=== PATIENT | male | born 1965 | race Caucasian/White ===

== ENCOUNTER 2025-03-07 13:16 | Inpatient (IN) | payer MEDICARE, MEDICAID, SELFPAY ==
[2025-03-07] VITALS (9 sets, daily range): BP systolic 91–142; BP diastolic 42–77; PULSE 82–88; RESP 16–22; TEMP 36.4–36.6; O2SAT 99–100; BMI 28.2
--- NOTE | ~2025-03-07 | US_ITS ---
US abdomen limited INDICATION: Distended gallbladder with sludge PROCEDURE: Realtime right upper abdominal ultrasound. COMPARISON: CT dated 03/07/2025 FINDINGS: The pancreas is normal without focal mass or pancreatic ductal dilation. Liver echotexture is normal without focal mass or intrahepatic biliary dilatation. There is normal directional flow i n the portal vein. There are gallstones and gallbladder sludge no gallbladder wall thickening. Common bile duct measure s 3 mm. No sonographic Lam's sign. IMPRESSION: 1: Gallstones and gallbladder contains sludge and stones. No gallbladder wall thickening or perichole cystic fluid. Reviewed, dictated and finalized at location A. IMPRESSION: 1: Gallstones and gallbladder contains sludge and stones. No gallbladder wall t hickening or pericholecystic fluid.
--- NOTE | ~2025-03-07 | CT_ITS ---
CT chest abdomen pelvis w con Ordering provider: Tianna Singh MD History: 59 years Male with . constipation, SYNCOPE . Comparison: None. Technique: CT chest with IV contrast. CT abdomen and pelvis CT abdomen and pelvis with IV and with or al contrast. Radiation reduction technique utilized.The dose-length product was 1305.27 mGy-cm. 100 m L Omnipaque 350 was given IV. FINDINGS: CHEST: --VISUALIZED THORACIC INLET: Normal. --MEDIASTINUM: Aorta/coronary arteries: Mild atheromatous disease. Heart/other: The heart is slightly 0enlarged. Lymph nodes: No mediastinal or hilar adenopathy. Paratracheal lymph node is seen measuring 1. 5 and 1 .2 cm. Precarinal lymph nodes are also seen with the largest measures 1.8 cm. Small prevascular lymph nodes are also seen. --LUNGS: No pulmonary nodules or masses. No infiltrates or effusions. No pneumothorax. --MUSCULOSKELETAL: Soft tissues: The superficial soft tissues are normal. Bones: Age appropriate degenerative changes of the spine. No suspicious bony lytic or sclerotic lesio ns. ABDOMEN/PELVIS: Right dialysis catheter is seen in the inferior IVC. --MUSCULOSKELETAL: Bones: Age appropriate degenerative changes of the spine. No suspicious bony lytic or sclerotic lesio ns. Possible multilevel bony spinal canal stenosis. Clinical evaluation advised Superficial soft tissues: The superficial soft tissues are normal. --UPPER ABDOMINAL ORGANS: Liver: Normal. Gallbladder: Distended with Stones and sludge. Spleen: Normal. Stomach/duodenum: Sliding hiatus hernia. Slightly thickened wall of the stomach. Pancreas: Normal. Adrenals: Slightly prominent left adrenal gland. Kidneys: Atrophic kidneys with horseshoe appearance. Stones seen in the left kidney. Small cyst in th e right kidney. --PELVIC ORGANS: The bladder is under distended with thickened wall. Evaluation for cystitis or infil trative process is advised. No bladder stones. --BOWEL AND MESENTERY: Colon: Thickened wall of the rectum. Clinical evaluation advised. No evidence of diverticulitis. Impa cted fecal material in the rectum is seen. Appendix is not demonstrated. Small Bowel: Normal. No obstruction. Peritoneum/mesentery: No free air or free fluid. No mesenteric lymphadenopathy. --RETROPERITONEUM: Moderate atheromatous disease of the abdominal aorta. No retroperitoneal lymphad enopathy. IMPRESSION: CHEST: 1. No pulmonary embolism. No dissection. 2. No acute cardiopulmonary pathology. 3. Mediastinal lymphadenopathy. Clinical correlation advised. ABDOMEN/PELVIS: 1. Distended gallbladder with cholelithiasis and sludge. 2. Sliding hiatus hernia. 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 4. Thickened wall of the urinary bladder. Further evaluation advised. 5. Thickened wall of the rectum. Clinical evaluation advised. Reviewed, dictated and finalized at location A.
--- NOTE | 2025-03-07 13:20 | ECG_ITS ---
Test Date: 2025-03-07 13:24:55 Measurements Intervals [place] Rate: 87 P: 46 OK: 159 QRS: -39 QRSD: 94 T: 109 QT: 405 QTc: 487 Interpretive Statements SINUS RHYTHM LEFT AXIS DEVIATION ANTEROSEPTAL INFARCT, AGE INDETERMINATE BORDERLINE ST-T WAVE ABNORMALITY- HIGH LATERAL LEADS BASELINE ARTIFACT- I, II, III, AVR, AVL, AVF ABNORMAL ECG No previous ECG available for comparison Electronically Signed On 03-07-2025 13:29:13 CDT by Olvin Rm D.O.
[2025-03-07 13:40] LABS: Mean Corpuscular HGB Conc 29.1 g/dl (32-36); Mean Corpuscular Hemoglobin 28.8 pg (26-34); Mean Platelet Volume 9.9 fl (7.4-10.4); Platelet Count Result 309 k/mm3 (150-375); Red Blood Count 2.08 M/mm3 (4.6-6.20); Red Cell Distribution Width 16.8 % (11.5-14.5); White Blood Count 19.7 K/mm3 (4.5-10.0)
[2025-03-07 13:44] LABS: Hematocrit 20.6 % (42.0-52.0)
[2025-03-07 13:49] LABS: Alanine Aminotransferase 12 U/L (6-50); Albumin Level 3.4 g/dL (3.5-5.1); Alkaline Phosphatase 85 U/L (38-126); Anion Gap 10 mmol/L (4-12); Aspartate Amino Transferase 18 U/L (17-59); Bilirubin,Total 0.4 mg/dL (0.2-1.3); Blood Urea Nitrogen 80 mg/dL (9-20); Calcium 9.4 mg/dL (8.4-10.2); Carbon Dioxide 32 mmol/L (22-30); Chloride 92 mmol/L (98-107); Estimated CRCL calculation 17 ml/min; Estimated Glomerular Filt Rate 16; Glucose 144 mg/dL (65-110); Potassium 4.2 mmol/L (3.4-5.0); Sodium 134 mmol/L (137-145)
--- NOTE | 2025-03-07 13:55 | ED.WEAKNESS ---
HPI - Weakness General Chief complaint: Weakness Stated complaint: syncope at dialysis Time Seen by Provider: 03/07/25 13:44 Source: patient Mode of arrival: EMS Limitations: no limitations History of Present Illness HPI Narrative: 59-year-old with a history of hypertension, anemia, ESRD on hemodialysis was scented from dialysis center with a complains of marked weakness, syncopal episode-the patient states that his nursing and for the past 6 weeks to months he has been having intermittent constipation. He denies having any nausea, vomiting. No history of fever or chills denies any blood in the stool or black color stool. 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 MD Complaint: generalized weakness Review of Systems Review of Systems: All systems reviewed & are unremarkable except as noted in HPI and below Constitutional: Constitutional: Reports no additional constitutional complaints Eyes: Eyes: Reports no additional eye complaints ENT: Reports system reviewed and no additional complaints, except as documented Cardiovascular: Cardiovascular: Reports no additional cardiovascular complaints Gastrointestinal: Gastrointestinal: Reports no additional gastrointestinal complaints Musculoskeletal: Musculoskeletal: Reports no additional musculoskeletal complaints Neurologic: Reports system reviewed and no additional complaints, except as documented Psychiatric: Psychiatric: Reports no additional psychiatric complaints Endocrine: Endocrine: Reports no additional endocrine complaints Exam Narrative: GENERAL: Well-appearing, well-nourished, and in no acute distress. HEAD: Normocephalic, atraumatic. EYES: PERRLA and EOMI. ENT:. Mucous membranes moist. NECK: Supple. CHEST: Clear to auscultation. No respiratory distress. HEART: Regular rate and rhythm. No murmur heard. Normal peripheral pulses. ABDOMEN: Soft, nontender, nondistended, normal active bowel sounds. EXTREMITIES: Normal range of motion. No edema. SKIN: Warm, dry, no rash. NEURO: No focal deficits. Alert and oriented x3. PSYCH: Normal mood and affect. Course Course Emergency Course: I informed him about his lab work , agreed for blood transfusion . discussed with Dr. De La Garza recommended to admit and transfuse ,discussed with Hospitalist ,will admit Vital Signs Vital signs: Vital Signs Temperature 36.6 C 03/07/25 13:22 Pulse Rate 84 03/07/25 13:22 Respiratory Rate 18 03/07/25 13:22 Blood Pressure 105/58 L 03/07/25 13:22 Pulse Oximetry 100 03/07/25 13:22 Oxygen Delivery Room Air 03/07/25 13:22 Temperature 36.6 C 03/07/25 13:22 Pulse Rate 84 03/07/25 13:22 Respiratory Rate 18 03/07/25 13:22 Blood Pressure 105/58 L 03/07/25 13:22 Pulse Oximetry 100 03/07/25 13:22 Oxygen Delivery Room Air 03/07/25 13:22 MDM - Weakness Differential Diagnosis Differential diagnosis: Likely anemia, sepsis and dehydration Medical Records Attestation: I reviewed the patient's medical records. Lab Data Attestation: I reviewed the patient's lab results. 03/07/25 13:35 03/07/25 13:35 Labs: Lab Results 03/07/25 Range/Units 13:35 WBC 19.7 H (4.5-10.0) K/mm3 RBC 2.08 L (4.6-6.20) M/mm3 Hgb 6.0 L* (14.0-18.0) g/dL Hct 20.6 L* (42.0-52.0) % MCV 99.0 (80-100) fl MCH 28.8 (26-34) pg MCHC 29.1 L (32-36) g/dl RDW 16.8 H (11.5-14.5) % Plt Count 309 (150-375) k/mm3 MPV 9.9 (7.4-10.4) fl Immature Gran % (Auto) 0.7 H (0-0.5) % Neut % (Auto) 91.2 H (45.5-73.1) % Lymph % (Auto) 4.7 L (18.3-44.2) % [place] % (Auto) 3.0 (2.6-8.5) % Eos % (Auto) 0.2 (0-4.4) % Baso % (Auto) 0.2 (0.2-1.2) % Lymph # (Auto) 0.93 (0.9-3.2) K/mm3 [place] # (Auto) 0.6 (0.1-0.6) K/mm3 Eos # (Auto) 0.0 (0-0.3) K/mm3 Baso # (Auto) 0.0 (0.0-0.1) K/mm3 Abs Immat Gran (auto) 0.14 H (0.00-0.031) K/mm3 Absolute Neuts (auto) 18.0 H (1.3-6.7) K/mm3 Absolute Nucleated RBC 0.000 (0.0-0.012) K/mm3 Nucleated RBC % 0.0 (0.0-0.2) % Sodium 134 L (137-145) mmol/L Potassium 4.2 (3.4-5.0) mmol/L Chloride 92 L (98-107) mmol/L Carbon Dioxide 32 H (22-30) mmol/L Anion Gap 10 (4-12) mmol/L BUN 80 H (9-20) mg/dL Creatinine 3.87 H (0.7-1.3) mg/dL Estim Creat Clear Calc 17 ml/min Estimated GFR 16 L (59 - ) Glucose 144 H (65-110) mg/dL Calcium 9.4 (8.4-10.2) mg/dL Total Bilirubin 0.4 (0.2-1.3) mg/dL AST 18 (17-59) U/L ALT 12 (6-50) U/L Alkaline Phosphatase 85 (38-126) U/L Total Protein 6.0 L (6.3-8.2) g/dL Albumin 3.4 L (3.5-5.1) g/dL ECG Data EKG #1: ECG completion date: 03/07/25 ECG completion time: 13:24 EKG Interpretation: normal rate (87), no ectopy, non-specific ST changes and left axis Critical Care Time Critical Care Time Critical Care Time: Yes Total Critical Care Time: 45 Discharge Plan Discharge Clinical Impression: Anemia Qualifiers: Anemia type: due to chronic kidney disease Chronic kidney disease stage: on chronic dialysis Qualified Code(s): N18.6 - End stage renal disease; D63.1 - Anemia in chronic kidney disease; Z99.2 - Dependence on renal dialysis Patient Disposition: Still a Patient Condition: Stable Patient Language: Mongolian Time of Disposition: 13:59
[2025-03-07 14:09] LABS: Platelet Estimate Adequate (Adequate)
[2025-03-07 14:10] LABS: Anisocytosis 1+; Hypochromasia 1+; Schistocytes None Seen
--- NOTE | 2025-03-07 14:27 | PM.IMHP ---
H&P: HPI History of Present Illness Date/Time: 03/07/25 14:27 Meds Vital Signs Vital Signs - 24 hr 03/07/25 13:22 Temperature 97.8 F Pulse Rate 84 Respiratory Rate 18 Blood Pressure 105/58 L Pulse Oximetry 100 Oxygen Delivery Room Air H&P: Results Labs Labs: Short CBC 03/07/25 Range/Units 13:35 WBC 19.7 H (4.5-10.0) K/mm3 Hgb 6.0 L* (14.0-18.0) g/dL Hct 20.6 L* (42.0-52.0) % Plt Count 309 (150-375) k/mm3 BMP 03/07/25 13:35 Sodium 134 L Potassium 4.2 Chloride 92 L Carbon Dioxide 32 H BUN 80 H Creatinine 3.87 H Glucose 144 H Calcium 9.4 Liver Function 03/07/25 Range/Units 13:35 Total Bilirubin 0.4 (0.2-1.3) mg/dL AST 18 (17-59) U/L ALT 12 (6-50) U/L Alkaline Phosphatase 85 (38-126) U/L Albumin 3.4 L (3.5-5.1) g/dL
--- OUTSIDE RECORDS SUMMARY | 2025-03-07 14:52 | XMS_ITS | Encounter Summary ---
Author Organization [facility] Address [facility] [place] [address] Care Team Providers Care Medical Intern Name Role Phone Lucy Flores NUT FEEDER Unavailable [phone] Glenn Dale DO Unavailable Keya Morales [facility] Primary Care Provider + Beau Zuñiga MD Primary Care Provider None, Provider MD Unavailable Unavailable Encounter Details Date Type Department Care Team (Latest Contact Info) Description 02/08/2024 Spartz Message [facility] Multispecialty Care - [facility] 3 [facility], [address] [id number] Yen, [facility] Provider Appointment Reminder Social History Tobacco Use Types Packs/Day Years Used Date Smoking Tobacco: Never Smokeless Tobacco: Never Alcohol Use Standard Drinks/Week Comments No 0 (1 standard drink = 0.6 oz pur e alcohol) OASIS D0700: Social Isolation Answer Da te Recorded Frequency of experiencing loneliness or isolatio n Never 05/04/2023 OASIS A1250: Transportation Answer Date Recorded Lack of Transportation (Medical) No 05/04/2023 Lack of Transportation (Non-Medical) No 05/04/2023 Patient Unable or Declines to Respond No 05/04/2023 OASIS B1300: Health Literacy Answer Jr e Recorded Frequency of needing help to read materials from doctor or pharmacy Never 05/04/2023 [facility] Utilities Answer Date Recorded In the past 12 months has th e [employer], gas, oil, or water [employer] threatened to shut off services in your home? No 12/31/2023 Humiliation, Afraid, Rape, and Kick questionnair e Answer Date Recorded Within the last year, have y ou been afraid of your partner or ex-partner? No 12/31/2023 Within the last year, have y ou been humiliated or emotionally abused in other ways by your partner or ex-partner? No Within the last year, have y ou been kicked, hit, slapped, or otherwise physically hurt by your partner or ex-partner? No 12/31/2023 Within the last year, have y ou been raped or forced to have any kind of sexual activity by your partner or ex-partner? No 12/31/2023 Social Connection and Isolat ion Panel [NHANES] Answer Date Recorded In a typical week, how many times do you talk on the phone with family, friends, or neighbors? More than three times a week 11/01/2023 How often do you get togethe r with friends or relatives? Once a week 11/01/2023 How often do you attend chur or yarsani services? More than 4 times per year 11/01/2023 Do you belong to any clubs o r organizations such as latter-day groups, unions, fraternal or athletic groups, or school groups? Yes 11/01/2023 How often do you attend meet ings of the clubs or organizations you belong to? More than 4 times per year 11/01/2023 Are you , , di vorced, , never , or living with a partner? Never 11/01/2023 AUDIT-C Answer Date Recorded Q1: How often do you have a drink containing alcohol? Never 11/01/2023 Q2: How many drinks containi ng alcohol do you have on a typical day when you are drinking? Patient does not drink Q3: How often do you have si x or more drinks on one occasion? Never 11/01/2023 Overall Financial Resource Strain (CARDIA) Answe r Date Recorded How hard is it for you to pa y for the very basics like food, housing, medical care, and heating? Somewhat hard 12/31/2023 PHQ-2 Answer Date Recorded Patient Health Questionnaire-2 Score 0 02/01/2024 [facility] - Occupational Stress Questionnaire Answer Date Recorded Do you feel stress - tense, restless, nervous, or anxious, or unable to sleep at night because your mind is troubled all the time - these days? Rather much 11/01/2023 Exercise Vital Sign Answer Date Recorde d On average, how many days pe r week do you engage in moderate to strenuous exercise (like a brisk walk)? 0 days 11/01/2023 On average, how many minutes do you engage in exercise at this level? 0 min 11/01/2023 Hunger Vital Sign Answer Date Recorded Within the past 12 months, y ou worried that your food would run out before you got the money to buy more. Never true 12/31/19 24 Within the past 12 months, t he food you bought just didn't last and you didn't have money to get more. Never true 12/31/2023 PRAPARE - Transportation Answer Date Re corded In the past 12 months, has l ack of transportation kept you from medical appointments or from getting medications? Yes 12/21 In the past 12 months, has l ack of transportation kept you from meetings, work, or from getting things needed for daily living? Yes 12/31/2023 Housing Stability Vital Sign Answer Jr e Recorded In the last 12 months, was t here a time when you were not able to pay the mortgage or rent on time? No 12/31/2023 In the last 12 months, how many places have you lived? 2 12/31/2023 In the last 12 months, was t here a time when you did not have a steady place to sleep or slept in a longterm (including now)? No 12/31/2023 Sex and Gender Information Value Date Recorded Sex Assigned at Male 05/29/2020 4:58 PM CDT Legal Sex Male 1:46 AM CDT Gender Identity Male 05/29/2020 4:58 PM CDT Sexual Orientation [place] 11/25/2021 10 :24 AM WELDER MANUFACTURE documented as of this encounter Functional Status * Are you deaf or do you have serious difficulty hearing Answer Date of Assessment Author Status No 12/31/2023 9:50 PM Alesia Juarez RN Active * Are you blind or do you have serious difficulty seeing, even when wearing glasses? Answer Date of Assessment Author Status No 12/31/2023 9:50 PM Alesia Juarez RN Active * Do you have serious difficulty walking or climbing stairs? Answer Date of Assessment Author Status Yes 12/31/2023 9:50 PM Alesia Juarez RN Active * Do you have difficulty dressing or bathing? Answer Date of Assessment Author Status Yes 12/31/2023 9:50 PM Alesia Juarez RN Active * Because of a physical, mental, or emotional condition, do you have difficulty doing errands alone such as visiting a doctor's office or shopping? Answer Date of Assessment Author Status Yes 12/31/2023 9:50 PM Alesia Juarez RN Active documented as of this encounter Mental Status * Because of a physical, mental, or emotional condition, do you have serious difficulty concentrating, remembering, or making decisions? Answer Entry Date Author Status No 12/31/2023 9:50 PM Alesia Juarez RN Active documented in this encounter Plan of Treatment Not on file documented as of this encounter Goals Goal Patient Goal Type Associated Problems Recent Progress Patient-Stated? 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 06/25/2024 06/25/2024 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 06/28/2024 06/28/2024 COVID-19 Rule Out 08/04/2024 08/04/2024 08/04/2024 4:11 PM CDT COVID-19 Rule Out 08/04/2024 08/05/2024 08/05/2024 3:59 AM CDT COVID-19 Rule Out 11/25/2024 11/25/2024 11/25/2024 3:06 PM WELDER MANU[employer] Influenza - Seasonal 11/25/2024 11/25/2024 025 12:32 AM WELDER MANUFACTURE Assessment Noted Time PHQ-9 Depression Total Score: 023 11:16 AM WELDER MANUFACTURE documented as of this encounter Care Teams Medical Intern Relationship Specialty Start Date End Date Keya Morales, AUTOMOBILE DAMAGE FIELD APPRAISER- [address] [place] [address] PCP - General NURSE PRACTITIONER 10/26/22 05/21/24 Beau Z[place] [address] [place] [address] PCP - General FAMILY PRACTICE 05/22/24 Lucy Flores NP Nurse Practitioner NURSE PRACTITIONER 01/11/22 Glenn Dale DO Consulting Physician INTERNAL MEDICINE 01/11/22 None, Provider, MD UNKNOWN PHYSICIAN SPECIALTY 11/25/24 documented as of this encounter
--- OUTSIDE RECORDS SUMMARY | 2025-03-07 14:52 | XMS_ITS | Encounter Summary ---
Author Organization [facility] Address [facility] access hospital[address] [place] [address] Care Team Providers Care Timber Estimator Name Role Phone Lucy Flores SR COMMUNITY MANAGER Unavailable [phone] Glenn Dale DO Unavailable Keya Morales [facility] Primary Care Provider + Beau Zuñiga MD Primary Care Provider None, Provider MD Unavailable Unavailable Encounter Details Date Type Department Care Team (Late st Contact Info) Description 01/29/2024 Historic Futures Message [facility] Multispecialty Care - [facility] 3 [facility], [address] [phone] Yen, [facility] Provider Appointment Social History Tobacco Use Types Packs/Day Years [...] materials from doctor or pharmacy Never 05/04/2023 [facility] Utilities Answer Date Recorded In the past 12 months has th e [employer], gas, oil, or water [employer] threatened to shut off services in your [...] How often do you attend chur or temple services? More than 4 times per year 11/01/2023 Do you belong to any clubs o r organizations such as denominational groups, unions, fraternal or athletic groups, or [...] Recorded Patient Health Questionnaire-2 Score 0 02/01/2024 [facility] - Occupational Stress Questionnaire Answer [...] place to sleep or slept in a skilled nursing (including now)? No 12/31/2023 Sex and Gender Information Value Date Recorded Sex Assigned at Male 05/29/2020 4:58 PM CDT Legal Sex Male 1:46 AM CDT Gender Identity Male 05/29/2020 4:58 PM CDT Sexual Orientation [place] 11/25/2021 10 :24 AM BANKRUPTCY LAW SPECIALIST documented as of this encounter Functional Status [...] 9:50 PM Alesia Juarez RN Active * Over the past 2 weeks, how often have you been bothered by any of the following problems? Question Answer Date of Assessment Author Status Little interest or pleasure in doing things Not at all 02/01/2024 10:22 AM Grace Cook MA Active Feeling down, depressed, or hopeless Not at all 02/01/2024 10:22 AM JASBIRT Grace Connor MA Activ e Patient Health Questionnaire-2 Score 0 02/01/2024 10:22 AM Grace Cook MA Active documented as of this encounter Mental [...] Depression, or Anxiety General No Rosibel Miller, MEDICAL STAFF DIRECTOR Patient will return to prior living situation [...] Rule Out 11/25/2024 11/25/2024 11/25/2024 3:06 PM BANKRUPTCY LAW SPECIALIST Influenza - Seasonal 11/25/2024 11/25/2024 025 12:32 AM BANKRUPTCY LAW SPECIALIST Assessment Noted Time PHQ-9 Depression Total Score: 24 023 11:16 AM BANKRUPTCY LAW SPECIALIST documented as of this encounter Care Teams Timber Estimator Relationship Specialty Start Date End Date Keya Morales, FORMATION TESTING OPERATOR- [address] [address] PCP - General NURSE PRACTITIONER 10/26/22 05/21/24 Beau Zuñ[place] [address] [place] [address] PCP - General FAMILY PRACTICE 05/22/24 Lucy Flores NP Nurse Practitioner NURSE PRACTITIONER 01/11/22 Glenn Dale DO Consulting Physician INTERNAL MEDICINE 01/11/22 None, Provider, MD UNKNOWN PHYSICIAN SPECIALTY 11/25/24 documented as of this encounter
--- OUTSIDE RECORDS SUMMARY | 2025-03-07 14:52 | XMS_ITS | Encounter Summary ---
Author Organization [facility] Address [facility] [place] [address] Care Team Providers Care Matchbook Assembler Name Role Phone Lucy Flores NP Unavailable [phone] Glenn Dale DO Unavailable Beau Zuñiga MD Primary Care Provider None, Provider MD Unavailable Unavailable Encounter Details Date Type Department Care Team (Latest Contact Info) Description 09/02/2024 [employer] Message Enc [facility] [address] [address] Yen, [facility] Provider APPOINTMENT RESCHEDULED Social History Tobacco Use Types Packs/Day Years [...] materials from doctor or pharmacy Never 05/04/2023 [facility] Utilities Answer Date Recorded In the past 12 months has e [employer], [employer], oil, or water [employer] threatened to shut off services in your home? No 08/05/2024 Humiliation, Afraid, Rape, and Kick questionnair e Answer Date Recorded Within the last year, have y ou been afraid of your partner or ex-partner? No 08/05/2024 Within the last year, have y ou been humiliated or emotionally abused in other ways by your partner or ex-partner? No Within the last year, have y ou been kicked, hit, slapped, or otherwise physically hurt by your partner or ex-partner? No 08/05/2024 Within the last year, have y ou been raped or forced to have any kind of sexual activity by your partner or ex-partner? No 08/05/2024 Social Connection and Isolat ion Panel [NHANES] Answer Date Recorded In a typical week, how many times do you talk on the phone with family, friends, or neighbors? More than three times a week 06/25/2024 How often do you get togethe r with friends or relatives? Once a week 06/25/2024 How often do you attend chur ch or taoism services? More than 4 times per year 06/25/2024 Do you belong to any clubs o r organizations such as judaism groups, unions, fraternal or athletic groups, or school groups? Yes 06/25/2024 How often do you attend meet ings of the clubs or organizations you belong to? More than 4 times per year 06/25/2024 Are you , , di vorced, , never , or living with a partner? Never 06/25/2024 AUDIT-C Answer Date Recorded Q1: How often [...] like food, housing, medical care, and heating? Not hard at all 08/05/2024 PHQ-2 Answer Date Recorded Patient Health Questionnaire-2 Score 0 08/01/2024 [facility] [place] of Occupat ional [facility] - Occupational Stress Questionnaire Answer Date Recorded Do you feel stress - tense, restless, nervous, or anxious, or unable to sleep at night because your mind is troubled all the time - these days? Rather much 06/25/2024 Exercise Vital Sign Answer Date Recorde d [...] the money to buy more. Never true 08/05/20 24 Within the past 12 months, t he food you bought just didn't last and you didn't have money to get more. Never true 08/05/2024 PRAPARE - Transportation Answer Date Re corded In the past 12 months, has l ack of transportation kept you from medical appointments or from getting medications? No 07/21 In the past 12 months, has l ack of transportation kept you from meetings, work, or from getting things needed for daily living? No 08/05/2024 Housing Stability Vital Sign Answer Jr e [...] place to sleep or slept in a nursing home (including now)? No 12/31/2023 Housing Stability Vital Sign Answer Jr e Recorded In the last 12 months, was t here a time when you were not able to pay the mortgage or rent on time? No 08/05/2024 In the past 12 months, how m any times have you moved where you were living? 0 08/05/2024 At any time in the past 12 m [facility], were you homeless or living in a nursing home (including now)? No 08/05/2024 Sex and Gender Information Value Date Recorded Sex Assigned at Male 05/29/2020 4:58 PM CDT Legal Sex Male 1:46 AM CDT Gender Identity Male 05/29/2020 4:58 PM CDT Sexual Orientation [place] 11/25/2021 10 :24 AM SYSTEM SOFTWARE DEVELOPER documented as of this encounter Functional Status * Are you deaf or do you have serious difficulty hearing Answer Date of Assessment Author Status No 08/05/2024 2:15 AM Sandy Rowe RN Active * Are you blind or do you have serious difficulty seeing, even when wearing glasses? Answer Date of Assessment Author Status No 08/05/2024 2:15 AM Sandy Rowe RN Active * Do you have serious difficulty walking or climbing stairs? Answer Date of Assessment Author Status Yes 08/05/2024 2:15 AM Sandy Rowe RN Active * Do you have difficulty dressing or bathing? Answer Date of Assessment Author Status No 08/05/2024 2:15 AM Sandy Rowe RN Active * Because of a physical, mental, or emotional condition, do you have difficulty doing errands alone such as visiting a doctor's office or shopping? Answer Date of Assessment Author Status No 08/05/2024 2:15 AM Sandy Rowe RN Active documented as of this encounter Mental Status * Because of a physical, mental, or emotional condition, do you have serious difficulty concentrating, remembering, or making decisions? Answer Entry Date Author Status No 08/05/2024 2:15 AM Sandy Rowe RN Active documented in this encounter Plan of Treatment Not on file documented as of this encounter Goals Goal Patient Goal Type Associated Problems Recent Progress Patient-Stated? Author Manage Stress, Depression, or Anxiety General No Rosibel Miller, FBI INVESTIGATOR Patient will return to prior living situation and remain independent in ADLs upon discharge from hospital General No Piedad Keith hand welt butter - family caregiver with be involved in care transitions and discharge planning Lifestyle No Piedad Keith RN Health - patient able to perform ADLs independently Lifestyle No Brianna Hutton RN Family - family caregiver with be involved in care transitions and discharge planning Lifestyle No Brianna Hutton RN documented as of this encounter Visit Diagnoses Not on filedocumented in this encounter Additional Health Concerns Infection Onset Date Last Indicated Resolved Time ESBL - Extended Spectrum Beta-lactamase Comment:06/25/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 foot 06/25/2024 06/25/2024 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 06/25/2024 06/25/2024 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 06/28/2024 06/28/2024 COVID-19 Rule Out 11/25/2024 11/25/2024 11/25/2024 3:06 PM SYSTEM SOFTWARE DEVELOPER Influenza - Seasonal 11/25/2024 11/25/2024 025 12:32 AM SYSTEM SOFTWARE DEVELOPER Assessment Noted Time PHQ-9 Depression Total Score: 24 023 11:16 AM SYSTEM SOFTWARE DEVELOPER documented as of this encounter Care Teams Matchbook Assembler Relationship Specialty Start Date End Date Beau Zuñ[place] [address] [place] [address] PCP - General FAMILY PRACTICE 05/22/24 Lucy Flores NP Nurse Practitioner NURSE PRACTITIONER 01/11/22 Glenn Dale DO Consulting Physician INTERNAL MEDICINE 01/11/22 None, Provider, UNKNOWN PHYSICIAN SPECIALTY 11/25/24 documented as of this encounter
--- OUTSIDE RECORDS SUMMARY | 2025-03-07 14:52 | XMS_ITS | Continuity of Care Document ---
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 Name Role Phone Brian Azevedo MD Unavailable [...] SHUNT W/ IMAGING ANGIOPLASTY PERC VENOUS ANGIOGRAPHY UTILIZATION REVIEW RN Radiation Exposure Documented To Be Coded CONTRAST, 300/ML, PER ML ARTERIOVENOUS SHUNT W/ IMAGING To Be Coded CONTRAST, 300/ML, PER ML ARTERIOVENOUS SHUNT W/ IMAGING ANGIOPLASTY PERC VENOUS ANGIOGRAPHY UTILIZATION REVIEW RN To Be Coded CONTRAST, 300/ML, PER ML ARTERIOVENOUS SHUNT W/ IMAGING ANGIOPLASTY PERC VENOUS ANGIOGRAPHY UTILIZATION REVIEW RN Radiation Exposure Documented To Be Coded CONTRAST, [...] Diagnoses Date Provider Providers Copied on Encounter [facility], [address] [facility], [place], [address] , [place] tel: [phone] [facility] No Information 3 Albjoseas Brian. [address] [facility] [place], [address] , [place]. tel: [phone] [facility] , [address] [facility] [place], [address] , [place] tel: [phone] [facility] 3 Albovias Brian. [address] [facility] [place], [address] , [place]. tel: [phone] Referring Provider: Sylvia García, [facility], [place], [address]. tel:[phone] [facility], [address] [facility] [place], [address] , [place] tel: [phone] [facility] 3 Roberto Carlos Torres. [address] [facility], [place], [address] , [place]. tel: [phone] Referring Provider: Sylvia García [address] [place], [address]. tel:[phone] [facility] , [address] [facility] [place], [address] , [place] tel: [phone] [facility] End stage renal diseaseCompression of Vein 3 Albovias Brian. [address] [facility], [facility] [place], [address] , [place]. tel: [phone] Referring Provider: Sylvia García, [address] [place], [address]. tel:[phone] [facility], [address] [facility], [facility] [place], [address] , [place] tel: [phone] [facility] Compression of VeinEnd stage renal disease 3 Albovias Brian. [address] [facility], [facility] [place], [address] , [place]. tel: [phone] Referring Provider: Sylvia García, [address] [place], [address]. tel:[phone] [facility], [address] [facility], [facility] [place], [address] , [place] tel: [phone] [facility] Compression of VeinEnd stage renal disease 3 Albovias Brian. [address] [facility], [facility] [place], [address] , [place]. tel: [phone] Referring Provider: Sylvia García [address] [place], [address]. tel:[phone] [facility] , [address] [facility], [facility] [place], [address] , [place] tel: [phone] [facility] End stage renal diseaseCompression of Vein 3 Albovias Brian. [address] [facility], [facility] [place], [address] , [place]. tel: [phone] Referring Provider: Sylvia García [address] [place], [address]. tel:[phone] [facility] , [address] [facility], [facility], [place], [address] , [place] tel: [phone] [facility] Compression of VeinCompression of VeinEnd stage renal diseaseEnd stage renal disease 1 Albovias Brian. [address] [facility], [facility], [place], [address] , [place]. tel: [phone] Referring Provider: Shant Nayak[address] [place], [address]. tel:[phone] [facility], [address] [facility], [facility], [place], [address] , [place] tel: [phone] [facility] Compression of VeinEnd stage renal diseaseCompression of VeinEnd stage renal disease 1 Albovias Brian. [address] [facility], [facility], [place], [address] , [place]. tel: [phone] Referring Provider: Shant Nayak[address] [place], [address]. tel:[phone] [facility] , [address] [facility], [facility], [place], [address] , [place] tel: [phone] [facility] End stage renal diseaseCompression of Vein 1 Albovias Brian. [address] [facility], [facility], [place], [address] , [place]. tel: [phone] Referring Provider: Shant Nayak[address] [place], [address]. tel:[phone] [facility], [address] [facility], [facility], [place], [address] , [place] tel: [phone] [facility] Compression of VeinEnd stage renal disease 1 Albovias Brian. [address] [facility], [facility] [place], [address] , [place]. tel: [phone] Referring Provider: Shant Nayak[address] [place], [address]. tel:[phone] [facility] , [address] [facility], [facility], [place], [address] , [place] tel: [phone] [facility] Compression of VeinEnd stage renal disease 1 Albovias Brian. [address] [facility], [facility], [place], [address] , [place]. tel: [phone] Referring Provider: Sylvia García [address] [place], [address]. tel:[phone] [facility], [address] [facility], [facility], [place], [address] , [place] tel: [phone] [facility] Compression of VeinEnd stage renal disease 1 Albovias Brian. [address] [facility], [facility], [place], [address] , [place]. tel: [phone] Referring Provider: Sylvia García [address] [place], [address]. tel:[phone] [facility], [address] [facility], [facility], [place], [address] , [place] tel: [phone] [facility] Compression of VeinEnd stage renal disease 1 Albovias Brian. [address] [facility], [facility], [place], [address] , [place]. tel: [phone] Referring Provider: Sylvia García [address] [place], [address]. tel:[phone] [facility] , [address] [facility], [facility], [place], [address] , [place] tel: [phone] [facility] End stage renal diseaseCompression of Vein 1 Albovias Brian. [address] [facility], [place], [address] , [place]. tel: [phone] Referring Provider: Sylvia García [address] [place], [address]. tel:[phone] [facility], [address] [facility], [place], [address] , [place] tel: [phone] [facility] Compression of VeinEnd stage renal disease 0 Albovias Brian. [address] [facility], [facility] [place], [address] , [place]. tel: [phone] Referring Provider: Shant Nayak[address] [place], [address]. tel:[phone] [facility] , [address] [facility], [facility] [place], [address] , [place] tel: [phone] [facility] Compression of VeinEnd stage renal disease 0 Albovias Brian. [address] [facility], [facility] [place], [address] , [place]. tel: [phone] Referring Provider: Shant Nayak[address] [place], [address]. tel:[phone] [facility], [address] [facility], [facility] [place], [address] , [place] tel: [phone] [facility] Compression of VeinEnd stage renal disease 0 Albovias Brian. [address] [facility], [place], [address] , [place]. tel: [phone] Referring Provider: Shant Nayak[address] [place], [address]. tel:[phone] [facility] , [address] [facility], [place], [address] , [place] tel: [phone] [facility] No Information 0 Albovias Brian. [address] [facility], [place], [address] , [place]. tel: [phone] Referring Provider: Shant Nayak[address] [place], [address]. tel:[phone] [facility] , [address] [facility], [place], [address] , [place] tel: [phone] [facility] No Information 9 Albovias Brian. [address] [facility], [place], [address] , [place]. tel: [phone] Referring Provider: Sylvia García [address] [place], [address]. tel:[phone] [facility], [address] [facility], [facility] [place], [address] , [place] tel: [phone] [facility] Other specified circulatory system disordersEnd stage renal disease 9 Albovias Brian. [address] [facility], [facility] [place], [address] , [place]. tel: [phone] Referring Provider: Sylvia García [address] [place], [address]. tel:[phone] OFFICE/OUTPAT IENT VISIT, [facility], [address] [facility], [facility] [place], [address] , [place] tel: [phone] [facility] End stage renal disease 9 Albovias Brian. [address] [facility], [facility] [place], [address] , [place]. tel: [phone] Referring Provider: Sylvia García [address] [place], [address]. tel:[phone] [facility] , [address] [facility], [facility] [place], [address] , [place] tel: [phone] [facility] No Information 9 Albovias Brian. [address] [facility], [facility] [place], [address] , [place]. tel: [phone] Referring Provider: Sylvia García [address] [place], [address]. tel:[phone] OFFICE/OUTPAT IENT VISIT, [facility], [address] [facility], [facility] [place], [address] , [place] tel: [phone] [facility] Other specified circulatory system disordersEnd stage renal disease 9 Albovias Brian. [address] [facility], [facility] [place], [address] , [place]. tel: [phone] Referring Provider: Shant Nayak[address] [place], [address]. tel:[phone] [facility] , [address] [facility], [facility] [place], [address] , [place] tel: [phone] [facility] No Information 9 Albovias Brian. [address] [facility], [facility] [place], [address] , [place]. tel: [phone] Referring Provider: Shant Nayak[address] [place], [address]. tel:[phone] [facility] , [address] [facility], [facility] [place], [address] , [place] tel: [phone] [facility] No Information 9 Albovias Brian. [address] [facility], [facility] [place], [address] , [place]. tel: [phone] Referring Provider: [address] [place], [address]. tel:[phone] [facility], [address] [facility], [facility] [place], [address] , [place] tel: [phone] [facility] Compression of VeinOther specified circulatory system disordersOther complications due to renal dialysis device, implant, and graftEnd stage renal diseaseCompression of VeinOther specified circulatory system disordersOther complications due to renal dialysis device, implant, and graftEnd stage renal disease 9 Albovias Brian. [address] [facility], [facility] [place], [address] , [place]. tel: [phone] Referring Provider: Shant Nayak[address] [place], [address]. tel:[phone] [facility] , [address] [facility], [facility] [place], [address] , [place] tel: [phone] [facility] No Information 8 Albovias Brian. [address] [facility], [facility] [place], [address] , [place]. tel: [phone] Referring Provider: Shant Nayak[address] [place], [address]. tel:[phone] [facility], [address] [place] [address], [id number] , tel: [phone] [facility] Compression of VeinStricture of ArteryOther complications due to renal dialysis device, implant, and graftEnd stage renal disease 0- 8 Albovias Brian. 201 [facility], [place], [address] , [place]. tel: [phone] Referring Provider: Sylvia García [address] [place], [address]. tel:[phone] [facility], [address] [facility], [place], [address] , [place] tel: [phone] [facility] HTNCompression of VeinOther complications due to renal dialysis device, implant, and graftEnd stage renal diseaseCompression of VeinOther complications due to renal dialysis device, implant, and graftEnd stage renal disease 8 Albovias Brian. [address] [facility], [place], [address] , [place]. tel: [phone] Referring Provider: Shant Nayak[address] [place], [address]. tel:[phone] [facility] , [address] [place] [address], [place], [address] , [place] tel: [phone] [facility] End stage renal diseaseOther complications due to renal dialysis device, implant, and graft 7 Albovias Brian. [address] [facility], [place], [address] , [place]. tel: [phone] Referring Provider: Shant Nayak[address] [place], [address]. tel:[phone] [facility] , [address] [place] [address], [place], [address] , tel: [phone] [facility] Compression of VeinEnd stage renal diseaseOther complications due to renal dialysis device, implant, and graft 7 Albovias Brian. [address] [place], [place], [address] , [place]. tel: [phone] Referring Provider: Jonh Gallardo, [address] [place] [address], [address]. tel:[phone] [facility] , [address] [facility], [facility], [place], [address] , [place] tel: [phone] [facility] End stage renal diseaseOther complications due to renal dialysis device, implant, and graft Dec- 6 Bhoot Veeral. [address] [place], [address], [place]. tel: [phone] Referring Provider: Jonh Gallardo, [address] [place] [address], [address]. tel:[phone] [facility] , [address] [place] [address], [place], [address] , [place] tel: [phone] [facility] Compression of Vein Sep- 6 Albovias Brian. [address] [facility], [place], [address] , [place]. tel: [phone] Referring Provider: Jonh Gallardo, [address] [place] [address], [address]. tel:[phone] [facility] , [address] [place] [address], [place], [address] , [place] tel: [phone] [facility] Compression of VeinEnd stage renal diseaseOther complications due to renal dialysis device, implant, and graft Andrew- 6 Albovias Brian. [address] [facility], [place], [address] , [place]. tel: [phone] Referring Provider: Jonh Gallardo, [address] [place] [address], [address]. tel:[phone] [facility] , [address] [place] [address], [place], [address] , [place] tel: [phone] [facility] No Information Mar- 0- 6 Albovias Brian. [address] [facility], [place], [address] , [place]. tel: [phone] [facility] , [address] [place], [place] [address], [place], [address] , [place] tel: [phone] [facility] End stage renal diseaseSwelling of limbOther complications due to renal dialysis device, implant, and graft 0 6 Albovias Brian. [address] [facility], [facility], [place], [address] , [place]. tel: [phone] Referring Provider: Jonh Gallardo, [address] [place] [address], [address]. tel:[phone] [facility] , [address] [facility], [facility], [place], [address] , [place] tel: [phone] [facility] No Information 5 Bhoot Veeral. 201 [facility], [place], [address], [place]. tel: [phone] [facility] , [address] [place] [address], [place], [place], [address] , [place] tel: [phone] [facility] 5 Bhoot Veeral. 201 [facility], [place], [address], [place]. tel: [phone] Referring Provider: Jonh Gallardo, [address] [place] [address], [address]. tel:[phone] [facility] , [address] [facility], [facility], [place], [address] , [place] tel: [phone] [facility] End stage renal disease 5 Livia Lior. [address] [facility], [place], [address]. tel: [phone] Referring Provider: Jonh Gallardo, [address] [place] [address], [address]. tel:[phone] [facility] , [address] [place] [address], [facility], [place], [address] , [place] tel: [phone] [facility] Other specified circulatory system disordersEnd stage renal disease 5 Livia Lior. 201 [facility] [place], [address]. tel: [phone] Referring Provider: Jonh Gallardo, [address] [place] [address], [address]. tel:[phone] [facility] , [address] [facility], [place], [place], [address] , tel: [phone] [facility] Other specified circulatory system disordersEnd stage renal diseaseOther complications due to renal dialysis device, implant, and graft 3 5 Livia Lior. [address] [facility], [place], [address]. tel: [phone] Referring Provider: Jonh Gallardo, [address] [place] [address], [address]. tel:[phone] [facility] , [address] [facility], [place], [place], [address] , tel: [phone] [facility] Other specified circulatory system disordersEnd stage renal disease 0 6 5 Livia Lior. [address] [place], [address]. tel: [phone] Referring Provider: Jonh Gallardo, [address] [place] [address], [address]. tel:[phone] [facility] , [address] [facility], [place], [place], [address] , tel: [phone] [facility] Other complications due to renal dialysis device, implant, and graftTo Be Coded 0 4 Livia Lior. [address] [place], [address]. tel: [phone] Referring Provider: Jonh Gallardo, [address] [place] [address], [address]. tel:[phone] As per patient privacy policy some of [...] Record Payers Payer name Insurance type Covered libertarian ID Authoriza tion(s) [place] [id number] [employer] [place] [employer] [place] [id number] Social History Type Description Quantity Date Captured Comments Sex Male Smoking Status No Information Sexual Orientation Straight or heterosexual Gender Identity Male Chief Complaint And Reason For Visit No Information Reason For Referral Reason For Referral No Information Plan Of Treatment Date Type Action Status Future Order: Radiology Order Lo wer Body Flouroscopy (84955I), Ordered on: Ordered Future Order: Radiology Order Up per Body Flouroscopy ([id number]), Ordered on: Ordered Future Order: Radiology Order Up per Body Flouroscopy ([id number]), Ordered on: Ordered Future Order: Radiology Order Up per Body Flouroscopy ([id number]), Ordered on: Ordered Future Order: Radiology Order Up per Body Flouroscopy ([id number]), Ordered on: Ordered Future Order: Radiology Order Up per Body Flouroscopy ([id number]), Ordered on: Ordered Future Order: Radiology Order Up per Body Flouroscopy ([id number]), Ordered on: Ordered Future Order: Radiology Order Up per Body Flouroscopy ([id number]), Ordered on: Ordered Future Order: Radiology Order Up per Body Flouroscopy ([id number]), Ordered on: Ordered Future Order: Radiology Order Up per Body Flouroscopy ([id number]), Ordered on: Ordered Future Order: Radiology Order Up per Body Flouroscopy ([id number]), Ordered on: Ordered Future Order: Radiology Order Up per Body Flouroscopy ([id number]), Ordered on: Ordered Future Order: Radiology Order Up per Body Fluoroscopy ([id number]), Ordered on: Ordered Future Order: Radiology Order Up per Body Fluoroscopy ([id number]), Ordered on: Ordered Future Order: Radiology Order Up per Body Fluoroscopy ([id number]), Ordered on: Ordered Future Order: Radiology Order Up per Body Fluoroscopy ([id number]), Ordered on: Ordered Future Order: Radiology Order Up per Body Fluoroscopy ([id number]), Ordered on: Ordered Future Order: Radiology Order Up per Body Fluoroscopy ([id number]), Ordered on: Ordered Future Order: Radiology Order Up per Body Fluoroscopy ([id number]), Ordered on: Ordered History Of Present Illness Encounter Date Complaint History Of Prese nt Illness No Information Functional Status Date Functional Assessmen t No Information Instructions Date Instruction Additional Infor mation No Information Assessments Type Assessment Date No Information Patient Care Teams Name Effective Dates (start - stop) Status Members No Information
--- OUTSIDE RECORDS SUMMARY | 2025-03-07 14:52 | XMS_ITS | Encounter Summary ---
Author Organization [facility] Address [facility] [place] [address] Care Team Providers Care Cinder Crusher Operator Name Role Phone Lucy Flores LACE AND TEXTILES RESTORER Unavailable [phone] Glenn Dale DO Unavailable Keya Morales [facility] Primary Care Provider + Beau Zuñiga MD Primary Care Provider None, Provider MD Unavailable Unavailable Reason for Referral * Surgical (Routine) - New Request Specialty Diagnoses / Procedures Referred By Contnicolas t Referred To Contact Diagnoses PVD (peripheral vascular disease) Procedures Case request operating room: AMPUTATION TOE (LEFT FIFTH METATARSAL), DEBRIDEMENT WOUND (LEFT FOOT) Yuval Garibay MD [address] [address] Phone: tel: fax: Referral ID Status Reason Start Date Expiration Date V isits Requested Visits Authorized [id number] New Request 05/03/2024 05/03/2025 1 1 Encounter Details Date Type Department Care Team (Late st Contact Info) Description 05/03/2024 Prep for Procedure [place] [facility], [facility] [address] [place] [address] Yuval Garibay MD Three [facility]. [facility] [address] [place], [place] [id number] Social History Tobacco Use Types Packs/Day Years [...] materials from doctor or pharmacy Never 05/04/2023 [facility] Utilities Answer Date Recorded In the past 12 months has Wire, oil, or water [employer] threatened to shut off services in your home? No 05/01/2024 Humiliation, Afraid, Rape, and Kick questionnair e Answer Date Recorded Within the last year, have y ou been afraid of your partner or ex-partner? No 05/01/2024 Within the last year, have y ou been humiliated or emotionally abused in other ways by your partner or ex-partner? No Within the last year, have y ou been kicked, hit, slapped, or otherwise physically hurt by your partner or ex-partner? No 05/01/2024 Within the last year, have y ou been raped or forced to have any kind of sexual activity by your partner or ex-partner? No 05/01/2024 Social Connection and Isolat ion Panel [NHANES] Answer Date Recorded In a typical week, how many times do you talk on the phone with family, friends, or neighbors? More than three times a week 11/01/2023 How often do you get togethe r with friends or relatives? Once a week 11/01/2023 How often do you attend [facility] or islam services? More than 4 times per year 11/01/2023 Do you belong to any clubs o r organizations such as worship groups, unions, fraternal or athletic groups, or [...] like food, housing, medical care, and heating? Very hard 05/01/2024 PHQ-2 Answer Date Recorded Patient Health Questionnaire-2 Score 0 04/30/2024 [facility] - Occupational Stress Questionnaire Answer [...] you got the money to buy more. Often true 05/01/20 24 Within the past 12 months, t he food you bought just didn't last and you didn't have money to get more. Often true 05/01/2024 PRAPARE - Transportation Answer Date Re corded In the past 12 months, has l ack of transportation kept you from medical appointments or from getting medications? Yes 04/20 In the past 12 months, has l ack of transportation kept you from meetings, work, or from getting things needed for daily living? Yes 05/01/2024 Housing Stability Vital Sign Answer Jr e [...] place to sleep or slept in a custodial (including now)? No 12/31/2023 Housing Stability Vital Sign Answer Jr e Recorded In the last 12 months, was t here a time when you were not able to pay the mortgage or rent on time? No 05/01/2024 In the past 12 months, how m any times have you moved where you were living? 3 05/01/2024 At any time in the past 12 m ont, were you homeless or living in a custodial (including now)? No 05/01/2024 Sex and Gender Information Value Date Recorded Sex Assigned at Male 05/29/2020 4:58 PM CDT Legal Sex Male 1:46 AM CDT Gender Identity Male 05/29/2020 4:58 PM CDT Sexual Orientation [place] 11/25/2021 10 :24 AM SOCIAL WELFARE CLERK documented as of this encounter Functional Status * Are you deaf or do you have serious difficulty hearing Answer Date of Assessment Author Status No 05/01/2024 4:57 PM CDT Ania Ford RN Active * Are you blind or do you have serious difficulty seeing, even when wearing glasses? Answer Date of Assessment Author Status No 05/01/2024 4:57 PM CDT Ania Ford RN Active * Do you have serious difficulty walking or climbing stairs? Answer Date of Assessment Author Status Yes 05/01/2024 4:57 PM Ania Pacheco RN Active * Do you have difficulty dressing or bathing? Answer Date of Assessment Author Status Yes 05/01/2024 4:57 PM Ania Pacheco RN Active * Because of a physical, mental, or emotional condition, do you have difficulty doing errands alone such as visiting a doctor's office or shopping? Answer Date of Assessment Author Status Yes 05/01/2024 4:57 PM CDT Ania Ford RN Active documented as of this encounter Mental Status * Because of a physical, mental, or emotional condition, do you have serious difficulty concentrating, remembering, or making decisions? Answer Entry Date Author Status Yes 05/01/2024 4:57 PM CDT Ania Ford RN Active documented in this encounter Plan of Treatment Scheduled Orders Name Type Priority Associated Diagnoses Orde r Schedule Case request operating room: AMPUTATION TOE (LEFT FIFTH METATARSAL), DEBRIDEMENT WOUND (LEFT FOOT) Case Request Routine PVD (peripheral vascular disease) Once for 1 Occurrences starting 05/03/2024 until 05/03/2024 documented as of this encounter Goals Goal Patient Goal Type Associated Problems Recent Progress Patient-Stated? Author Manage Stress, Depression, or Anxiety General No Rosibel Miller, SERVICE COUNTER CASHIER Patient will return to prior living situation and remain independent in ADLs upon discharge from hospital General No Piedad Keith RN Family - family caregiver with be involved in care transitions and discharge planning Lifestyle No Piedad Keith RN documented as of this encounter Visit Diagnoses Diagnosis PVD (peripheral vascular disease)- Primary Peripheral vascular disease, unspecified documented in this encounter Additional Health Concerns Infection [...] Rule Out 11/25/2024 11/25/2024 11/25/2024 3:06 PM SOCIAL WELFARE CLERK Influenza - Seasonal 11/25/2024 11/25/202416/2 025 12:32 AM SOCIAL WELFARE CLERK Assessment Noted Time PHQ-9 Depression Total Score: 24 023 11:16 AM SOCIAL WELFARE CLERK documented as of this encounter Care Teams Cinder Crusher Operator Relationship Specialty Start Date End Date Keya Morales, CUTTING AND PRINTING MACHINE OPERATOR- [address] [place] [address] PCP - General NURSE PRACTITIONER 10/26/22 05/21/24 Beau Zuñ[place] [address] [place] [address] PCP - General FAMILY PRACTICE 05/22/24 Lucy Flores NP Nurse Practitioner NURSE PRACTITIONER 01/11/22 Glenn Dale DO Consulting Physician INTERNAL MEDICINE 01/11/22 None, Provider, UNKNOWN PHYSICIAN SPECIALTY 11/25/24 documented as of this encounter
--- OUTSIDE RECORDS SUMMARY | 2025-03-07 14:52 | XMS_ITS | Encounter Summary ---
Author Organization [facility] Address [facility] [place] [address] Care Team Providers Care Manager Of Disaster Recovery Name Role Phone MarkLucy CORK SORTER Unavailable Glenn Dale DO Unavailable Keya Morales [facility] Primary Care Provider + Beau Zuñiga MD Primary Care Provider None, Provider MD Unavailable Unavailable Encounter Details Date Type Department Care Team (Late st Contact Info) Description 01/01/2024 Prep for Procedure [place] [facility], [facility] [address] [place], [place] [phone] Yuval Garibay MD Three [facility]. [facility] [address] [place], [place] [phone] Social History Tobacco Use Types Packs/Day Years [...] materials from doctor or pharmacy Never 05/04/2023 [facility] Utilities Answer Date Recorded In the past 12 months has th e [employer], [employer], oil, or water [employer] threatened to shut off services in your [...] How often do you attend chur or episcopalian services? More than 4 times per year 11/01/2023 Do you belong to any clubs o r organizations such as cheondoism groups, unions, fraternal or athletic groups, or [...] you are drinking? Patient does not drink 12/13/202 3 Q3: How often do you have si x or more drinks on one occasion? Never 11/01/2023 Overall Financial Resource Strain (CARDIA) Answe r Date Recorded How hard is it for you to pa y for the very basics like food, housing, medical care, and heating? Somewhat hard 12/31/2023 PHQ-2 Answer Date Recorded Patient Health Questionnaire-2 Score 6 10/30/2023 [facility] - Occupational Stress Questionnaire Answer Date Recorded [...] place to sleep or slept in a retirement (including now)? No 12/31/2023 Sex and Gender Information Value Date Recorded Sex Assigned at Male 05/29/2020 4:58 PM CDT Legal Sex Male 1:46 AM CDT Gender Identity Male 05/29/2020 4:58 PM CDT Sexual Orientation [place] 11/25/2021 10 :24 AM CRYOLITE RECOVERY OPERATOR documented as of this encounter Functional Status [...] Depression, or Anxiety General No Rosibel Miller, STAMP PRESSER Patient will return to prior living situation [...] Rule Out 11/25/2024 11/25/2024 11/25/2024 3:06 PM CRYOLITE RECOVERY OPERATOR Influenza - Seasonal 11/25/2024 11/25/2024 025 12:32 AM CRYOLITE RECOVERY OPERATOR Assessment Noted Time PHQ-9 Depression Total Score: 24 023 11:16 AM CRYOLITE RECOVERY OPERATOR documented as of this encounter Care Teams Manager Of Disaster Recovery Relationship Specialty Start Date End Date Keya Morales, DIGITAL PROOFING AND PLATEMAKER- [address] [address] PCP - General NURSE PRACTITIONER 10/26/22 05/21/24 Beau Zuñ[place] [address] [place] [address] PCP - General FAMILY PRACTICE 05/22/24 Lucy Flores NP Nurse Practitioner NURSE PRACTITIONER 01/11/22 Glenn Dale DO Consulting Physician INTERNAL MEDICINE 01/11/22 None, Provider, UNKNOWN PHYSICIAN SPECIALTY 11/25/24 documented as of this encounter
--- OUTSIDE RECORDS SUMMARY | 2025-03-07 14:53 | XMS_ITS | Encounter Summary ---
Author Organization [facility] Address [facility] [place] [address] Care Team Providers Care Car Inspection And Repair Manager Name Role Phone Lucy Flores MOVING PICTURE PRODUCER Unavailable [phone] Glenn Dale DO Unavailable Keya Morales [facility] Primary Care Provider + Beau Zuñiga MD Primary Care Provider None, Provider MD Unavailable Unavailable Reason for Referral * Surgical (Routine) - Closed Specialty Diagnoses / Procedures Referred By Contac t Referred To Contact Diagnoses PVD (peripheral vascular disease) Procedures Case request operating room: AMPUTATION TOE (LEFT GREAT TOE) Yuval Garibay MD [facility] [address] [place] [address] Phone: tel: fax: Referral ID Status Reason Start Date Expiration Date Visits Re quested Visits Authorized [id number] Closed 01/01/2024 01/01/2025 1 1 L MAKER PLASTER Encounter Details Date Type Department Care Team (Late st Contact Info) Description 01/01/2024 Prep for Procedure [place] [facility] [address] [place] [address] Yuval Garibay MD [facility] [address] [place], [place] [id number] Social History Tobacco Use Types Packs/Day Years [...] materials from doctor or pharmacy Never 05/04/2023 [facility] Utilities Answer Date Recorded In the past 12 months has e [employer], [employer], or water [id number] threatened to shut off services in your [...] week 11/01/2023 How often do you attend [facility] or jehovah's witness services? More than 4 times per year 11/01/2023 Do you belong to any clubs o r organizations such as bahai groups, unions, fraternal or athletic groups, or [...] Recorded Patient Health Questionnaire-2 Score 6 10/30/2023 [facility] - Occupational Stress Questionnaire Answer [...] place to sleep or slept in a long-term (including now)? No 12/31/2023 Sex and Gender Information Value Date Recorded Sex Assigned at Male 05/29/2020 4:58 PM CDT Legal Sex Male 1:46 AM CDT Gender Identity Male 05/29/2020 4:58 PM CDT Sexual Orientation [place] 11/25/2021 10 :24 AM MODEL MAKER PLASTER documented as of this encounter Functional Status [...] Case request operating room: AMPUTATION TOE (LEFT GREAT TOE) Case Request Routine PVD (peripheral vascular disease) Once for 1 Occurrences starting 01/01/2024 until 01/01/2024 documented as of this encounter Goals Goal Patient Goal Type Associated Problems Recent Progress Patient-Stated? Author Manage Stress, Depression, or Anxiety General No Rosibel Miller, COSMETICS PRESSER Patient will return to prior living [...] Rule Out 11/25/2024 11/25/2024 11/25/2024 3:06 PM MODEL MAKER PLASTER Influenza - Seasonal 11/25/2024 11/25/2024 025 12:32 AM MODEL MAKER PLASTER Assessment Noted Time PHQ-9 Depression Total Score: 24 023 11:16 AM MODEL MAKER PLASTER documented as of this encounter Care Teams Car Inspection And Repair Manager Relationship Specialty Start Date End Date Keya Morales, CLINIC CHARGE NURSE- [address] [address] PCP - General NURSE PRACTITIONER 10/26/22 05/21/24 Beau Zuñ[place] [address] [place] [address] PCP - General FAMILY PRACTICE 05/22/24 Lucy Flores NP Nurse Practitioner NURSE PRACTITIONER 01/11/22 Glenn Dale DO Consulting Physician INTERNAL MEDICINE 01/11/22 None, Provider, MD UNKNOWN PHYSICIAN SPECIALTY 11/25/24 documented as of this encounter
--- OUTSIDE RECORDS SUMMARY | 2025-03-07 14:53 | XMS_ITS | Encounter Summary ---
Author Organization [facility] Address [facility] [place] [address] Care Team Providers Care Postdoctoral Scholar Name Role Phone MarkLucy BALING MACHINE OPERATOR Unavailable Glenn Dale DO Unavailable Keya Morales [facility] Primary Care Provider + Beau Zuñiga MD Primary Care Provider [phone] None, Provider MD Unavailable Unavailable Encounter Details Date Type Department Care Team (Late st Contact Info) Description 01/03/2024 Prep for Procedure [place] [facility] THREE [facility] [address] [place], [place] [phone] Yuval Garibay MD Three [facility]. [facility] [address] [place], [place] [phone] Social History Tobacco Use Types Packs/Day Years [...] materials from doctor or pharmacy Never 05/04/2023 [facility] Utilities Answer Date Recorded In the past 12 months has th e [employer], [employer], oil, or water [employer] threatened to shut off services in your [...] How often do you attend chur or mormonism services? More than 4 times per year 11/01/2023 Do you belong to any clubs o r organizations such as anabaptist groups, unions, fraternal or athletic groups, or [...] Recorded Patient Health Questionnaire-2 Score 6 10/30/2023 [facility] - Occupational Stress Questionnaire Answer [...] Sexual Orientation [place] 11/25/2021 10 :24 AM COMPUTER TAPE LIBRARIAN documented as of this encounter Functional Status [...] Depression, or Anxiety General No Rosibel Miller, MAINTENANCE JOB TITLES Patient will return to prior living situation [...] Rule Out 11/25/2024 11/25/2024 11/25/2024 3:06 PM COMPUTER TAPE LIBRARIAN Influenza - Seasonal 11/25/2024 11/25/2024 025 12:32 AM COMPUTER TAPE LIBRARIAN Assessment Noted Time PHQ-9 Depression Total Score: 24 023 11:16 AM COMPUTER TAPE LIBRARIAN documented as of this encounter Care Teams Postdoctoral Scholar Relationship Specialty Start Date End Date Keya Morales, DIGITAL STRATEGY SPECIALIST- [address] [address] PCP - General NURSE PRACTITIONER 10/26/22 05/21/24 Beau Zuñ[place] [address] [place] [address] PCP - General FAMILY PRACTICE 05/22/24 Lucy Flores NP Nurse Practitioner NURSE PRACTITIONER 01/11/22 Glenn Dale DO Consulting Physician INTERNAL MEDICINE 01/11/22 None, Provider, UNKNOWN PHYSICIAN SPECIALTY 11/25/24 documented as of this encounter
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
--- OUTSIDE RECORDS SUMMARY | 2025-03-07 14:53 | XMS_ITS | Encounter Summary ---
Author Organization [facility] Address [address] [place] [address] Care Team Providers Care Hand Folder Name Role Phone Richard Ware MD Primary Care Provider [phone] Richard Ware MD Primary Care Provider [phone] Keya Morales [facility] Primary Care Provider + Ankita Hdz TEST EQUIPMENT MECHANIC Primary Care Provider [phone] Lucy Flores TEST EQUIPMENT MECHANIC Unavailable [phone] Glenn Dale DO Unavailable Keya Morales [facility] Primary Care Provider + Beau Zuñiga MD Primary Care Provider [phone] None, Provider MD Unavailable Unavailable Encounter Details Date Type Department Care Team (Late st Contact Info) Description 12/04/2015 Abstract [facility] Conversion , Generic Conversion, Social History Tobacco Use Types Packs/Day Years Used Date Smoking Tobacco: Never Assessed Sex and Gender Information Value Date Recorded Sex Assigned at Male 05/29/2020 4:58 PM CDT Legal Sex Male 1:46 AM CDT Gender Identity Male 05/29/2020 4:58 PM CDT Sexual Orientation [place] 11/25/2021 10 :24 AM MEDICAL MANAGEMENT TRAINER documented as of this encounter Plan of Treatment Not on file documented as of this encounter Visit Diagnoses Not on filedocumented in this encounter Additional Health Concerns Infection Onset Date Last Indicated Resolved Time COVID-19 Rule Out 06/01/2020 06/01/2020 06/02/2020 9:09 AM CDT COVID-19 Rule Out 10/19/2020 10/19/2020 11/10/2020 6:13 PM MEDICAL MANAGEMENT TRAINER COVID-19 Rule Out 11/17/2020 11/17/2020 11/17/2020 2:15 PM MEDICAL MANAGEMENT TRAINER COVID-19 Confirmed Comment:Does not meet criteria. Last covid test 11/17/20. Admitting for poss bowel obstruction. 11/17/2020 11/17/2020 12/22/2020 5 :23 PM MEDICAL MANAGEMENT TRAINER COVID-19 Rule Out 12/25/2020 12/25/2020 12/25/2020 5:05 PM MEDICAL MANAGEMENT TRAINER COVID-19 Rule Out 12/25/2020 12/25/2020 12/26/2020 7:47 AM MEDICAL MANAGEMENT TRAINER COVID-19 Confirmed 12/25/2020 12/25/2020 12:34 AM MEDICAL MANAGEMENT TRAINER COVID-19 Rule Out 10/08/2021 10/08/2021 10/08/2021 9:14 AM MEDICAL MANAGEMENT TRAINER COVID-19 Rule Out 11/18/2021 11/18/2021 11/18/2021 1:03 PM MEDICAL MANAGEMENT TRAINER COVID-19 Rule Out 10/16/2022 10/16/2022 10/16/2022 5:10 PM MEDICAL MANAGEMENT TRAINER COVID-19 Confirmed 10/16/2022 10/16/2022 12:32 AM MEDICAL MANAGEMENT TRAINER COVID-19 Rule Out 05/22/2024 05/22/2024 05/22/2024 6:52 [...] Rule Out 11/25/2024 11/25/2024 11/25/2024 3:06 PM MEDICAL MANAGEMENT TRAINER Influenza - Seasonal 11/25/2024 11/25/2024 025 12:32 AM MEDICAL MANAGEMENT TRAINER documented as of this encounter Care Teams Hand Folder Relationship Specialty Start Date End Date Richard Ware MD PCP - General 05/01/17 07/23/19 Richard Ware MD PCP - General 07/30/14 04/30/17 Keya Morales [facility] [address] [facility], [facility] [address] [place] [address] PCP - General NURSE PRACTITIONER 07/25/19 01/10/22 Ankita Hdz NP [address] [facility], [facility] [address] [place] [address] PCP - General Nurse Practitioner [facility] 01/11/22 10/25/22 Keya Morales [facility] [address] [place] [address] PCP - General NURSE PRACTITIONER 10/26/22 05/21/24 Beau Zuñ[place] [address] [place] [address] PCP - General FAMILY PRACTICE 05/22/24 Lucy Flores NP [address] [facility], [address] [place] [address] Nurse Practitioner NURSE PRACTITIONER 01/11/22 Glenn Dale DO [address] [facility], [address] [place] [address] Consulting Physician INTERNAL MEDICINE 01/11/22 None, Provider, MD UNKNOWN PHYSICIAN SPECIALTY 11/25/24 documented as of this encounter
--- OUTSIDE RECORDS SUMMARY | 2025-03-07 14:53 | XMS_ITS | Encounter Summary ---
Author Organization [facility] Address [address] [place] [address] Care Team Providers Care Political Organizer Name Role Phone Richard Ware MD Primary Care Provider [phone] Richard Ware MD Primary Care Provider [phone] Keya Morales [facility] Primary Care Provider + Ankita Hdz ENVIRONMENTAL COMPLIANCE SPECIALIST Primary Care Provider [phone] Lucy Flores ENVIRONMENTAL COMPLIANCE SPECIALIST Unavailable [phone] Glenn Dale DO Unavailable Keya Morales [facility] Primary Care Provider + Beau Zuñiga MD Primary Care Provider [phone] None, Provider MD Unavailable Unavailable Encounter Details Date Type Department Care Team (Late st Contact Info) Description 09/21/2015 Abstract [facility] Conversion , Generic Conversion, Social History Tobacco Use Types Packs/Day Years Used Date Smoking Tobacco: Never Assessed Sex and Gender Information Value Date Recorded Sex Assigned at Male 05/29/2020 4:58 PM CDT Legal Sex Male 1:46 AM CDT Gender Identity Male 05/29/2020 4:58 PM CDT Sexual Orientation [place] 11/25/2021 10 :24 AM HEALTH CARE ANALYST documented as of this encounter Plan of Treatment Not on file documented as of this encounter Visit Diagnoses Not on filedocumented in this encounter Additional Health Concerns Infection Onset Date Last Indicated Resolved Time COVID-19 Rule Out 06/01/2020 06/01/2020 06/02/2020 9:09 AM CDT COVID-19 Rule Out 10/19/2020 10/19/2020 11/10/2020 6:13 PM HEALTH CARE ANALYST COVID-19 Rule Out 11/17/2020 11/17/2020 11/17/2020 2:15 PM HEALTH CARE ANALYST COVID-19 Confirmed Comment:Does not meet criteria. Last covid test 11/17/20. Admitting for poss bowel obstruction. 11/17/2020 11/17/2020 12/22/2020 5 :23 PM HEALTH CARE ANALYST COVID-19 Rule Out 12/25/2020 12/25/2020 12/25/2020 5:05 PM HEALTH CARE ANALYST COVID-19 Rule Out 12/25/2020 12/25/2020 12/26/2020 7:47 AM HEALTH CARE ANALYST COVID-19 Confirmed 12/25/2020 12/25/2020 12:34 AM HEALTH CARE ANALYST COVID-19 Rule Out 10/08/2021 10/08/2021 10/08/2021 9:14 AM HEALTH CARE ANALYST COVID-19 Rule Out 11/18/2021 11/18/2021 11/18/2021 1:03 PM HEALTH CARE ANALYST COVID-19 Rule Out 10/16/2022 10/16/2022 10/16/2022 5:10 PM HEALTH CARE ANALYST COVID-19 Confirmed 10/16/2022 10/16/2022 12:32 AM HEALTH CARE ANALYST COVID-19 Rule Out 05/22/2024 05/22/2024 05/22/2024 6:52 [...] Rule Out 11/25/2024 11/25/2024 11/25/2024 3:06 PM HEALTH CARE ANALYST Influenza - Seasonal 11/25/2024 11/25/2024 025 12:32 AM HEALTH CARE ANALYST documented as of this encounter Care Teams Political Organizer Relationship Specialty Start Date End Date Richard Ware MD PCP - General 05/01/17 07/23/19 Richard Ware MD PCP - General 07/30/14 04/30/17 Keya Morales [facility] [address] [email or web address] [address] [place] [address] PCP - General NURSE PRACTITIONER 07/25/19 01/10/22 Ankita Hdz NP [address] [facility] [[email or web address] [address] [place] [address] PCP - General Nurse Practitioner [facility] 01/11/22 10/25/22 Keya Morales [facility] [address] [place] [address] PCP - General NURSE PRACTITIONER 10/26/22 05/21/24 Beau Zuñ[place] [address] [place] [address] PCP - General FAMILY PRACTICE 05/22/24 Lucy Flores NP [address] [facility] [[email or web address] [address] [place] [address] Nurse Practitioner NURSE PRACTITIONER 01/11/22 Glenn Dale DO [address] [facility] [[email or web address] [address] [place] [address] Consulting Physician INTERNAL MEDICINE 01/11/22 None, Provider, MD UNKNOWN PHYSICIAN SPECIALTY 11/25/24 documented as of this encounter
--- OUTSIDE RECORDS SUMMARY | 2025-03-07 14:53 | XMS_ITS | Encounter Summary ---
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 ([facility]) Procedures Case request operating room: DEBRIDEMENT WOUND (RIGHT FOOT) Yuval Garibay MD [facility] [address] [place] [address] Phone: tel: fax: Referral ID Status Reason Start Date Expiration Date Visits Re quested Visits Authorized [id number] Closed 11/15/2023 11/15/2024 1 1 ATIENT CLERK Encounter Details Date Type Department Care Team (Late st Contact Info) Description 11/15/2023 Prep for Procedure [facility] [address] [place] [address] Yuval Garibay MD Three [facility]. [facility] [address] [place], [place] [id number] Social History Tobacco Use Types Packs/Day Years [...] materials from doctor or pharmacy Never 05/04/2023 [facility] Utilities Answer Date Recorded In the past 12 months has [facility] [employer], oil, or water [employer] threatened to shut off services in your home? No 11/01/2023 Humiliation, Afraid, Rape, and Kick questionnair e Answer Date Recorded Within the last year, have y ou been afraid of your partner or ex-partner? No 11/01/2023 Within the last year, have y ou been humiliated or emotionally abused in other ways by your partner or ex-partner? No Within the last year, have y ou been kicked, hit, slapped, or otherwise physically hurt by your partner or ex-partner? No 11/01/2023 Within the last year, have y ou been raped or forced to have any kind of sexual activity by your partner or ex-partner? No 11/01/2023 Social Connection and Isolat ion Panel [NHANES] Answer Date Recorded In a typical week, how many times do you talk on the phone with family, friends, or neighbors? More than three times a week 11/01/2023 How often do you get togethe r with friends or relatives? Once a week 11/01/2023 How often do you attend formerly [facility] or jainism services? More than 4 times per year 11/01/2023 Do you belong to any clubs o r organizations such as moravian groups, unions, fraternal or athletic groups, or [...] housing, medical care, and heating? Somewhat hard 11/01/2023 PHQ-2 Answer Date Recorded Patient Health Questionnaire-2 Score 6 10/30/2023 [facility] - Occupational Stress [...] the money to buy more. Never true 11/01/20 23 Within the past 12 months, t he food you bought just didn't last and you didn't have money to get more. Never true 11/01/2023 PRAPARE - Transportation Answer Date Re corded In the past 12 months, has l ack of transportation kept you from medical appointments or from getting medications? Yes 10/20 In the past 12 months, has l ack of transportation kept you from meetings, work, or from getting things needed for daily living? No 11/01/2023 Housing Stability Vital Sign Answer Jr e Recorded In the last 12 months, was t here a time when you were not able to pay the mortgage or rent on time? No 11/01/2023 In the last 12 months, how many places have you lived? 2 11/01/2023 In the last 12 months, was t here a time when you did not have a steady place to sleep or slept in a intermediate (including now)? No 11/01/2023 Sex and Gender Information Value Date Recorded Sex Assigned at Male 05/29/2020 4:58 PM CDT Legal Sex Male 1:46 AM CDT Gender Identity Male 05/29/2020 4:58 PM CDT Sexual Orientation [place] 11/25/2021 10 :24 AM OUTPATIENT CLERK documented as of this encounter Functional Status * Are you deaf or do you have serious difficulty hearing Answer Date of Assessment Author Status No 11/01/2023 9:00 PM Darlene Browne RN Active * Are you blind or do you have serious difficulty seeing, even when wearing glasses? Answer Date of Assessment Author Status No 11/01/2023 9:00 PM Darlene Browne RN Active * Do you have serious difficulty walking or climbing stairs? Answer Date of Assessment Author Status Yes 11/01/2023 9:00 PM Darlene Browne RN Active * Do you have difficulty dressing or bathing? Answer Date of Assessment Author Status No 11/01/2023 9:00 PM Darlene Browne RN Active * Because of a physical, mental, or emotional condition, do you have difficulty doing errands alone such as visiting a doctor's office or shopping? Answer Date of Assessment Author Status Yes 11/01/2023 9:00 PM Darlene Browne RN Active documented as of this encounter Mental Status * Because of a physical, mental, or emotional condition, do you have serious difficulty concentrating, remembering, or making decisions? 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 Author Manage Stress, Depression, or Anxiety General No Rosibel Miller, EDITING INTERN Patient will return to prior living situation and remain independent in ADLs upon discharge from hospital General No Piedad Keith RN documented as of this encounter Visit Diagnoses Diagnosis Type 2 diabetes mellitus with right diabetic foot ulcer ([facility])- Primary Type II or unspecified type diabetes mellitus with other specified manifestations, not stated as uncontrolled documented in this encounter Additional Health Concerns [...] Rule Out 11/25/2024 11/25/2024 11/25/2024 3:06 PM OUTPATIENT CLERK Influenza - Seasonal 11/25/2024 11/25/2024 025 12:32 AM OUTPATIENT CLERK Assessment Noted Time PHQ-9 Depression Total Score: 24 023 11:16 AM OUTPATIENT CLERK documented as of this encounter Care Teams Labor Economics Teacher Relationship Specialty Start Date End Date Keya Morales [facility] [address] [address] PCP - General NURSE PRACTITIONER 10/26/22 05/21/24 Beau Zuñ[place] [address] [place] [address] PCP - General FAMILY PRACTICE 05/22/24 Lucy Flores NP Nurse Practitioner NURSE PRACTITIONER 01/11/22 Glenn Dale DO Consulting Physician INTERNAL MEDICINE 01/11/22 None, Provider, UNKNOWN PHYSICIAN SPECIALTY 11/25/24 documented as of this encounter
--- NOTE | 2025-03-07 15:13 | P.CONNP_ITS ---
Assessment and Plan Assessment and plan (1) End stage renal disease: Code(s): N18.6 - End stage renal disease Status: Chronic Assessment and Plan: * HD tomorrow (since did not receive dialysis treatment today) * transition back to M/W/F outpatient dialysis schedule next week * follow electrolytes, volume status, and clearance * outpatient dialysis unit = [facility] (2) Anemia: Qualifiers: Anemia type: due to chronic kidney disease Chronic kidney disease stage: on chronic dialysis Qualified Code(s): N18.6 - End stage renal disease; D63.1 - Anemia in chronic kidney disease; Z99.2 - Dependence on renal dialysis Code(s): D64.9 - Anemia, unspecified Status: Acute Assessment and Plan: * as noted by admission labs * PRBC transfusion per protocol * due to ESRD versus GI loss versus other(?) * Epogen with HD * follow-up on anemia/iron studies * check hemoccult stool * GI consulted * follow trend of H/H (3) Syncope: Code(s): R55 - Syncope and collapse Status: Acute Assessment and Plan: * presumably secondary to anemia * however, ruling out cardiac etiology: * EKG with no acute changes * check Echo * follow telemetry (4) Abdominal pain: Code(s): R10.9 - Unspecified abdominal pain Status: Acute Assessment and Plan: * associated with constipation and elevated WBC * CT A/P with thickened wall of rectum and associated fecal impaction (possible stercoral proctitis?) * follow culture data * on bowel regiment * on empiric antibiotics (5) Hypertension: Code(s): I10 - Essential (primary) hypertension Status: Chronic Assessment and Plan: * reasonable control * noted issues with intradialytic hypotension requiring midodrine therapy * follow trend of hemodynamics (6) Diabetes: Code(s): E11.9 - Type 2 diabetes mellitus without complications Status: Chronic Assessment and Plan: * follow accu-checks * glycemic control per hospitalist I will continue to follow the patient with you while he remains hospitalized and make further recommendations as deemed necessary. Thank you for allowing me to participate in the care of this patient. L History of Present Illness Reason for Consult Consult date: 03/07/25 Reason for consult: end stage renal disease Chief Complaint Chief complaint: Anemia, ESRD History of Present Illness Narrative: The patient is a 59-year-old male with a past medical history as outlined below who presented to [facility] Emergency Room from his dialysis center due to syncope. The patient presented to his outpatient dialysis unit for his scheduled dialysis treatment yesterday. He told the nursing staff there that he did not feel very well but was difficult for him to elaborate on what he meant. He did report some mild nausea so he was given some IV Zofran to see if that would help the symptoms. He initially improved and his dialysis treatment was initiated but then within a few minutes of being on treatment, his blood pressure acutely dropped to the 70s to 80 systolic and he had a apparent syncopal episode that lasted about 30-45 seconds. His blood was returned in addition to a 500 cc normal saline bolus which improved his blood pressure as well as his mentation although he still seemed to be somewhat lethargic. As his mentation slowly improved, he also reported generalized weakness and constipation for the past 2 weeks. he gave no history of chest pain, shortness of breath, palpitations, fevers, chills or any other subjective symptoms. EMS was called to his dialysis center after this acute events and he was subsequently transferred to [facility] Emergency Room for further assessment. Workup and evaluation emergency room demonstrated the patient be hemodynamically stable and in no acute distress by the time of his arrival. Routine blood tests were done which demonstrated elevated white cell count of 19.7, hemoglobin 6.0, and chemistry labs are consistent with his known history of end-stage renal disease. His EKG showed normal sinus rhythm without any evidence of ischemic changes. It was assumed that his syncope was related to his significant anemia and he was initiated on a packed red blood cell transfusion in the emergency room with subsequent admission to the hospital for further evaluation and therapy. Renal consultation was requested due to his end-stage renal disease. The patient is quite familiar to me as he receives dialysis on a Monday, Monday, Monday dialysis schedule at [facility] under my care. From a dialysis perspective, he usually does fairly well with his treatments all the he has been known to have issues and problems with intra dialytic hypotension which can sometimes limit fluid removal as well as significant issues related to anxiety at baseline. Unfortunately, given the severity and extent of his known vascular disease, attempts at placement of a AV access have failed and he is currently catheter dependent for dialysis with a current right femoral tunneled dialysis catheter. His last dialysis treatment before the attempt yesterday was on 03/05/2025. Currently, at the time of my visit; he appears to be in no acute distress. Review of Systems 2 Review of Systems: As per HPI. [facility] Past Medical History Medical History (Updated 03/08/25 @ 14:25 by Whitney Phelps MD) Blood thinned due to long-term anticoagulant use Fecal impaction Acute on chronic anemia Arthritis Anxiety GERD (gastroesophageal reflux disease) Depression [place] spotted fever Frequent falls Psoriasis Obesity Hyperlipidemia Hypertension Peripheral vascular disease Congestive heart failure CAD (coronary artery disease) Diabetes Chronic atrial fibrillation Surgical History Surgical History (Updated 03/08/25 @ 00:02 by Whitney Phelps MD) S/P dialysis catheter insertion Amputation of left great toe Family History Family History (Updated 03/07/25 @ 23:58 by Whitney Phelps MD) Mother Depression Pulmonary fibrosis Social History Social History Smoking status: Former smoker Alcohol intake: former Substance use: never Do You Feel Safe in your Home?: Yes Lack of Transportation: No Lack of Food: Never True Current Housing: I Have Housing Concerned About Future Housing: No Difficulty Paying Gas/Electric Bills: No Difficulty Paying for Meds: No Currently Unemployed: No Education: Decline to Answer Difficulty w/ Childcare or Family Care: No Spiritual care concerns: No Meds Home Medications and Allergies Home Medications ?Medication ?Instructions ?Recorded ?Confirmed ?Type apixaban 5 mg tablet (Eliquis) 5 mg PO BID 03/07/25 03/08/25 History atorvastatin 40 mg tablet 40 mg PO QPM 03/07/25 03/08/25 History buspirone 10 mg tablet 20 mg PO TID 03/07/25 03/08/25 History hydrocodone 5 mg-acetaminophen 325 1 tablet PO Q6H PRN pain 03/07/25 03/07/25 History mg tablet sertraline 100 mg tablet 100 mg PO QAM 03/07/25 03/08/25 History sevelamer carbonate 800 mg tablet 800 mg PO TID 03/07/25 03/08/25 History venlafaxine 75 mg capsule,extended 75 mg PO QAM 03/07/25 03/08/25 History release 24 hr acetaminophen 325 mg tablet 500 mg PO Q4H PRN pain (scale 03/08/25 03/08/25 History (Tylenol) score 1-3) albuterol sulfate 90 mcg/actuation 2 inh inhalation Q6H PRN shortness 03/08/25 03/08/25 History aerosol inhaler (Ventolin HFA) of breath or wheezing aspirin 81 mg capsule 81 mg PO DAILY 03/08/25 03/08/25 History linagliptin 5 mg tablet (Tradjenta) 5 mg PO DAILY 03/08/25 03/08/25 History midodrine 5 mg tablet 5 mg PO Q12H PRN hypotension 03/08/25 03/08/25 History omeprazole 40 mg capsule,delayed 40 mg PO DAILY 03/08/25 03/08/25 History release polyethylene glycol 3350 17 17 g PO DAILY PRN constipation 03/08/25 03/08/25 History gram/dose oral powder (Miralax) sevelamer carbonate 800 mg tablet 800 mg PO TID 03/08/25 03/08/25 History (Renvela) Allergies Allergy/AdvReac Type Severity Reaction Status Date / Time No Known Allergies Allergy Verified 03/07/25 14:57 Vital Signs Vital Signs Temp Pulse Resp BP Pulse Ox O2 Del Method 03/07/25 15:13 83 16 128/65 100 03/07/25 14:46 82 22 H 122/60 100 03/07/25 14:31 83 19 125/61 99 03/07/25 14:16 88 20 128/77 100 03/07/25 13:22 97.8 F 84 18 105/58 L 100 Room Air Exam 2 Narrative: GENERAL APPEARANCE: well developed well nourished male in no acute distress HEENT: normocephalic, atraumatic, normal conjunctiva and sclera, nares patient NECK: no lymphadenopathy, thyromegaly, or JVD MOUTH: normal lips, teeth, and gums CARDIOVASCULAR: RRR, normal S1 and S2, no rub RESPIRATORY: clear to auscultation ABDOMEN: soft, nontender, nondistended, positive bowel sounds present EXTREMITIES: no evidence of cyanosis, clubbing; trace - 1+ edema NEUROLOGICAL: alert and oriented x 3; CN II - XII intact bilaterally; no focal deficits noted Results Lab Results 03/08/25 05:33 03/08/25 05:33 Lab results: Most recent lab results Calcium 9.4 mg/dL (8.4-10.2) 03/07/25 13:35
[2025-03-07] MEDS: ONDANSETRON INJ 4 MG/2 ML VIAL IV PUSH (15:31)
[2025-03-07] MEDS: Please add drug allergy info to patient profile. 1 EACH XX (15:31)
--- NOTE | 2025-03-07 15:41 | PM.IMHP ---
H&P: HPI History of Present Illness Date/Time: 03/07/25 15:41 Chief Complaint: generalized weakness and syncope Narrative: 59-year-old male past medical history of end-stage renal disease on dialysis, hypertension, type 2 diabetes, coronary artery disease status post stents was brought to the ER from dialysis center on account of syncope. Patient has been having constipation the past 2 weeks, along with a generalized weakness, however today he went to his regular dialysis where he noted he passed out for about a minute. Denies any chest pain no palpitations no focal symptoms. Patient is wheelchair bound. He complained of abdominal pain no pedal region. Otherwise no diarrhea no vomiting no focal weakness. ER eval vital signs stable blood pressure 120/60, pulse 82, respiratory 22, saturating 100% on room air. Labs notable for WBC 19.7, hemoglobin 6.0, creatinine 3.87, BUN 80, EKG showed a sinus rhythm no acute ST-T changes. White of blood was ordered prior to admission. Review of Systems Review of Systems: Other systems reviewed and negative except as noted in history above. Meds Home Medications and Allergies Allergies Allergy/AdvReac Type Severity Reaction Status Date / Time No Known Allergies Allergy Verified 03/07/25 14:57 Vital Signs Vital Signs - 24 hr 03/07/25 13:22 03/07/25 14:16 03/07/25 14:31 Temperature 97.8 F Pulse Rate 84 88 83 Respiratory Rate 18 20 19 Blood Pressure 105/58 L 128/77 125/61 Pulse Oximetry 100 100 99 Oxygen Delivery Room Air 03/07/25 14:46 Temperature Pulse Rate 82 Respiratory Rate 22 H Blood Pressure 122/60 Pulse Oximetry 100 Oxygen Delivery Exam Narrative: General: alert and comfortable Eyes: EOMI, PERRLA ENNT External ears normal, Neck is supple, no masses, Respiratory systems: Clear to auscultation Cardiovascular S1, S2, normal rhythm, no murmur, rub, or gallop; no thrill or palpable murmurs on palpation. Gastrointestinal: soft, non-tender, and non-distended abdomen with no masses; BS present Skin: no rash, lesions, ulcerations, subcutaneous nodules or induration Musculoskeletal: no abnormality and no tenderness, normal ROM Neurologic: Alert and oriented x3, non focal Mental Status Exam: normal affect H&P: Results Labs Labs: Short CBC 03/07/25 Range/Units 13:35 WBC 19.7 H (4.5-10.0) K/mm3 Hgb 6.0 L* (14.0-18.0) g/dL Hct 20.6 L* (42.0-52.0) % Plt Count 309 (150-375) k/mm3 BMP 03/07/25 13:35 Sodium 134 L Potassium 4.2 Chloride 92 L Carbon Dioxide 32 H BUN 80 H Creatinine 3.87 H Glucose 144 H Calcium 9.4 Liver Function 03/07/25 Range/Units 13:35 Total Bilirubin 0.4 (0.2-1.3) mg/dL AST 18 (17-59) U/L ALT 12 (6-50) U/L Alkaline Phosphatase 85 (38-126) U/L Albumin 3.4 L (3.5-5.1) g/dL Assessment and Plan Assessment and plan (1) Anemia: Qualifiers: Anemia type: due to chronic kidney disease Chronic kidney disease stage: on chronic dialysis Qualified Code(s): N18.6 - End stage renal disease; D63.1 - Anemia in chronic kidney disease; Z99.2 - Dependence on renal dialysis Code(s): D64.9 - Anemia, unspecified Status: Acute (2) Abdominal pain: Code(s): R10.9 - Unspecified abdominal pain Status: Acute (3) Leukocytosis: Code(s): D72.829 - Elevated white blood cell count, unspecified Status: Acute (4) Syncope: Code(s): R55 - Syncope and collapse Status: Acute Plan Anemia Hb 6.0, no prior labs to compare Iron panel, FOBT, PPI tranfuse 1 unit pRBC as ordered from the ER GI consulted Monitor H&H. Syncope Likely related to anemia, rule out cardiac etiology EKG no acute changes. Echo ordered Continue above care Monitor on telemetry. Abdomen pain with leukocytosis History of present abdominal pain the past 2 weeks, with the constipation. WBCs 19, epigastric region tender to palpation. CT chest abdomen pelvis ordered. Blood culture, tentative Levaquin and Flagyl Monitor closely. End-stage renal disease on dialysis azotemia BUN 80 Nephrology consulted for dialysis. Hypertension Titrate her medications with clinical course. Type 2 diabetes Sliding scale insulin with Accu-Cheks adjust with clinical course. DVT prophylaxis no anticoagulation due to possible GI bleed. Full Code Surrogate decision maker is javy Maciel [facility] Advance Care Plan I have confirmed that the patient's Advanced Care Plan is present, code status is documented, or surrogate decision maker is listed in patient medical record.: Yes Medication Reconciliation I have utilized all available resources to obtain, update and review the patients current medications (includes all prescriptions, OTC, herbals, cannabis, and nutritional supplements).: Yes
[2025-03-07 15:52] LABS: Iron 62 ug/dL (49-181)
[2025-03-07 16:02] LABS: Percent Iron Saturation 26 % (20-50)
--- NOTE | 2025-03-07 16:37 | ADMGEN ---
This patient, Gordon Greene, was admitted to Medical Room 345-01. Patient/family oriented to hospital policies and general routines including ID bracelet, bed and alarms, visiting hours, pain management, procedures, bathroom and other care routines, personal items, smoking policy, room service/diet, and visiting hours. Information on how to activate the Rapid Response Team has been discussed. Patient/Family are encouraged to report perceived risks to care and to ask questions if they do not understand what they are told or what they should do.
[2025-03-07 17:12] LABS: Glucose Point of Care 114 mg/dl (65-105)
[2025-03-07 17:25] LABS: Hepatitis B Surface Antigen Negative (Negative)
[2025-03-07 17:42] LABS: Hepatitis B Surface Anti Res Positive
[2025-03-07] MEDS: SODIUM CHLORIDE 0.9% IV 250 ML 30 ML IV CONT (17:42)
--- NOTE | 2025-03-07 19:51 | PC.NURSE ---
Called [facility]; spoke with NANCY Cummins, notifying them of patient's admission. Request placed to have records faxed to at his time.
--- NOTE | 2025-03-07 19:59 | PC.NURSE ---
Secondary nurse verifying patient request for change in code status to DNR at this time.
--- NOTE | 2025-03-07 20:30 | PC.NURSE ---
Noted IV ABTs past administration time. Late due to patient receiving blood. Called pharmacy to request retime of levaquin and flagyl. 2031: Spoke with Ed in pharmacy. Okay to give levaquin at this time; will retime flagyl.
[2025-03-07 20:37] LABS: Glucose Point of Care 134 mg/dl (65-105)
[2025-03-07] MEDS: PANTOPRAZOLE SODIUM IV 40 MG VIAL IV PUSH (20:45)
[2025-03-07] MEDS: levoFLOXacin 750 MG/D5W 150 ML 750 MG/150 ML BAG 100 MG IVPB (20:45)
[2025-03-07 22:18] LABS: Hemoglobin 6.3 g/dL (14.0-18.0)
[2025-03-07 22:19] LABS: Hematocrit 20.9 % (42.0-52.0)
[2025-03-07] MEDS: metroNIDAZOLE 500 MG/ISO 100ML 500 MG/100 ML BAG 100 MG IVPB (22:20)
[2025-03-08] VITALS (24 sets, daily range): BP systolic 90–156; BP diastolic 45–81; PULSE 75–91; RESP 14–18; TEMP 36.1–37; O2SAT 99–100
--- NOTE | 2025-03-08 | ECHO_ITS ---
Patient Info Name: Gordon Greene Age: 59 years : 1965 Gender: Male Ht: 65 in Wt: 169 lbs BSA: 1.89 m2 HR: 75 bpm BP: 144 / 58 mmHg Heart Rhythm: Sinus Rhythm Technical Quality: Fair Exam Date: 03/08/2025 7:59 AM Exam Location: Echo Lab Patient Status: Inpatient Admit Date: 03/07/2025 Staff Ordering Physician: Tianna Singh MD [employer] Firer: Imani Sy RDCS Attending Provider: Tianna Singh MD Exam Type: CA echo doppler color flow Study Info Indications - Syncope Complete two-dimensional, color flow and Doppler transthoracic echocardiogram is performed. Summary 1. Complete two-dimensional, color flow and Doppler transthoracic echocardiogram is performed. 2. Left ventricular systolic function is normal, estimated at 45-50%. 3. There is mildly increased left ventricular wall thickness. 4. The left ventricular diastolic function is abnormal. 5. Left atrial chamber dimension is mildly enlarged. 6. There is mild aortic valve regurgitation. 7. There is mild to moderate mitral valve regurgitation. 8. There is mild mitral valve calcification. 9. There is mild tricuspid valve regurgitation. 10. Mild pulmonary hypertension, estimated pulmonary arterial systolic pressure is 39 mmHg. Left Ventricle Left ventricular chamber dimension is normal. Left ventricular systolic function is normal, estimated at 45-50%. There is mildly increased left ventricular wall thickness. Left ventricular septal wall motion is normal. The left ventricular diastolic function is abnormal. Right Ventricle Right ventricular chamber dimension is normal. Right ventricular systolic function is normal. Left Atria Left atrial chamber dimension is mildly enlarged. Right Atria Right atrial chamber dimension is normal. Aortic Valve The aortic valve is trileaflet. There is mild aortic valve sclerosis. There is no aortic valve stenosis. There is mild aortic valve regurgitation. Pulmonic Valve The pulmonic valve is normal. There is no pulmonic valve stenosis. There is no pulmonic regurgitation. Mitral Valve The mitral valve has normal leaflets. There is no mitral valve stenosis. There is mild to moderate mitral valve regurgitation. There is mild mitral valve calcification. Tricuspid Valve The tricuspid valve leaflets are normal. There is no significant tricuspid valve stenosis. There is mild tricuspid valve regurgitation. Mild pulmonary hypertension, estimated pulmonary arterial systolic pressure is 39 mmHg. Pericardium/Pleural The pericardium appears normal. There is no pericardial effusion. Inferior Vena Cava Normal inferior vena cava with >50% collapse upon inspiration consistent with Empty right atrial pressure, 5 mmHg. Aorta The aortic root size at the sinus of Valsalva is normal. The prox ascending aorta size is normal. Left Ventricular Outflow Tract Name Value Normal LVOT 2D LVOT Diameter 2.0 cm LVOT Doppler LVOT Peak Gradient 8 mmHg LVOT Mean Gradient 4 mmHg LVOT VTI 31 cm LVOT VTI/AV VTI Ratio 0.9 LVOT Stroke Volume 98 ml LVOT CO 8.4 l/min LVOT CI 4.5 l/min/m2 Pulmonic Valve Name Value Normal RVOT Doppler RVOT Peak Gradient 2 mmHg PV Doppler PV Peak Gradient 4 mmHg Mitral Valve Name Value Normal MV Doppler MV Decel Wells 728 cm/s2 MV PHT 72 ms MV Area (PHT) 3.1 cm2 4.0-5.0 MV Regurgitation Doppler MR Peak Gradient 128 mmHg MV Diastolic Function MV E Peak Velocity 180 cm/s MV A Peak Velocity 155 cm/s MV E/A 1.2 MV Decel Time 247 ms MV Annular TDI MV E/e' (Septal) 33.0 <=8.0 MV E/e' (Lateral) 26.9 <=8.0 MV E/e' (Average) 29.9 Tricuspid Valve Name Value Normal TV Regurgitation Doppler TR Peak Velocity 292 cm/s TR Peak Gradient 34 mmHg Estimated PAP/RSVP RA Pressure 5 mmHg <=5 PA Systolic Pressure 39 mmHg <36 RV Systolic Pressure 39 mmHg <36 Aortic Valve Name Value Normal AV Doppler AV Peak Velocity 187 cm/s AV Peak Gradient 14 mmHg AV Mean Gradient 5 mmHg AV VTI 33 cm AV Area (Cont Eq VTI) 2.9 cm2 >=3.0 AV Area (Cont Eq Tyron) 2.5 cm2 AV Regurgitation 2D LVOT Area 3.2 cm2 AV Regurgitation Doppler AR Decel Time 858 ms AR Decel Wells 504 cm/s2 AR PHT 249 ms Ventricles Name Value Normal LV Dimensions 2D/MM IVS Diastolic Thickness (2D) 1.0 cm 0.6-1.0 LVID Diastole (2D) 5.0 cm 4.2-5.8 LVIW Diastolic Thickness (2D) 1.2 cm 0.6-1.0 LVID Systole (2D) 3.4 cm 2.5-4.0 LVOT Diameter 2.0 cm LV Mass (2D Cubed) 209.37 g 88.00-224.00 LV Mass Index (2D Cubed) 110 g/m2 49-115 Relative Wall Thickness (2D) 0.47 LV Fractional Shortening/Ejection Fraction 2D/MM LV Fractional Shortening (2D) 32 % 25-43 LV EF (2D Teicholz) 60 % 52-72 LV Diastolic Volume (4C MOD) 181 ml LV EF (4C MOD) 45 % LV Diastolic Volume (2C MOD) 202 ml LV EF (2C MOD) 48 % LV Diastolic Volume (BP MOD) 188 ml 62-150 LV Diastolic Volume Index (BP MOD) 99 ml/m2 34-74 LV Systolic Volume (BP MOD) 103 ml 21-61 LV Systolic Volume Index (BP MOD) 54 ml/m2 11-31 LV EF (BP MOD) 45 % 52-72 LV Diastolic Length (4C) 8.5 cm LV Systolic Length (4C) 7.9 cm LV Stroke Volume (4C MOD) 82 ml Atria Name Value Normal RA Dimensions RA Area (4C) 15.6 cm2 <=18.0 Report Signatures
[2025-03-08] MEDS: SODIUM CHLORIDE 0.9% IV 250 ML 30 ML IV CONT (01:25)
[2025-03-08] MEDS: metroNIDAZOLE 500 MG/ISO 100ML 500 MG/100 ML BAG 100 MG IVPB ×3 (05:43→22:26)
[2025-03-08 06:00] LABS: Basophils Percent Auto 0.3 % (0.2-1.2); Eosinophils Absolute Auto 0.2 K/mm3 (0-0.3); Hematocrit 25.2 % (42.0-52.0); Hemoglobin 7.6 g/dL (14.0-18.0); Immature Granulocyte Absolute 0.07 K/mm3 (0.00-0.031); Immature Granulocyte Percent A 0.5 % (0-0.5); Lymphocytes Absolute Auto 1.49 K/mm3 (0.9-3.2); Lymphocytes Percent Auto 9.6 % (18.3-44.2); Mean Corpuscular HGB Conc 30.2 g/dl (32-36); Mean Corpuscular Hemoglobin 29.3 pg (26-34); Mean Corpuscular Volume 97.3 fl (80-100); Mean Platelet Volume 9.9 fl (7.4-10.4); Monocytes Absolute Auto 1.2 K/mm3 (0.1-0.6); Neutrophils Absolute Auto 12.5 K/mm3 (1.3-6.7); Neutrophils Percent Auto 80.6 % (45.5-73.1); Platelet Count Result 266 k/mm3 (150-375); Red Blood Count 2.59 M/mm3 (4.6-6.20); Red Cell Distribution Width 16.9 % (11.5-14.5); White Blood Count 15.5 K/mm3 (4.5-10.0)
[2025-03-08 06:28] LABS: Alanine Aminotransferase 10 U/L (6-50); Albumin Level 3.1 g/dL (3.5-5.1); Alkaline Phosphatase 83 U/L (38-126); Anion Gap 14 mmol/L (4-12); Aspartate Amino Transferase 20 U/L (17-59); Bilirubin,Total 0.5 mg/dL (0.2-1.3); Blood Urea Nitrogen 102 mg/dL (9-20); Calcium 9.8 mg/dL (8.4-10.2); Carbon Dioxide 25 mmol/L (22-30); Chloride 95 mmol/L (98-107); Estimated CRCL calculation 16 ml/min; Estimated Glomerular Filt Rate 13; Glucose 106 mg/dL (65-110); Magnesium 2.4 mg/dL (1.6-2.3); Phosphorus 5.7 mg/dL (2.5-4.5); Potassium 4.6 mmol/L (3.4-5.0); Sodium 134 mmol/L (137-145)
--- NOTE | 2025-03-08 08:15 | PC.NURSE ---
pt transported to Dialysis via bed.
[2025-03-08 08:49] LABS: Glucose Point of Care 117 mg/dl (65-105)
[2025-03-08] MEDS: ALBUMIN HUMAN 25% 12.5 GM/50ML 50 ML IVPB (09:30)
--- NOTE | 2025-03-08 10:15 | P.PNNP_ITS ---
Progress Note: A&P Assessment and Plan (1) End stage renal disease: Code(s): N18.6 - End stage renal disease Status: Chronic Assessment and Plan: * HD today * transition back to M/W/F outpatient dialysis schedule next week * follow electrolytes, volume status, and clearance * outpatient dialysis unit = [facility] (2) Anemia: Qualifiers: Anemia type: due to chronic kidney disease Chronic kidney disease stage: on chronic dialysis Qualified Code(s): N18.6 - End stage renal disease; D63.1 - Anemia in chronic kidney disease; Z99.2 - Dependence on renal dialysis Code(s): D64.9 - Anemia, unspecified Status: Acute Assessment and Plan: * as noted by admission labs * PRBC transfusion per protocol * due to ESRD versus GI loss versus other(?) * Epogen with HD * adequate iron stores * check hemoccult stool * GI consult pending * follow trend of H/H (3) Syncope: Code(s): R55 - Syncope and collapse Status: Acute Assessment and Plan: * presumably secondary to anemia * however, ruling out cardiac etiology: * EKG with no acute changes * recent Echo (03/07) noted: left ventricular systolic function estimated at 45-50%; left ventricular diastolic function is abnormal; mild aortic valve regurgitation; mild to moderate mitral valve regurgitation; mild mitral valve calcification; mild tricuspid valve regurgitation; mild pulmonary hypertension, estimated pulmonary arterial systolic pressure is 39 mmHg * follow telemetry * Cardiology consulted (4) Abdominal pain: Code(s): R10.9 - Unspecified abdominal pain Status: Acute Assessment and Plan: * associated with constipation and elevated WBC * CT A/P with thickened wall of rectum and associated fecal impaction (possible stercoral proctitis?) * follow culture data * on bowel regiment * on empiric antibiotics (5) Hypertension: Code(s): I10 - Essential (primary) hypertension Status: Chronic Assessment and Plan: * reasonable control * issue with intradialytic hypotension requiring midodrine therapy * follow trend of hemodynamics (6) Diabetes: Code(s): E11.9 - Type 2 diabetes mellitus without complications Status: Chronic Assessment and Plan: * follow accu-checks * glycemic control per hospitalist Will continue to follow. L Subjective Date/time seen: 03/08/25 10:15 Interval history: Follow-up for end stage renal disease on hemodialysis. Tolerating dialysis treatment at the time of my visit (seen on HD at 10:05AM) -- BP a bit soft so suspect fluid removal will be limited; s/p 2 units PRBC transfusion since admission with Hgb up to 7.6 by recent labs; no other acute complaints voiced; no apparent distress noted. Exam 2 Narrative: General: WD/WN male in NAD Heart: normal S1 and S2; no rub Lungs: clear to auscultation Abdomen: soft, nontender, nondistended, positive bowel sounds Extremities: no cyanosis or clubbing; trace edema Skin: warm and dry Objective Data Vital Signs Vital Signs: Vital Signs Temp Pulse Resp BP Pulse Ox O2 Del Method 03/08/25 10:15 89 116/45 L 03/08/25 10:00 91 109/47 L 03/08/25 09:45 89 111/54 L 03/08/25 09:30 87 90/50 L 03/08/25 09:15 86 99/66 L 03/08/25 09:00 83 114/66 03/08/25 08:47 80 127/73 03/08/25 08:40 97.5 F L 77 18 132/62 100 03/08/25 08:00 Room Air 03/08/25 04:53 97.8 F 75 14 144/58 H 99 03/08/25 03:45 97.7 F 86 16 156/56 H 100 03/08/25 02:40 97.5 F L 82 16 149/50 H 100 03/08/25 01:40 97 F L 84 18 145/46 H 100 03/08/25 01:25 97.7 F 86 16 139/50 L 100 03/07/25 20:00 Room Air 03/07/25 19:53 97.6 F 83 16 142/43 H 100 03/07/25 18:53 97.8 F 84 16 139/46 L 100 03/07/25 17:53 98 F 88 16 126/42 L 99 03/07/25 17:37 97.6 F 88 16 91/47 L 100 03/07/25 15:31 83 16 128/65 100 03/07/25 14:46 82 22 H 122/60 100 03/07/25 14:31 83 19 125/61 99 03/07/25 14:16 88 20 128/77 100 Intake/Output Intake/Output: Intake & Output 03/05/25 03/06/25 03/07/25 03/08/25 23:59 23:59 23:59 23:59 Intake Total 600 400 Output Total 1036 Balance 600 -636 Meds/Results Medications: Active Medications Generic Name Dose Route Start Last Admin Trade Name Freq PRN Reason Stop Dose Admin Acetaminophen 650 mg 03/07/25 14:57 Acetaminophen 325 Mg Tablet PO Q4H PRN Mild Pain (1-3) or Fever Albuterol 2 puff 03/08/25 10:43 Albuterol Sulfate (*Sp) Aerosol 1 Puff INHALATION Q6H PRN shortness of breath or wheezing Apixaban 5 mg 03/08/25 17:00 Apixaban 5 Mg Tablet PO BID [facility] Aspirin 81 mg 03/09/25 09:00 Aspirin 81 Mg Enteric Tablet PO QAM [facility] Atorvastatin Calcium 40 mg 03/08/25 18:00 Atorvastatin 40 Mg Tablet PO QPM [facility] Buspirone HCl 20 mg 03/08/25 13:00 Buspirone Hcl 10 Mg Tablet PO TID [facility] Dextrose 12.5 gm 03/07/25 15:42 Dextrose 50% 25 Gm/50 Ml Syringe IV PUSH PRN PRN Hypoglycemia Protocol Glucagon 1 mg 03/07/25 15:42 Glucagon For Inj 1 Mg Vial IM PRN PRN Hypoglycemia Protocol Glucose 15 gm 03/07/25 15:42 Glucose Oral Gel 15 Gm Of Glucse In 37.5 Gm Tube PO PRN PRN Hypoglycemia Protocol Dextrose 1,000 mls @ 100 mls/hr 03/07/25 15:42 Dextrose 5% 1,000 Ml IVPB PRN PRN Hypoglycemia Protocol Levofloxacin/Dextrose 500 mg in 100 mls @ 100 mls/hr 03/09/25 16:00 Levaquin 500 Mg/D5w 100 Ml IVPB Q48H SUMAN Metronidazole 500 mg in 100 mls @ 100 mls/hr 03/07/25 21:00 03/08/25 05:43 Flagyl 500 Mg/Iso Soln 100 Ml IVPB 100 mls/hr Q8HR SUMAN Administration Albumin Human 50 mls @ 999 mls/hr 03/08/25 00:12 03/08/25 09:30 Albutein IVPB 04/07/25 00:11 999 mls/hr Q10M PRN Administration HYPOTENSION Insulin Aspart 2 - 5 units 03/07/25 17:00 03/08/25 13:01 Insulin Aspart (*Bkc) 100 Units/Ml SUB-Q Not Given TIDWM [facility] Protocol Midodrine 5 mg 03/08/25 10:43 Midodrine Hcl 2.5 Mg Tablet PO [email or web address] PRN hypotension Ondansetron HCl 4 mg 03/07/25 14:57 Ondansetron Inj 4 Mg/2 Ml Vial IV PUSH Q4H PRN Nausea Pantoprazole Sodium 40 mg 03/07/25 21:00 03/07/25 20:45 Pantoprazole Sodium Iv 40 Mg Vial IV PUSH 40 mg Q12HR SUMAN Administration Pantoprazole Sodium 40 mg 03/08/25 17:00 Pantoprazole 40 Mg Tablet PO BID [facility] Perflutren Lipid Microsphere 0 ml 03/07/25 15:40 Perflutren Lipid Microspheres 1.5 Ml Vial Diluted To 10 Ml Total Volume IV PUSH 03/10/25 15:40 ONCE PRN adequate visualization Protocol Polyethylene Glycol 17 gm 03/08/25 09:55 03/08/25 10:30 Polyethylene Glycol 3350 17 Gm Powd.Pack PO 17 gm QAM [facility] Administration Sertraline HCl 100 mg 03/09/25 09:00 Sertraline Hcl 50 Mg Tablet PO QAM [facility] Sevelamer Carbonate 800 mg 03/08/25 12:00 Sevelamer Carbonate 800 Mg Tablet PO TIDWM [facility] Venlafaxine HCl 75 mg 03/09/25 09:00 Venlafaxine Hcl Xr 75 Mg Cap.Er.24h PO QAM [facility] Radiology Results: ITS Impressions Chest/Abdomen/Pelvis CT 03/07/25 16:18 IMPRESSION: CHEST: 1. No pulmonary embolism. No dissection. 2. No acute cardiopulmonary pathology. 3. Mediastinal lymphadenopathy. Clinical correlation advised. ABDOMEN/PELVIS: 1. Distended gallbladder with cholelithiasis and sludge. 2. Sliding hiatus hernia. 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 4. Thickened wall of the urinary bladder. Further evaluation advised. 5. Thickened wall of the rectum. Clinical evaluation advised. Labs Labs: Laboratory Tests 03/08/25 05:33 03/08/25 05:33 Calcium 9.8 Phosphorus 5.7 H Magnesium 2.4 H Total Bilirubin 0.5 AST 20 ALT 10 Alkaline Phosphatase 83 Total Protein 6.0 L Albumin 3.1 L Microbiology 03/07/25 16:32 Blood Blood Culture - Preliminary 03/07/25 16:32 Blood Blood Culture - Preliminary
[2025-03-08] MEDS: polyethylene glycoL 3350 17 GM POWD.PACK PO ×2 (10:30→16:58)
[2025-03-08] MEDS: EPOETIN ALFA-EPBX 20,000 UNITS/ML VIAL 20000 UNITS IV PUSH (10:38)
--- NOTE | 2025-03-08 10:53 | P.PNIM_ITS ---
Progress Note: A&P Assessment and Plan (1) Anemia: Qualifiers: Anemia type: due to chronic kidney disease Chronic kidney disease stage: on chronic dialysis Qualified Code(s): N18.6 - End stage renal disease; D63.1 - Anemia in chronic kidney disease; Z99.2 - Dependence on renal dialysis Code(s): D64.9 - Anemia, unspecified Status: Acute (2) Abdominal pain: Code(s): R10.9 - Unspecified abdominal pain Status: Acute (3) Leukocytosis: Code(s): D72.829 - Elevated white blood cell count, unspecified Status: Acute (4) Syncope: Code(s): R55 - Syncope and collapse Status: Acute Plan Anemia Hb 7.6 s/p 2 units Isat 26, FOBT, PPI GI consulted Monitor H&H. Syncope Likely related to anemia, rule out cardiac etiology EKG no acute changes. Echo Showed Ef 45-50% with diastolic dysfunction Monitor on telemetry. Cardiology consulted Stercoral Proctitis History of present abdominal pain the past 2 weeks, with the constipation. CT AP showed thickened wall of rectum with fecal impaction leukocytosis improving WBC 15.5 from 19 Blood culture, continue Levaquin and Flagyl Monitor closely. Constipation Patient noted no bowel movements since [address] AP showed fecal impaction Miralax and Dulcolax suppository Enema if no bowel movement monitor End-stage renal disease on dialysis azotemia BUN 80 Nephrology consulted for dialysis. Hypertension Titrate her medications with clinical course. Type 2 diabetes Sliding scale insulin with Accu-Cheks adjust with clinical course. DVT prophylaxis no anticoagulation due to possible GI bleed. Subjective Date/time seen: 03/08/25 10:53 Interval history: Comfortable at bedside No bowel movement yet Review of Systems Review of Systems: Other systems reviewed and negative except as noted in history above. Exam Narrative: General: alert and comfortable Eyes: EOMI, PERRLA ENNT External ears normal, Neck is supple, no masses, Respiratory systems: Clear to auscultation Cardiovascular S1, S2, normal rhythm, no murmur, rub, or gallop; no thrill or palpable murmurs on palpation. Gastrointestinal: soft, non-tender, and non-distended abdomen with no masses; BS present Skin: no rash, lesions, ulcerations, subcutaneous nodules or induration Musculoskeletal: no abnormality and no tenderness, normal ROM Neurologic: Alert and oriented x3, non focal Mental Status Exam: normal affect Objective Data Vital Signs Vital Signs: Vital Signs - 24 hr 03/07/25 13:22 03/07/25 14:16 03/07/25 14:31 Temperature 97.8 F Pulse Rate 84 88 83 Respiratory Rate 18 20 19 Blood Pressure 105/58 L 128/77 125/61 Pulse Oximetry 100 100 99 Oxygen Delivery Room Air 03/07/25 14:46 03/07/25 15:31 03/07/25 17:37 Temperature 97.6 F Pulse Rate 82 83 88 Respiratory Rate 22 H 16 16 Blood Pressure 122/60 128/65 91/47 L Pulse Oximetry 100 100 100 Oxygen Delivery 03/07/25 17:53 03/07/25 18:53 03/07/25 19:53 Temperature 98 F 97.8 F 97.6 F Pulse Rate 88 84 83 Respiratory Rate 16 16 16 Blood Pressure 126/42 L 139/46 L 142/43 H Pulse Oximetry 99 100 100 Oxygen Delivery 03/07/25 20:00 03/08/25 01:25 03/08/25 01:40 Temperature 97.7 F 97 F L Pulse Rate 86 84 Respiratory Rate 16 18 Blood Pressure 139/50 L 145/46 H Pulse Oximetry 100 100 Oxygen Delivery Room Air 03/08/25 02:40 03/08/25 03:45 03/08/25 04:53 Temperature 97.5 F L 97.7 F 97.8 F Pulse Rate 82 86 75 Respiratory Rate 16 16 14 Blood Pressure 149/50 H 156/56 H 144/58 H Pulse Oximetry 100 100 99 Oxygen Delivery 03/08/25 08:40 03/08/25 08:47 03/08/25 09:00 Temperature 97.5 F L Pulse Rate 77 80 83 Respiratory Rate 18 Blood Pressure 132/62 127/73 114/66 Pulse Oximetry 100 Oxygen Delivery 03/08/25 09:15 03/08/25 09:30 03/08/25 09:45 Temperature Pulse Rate 86 87 89 Respiratory Rate Blood Pressure 99/66 L 90/50 L 111/54 L Pulse Oximetry Oxygen Delivery 03/08/25 10:00 03/08/25 10:15 03/08/25 10:30 Temperature Pulse Rate 91 89 89 Respiratory Rate Blood Pressure 109/47 L 116/45 L 99/55 L Pulse Oximetry Oxygen Delivery 03/08/25 10:45 Temperature Pulse Rate 88 Respiratory Rate Blood Pressure 107/50 L Pulse Oximetry Oxygen Delivery Intake/Output Intake/Output: Intake & Output 03/05/25 03/06/25 03/07/25 03/08/25 23:59 23:59 23:59 23:59 Intake Total 600 400 Balance 600 400 Meds/Results Medications: Active Medications Generic Name Dose Route Start Last Admin Trade Name Freq PRN Reason Stop Dose Admin Acetaminophen 650 mg 03/07/25 14:57 Acetaminophen 325 Mg Tablet PO Q4H PRN Mild Pain (1-3) or Fever Albuterol 2 puff 03/08/25 10:43 Albuterol Sulfate (*Sp) Aerosol 1 Puff INHALATION Q6H PRN shortness of breath or wheezing Apixaban 5 mg 03/08/25 17:00 Apixaban 5 Mg Tablet PO BID [facility] Atorvastatin Calcium 40 mg 03/08/25 18:00 Atorvastatin 40 Mg Tablet PO QPM [facility] Buspirone HCl 20 mg 03/08/25 13:00 Buspirone Hcl 10 Mg Tablet PO TID [facility] Dextrose 12.5 gm 03/07/25 15:42 Dextrose 50% 25 Gm/50 Ml Syringe IV PUSH PRN PRN Hypoglycemia Protocol Glucagon 1 mg 03/07/25 15:42 Glucagon For Inj 1 Mg Vial IM PRN PRN Hypoglycemia Protocol Glucose 15 gm 03/07/25 15:42 Glucose Oral Gel 15 Gm Of Glucse In 37.5 Gm Tube PO PRN PRN Hypoglycemia Protocol Dextrose 1,000 mls @ 100 mls/hr 03/07/25 15:42 Dextrose 5% 1,000 Ml IVPB PRN PRN Hypoglycemia Protocol Levofloxacin/Dextrose 500 mg in 100 mls @ 100 mls/hr 03/09/25 16:00 Levaquin 500 Mg/D5w 100 Ml IVPB Q48H SUMAN Metronidazole 500 mg in 100 mls @ 100 mls/hr 03/07/25 21:00 03/08/25 05:43 Flagyl 500 Mg/Iso Soln 100 Ml IVPB 100 mls/hr Q8HR SUMAN Administration Albumin Human 50 mls @ 999 mls/hr 03/08/25 00:12 03/08/25 09:30 Albutein IVPB 04/07/25 00:11 999 mls/hr Q10M PRN Administration HYPOTENSION Insulin Aspart 2 - 5 units 03/07/25 17:00 03/08/25 09:22 Insulin Aspart (*Bkc) 100 Units/Ml SUB-Q Not Given TIDWM [facility] Protocol Midodrine 5 mg 03/08/25 10:43 Midodrine Hcl 2.5 Mg Tablet PO Q12H PRN hypotension Non-Formulary Medication 81 mg 03/09/25 09:00 Aspirin PO 04/08/25 08:59 DAILY [facility] Non-Formulary Medication 40 mg 03/09/25 09:00 Omeprazole PO 04/08/25 08:59 DAILY [facility] Ondansetron HCl 4 mg 03/07/25 14:57 Ondansetron Inj 4 Mg/2 Ml Vial IV PUSH Q4H PRN Nausea Pantoprazole Sodium 40 mg 03/07/25 21:00 03/07/25 20:45 Pantoprazole Sodium Iv 40 Mg Vial IV PUSH 40 mg Q12HR SUMAN Administration Perflutren Lipid Microsphere 0 ml 03/07/25 15:40 Perflutren Lipid Microspheres 1.5 Ml Vial Diluted To 10 Ml Total Volume IV PUSH 03/10/25 15:40 ONCE PRN adequate visualization Protocol Polyethylene Glycol 17 gm 03/08/25 09:55 03/08/25 10:30 Polyethylene Glycol 3350 17 Gm Powd.Pack [facility] Administration Sertraline HCl 100 mg 03/09/25 09:00 Sertraline Hcl 50 Mg Tablet [facility] Sevelamer Carbonate 800 mg 03/08/25 12:00 Sevelamer Carbonate 800 Mg Tablet PO TIDWM [facility] Venlafaxine HCl 75 mg 03/09/25 09:00 Venlafaxine Hcl Xr 75 Mg Cap.Er.24h [facility] Radiology Results: ITS Impressions Chest/Abdomen/Pelvis CT 03/07/25 16:18 IMPRESSION: CHEST: 1. No pulmonary embolism. No dissection. 2. No acute cardiopulmonary pathology. 3. Mediastinal lymphadenopathy. Clinical correlation advised. ABDOMEN/PELVIS: 1. Distended gallbladder with cholelithiasis and sludge. 2. Sliding hiatus hernia. 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 4. Thickened wall of the urinary bladder. Further evaluation advised. 5. Thickened wall of the rectum. Clinical evaluation advised. Labs Labs: Laboratory Results - last 24 hr 03/07/25 03/07/25 03/07/25 13:35 14:20 16:32 WBC 19.7 H RBC 2.08 L Hgb 6.0 L* Hct 20.6 L* MCV 99.0 MCH 28.8 MCHC 29.1 L RDW 16.8 H Plt Count 309 MPV 9.9 Immature Gran % (Auto) Motor Vehicle Escort Driver Neut % (Auto) Motor Vehicle Escort Driver Lymph % (Auto) Motor Vehicle Escort Driver [place] % (Auto) Motor Vehicle Escort Driver Eos % (Auto) Motor Vehicle Escort Driver Baso % (Auto) Motor Vehicle Escort Driver Lymph # (Auto) Motor Vehicle Escort Driver [place] # (Auto) Motor Vehicle Escort Driver Eos # (Auto) Motor Vehicle Escort Driver Baso # (Auto) Motor Vehicle Escort Driver Abs Immat Gran (auto) Motor Vehicle Escort Driver Absolute Neuts (auto) Motor Vehicle Escort Driver Absolute Nucleated RBC Motor Vehicle Escort Driver Band Neutrophils % Not Reportable Nucleated RBC % Motor Vehicle Escort Driver Platelet Estimate Adequate Hypochromasia 1+ Anisocytosis 1+ Schistocytes None seen Sodium 134 L Potassium 4.2 Chloride 92 L Carbon Dioxide 32 H Anion Gap 10 BUN 80 H Creatinine 3.87 H Estim Creat Clear Calc 17 Estimated GFR 16 L Glucose 144 H POC Capillary Glucose Calcium 9.4 Phosphorus Magnesium Iron 62 TIBC 235 L % Saturation 26 Ferritin 87.00 Total Bilirubin 0.4 AST 18 ALT 12 Alkaline Phosphatase 85 Total Protein 6.0 L Albumin 3.4 L Hep Bs Antigen Negative Hep Bs Antibody Positive Blood Type O Positive Antibody Screen Negative Crossmatch See Detail 03/07/25 03/07/25 03/07/25 17:01 19:55 22:07 WBC RBC Hgb 6.3 L* Hct 20.9 L* MCV MCH MCHC RDW Plt Count MPV Immature Gran % (Auto) Neut % (Auto) Lymph % (Auto) [place] % (Auto) Eos % (Auto) Baso % (Auto) Lymph # (Auto) [place] # (Auto) Eos # (Auto) Baso # (Auto) Abs Immat Gran (auto) Absolute Neuts (auto) Absolute Nucleated RBC Band Neutrophils % Nucleated RBC % Platelet Estimate Hypochromasia Anisocytosis Schistocytes Sodium Potassium Chloride Carbon Dioxide Anion Gap BUN Creatinine Estim Creat Clear Calc Estimated GFR Glucose POC Capillary Glucose 114 H 134 H Calcium Phosphorus Magnesium Iron TIBC % Saturation Ferritin Total Bilirubin AST ALT Alkaline Phosphatase Total Protein Albumin Hep Bs Antigen Hep Bs Antibody Blood Type Antibody Screen Crossmatch 03/08/25 03/08/25 05:33 08:41 WBC 15.5 H RBC 2.59 L Hgb 7.6 L Hct 25.2 L MCV 97.3 MCH 29.3 MCHC 30.2 L RDW 16.9 H Plt Count 266 MPV 9.9 Immature Gran % (Auto) 0.5 Neut % (Auto) 80.6 H Lymph % (Auto) 9.6 L [place] % (Auto) 8.0 Eos % (Auto) 1.0 Baso % (Auto) 0.3 Lymph # (Auto) 1.49 [place] # (Auto) 1.2 H Eos # (Auto) 0.2 Baso # (Auto) 0.0 Abs Immat Gran (auto) 0.07 H Absolute Neuts (auto) 12.5 H Absolute Nucleated RBC 0.000 Band Neutrophils % Nucleated RBC % 0.0 Platelet Estimate Hypochromasia Anisocytosis Schistocytes Sodium 134 L Potassium 4.6 Chloride 95 L Carbon Dioxide 25 Anion Gap 14 H BUN 102 H D Creatinine 4.62 H Estim Creat Clear Calc 16 Estimated GFR 13 L Glucose 106 POC Capillary Glucose 117 H Calcium 9.8 Phosphorus 5.7 H Magnesium 2.4 H Iron TIBC % Saturation Ferritin Total Bilirubin 0.5 AST 20 ALT 10 Alkaline Phosphatase 83 Total Protein 6.0 L Albumin 3.1 L Hep Bs Antigen Hep Bs Antibody Blood Type Antibody Screen Crossmatch
[2025-03-08] MEDS: HEPARIN SODIUM 1,000 UNITS/ML VIAL 6000 UNITS (12:44)
[2025-03-08 12:50] LABS: Glucose Point of Care 117 mg/dl (65-105)
[2025-03-08] MEDS: busPIRone HCL 10 MG TABLET 20 MG PO ×2 (14:08→16:56)
[2025-03-08] MEDS: BISACODYL 10 MG SUPPOSITORY RECTAL (14:10)
[2025-03-08] MEDS: SEVELAMER CARBONATE 800 MG TABLET PO ×2 (14:10→16:56)
--- NOTE | 2025-03-08 14:17 | P.CONGI_ITS ---
Assessment and Plan Assessment and plan (1) Syncope: Code(s): R55 - Syncope and collapse Status: Acute Assessment and Plan: could have been multifactorial noted anemia but he is on dialysis and has chronicity component work up by primary s/p transfusion nephrology on board for dialysis (2) Acute on chronic anemia: Code(s): D64.9 - Anemia, unspecified Status: Acute Assessment and Plan: never had scopes probably from renal disease, use of blood thinner (will put on hold), need to assess if gi source he is agreeable to have them on Monday, will start prep tomorrow (3) End stage renal disease: Code(s): N18.6 - End stage renal disease Status: Chronic (4) Diabetes: Code(s): E11.9 - Type 2 diabetes mellitus without complications Status: Acute (5) Leukocytosis: Code(s): D72.829 - Elevated white blood cell count, unspecified Status: Acute (6) Fecal impaction: Code(s): K56.41 - Fecal impaction Status: Acute Assessment and Plan: will give bowel therapy (7) Blood thinned due to long-term anticoagulant use: Code(s): Z79.01 - equipment [employer] (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 of anticoagulants Status: Acute Assessment and Plan: hold for now GI Consult Note Consult date/time: 03/08/25 14:17 Reason for consult: anemia, constipation HPI: Gordon Greene is a 59 year old male with history of end-stage renal disease on dialysis, hypertension, type 2 diabetes, coronary artery disease status post stents, use of eliquis was brought to the ER from dialysis center after syncope. He also says that has been dealing with constipation but denies passing blood or any obvious GIB. Day of admission had syncopal episode during dialysis. Denies any chest pain no palpitations no focal symptoms. Patient is wheelchair bound. ER labs WBC 19.7, hemoglobin 6.0, creatinine 3.87, CT scan fecal impaction rectum. He never had scopes. Review of Systems 2 Constitutional: Constitutional: Reports fatigue Eyes: Eyes: Denies blurry vision ENT: Reports Normal hearing present Cardiovascular: Cardiovascular: Denies chest pain Respiratory: Respiratory: Denies cough Gastrointestinal: Gastrointestinal: Reports constipation Genitourinary: Comments: on dialysis Musculoskeletal: Musculoskeletal: Denies neck pain Integumentary/Breasts: Skin/Breast: Denies rash Neurologic: Denies Abnormal speech present Psychiatric: Psychiatric: Denies behavioral changes [facility] Past Medical History Medical History (Updated 03/08/25 @ 14:21 by Jluis Dover MD) Blood thinned due to long-term anticoagulant use Fecal impaction Acute on chronic anemia Arthritis Anxiety GERD (gastroesophageal reflux disease) Depression [place] spotted fever Frequent falls Psoriasis Obesity Hyperlipidemia Hypertension Peripheral vascular disease Congestive heart failure CAD (coronary artery disease) Diabetes Chronic atrial fibrillation Surgical History Surgical History (Updated 03/08/25 @ 00:02 by Whitney Phelps MD) S/P dialysis catheter insertion Amputation of left great toe Family History Family History (Updated 03/07/25 @ 23:58 by Whitney Phelps MD) Mother Depression Pulmonary fibrosis Social History Social History Smoking status: Former smoker Alcohol intake: former Substance use: never Do You Feel Safe in your Home?: Yes Lack of Transportation: No Lack of Food: Never True Current Housing: I Have Housing Concerned About Future Housing: No Difficulty Paying Gas/Electric Bills: No Difficulty Paying for Meds: No Currently Unemployed: No Education: Decline to Answer Difficulty w/ Childcare or Family Care: No Spiritual care concerns: No Meds Home Medications and Allergies Home Medications ?Medication ?Instructions ?Recorded ?Confirmed ?Type apixaban 5 mg tablet (Eliquis) 5 mg PO BID 03/07/25 03/08/25 History atorvastatin 40 mg tablet 40 mg PO QPM 03/07/25 03/08/25 History buspirone 10 mg tablet 20 mg PO TID 03/07/25 03/08/25 History hydrocodone 5 mg-acetaminophen 325 1 tablet PO Q6H PRN pain 03/07/25 03/07/25 History mg tablet sertraline 100 mg tablet 100 mg PO QAM 03/07/25 03/08/25 History sevelamer carbonate 800 mg tablet 800 mg PO TID 03/07/25 03/08/25 History venlafaxine 75 mg capsule,extended 75 mg PO QAM 03/07/25 03/08/25 History release 24 hr acetaminophen 325 mg tablet 500 mg PO Q4H PRN pain (scale 03/08/25 03/08/25 History (Tylenol) score 1-3) albuterol sulfate 90 mcg/actuation 2 inh inhalation Q6H PRN shortness 03/08/25 03/08/25 History aerosol inhaler (Ventolin HFA) of breath or wheezing aspirin 81 mg capsule 81 mg PO DAILY 03/08/25 03/08/25 History linagliptin 5 mg tablet (Tradjenta) 5 mg PO DAILY 03/08/25 03/08/25 History midodrine 5 mg tablet 5 mg PO Q12H PRN hypotension 03/08/25 03/08/25 History omeprazole 40 mg capsule,delayed 40 mg PO DAILY 03/08/25 03/08/25 History release polyethylene glycol 3350 17 17 g PO DAILY PRN constipation 03/08/25 03/08/25 History gram/dose oral powder (Miralax) sevelamer carbonate 800 mg tablet 800 mg PO TID 03/08/25 03/08/25 History (Renvela) Allergies Allergy/AdvReac Type Severity Reaction Status Date / Time No Known Allergies Allergy Verified 03/07/25 14:57 Vital Signs Vital Signs - 24 hr 03/07/25 14:31 03/07/25 14:46 03/07/25 15:31 Temperature Pulse Rate 83 82 83 Respiratory Rate 19 22 H 16 Blood Pressure 125/61 122/60 128/65 Pulse Oximetry 99 100 100 Oxygen Delivery 03/07/25 17:37 03/07/25 17:53 03/07/25 18:53 Temperature 97.6 F 98 F 97.8 F Pulse Rate 88 88 84 Respiratory Rate 16 16 16 Blood Pressure 91/47 L 126/42 L 139/46 L Pulse Oximetry 100 99 100 Oxygen Delivery 03/07/25 19:53 03/07/25 20:00 03/08/25 01:25 Temperature 97.6 F 97.7 F Pulse Rate 83 86 Respiratory Rate 16 16 Blood Pressure 142/43 H 139/50 L Pulse Oximetry 100 100 Oxygen Delivery Room Air 03/08/25 01:40 03/08/25 02:40 03/08/25 03:45 Temperature 97 F L 97.5 F L 97.7 F Pulse Rate 84 82 86 Respiratory Rate 18 16 16 Blood Pressure 145/46 H 149/50 H 156/56 H Pulse Oximetry 100 100 100 Oxygen Delivery 03/08/25 04:53 03/08/25 08:00 03/08/25 08:40 Temperature 97.8 F 97.5 F L Pulse Rate 75 77 Respiratory Rate 14 18 Blood Pressure 144/58 H 132/62 Pulse Oximetry 99 100 Oxygen Delivery Room Air 03/08/25 08:47 03/08/25 09:00 03/08/25 09:15 Temperature Pulse Rate 80 83 86 Respiratory Rate Blood Pressure 127/73 114/66 99/66 L Pulse Oximetry Oxygen Delivery 03/08/25 09:30 03/08/25 09:45 03/08/25 10:00 Temperature Pulse Rate 87 89 91 Respiratory Rate Blood Pressure 90/50 L 111/54 L 109/47 L Pulse Oximetry Oxygen Delivery 03/08/25 10:15 03/08/25 10:30 03/08/25 10:45 Temperature Pulse Rate 89 89 88 Respiratory Rate Blood Pressure 116/45 L 99/55 L 107/50 L Pulse Oximetry Oxygen Delivery 03/08/25 11:00 03/08/25 11:15 03/08/25 11:30 Temperature Pulse Rate 87 85 85 Respiratory Rate Blood Pressure 101/52 L 107/81 97/62 L Pulse Oximetry Oxygen Delivery 03/08/25 11:45 03/08/25 12:00 03/08/25 12:15 Temperature Pulse Rate 90 89 89 Respiratory Rate Blood Pressure 94/55 L 99/48 L 94/49 L Pulse Oximetry Oxygen Delivery 03/08/25 14:13 Temperature 97.8 F Pulse Rate 84 Respiratory Rate 16 Blood Pressure 105/45 L Pulse Oximetry 100 Oxygen Delivery Exam 2 Const: General: comfortable and no acute distress HENMT: Face/Nose/Sinus: Normal nares present Eyes: General: appearance normal, both eyes and all related structures Neck: Neck: supple Resp: Auscultation: clear to auscultation bilaterally Cardio: Rate: regular rate Rhythm: regular rhythm GI: Inspection: non-distended GI Palp: Yes Soft to palpation and No Tenderness to palpation present (GI) Auscultation: normal bowel sounds Skin: General skin exam: no rashes or lesions noted Other: pallor Neuro: Speech: normal speech Extrem: General: normal to inspection Psych: Mental Status: mental status grossly normal Results Labs 03/08/25 05:33 03/08/25 05:33 Labs: Short CBC 03/07/25 03/08/25 Range/Units 22:07 05:33 WBC 15.5 H (4.5-10.0) K/mm3 Hgb 6.3 L* 7.6 L (14.0-18.0) g/dL Hct 20.9 L* 25.2 L (42.0-52.0) % Plt Count 266 (150-375) k/mm3 BMP 03/08/25 05:33 Sodium 134 L Potassium 4.6 Chloride 95 L Carbon Dioxide 25 BUN 102 H D Creatinine 4.62 H Glucose 106 Calcium 9.8 Liver Function 03/08/25 Range/Units 05:33 Total Bilirubin 0.5 (0.2-1.3) mg/dL AST 20 (17-59) U/L ALT 10 (6-50) U/L Alkaline Phosphatase 83 (38-126) U/L Albumin 3.1 L (3.5-5.1) g/dL
[2025-03-08] MEDS: BISACODYL 5 MG TABLET EC 10 MG PO (16:56)
[2025-03-08] MEDS: PANTOPRAZOLE 40 MG TABLET PO (16:58)
[2025-03-08] MEDS: ATORVASTATIN 40 MG TABLET PO (16:59)
[2025-03-08 17:19] LABS: Glucose Point of Care 106 mg/dl (65-105)
[2025-03-08] MEDS: PANTOPRAZOLE SODIUM IV 40 MG VIAL IV PUSH (22:25)
[2025-03-09 00:41] LABS: Glucose Point of Care 112 mg/dl (65-105)
[2025-03-09] MEDS: metroNIDAZOLE 500 MG/ISO 100ML 500 MG/100 ML BAG 100 MG IVPB ×3 (05:05→21:02)
[2025-03-09 05:22] LABS: Basophils Percent Auto 0.2 % (0.2-1.2); Eosinophils Absolute Auto 0.3 K/mm3 (0-0.3); Eosinophils Percent Auto 2.5 % (0-4.4); Hematocrit 25.5 % (42.0-52.0); Hemoglobin 7.8 g/dL (14.0-18.0); Immature Granulocyte Absolute 0.06 K/mm3 (0.00-0.031); Immature Granulocyte Percent A 0.5 % (0-0.5); Lymphocytes Absolute Auto 1.52 K/mm3 (0.9-3.2); Lymphocytes Percent Auto 11.6 % (18.3-44.2); Mean Corpuscular HGB Conc 30.6 g/dl (32-36); Mean Corpuscular Hemoglobin 29.9 pg (26-34); Mean Corpuscular Volume 97.7 fl (80-100); Mean Platelet Volume 9.7 fl (7.4-10.4); Monocytes Absolute Auto 1.3 K/mm3 (0.1-0.6); Monocytes Percent Auto 9.7 % (2.6-8.5); Neutrophils Absolute Auto 9.9 K/mm3 (1.3-6.7); Neutrophils Percent Auto 75.5 % (45.5-73.1); Nucleated Red Blood Cells Perc 0.2 % (0.0-0.2); Platelet Count Result 262 k/mm3 (150-375); Red Blood Count 2.61 M/mm3 (4.6-6.20); Red Cell Distribution Width 17.9 % (11.5-14.5); White Blood Count 13.1 K/mm3 (4.5-10.0)
[2025-03-09 05:31] VITALS: BP 146/75; PULSE 85; RESP 16; TEMP 36.5; O2SAT 100
[2025-03-09 05:38] LABS: Alanine Aminotransferase 12 U/L (6-50); Albumin Level 3.6 g/dL (3.5-5.1); Alkaline Phosphatase 88 U/L (38-126); Anion Gap 10 mmol/L (4-12); Aspartate Amino Transferase 19 U/L (17-59); Bilirubin,Total 0.4 mg/dL (0.2-1.3); Blood Urea Nitrogen 33 mg/dL (9-20); Calcium 10.5 mg/dL (8.4-10.2); Carbon Dioxide 27 mmol/L (22-30); Chloride 100 mmol/L (98-107); Estimated CRCL calculation 23 ml/min; Estimated Glomerular Filt Rate 20; Glucose 96 mg/dL (65-110); Magnesium 2.3 mg/dL (1.6-2.3); Phosphorus 4.8 mg/dL (2.5-4.5); Potassium 4.3 mmol/L (3.4-5.0); Sodium 137 mmol/L (137-145)
[2025-03-09 08:54] LABS: Glucose Point of Care 97 mg/dl (65-105)
[2025-03-09] MEDS: busPIRone HCL 10 MG TABLET 20 MG PO ×3 (08:56→16:25)
[2025-03-09] MEDS: PANTOPRAZOLE 40 MG TABLET PO ×2 (08:56→16:24)
[2025-03-09] MEDS: SERTRALINE HCL 50 MG TABLET 100 MG PO (08:56)
[2025-03-09] MEDS: polyethylene glycoL 3350 17 GM POWD.PACK PO (08:57)
[2025-03-09] MEDS: VENLAFAXINE HCL XR 75 MG CAP.ER.24H PO (08:57)
[2025-03-09] MEDS: SEVELAMER CARBONATE 800 MG TABLET PO ×3 (08:57→16:24)
[2025-03-09 12:04] LABS: Glucose Point of Care 154 mg/dl (65-105)
--- NOTE | 2025-03-09 12:11 | P.PNNP_ITS ---
Progress Note: A&P Assessment and Plan (1) End stage renal disease: Code(s): N18.6 - End stage renal disease Status: Chronic Assessment and Plan: * HD tomorrow * transition back to M// outpatient dialysis schedule starting next week * follow electrolytes, volume status, and clearance * outpatient dialysis unit = [facility] (2) Anemia: Qualifiers: Anemia type: due to chronic kidney disease Chronic kidney disease stage: on chronic dialysis Qualified Code(s): N18.6 - End stage renal disease; D63.1 - Anemia in chronic kidney disease; Z99.2 - Dependence on renal dialysis Code(s): D64.9 - Anemia, unspecified Status: Acute Assessment and Plan: * as noted by admission labs * PRBC transfusion per protocol * due to ESRD versus GI loss versus other(?) * Epogen with HD * adequate iron stores * checking hemoccult stool * GI recommendations noted * follow trend of H/H (3) Syncope: Code(s): R55 - Syncope and collapse Status: Acute Assessment and Plan: * presumably secondary to anemia * however, ruling out cardiac etiology: * EKG with no acute changes * recent Echo (03/07) noted: left ventricular systolic function estimated at 45-50%; left ventricular diastolic function is abnormal; mild aortic valve regurgitation; mild to moderate mitral valve regurgitation; mild mitral valve calcification; mild tricuspid valve regurgitation; mild pulmonary hypertension, estimated pulmonary arterial systolic pressure is 39 mmHg * follow telemetry * Cardiology consulted (4) Abdominal pain: Code(s): R10.9 - Unspecified abdominal pain Status: Acute Assessment and Plan: * associated with constipation and elevated WBC * CT A/P with thickened wall of rectum and associated fecal impaction (possible stercoral proctitis?) * follow culture data * on bowel regiment * on empiric antibiotics (5) Hypertension: Code(s): I10 - Essential (primary) hypertension Status: Chronic Assessment and Plan: * reasonable control * issue with intradialytic hypotension requiring midodrine therapy * follow trend of hemodynamics (6) Diabetes: Code(s): E11.9 - Type 2 diabetes mellitus without complications Status: Chronic Assessment and Plan: * follow accu-checks * glycemic control per hospitalist Will continue to follow. L Subjective Date/time seen: 03/09/25 12:11 Interval history: Follow-up for end stage renal disease on hemodialysis. Tolerated dialysis treatment yesterday without any issues or problems although fluid removal/ultrafiltration limited due to hypotension during treatment; no apparent distress noted at the time of my visit; H/H relatively stable since PRBC transfusion; no other events overnight or earlier this morning. Exam 2 Narrative: General: WD/WN male in NAD Heart: normal S1 and S2; no rub Lungs: clear to auscultation Abdomen: soft, nontender, nondistended, positive bowel sounds Extremities: no cyanosis or clubbing; trace edema Skin: warm and intact Objective Data Vital Signs Vital Signs: Vital Signs Temp Pulse Resp BP Pulse Ox O2 Del Method 03/09/25 12:00 96.4 F L 79 18 124/56 L 98 03/09/25 09:00 Room Air 03/09/25 05:31 97.7 F 85 16 146/75 H 100 03/08/25 20:00 Room Air 03/08/25 20:00 98.1 F 86 18 145/50 H 100 03/08/25 18:07 97.7 F 88 17 120/48 L 100 Intake/Output Intake/Output: Intake & Output 03/06/25 03/07/25 03/08/25 03/09/25 23:59 23:59 23:59 23:59 Intake Total 600 1090 587 Output Total 1036 Balance 600 54 587 Meds/Results Medications: Active Medications Generic Name Dose Route Start Last Admin Trade Name Freq PRN Reason Stop Dose Admin Acetaminophen 650 mg 03/07/25 14:57 Acetaminophen 325 Mg Tablet PO Q4H PRN Mild Pain (1-3) or Fever Albuterol 2 puff 03/08/25 10:43 Albuterol Sulfate (*Sp) Aerosol 1 Puff INHALATION Q6H PRN shortness of breath or wheezing Aspirin 81 mg 03/09/25 09:00 03/09/25 10:48 Aspirin 81 Mg Enteric Tablet PO Not Given QAM SUMAN Atorvastatin Calcium 40 mg 03/08/25 18:00 03/09/25 16:25 Atorvastatin 40 Mg Tablet PO 40 mg QPM SUMAN Administration Buspirone HCl 20 mg 03/08/25 13:00 03/09/25 16:25 Buspirone Hcl 10 Mg Tablet PO 20 mg TID SUMAN Administration Dextrose 12.5 gm 03/07/25 15:42 Dextrose 50% 25 Gm/50 Ml Syringe IV PUSH PRN PRN Hypoglycemia Protocol Glucagon 1 mg 03/07/25 15:42 Glucagon For Inj 1 Mg Vial IM PRN PRN Hypoglycemia Protocol Glucose 15 gm 03/07/25 15:42 Glucose Oral Gel 15 Gm Of Glucse In 37.5 Gm Tube PO PRN PRN Hypoglycemia Protocol Dextrose 1,000 mls @ 100 mls/hr 03/07/25 15:42 Dextrose 5% 1,000 Ml IVPB PRN PRN Hypoglycemia Protocol Levofloxacin/Dextrose 500 mg in 100 mls @ 100 mls/hr 03/09/25 16:00 03/09/25 16:26 Levaquin 500 Mg/D5w 100 Ml IVPB 100 mls/hr Q48H SUMAN Administration Metronidazole 500 mg in 100 mls @ 100 mls/hr 03/07/25 21:00 03/09/25 15:10 Flagyl 500 Mg/Iso Soln 100 Ml IVPB Infused Q8HR SUMAN Infusion Albumin Human 50 mls @ 999 mls/hr 03/08/25 00:12 03/08/25 09:34 Albutein IVPB 04/07/25 00:11 Infused Q10M PRN Infusion HYPOTENSION Insulin Aspart 2 - 5 units 03/07/25 17:00 03/09/25 16:41 Insulin Aspart (*Bkc) 100 Units/Ml SUB-Q Not Given TIDWM SUMAN Protocol Magnesium Citrate 300 ml 03/09/25 23:00 Magnesium Citrate 300 Ml Btl PO 03/09/25 23:01 ONCE ONE Midodrine 5 mg 03/08/25 10:43 Midodrine Hcl 2.5 Mg Tablet PO [email or web address] PRN hypotension Ondansetron HCl 4 mg 03/07/25 14:57 Ondansetron Inj 4 Mg/2 Ml Vial IV PUSH Q4H PRN Nausea Pantoprazole Sodium 40 mg 03/08/25 17:00 03/09/25 16:24 Pantoprazole 40 Mg Tablet PO 40 mg BID SUMAN Administration Perflutren Lipid Microsphere 0 ml 03/07/25 15:40 Perflutren Lipid Microspheres 1.5 Ml Vial Diluted To 10 Ml Total Volume IV PUSH 03/10/25 15:40 ONCE PRN adequate visualization Protocol Sertraline HCl 100 mg 03/09/25 09:00 03/09/25 08:56 Sertraline Hcl 50 Mg Tablet PO 100 mg QAM SUMAN Administration Sevelamer Carbonate 800 mg 03/08/25 12:00 03/09/25 16:24 Sevelamer Carbonate 800 Mg Tablet PO 800 mg TIDWM SUMAN Administration Venlafaxine HCl 75 mg 03/09/25 09:00 03/09/25 08:57 Venlafaxine Hcl Xr 75 Mg Cap.Er.24h PO 75 mg QAM SUMAN Administration Radiology Results: ITS Impressions Chest/Abdomen/Pelvis CT 03/07/25 16:18 IMPRESSION: CHEST: 1. No pulmonary embolism. No dissection. 2. No acute cardiopulmonary pathology. 3. Mediastinal lymphadenopathy. Clinical correlation advised. ABDOMEN/PELVIS: 1. Distended gallbladder with cholelithiasis and sludge. 2. Sliding hiatus hernia. 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 4. Thickened wall of the urinary bladder. Further evaluation advised. 5. Thickened wall of the rectum. Clinical evaluation advised. Abdomen Ultrasound 03/09/25 08:20 IMPRESSION: 1: Gallstones and gallbladder contains sludge and stones. No gallbladder wall thickening or pericholecystic fluid. Labs Labs: Laboratory Tests 03/09/25 05:00 03/09/25 05:00 Calcium 10.5 H Phosphorus 4.8 H Magnesium 2.3 Total Bilirubin 0.4 AST 19 ALT 12 Alkaline Phosphatase 88 Total Protein 7.0 Albumin 3.6 Microbiology 03/07/25 16:32 Blood Blood Culture - Preliminary 03/07/25 16:32 Blood Blood Culture - Preliminary
--- NOTE | 2025-03-09 12:38 | P.PNIM_ITS ---
Progress Note: A&P Assessment and Plan (1) Anemia: Qualifiers: Anemia type: due to chronic kidney disease Chronic kidney disease stage: on chronic dialysis Qualified Code(s): N18.6 - End stage renal disease; D63.1 - Anemia in chronic kidney disease; Z99.2 - Dependence on renal dialysis Code(s): D64.9 - Anemia, unspecified Status: Acute (2) Abdominal pain: Code(s): R10.9 - Unspecified abdominal pain Status: Acute (3) Leukocytosis: Code(s): D72.829 - Elevated white blood cell count, unspecified Status: Acute (4) Syncope: Code(s): R55 - Syncope and collapse Status: Acute Plan Anemia Hb 7.6 s/p 2 units Isat 26, FOBT, PPI ELiquis on Hold For Endoscopy tomorrow GI consulted Monitor H&H. Syncope Likely related to anemia, rule out cardiac etiology EKG no acute changes. Echo Showed Ef 45-50% with diastolic dysfunction Monitor on telemetry. Cardiology consulted Stercoral Proctitis History of present abdominal pain the past 2 weeks, with the constipation. CT AP showed thickened wall of rectum with fecal impaction leukocytosis improving WBC 13.1 from 19 Blood culture, day 2/7 Levaquin and Flagyl Monitor closely. Constipation Patient noted no bowel movements since [address] AP showed fecal impaction Miralax and Dulcolax suppository Bowel prep for endoscopy tomorrow monitor End-stage renal disease on dialysis azotemia BUN 80 Nephrology consulted for dialysis. Hypertension Titrate her medications with clinical course. Type 2 diabetes Sliding scale insulin with Accu-Cheks adjust with clinical course. DVT prophylaxis no anticoagulation due to possible GI bleed. Subjective Date/time seen: 03/09/25 12:38 Interval history: Comfortable at bedside Review of Systems Review of Systems: Other systems reviewed and negative except as noted in history above. Exam Narrative: General: alert and comfortable Eyes: EOMI, PERRLA ENNT External ears normal, Neck is supple, no masses, Respiratory systems: Clear to auscultation Cardiovascular S1, S2, normal rhythm, no murmur, rub, or gallop; no thrill or palpable murmurs on palpation. Gastrointestinal: soft, non-tender, and non-distended abdomen with no masses; BS present Skin: no rash, lesions, ulcerations, subcutaneous nodules or induration Musculoskeletal: no abnormality and no tenderness, normal ROM Neurologic: Alert and oriented x3, non focal Mental Status Exam: normal affect Objective Data Vital Signs Vital Signs: Vital Signs - 24 hr 03/08/25 14:13 03/08/25 18:07 03/08/25 20:00 Temperature 97.8 F 97.7 F 98.1 F Pulse Rate 84 88 86 Respiratory Rate 16 17 18 Blood Pressure 105/45 L 120/48 L 145/50 H Pulse Oximetry 100 100 100 Oxygen Delivery 03/08/25 20:00 03/09/25 05:31 03/09/25 09:00 Temperature 97.7 F Pulse Rate 85 Respiratory Rate 16 Blood Pressure 146/75 H Pulse Oximetry 100 Oxygen Delivery Room Air Room Air Intake/Output Intake/Output: Intake & Output 03/06/25 03/07/25 03/08/25 03/09/25 23:59 23:59 23:59 23:59 Intake Total 600 1090 387 Output Total 1036 Balance 600 54 387 Meds/Results Medications: Active Medications Generic Name Dose Route Start Last Admin Trade Name Freq PRN Reason Stop Dose Admin Acetaminophen 650 mg 03/07/25 14:57 Acetaminophen 325 Mg Tablet PO Q4H PRN Mild Pain (1-3) or Fever Albuterol 2 puff 03/08/25 10:43 Albuterol Sulfate (*Sp) Aerosol 1 Puff INHALATION Q6H PRN shortness of breath or wheezing Aspirin 81 mg 03/09/25 09:00 03/09/25 10:48 Aspirin 81 Mg Enteric Tablet PO Not Given QAM [facility] Atorvastatin Calcium 40 mg 03/08/25 18:00 03/08/25 16:59 Atorvastatin 40 Mg Tablet PO 40 mg QPM SUMAN Administration Buspirone HCl 20 mg 03/08/25 13:00 03/09/25 12:29 Buspirone Hcl 10 Mg Tablet PO 20 mg TID SUMAN Administration Dextrose 12.5 gm 03/07/25 15:42 Dextrose 50% 25 Gm/50 Ml Syringe IV PUSH PRN PRN Hypoglycemia Protocol Glucagon 1 mg 03/07/25 15:42 Glucagon For Inj 1 Mg Vial IM PRN PRN Hypoglycemia Protocol Glucose 15 gm 03/07/25 15:42 Glucose Oral Gel 15 Gm Of Glucse In 37.5 Gm Tube PO PRN PRN Hypoglycemia Protocol Dextrose 1,000 mls @ 100 mls/hr 03/07/25 15:42 Dextrose 5% 1,000 Ml IVPB PRN PRN Hypoglycemia Protocol Levofloxacin/Dextrose 500 mg in 100 mls @ 100 mls/hr 03/09/25 16:00 Levaquin 500 Mg/D5w 100 Ml IVPB Q48H SUMAN Metronidazole 500 mg in 100 mls @ 100 mls/hr 03/07/25 21:00 03/09/25 05:05 Flagyl 500 Mg/Iso Soln 100 Ml IVPB 100 mls/hr Q8HR SUMAN Administration Albumin Human 50 mls @ 999 mls/hr 03/08/25 00:12 03/08/25 09:34 Albutein IVPB 04/07/25 00:11 Infused Q10M PRN Infusion HYPOTENSION Insulin Aspart 2 - 5 units 03/07/25 17:00 03/09/25 12:05 Insulin Aspart (*Bkc) 100 Units/Ml SUB-Q Not Given TIDWM SUMAN Protocol Midodrine 5 mg 03/08/25 10:43 Midodrine Hcl 2.5 Mg Tablet PO [email or web address] PRN hypotension Ondansetron HCl 4 mg 03/07/25 14:57 Ondansetron Inj 4 Mg/2 Ml Vial IV PUSH Q4H PRN Nausea Pantoprazole Sodium 40 mg 03/08/25 17:00 03/09/25 08:56 Pantoprazole 40 Mg Tablet PO 40 mg BID SUMAN Administration Perflutren Lipid Microsphere 0 ml 03/07/25 15:40 Perflutren Lipid Microspheres 1.5 Ml Vial Diluted To 10 Ml Total Volume IV PUSH 03/10/25 15:40 ONCE PRN adequate visualization Protocol Polyethylene Glycol 17 gm 03/08/25 17:00 03/09/25 08:57 Polyethylene Glycol 3350 17 Gm Powd.Pack PO 17 gm BID SUMAN Administration Sertraline HCl 100 mg 03/09/25 09:00 03/09/25 08:56 Sertraline Hcl 50 Mg Tablet PO 100 mg QAM SUMAN Administration Sevelamer Carbonate 800 mg 03/08/25 12:00 03/09/25 12:29 Sevelamer Carbonate 800 Mg Tablet PO 800 mg TIDWM SUMAN Administration Venlafaxine HCl 75 mg 03/09/25 09:00 03/09/25 08:57 Venlafaxine Hcl Xr 75 Mg Cap.Er.24h PO 75 mg QAM SUMAN Administration Radiology Results: ITS Impressions Chest/Abdomen/Pelvis CT 03/07/25 16:18 IMPRESSION: CHEST: 1. No pulmonary embolism. No dissection. 2. No acute cardiopulmonary pathology. 3. Mediastinal lymphadenopathy. Clinical correlation advised. ABDOMEN/PELVIS: 1. Distended gallbladder with cholelithiasis and sludge. 2. Sliding hiatus hernia. 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 4. Thickened wall of the urinary bladder. Further evaluation advised. 5. Thickened wall of the rectum. Clinical evaluation advised. Abdomen Ultrasound 03/09/25 08:20 IMPRESSION: 1: Gallstones and gallbladder contains sludge and stones. No gallbladder wall thickening or pericholecystic fluid. Labs Labs: Laboratory Results - last 24 hr 03/08/25 03/08/25 03/08/25 12:47 17:13 21:34 WBC RBC Hgb Hct MCV MCH MCHC RDW Plt Count MPV Immature Gran % (Auto) Neut % (Auto) Lymph % (Auto) [place] % (Auto) Eos % (Auto) Baso % (Auto) Lymph # (Auto) [place] # (Auto) Eos # (Auto) Baso # (Auto) Abs Immat Gran (auto) Absolute Neuts (auto) Absolute Nucleated RBC Nucleated RBC % Sodium Potassium Chloride Carbon Dioxide Anion Gap BUN Creatinine Estim Creat Clear Calc Estimated GFR Glucose POC Capillary Glucose 117 H 106 H 112 H Calcium Phosphorus Magnesium Total Bilirubin AST ALT Alkaline Phosphatase Total Protein Albumin 03/09/25 03/09/25 03/09/25 05:00 08:31 12:00 WBC 13.1 H RBC 2.61 L Hgb 7.8 L Hct 25.5 L MCV 97.7 MCH 29.9 MCHC 30.6 L RDW 17.9 H Plt Count 262 MPV 9.7 Immature Gran % (Auto) 0.5 Neut % (Auto) 75.5 H Lymph % (Auto) 11.6 L [place] % (Auto) 9.7 H Eos % (Auto) 2.5 Baso % (Auto) 0.2 Lymph # (Auto) 1.52 [place] # (Auto) 1.3 H Eos # (Auto) 0.3 Baso # (Auto) 0.0 Abs Immat Gran (auto) 0.06 H Absolute Neuts (auto) 9.9 H Absolute Nucleated RBC 0.020 H Nucleated RBC % 0.2 Sodium 137 Potassium 4.3 Chloride 100 Carbon Dioxide 27 Anion Gap 10 BUN 33 H D Creatinine 3.14 H Estim Creat Clear Calc 23 Estimated GFR 20 L Glucose 96 POC Capillary Glucose 97 154 H Calcium 10.5 H Phosphorus 4.8 H Magnesium 2.3 Total Bilirubin 0.4 AST 19 ALT 12 Alkaline Phosphatase 88 Total Protein 7.0 Albumin 3.6
[2025-03-09 14:00] VITALS: BP 124/56; PULSE 79; RESP 18; TEMP 35.8; O2SAT 98
--- NOTE | 2025-03-09 14:22 | P.PNGI_ITS ---
Progress Note: A&P Assessment and Plan (1) Acute on chronic anemia: Code(s): D64.9 - Anemia, unspecified Status: Acute Assessment and Plan: improved after prbc probably chronic and also h/o ESRD but we need to assess with scopes to check if gi source, he says that never had scopes bowel prep and colonoscopy tomorrow (2) End stage renal disease: Code(s): N18.6 - End stage renal disease Status: Chronic Assessment and Plan: on dialysis (3) Leukocytosis: Code(s): D72.829 - Elevated white blood cell count, unspecified Status: Acute Assessment and Plan: trending down (4) Fecal impaction: Code(s): K56.41 - Fecal impaction Status: Acute (5) Blood thinned due to long-term anticoagulant use: Code(s): Z79.01 - 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 (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 of anticoagulants Status: Acute Assessment and Plan: on hold (6) Syncope: Code(s): R55 - Syncope and collapse Status: Acute Subjective Date/time seen: 03/09/25 14:22 Interval history: no changes, he is comfortable Review of Systems Review of Systems: All systems reviewed & are unremarkable except as noted in HPI and below Exam Const: General: comfortable and no acute distress HENMT: Face/Nose/Sinus: Normal nares present Eyes: General: appearance normal, both eyes and all related structures Neck: Neck: supple Resp: Auscultation: clear to auscultation bilaterally Cardio: Rate: regular rate Rhythm: regular rhythm GI: Inspection: non-distended GI Palp: Yes Soft to palpation and No Tenderness to palpation present (GI) Auscultation: normal bowel sounds Skin: General skin exam: no rashes or lesions noted Other: pallor Neuro: Speech: normal speech Extrem: General: normal to inspection Psych: Mental Status: mental status grossly normal Objective Data Vital Signs Vital Signs: Vital Signs - 24 hr 03/08/25 18:07 03/08/25 20:00 03/08/25 20:00 Temperature 97.7 F 98.1 F Pulse Rate 88 86 Respiratory Rate 17 18 Blood Pressure 120/48 L 145/50 H Pulse Oximetry 100 100 Oxygen Delivery Room Air 03/09/25 05:31 03/09/25 09:00 Temperature 97.7 F Pulse Rate 85 Respiratory Rate 16 Blood Pressure 146/75 H Pulse Oximetry 100 Oxygen Delivery Room Air Intake/Output Intake/Output: Intake & Output 03/06/25 03/07/25 03/08/25 03/09/25 23:59 23:59 23:59 23:59 Intake Total 600 1090 487 Output Total 1036 Balance 600 54 487 Meds/Results Medications: Active Medications Generic Name Dose Route Start Last Admin Trade Name Freq PRN Reason Stop Dose Admin Acetaminophen 650 mg 03/07/25 14:57 Acetaminophen 325 Mg Tablet PO Q4H PRN Mild Pain (1-3) or Fever Albuterol 2 puff 03/08/25 10:43 Albuterol Sulfate (*Sp) Aerosol 1 Puff INHALATION Q6H PRN shortness of breath or wheezing Aspirin 81 mg 03/09/25 09:00 03/09/25 10:48 Aspirin 81 Mg Enteric Tablet PO Not Given QAM SUMAN Atorvastatin Calcium 40 mg 03/08/25 18:00 03/08/25 16:59 Atorvastatin 40 Mg Tablet PO 40 mg QPM SUMAN Administration Buspirone HCl 20 mg 03/08/25 13:00 03/09/25 12:29 Buspirone Hcl 10 Mg Tablet PO 20 mg TID SUMAN Administration Dextrose 12.5 gm 03/07/25 15:42 Dextrose 50% 25 Gm/50 Ml Syringe IV PUSH PRN PRN Hypoglycemia Protocol Glucagon 1 mg 03/07/25 15:42 Glucagon For Inj 1 Mg Vial IM PRN PRN Hypoglycemia Protocol Glucose 15 gm 03/07/25 15:42 Glucose Oral Gel 15 Gm Of Glucse In 37.5 Gm Tube PO PRN PRN Hypoglycemia Protocol Dextrose 1,000 mls @ 100 mls/hr 03/07/25 15:42 Dextrose 5% 1,000 Ml IVPB PRN PRN Hypoglycemia Protocol Levofloxacin/Dextrose 500 mg in 100 mls @ 100 mls/hr 03/09/25 16:00 Levaquin 500 Mg/D5w 100 Ml IVPB Q48H SUMAN Metronidazole 500 mg in 100 mls @ 100 mls/hr 03/07/25 21:00 03/09/25 14:10 Flagyl 500 Mg/Iso Soln 100 Ml IVPB 100 mls/hr Q8HR SUMAN Administration Albumin Human 50 mls @ 999 mls/hr 03/08/25 00:12 03/08/25 09:34 Albutein IVPB 04/07/25 00:11 Infused Q10M PRN Infusion HYPOTENSION Insulin Aspart 2 - 5 units 03/07/25 17:00 03/09/25 12:05 Insulin Aspart (*Bkc) 100 Units/Ml SUB-Q Not Given TIDWM SUMAN Protocol Midodrine 5 mg 03/08/25 10:43 Midodrine Hcl 2.5 Mg Tablet PO [email or web address] PRN hypotension Ondansetron HCl 4 mg 03/07/25 14:57 Ondansetron Inj 4 Mg/2 Ml Vial IV PUSH Q4H PRN Nausea Pantoprazole Sodium 40 mg 03/08/25 17:00 03/09/25 08:56 Pantoprazole 40 Mg Tablet PO 40 mg BID SUMAN Administration Perflutren Lipid Microsphere 0 ml 03/07/25 15:40 Perflutren Lipid Microspheres 1.5 Ml Vial Diluted To 10 Ml Total Volume IV PUSH 03/10/25 15:40 ONCE PRN adequate visualization Protocol Polyethylene Glycol 17 gm 03/08/25 17:00 03/09/25 08:57 Polyethylene Glycol 3350 17 Gm Powd.Pack PO 03/09/25 14:20 17 gm BID SUMAN Administration Sertraline HCl 100 mg 03/09/25 09:00 03/09/25 08:56 Sertraline Hcl 50 Mg Tablet PO 100 mg QAM SUMAN Administration Sevelamer Carbonate 800 mg 03/08/25 12:00 03/09/25 12:29 Sevelamer Carbonate 800 Mg Tablet PO 800 mg TIDWM SUMAN Administration Venlafaxine HCl 75 mg 03/09/25 09:00 03/09/25 08:57 Venlafaxine Hcl Xr 75 Mg Cap.Er.24h PO 75 mg QAM SUMAN Administration Radiology Results: ITS Impressions Chest/Abdomen/Pelvis CT 03/07/25 16:18 IMPRESSION: CHEST: 1. No pulmonary embolism. No dissection. 2. No acute cardiopulmonary pathology. 3. Mediastinal lymphadenopathy. Clinical correlation advised. ABDOMEN/PELVIS: 1. Distended gallbladder with cholelithiasis and sludge. 2. Sliding hiatus hernia. 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 4. Thickened wall of the urinary bladder. Further evaluation advised. 5. Thickened wall of the rectum. Clinical evaluation advised. Abdomen Ultrasound 03/09/25 08:20 IMPRESSION: 1: Gallstones and gallbladder contains sludge and stones. No gallbladder wall thickening or pericholecystic fluid. Labs Labs: Laboratory Results - last 24 hr 03/08/25 03/08/25 03/09/25 17:13 21:34 05:00 WBC 13.1 H RBC 2.61 L Hgb 7.8 L Hct 25.5 L MCV 97.7 MCH 29.9 MCHC 30.6 L RDW 17.9 H Plt Count 262 MPV 9.7 Immature Gran % (Auto) 0.5 Neut % (Auto) 75.5 H Lymph % (Auto) 11.6 L [facility] % (Auto) 9.7 H Eos % (Auto) 2.5 Baso % (Auto) 0.2 Lymph # (Auto) 1.52 [facility] # (Auto) 1.3 H Eos # (Auto) 0.3 Baso # (Auto) 0.0 Abs Immat Gran (auto) 0.06 H Absolute Neuts (auto) 9.9 H Absolute Nucleated RBC 0.020 H Nucleated RBC % 0.2 Sodium 137 Potassium 4.3 Chloride 100 Carbon Dioxide 27 Anion Gap 10 BUN 33 H D Creatinine 3.14 H Estim Creat Clear Calc 23 Estimated GFR 20 L Glucose 96 POC Capillary Glucose 106 H 112 H Calcium 10.5 H Phosphorus 4.8 H Magnesium 2.3 Total Bilirubin 0.4 AST 19 ALT 12 Alkaline Phosphatase 88 Total Protein 7.0 Albumin 3.6 03/09/25 03/09/25 08:31 12:00 WBC RBC Hgb Hct MCV MCH MCHC RDW Plt Count MPV Immature Gran % (Auto) Neut % (Auto) Lymph % (Auto) [facility] % (Auto) Eos % (Auto) Baso % (Auto) Lymph # (Auto) [facility] # (Auto) Eos # (Auto) Baso # (Auto) Abs Immat Gran (auto) Absolute Neuts (auto) Absolute Nucleated RBC Nucleated RBC % Sodium Potassium Chloride Carbon Dioxide Anion Gap BUN Creatinine Estim Creat Clear Calc Estimated GFR Glucose POC Capillary Glucose 97 154 H Calcium Phosphorus Magnesium Total Bilirubin AST ALT Alkaline Phosphatase Total Protein Albumin
[2025-03-09] MEDS: polyethylene glycoL 3350 238 GM BOTTLE PO (16:25)
[2025-03-09] MEDS: BISACODYL 5 MG TABLET EC 20 MG PO (16:25)
[2025-03-09] MEDS: ATORVASTATIN 40 MG TABLET PO (16:25)
[2025-03-09] MEDS: levoFLOXacin 500 MG/D5W 100 ML 500 MG/100 ML BAG 100 MG IVPB (16:26)
[2025-03-09 16:37] LABS: Glucose Point of Care 131 mg/dl (65-105)
[2025-03-09 20:00] VITALS: BP 155/53; PULSE 82; RESP 18; TEMP 36.6; O2SAT 100
[2025-03-09 22:00] VITALS: BP 155/53; PULSE 82; RESP 18; TEMP 36.6; O2SAT 100
[2025-03-09 22:06] LABS: Glucose Point of Care 102 mg/dl (65-105)
[2025-03-09] MEDS: MAGNESIUM CITRATE 300 ML BTL PO (22:43)
[2025-03-10] VITALS (26 sets, daily range): BP systolic 91–190; BP diastolic 40–94; PULSE 72–91; RESP 16–30; TEMP 35.9–37.8; O2SAT 100
[2025-03-10] MEDS: metroNIDAZOLE 500 MG/ISO 100ML 500 MG/100 ML BAG 100 MG IVPB ×3 (05:23→20:20)
[2025-03-10 05:33] LABS: Basophils Percent Auto 0.1 % (0.2-1.2); Eosinophils Absolute Auto 0.5 K/mm3 (0-0.3); Eosinophils Percent Auto 3.1 % (0-4.4); Hematocrit 24.2 % (42.0-52.0); Hemoglobin 7.4 g/dL (14.0-18.0); Immature Granulocyte Absolute 0.07 K/mm3 (0.00-0.031); Immature Granulocyte Percent A 0.5 % (0-0.5); Lymphocytes Absolute Auto 1.36 K/mm3 (0.9-3.2); Lymphocytes Percent Auto 9.3 % (18.3-44.2); Mean Corpuscular HGB Conc 30.6 g/dl (32-36); Mean Corpuscular Hemoglobin 29.8 pg (26-34); Mean Corpuscular Volume 97.6 fl (80-100); Mean Platelet Volume 9.7 fl (7.4-10.4); Monocytes Absolute Auto 1.1 K/mm3 (0.1-0.6); Monocytes Percent Auto 7.7 % (2.6-8.5); Neutrophils Absolute Auto 11.6 K/mm3 (1.3-6.7); Neutrophils Percent Auto 79.3 % (45.5-73.1); Platelet Count Result 313 k/mm3 (150-375); Red Blood Count 2.48 M/mm3 (4.6-6.20); Red Cell Distribution Width 18.1 % (11.5-14.5); White Blood Count 14.7 K/mm3 (4.5-10.0)
[2025-03-10 05:44] LABS: Alanine Aminotransferase 13 U/L (6-50); Albumin Level 3.5 g/dL (3.5-5.1); Alkaline Phosphatase 76 U/L (38-126); Anion Gap 13 mmol/L (4-12); Aspartate Amino Transferase 18 U/L (17-59); Bilirubin,Total 0.4 mg/dL (0.2-1.3); Blood Urea Nitrogen 42 mg/dL (9-20); Calcium 10.4 mg/dL (8.4-10.2); Carbon Dioxide 23 mmol/L (22-30); Chloride 101 mmol/L (98-107); Estimated CRCL calculation 17 ml/min; Estimated Glomerular Filt Rate 14; Glucose 89 mg/dL (65-110); Magnesium 2.7 mg/dL (1.6-2.3); Phosphorus 5.7 mg/dL (2.5-4.5); Potassium 3.9 mmol/L (3.4-5.0); Sodium 137 mmol/L (137-145)
[2025-03-10] MEDS: MIDODRINE HCL 2.5 MG TABLET 5 MG PO (08:37)
[2025-03-10 08:47] LABS: Glucose Point of Care 90 mg/dl (65-105)
[2025-03-10] MEDS: EPOETIN ALFA-EPBX 20,000 UNITS/ML VIAL 20000 UNITS IV PUSH (09:42)
--- NOTE | 2025-03-10 09:52 | P.CONCA_ITS ---
Assessment and Plan Assessment and plan (1) Syncope: Code(s): R55 - Syncope and collapse Status: Acute (2) CAD (coronary artery disease): Code(s): I25.10 - Atherosclerotic heart disease of [place] coronary artery without angina pectoris Status: Acute (3) Cardiomyopathy: Code(s): I42.9 - Cardiomyopathy, unspecified Status: Acute (4) Chronic atrial fibrillation: Code(s): I48.20 - Chronic atrial fibrillation, unspecified Status: Acute Plan 59-year-old man with coronary artery disease status post PCI in setting of VF arrest, paroxysmal atrial fibrillation (on Eliquis), and ESRD on hemodialysis presented with syncope Syncope -unlikely related to cardiac etiologies -he can follow up with Dr. 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 daily would be beneficial -no other cardiac workup anticipated during this hospitalization Paroxysmal atrial fibrillation -previously on Eliquis 5 mg p.o. b.i.d. -currently being held due to anemia Coronary artery disease status post PCI to RCA -continue aspirin 81 mg p.o. daily and atorvastatin 40 mg every evening Please call Cardiology with additional questions History of Present Illness History of Present Illness Consult date/time: 03/10/25 09:52 Requesting physician: Tianna Singh MD Consult reason: Other Reason For Visit: Anemia, ESRD Narrative: 59-year-old man with coronary artery disease status post PCI in setting of VF arrest, paroxysmal atrial fibrillation (on Eliquis), and ESRD on hemodialysis presented with syncope. He has been feeling fatigue for the past few days and during his dialysis session, he was very tired and decided to sleep through the dialysis session and in this setting he was brought in for syncopal event. He stated that when the dialysis staffing woke him up, he was still feeling very fatigued and lethargic. Per review of the electronic medical records, it did appear that the staff noted he loss consciousness for about a minute and upon arrival to the emergency room, his workup was significant for a hemoglobin of 6. When asked about chest pain or significant shortness of breath that is different from his baseline, he denied endorse any chest discomfort or significant shortness of breath different from his baseline. However he did endorse having constipation and GI issues. He lives in [place] [facility] [place] and unable to ambulate. Review of Systems 2 Cardiovascular: Cardiovascular: Reports as per HPI Respiratory: Respiratory: Reports as per HPI [facility] Past Medical History Medical History (Updated 03/10/25 @ 10:00 by Chin Castañeda MD) Blood thinned due to long-term anticoagulant use Fecal impaction Acute on chronic anemia Arthritis Anxiety GERD (gastroesophageal reflux disease) Depression [place] spotted fever Frequent falls Psoriasis Obesity Hyperlipidemia Hypertension Peripheral vascular disease Congestive heart failure CAD (coronary artery disease) Diabetes Chronic atrial fibrillation Surgical History Surgical History (Updated 03/08/25 @ 00:02 by Whitney Phelps MD) S/P dialysis catheter insertion Amputation of left great toe Family History Family History (Updated 03/07/25 @ 23:58 by Whitney Phelps MD) Mother Depression Pulmonary fibrosis Social History Social History Smoking status: Former smoker Alcohol intake: former Substance use: never Do You Feel Safe in your Home?: Yes Lack of Transportation: No Lack of Food: Never True Current Housing: I Have Housing Concerned About Future Housing: No Difficulty Paying Gas/Electric Bills: No Difficulty Paying for Meds: No Currently Unemployed: No Education: Decline to Answer Difficulty w/ Childcare or Family Care: No Spiritual care concerns: No Meds Home Medications and Allergies Home Medications ?Medication ?Instructions ?Recorded ?Confirmed ?Type apixaban 5 mg tablet (Eliquis) 5 mg PO BID 03/07/25 03/08/25 History atorvastatin 40 mg tablet 40 mg PO QPM 03/07/25 03/08/25 History buspirone 10 mg tablet 20 mg PO TID 03/07/25 03/08/25 History hydrocodone 5 mg-acetaminophen 325 1 tablet PO Q6H PRN pain 03/07/25 03/07/25 History mg tablet sertraline 100 mg tablet 100 mg PO QAM 03/07/25 03/08/25 History sevelamer carbonate 800 mg tablet 800 mg PO TID 03/07/25 03/08/25 History venlafaxine 75 mg capsule,extended 75 mg PO QAM 03/07/25 03/08/25 History release 24 hr acetaminophen 325 mg tablet 500 mg PO Q4H PRN pain (scale 03/08/25 03/08/25 History (Tylenol) score 1-3) albuterol sulfate 90 mcg/actuation 2 inh inhalation Q6H PRN shortness 03/08/25 03/08/25 History aerosol inhaler (Ventolin HFA) of breath or wheezing aspirin 81 mg capsule 81 mg PO DAILY 03/08/25 03/08/25 History linagliptin 5 mg tablet (Tradjenta) 5 mg PO DAILY 03/08/25 03/08/25 History midodrine 5 mg tablet 5 mg PO Q12H PRN hypotension 03/08/25 03/08/25 History omeprazole 40 mg capsule,delayed 40 mg PO DAILY 03/08/25 03/08/25 History release polyethylene glycol 3350 17 17 g PO DAILY PRN constipation 03/08/25 03/08/25 History gram/dose oral powder (Miralax) sevelamer carbonate 800 mg tablet 800 mg PO TID 03/08/25 03/08/25 History (Renvela) Allergies Allergy/AdvReac Type Severity Reaction Status Date / Time No Known Allergies Allergy Verified 03/07/25 14:57 Vital Signs Vital Signs - 24 hr 03/09/25 14:00 03/09/25 20:00 03/09/25 20:00 Temperature 35.8 C L 36.6 C Pulse Rate 79 82 Respiratory Rate 18 18 Blood Pressure 124/56 L 155/53 H Pulse Oximetry 98 100 Oxygen Delivery Room Air 03/09/25 22:00 03/10/25 05:00 03/10/25 08:52 Temperature 36.6 C 36.0 C L 36.7 C Pulse Rate 82 91 88 Respiratory Rate 18 18 18 Blood Pressure 155/53 H 131/59 L 136/73 Pulse Oximetry 100 100 Oxygen Delivery 03/10/25 09:07 03/10/25 09:15 03/10/25 09:30 Temperature Pulse Rate 86 90 87 Respiratory Rate Blood Pressure 184/87 H 190/94 H 183/78 H Pulse Oximetry Oxygen Delivery 03/10/25 09:45 Temperature Pulse Rate 86 Respiratory Rate Blood Pressure 161/74 H Pulse Oximetry Oxygen Delivery Exam 2 Const: Other: Ill-appearing HENMT: Mouth: Yes dry mucous membranes Eyes: EOM: EOMs intact bilaterally Neck: Neck: no JVD Resp: Effort & Inspection: normal respiratory effort Auscultation: clear to auscultation bilaterally Cardio: Rate: regular rate Rhythm: regular rhythm GI: GI Palp: Yes Soft to palpation Extrem: General: no pedal edema Other: Left 1st and 2nd toe amputation Results Labs and Meds 03/10/25 05:12 03/10/25 05:12 Lab results: Cardiac Enzymes 03/10/25 Range/Units 05:12 AST 18 (17-59) U/L CBC 03/10/25 Range/Units 05:12 WBC 14.7 H (4.5-10.0) K/mm3 RBC 2.48 L (4.6-6.20) M/mm3 Hgb 7.4 L (14.0-18.0) g/dL Hct 24.2 L (42.0-52.0) % Plt Count 313 (150-375) k/mm3 Lymph # (Auto) 1.36 (0.9-3.2) K/mm3 [place] # (Auto) 1.1 H (0.1-0.6) K/mm3 Eos # (Auto) 0.5 H (0-0.3) K/mm3 Baso # (Auto) 0.0 (0.0-0.1) K/mm3 Comprehensive Metabolic Panel 03/10/25 Range/Units 05:12 Sodium 137 (137-145) mmol/L Potassium 3.9 (3.4-5.0) mmol/L Chloride 101 (98-107) mmol/L Carbon Dioxide 23 (22-30) mmol/L BUN 42 H (9-20) mg/dL Creatinine 4.23 H (0.7-1.3) mg/dL Glucose 89 (65-110) mg/dL Calcium 10.4 H (8.4-10.2) mg/dL AST 18 (17-59) U/L ALT 13 (6-50) U/L Alkaline Phosphatase 76 (38-126) U/L Total Protein 7.0 (6.3-8.2) g/dL Albumin 3.5 (3.5-5.1) g/dL Intake and Output 03/09/25 03/10/25 03/10/25 23:59 07:59 15:59 Intake Total 340 0 Balance 340 0 Intake: IV 100 metroNIDAZOLE 500 MG/ISO 100ML 100 500 mg In 100 ml @ 100 mls/hr IVPB Q8HR [facility] Rx#:[id number] Oral 240 0 Other: Number of Bowel Movements Today 3 Patient Weight 03/10/25 23:59 Weight 84.3 kg
--- NOTE | 2025-03-10 10:15 | P.PNNP_ITS ---
Progress Note: A&P Assessment and Plan (1) End stage renal disease: Code(s): N18.6 - End stage renal disease Status: Chronic Assessment and Plan: * HD today * transition back to M/W/ outpatient dialysis schedule starting next week * follow electrolytes, volume status, and clearance * outpatient dialysis unit = [facility] (2) Anemia: Qualifiers: Anemia type: due to chronic kidney disease Chronic kidney disease stage: on chronic dialysis Qualified Code(s): N18.6 - End stage renal disease; D63.1 - Anemia in chronic kidney disease; Z99.2 - Dependence on renal dialysis Code(s): D64.9 - Anemia, unspecified Status: Acute Assessment and Plan: * as noted by admission labs * PRBC transfusion per protocol * due to ESRD versus GI loss versus other(?) * Epogen with HD * adequate iron stores * hemoccult stool pending * GI recommendations noted * follow trend of H/H (3) Syncope: Code(s): R55 - Syncope and collapse Status: Acute Assessment and Plan: * presumably secondary to anemia * however, ruling out cardiac etiology: * EKG with no acute changes * recent Echo (03/07) noted: left ventricular systolic function estimated at 45-50%; left ventricular diastolic function is abnormal; mild aortic valve regurgitation; mild to moderate mitral valve regurgitation; mild mitral valve calcification; mild tricuspid valve regurgitation; mild pulmonary hypertension, estimated pulmonary arterial systolic pressure is 39 mmHg * follow telemetry * Cardiology recommendations noted (4) Abdominal pain: Code(s): R10.9 - Unspecified abdominal pain Status: Acute Assessment and Plan: * associated with constipation and elevated WBC * CT A/P with thickened wall of rectum and associated fecal impaction (possible stercoral proctitis?) * follow culture data * on bowel regiment * on empiric antibiotics (5) Hypertension: Code(s): I10 - Essential (primary) hypertension Status: Chronic Assessment and Plan: * reasonable control * issue with intradialytic hypotension requiring midodrine therapy * follow trend of hemodynamics (6) Diabetes: Code(s): E11.9 - Type 2 diabetes mellitus without complications Status: Chronic Assessment and Plan: * follow accu-checks * glycemic control per hospitalist Will continue to follow. L Subjective Date/time seen: 03/10/25 10:15 Interval history: Follow-up for end stage renal disease on hemodialysis. Tolerating dialysis treatment at the time of my visit (seen on HD at 10:05AM) -- diminished blood flows with dialysis catheter (but likely secondary to holding heparin with dialysis treatment); no apparent distress noted at this time; H/H relatively stable at this time; noted plans for EGD/colonoscopy later this afternoon. Exam 2 Narrative: General: WD/WN male in NAD Heart: normal S1 and S2; no rub Lungs: clear to auscultation Abdomen: soft, nontender, nondistended, positive bowel sounds Extremities: no cyanosis or clubbing; trace edema Skin: no rash Objective Data Vital Signs Vital Signs: Vital Signs Temp Pulse Resp BP Pulse Ox O2 Del Method 03/10/25 10:15 90 125/58 L 03/10/25 10:00 88 136/79 03/10/25 09:45 86 161/74 H 03/10/25 09:30 87 183/78 H 03/10/25 09:15 90 190/94 H 03/10/25 09:07 86 184/87 H 03/10/25 08:52 98.1 F 88 18 136/73 03/10/25 05:00 96.8 F L 91 18 131/59 L 100 03/09/25 22:00 97.9 F 82 18 155/53 H 100 03/09/25 20:00 Room Air 03/09/25 20:00 97.9 F 82 18 155/53 H 100 03/09/25 14:00 96.4 F L 79 18 124/56 L 98 Intake/Output Intake/Output: Intake & Output 03/07/25 03/08/25 03/09/25 03/10/25 23:59 23:59 23:59 23:59 Intake Total 600 1090 1167 0 Output Total 1036 Balance 183 50 8499 0 Meds/Results Medications: Active Medications Generic Name Dose Route Start Last Admin Trade Name Freq PRN Reason Stop Dose Admin Acetaminophen 650 mg 03/07/25 14:57 Acetaminophen 325 Mg Tablet PO Q4H PRN Mild Pain (1-3) or Fever Albuterol 2 puff 03/08/25 10:43 Albuterol Sulfate (*Sp) Aerosol 1 Puff INHALATION Q6H PRN shortness of breath or wheezing Aspirin 81 mg 03/09/25 09:00 03/09/25 10:48 Aspirin 81 Mg Enteric Tablet PO Not Given QAM SUMAN Atorvastatin Calcium 40 mg 03/08/25 18:00 03/09/25 16:25 Atorvastatin 40 Mg Tablet PO 40 mg QPM SUMAN Administration Buspirone HCl 20 mg 03/08/25 13:00 03/10/25 07:54 Buspirone Hcl 10 Mg Tablet PO Not Given TID SUMAN Dextrose 12.5 gm 03/07/25 15:42 Dextrose 50% 25 Gm/50 Ml Syringe IV PUSH PRN PRN Hypoglycemia Protocol Glucagon 1 mg 03/07/25 15:42 Glucagon For Inj 1 Mg Vial IM PRN PRN Hypoglycemia Protocol Glucose 15 gm 03/07/25 15:42 Glucose Oral Gel 15 Gm Of Glucse In 37.5 Gm Tube PO PRN PRN Hypoglycemia Protocol Dextrose 1,000 mls @ 100 mls/hr 03/07/25 15:42 Dextrose 5% 1,000 Ml IVPB PRN PRN Hypoglycemia Protocol Levofloxacin/Dextrose 500 mg in 100 mls @ 100 mls/hr 03/09/25 16:00 03/09/25 16:26 Levaquin 500 Mg/D5w 100 Ml IVPB 100 mls/hr Q48H SUMAN Administration Metronidazole 500 mg in 100 mls @ 100 mls/hr 03/07/25 21:00 03/10/25 05:23 Flagyl 500 Mg/Iso Soln 100 Ml IVPB 100 mls/hr Q8HR SUMAN Administration Albumin Human 50 mls @ 999 mls/hr 03/08/25 00:12 03/08/25 09:34 Albutein IVPB 04/07/25 00:11 Infused Q10M PRN Infusion HYPOTENSION Insulin Aspart 2 - 5 units 03/07/25 17:00 03/10/25 07:53 Insulin Aspart (*Bkc) 100 Units/Ml SUB-Q Not Given TIDWM SUMAN Protocol Midodrine 5 mg 03/08/25 10:43 03/10/25 08:37 Midodrine Hcl 2.5 Mg Tablet PO 5 mg [email or web address] [email or web address] Administration hypotension Ondansetron HCl 4 mg 03/07/25 14:57 Ondansetron Inj 4 Mg/2 Ml Vial IV PUSH Q4H PRN Nausea Pantoprazole Sodium 40 mg 03/08/25 17:00 03/10/25 07:54 Pantoprazole 40 Mg Tablet PO Not Given BID SUMAN Perflutren Lipid Microsphere 0 ml 03/07/25 15:40 Perflutren Lipid Microspheres 1.5 Ml Vial Diluted To 10 Ml Total Volume IV PUSH 03/10/25 15:40 ONCE PRN adequate visualization Protocol Sertraline HCl 100 mg 03/09/25 09:00 03/10/25 07:54 Sertraline Hcl 50 Mg Tablet PO Not Given QAM SUMAN Sevelamer Carbonate 800 mg 03/08/25 12:00 03/10/25 07:53 Sevelamer Carbonate 800 Mg Tablet PO Not Given TIDWM SUMAN Venlafaxine HCl 75 mg 03/09/25 09:00 03/10/25 07:54 Venlafaxine Hcl Xr 75 Mg Cap.Er.24h PO Not Given QAM [facility] Radiology Results: ITS Impressions Chest/Abdomen/Pelvis CT 03/07/25 16:18 IMPRESSION: CHEST: 1. No pulmonary embolism. No dissection. 2. No acute cardiopulmonary pathology. 3. Mediastinal lymphadenopathy. Clinical correlation advised. ABDOMEN/PELVIS: 1. Distended gallbladder with cholelithiasis and sludge. 2. Sliding hiatus hernia. 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 4. Thickened wall of the urinary bladder. Further evaluation advised. 5. Thickened wall of the rectum. Clinical evaluation advised. Abdomen Ultrasound 03/09/25 08:20 IMPRESSION: 1: Gallstones and gallbladder contains sludge and stones. No gallbladder wall thickening or pericholecystic fluid. Labs Labs: Laboratory Tests 03/10/25 05:12 03/10/25 05:12 Calcium 10.4 H Phosphorus 5.7 H Magnesium 2.7 H Total Bilirubin 0.4 AST 18 ALT 13 Alkaline Phosphatase 76 Total Protein 7.0 Albumin 3.5
[2025-03-10 13:27] LABS: Glucose Point of Care 73 mg/dl (65-105)
[2025-03-10] MEDS: DEXTROSE 50% 25 GM/50 ML SYRINGE IV PUSH (13:52)
--- NOTE | 2025-03-10 15:06 | P.PNIM_ITS ---
Progress Note: A&P Assessment and Plan (1) Anemia: Qualifiers: Anemia type: due to chronic kidney disease Chronic kidney disease stage: on chronic dialysis Qualified Code(s): N18.6 - End stage renal disease; D63.1 - Anemia in chronic kidney disease; Z99.2 - Dependence on renal dialysis Code(s): D64.9 - Anemia, unspecified Status: Acute (2) Abdominal pain: Code(s): R10.9 - Unspecified abdominal pain Status: Acute (3) Leukocytosis: Code(s): D72.829 - Elevated white blood cell count, unspecified Status: Acute (4) Syncope: Code(s): R55 - Syncope and collapse Status: Acute Plan Anemia Hb 7.4 s/p 2 units Isat 26, FOBT, PPI Eliquis on Hold, pending Endoscopy For Endoscopy today GI following Monitor H&H. Syncope Likely related to anemia EKG no acute changes. Echo Showed Ef 45-50% with diastolic dysfunction cardiology evaluated and noted not cardiac related MIld Cardiomyopathy EF 45-50% Cardiology noted patient did not tolerated Lopressor prior recommends Losartan 25mg daily if cleared by Nephrology Stercoral Proctitis History of present abdominal pain the past 2 weeks, with the constipation. CT AP showed thickened wall of rectum with fecal impaction leukocytosis improving WBC 13.1 from 19 Blood culture, day 3/7 Levaquin and Flagyl Monitor closely. Constipation Patient noted no bowel movements since [address] AP showed fecal impaction Miralax and Dulcolax suppository Bowel prep for endoscopy today monitor End-stage renal disease on dialysis azotemia BUN 80 Nephrology consulted for dialysis. Hypertension Titrate her medications with clinical course. Type 2 diabetes Sliding scale insulin with Accu-Cheks adjust with clinical course. PAfib Hold Eliquis pending Endoscpy CAD s/p stents continue Aspirin and lipitor DVT prophylaxis no anticoagulation due to possible GI bleed. possible discharge tomorrow Subjective Date/time seen: 03/10/25 15:06 Interval history: Comfortable at bedside Review of Systems Review of Systems: Other systems reviewed and negative except as noted in history above. Exam Narrative: General: alert and comfortable Eyes: EOMI, PERRLA ENNT External ears normal, Neck is supple, no masses, Respiratory systems: Clear to auscultation Cardiovascular S1, S2, normal rhythm, no murmur, rub, or gallop; no thrill or palpable murmurs on palpation. Gastrointestinal: soft, non-tender, and non-distended abdomen with no masses; BS present Skin: no rash, lesions, ulcerations, subcutaneous nodules or induration Musculoskeletal: no abnormality and no tenderness, normal ROM Neurologic: Alert and oriented x3, non focal Mental Status Exam: normal affect Objective Data Vital Signs Vital Signs: Vital Signs - 24 hr 03/09/25 20:00 03/09/25 20:00 03/09/25 22:00 Temperature 97.9 F 97.9 F Pulse Rate 82 82 Respiratory Rate 18 18 Blood Pressure 155/53 H 155/53 H Pulse Oximetry 100 100 Oxygen Delivery Room Air 03/10/25 05:00 03/10/25 08:00 03/10/25 08:52 Temperature 96.8 F L 98.1 F Pulse Rate 91 88 Respiratory Rate 18 18 Blood Pressure 131/59 L 136/73 Pulse Oximetry 100 Oxygen Delivery Room Air 03/10/25 09:07 03/10/25 09:15 03/10/25 09:30 Temperature Pulse Rate 86 90 87 Respiratory Rate Blood Pressure 184/87 H 190/94 H 183/78 H Pulse Oximetry Oxygen Delivery 03/10/25 09:45 03/10/25 10:00 03/10/25 10:15 Temperature Pulse Rate 86 88 90 Respiratory Rate Blood Pressure 161/74 H 136/79 125/58 L Pulse Oximetry Oxygen Delivery 03/10/25 10:30 03/10/25 10:45 03/10/25 11:00 Temperature Pulse Rate 86 82 83 Respiratory Rate Blood Pressure 132/68 127/60 146/67 H Pulse Oximetry Oxygen Delivery 03/10/25 11:15 03/10/25 11:30 03/10/25 11:45 Temperature Pulse Rate 85 84 83 Respiratory Rate Blood Pressure 140/63 152/60 H 163/65 H Pulse Oximetry Oxygen Delivery 03/10/25 12:00 03/10/25 12:15 03/10/25 12:30 Temperature Pulse Rate 84 85 85 Respiratory Rate Blood Pressure 156/69 H 155/61 H 151/66 H Pulse Oximetry Oxygen Delivery 03/10/25 12:45 03/10/25 12:51 03/10/25 12:55 Temperature 98.6 F Pulse Rate 86 86 89 Respiratory Rate 16 Blood Pressure 167/63 H 110/69 142/71 H Pulse Oximetry Oxygen Delivery 03/10/25 14:40 Temperature 96.9 F L Pulse Rate 83 Respiratory Rate 18 Blood Pressure 143/57 H Pulse Oximetry 100 Oxygen Delivery Intake/Output Intake/Output: Intake & Output 03/07/25 03/08/25 03/09/25 03/10/25 23:59 23:59 23:59 23:59 Intake Total 600 1090 1167 100 Output Total 1036 2000 Balance 106 57 3817 -1900 Meds/Results Medications: Active Medications Generic Name Dose Route Start Last Admin Trade Name Freq PRN Reason Stop Dose Admin Acetaminophen 650 mg 03/07/25 14:57 Acetaminophen 325 Mg Tablet PO Q4H PRN Mild Pain (1-3) or Fever Albuterol 2 puff 03/08/25 10:43 Albuterol Sulfate (*Sp) Aerosol 1 Puff INHALATION Q6H PRN shortness of breath or wheezing Aspirin 81 mg 03/09/25 09:00 03/09/25 10:48 Aspirin 81 Mg Enteric Tablet PO Not Given QAM SUMAN Atorvastatin Calcium 40 mg 03/08/25 18:00 03/09/25 16:25 Atorvastatin 40 Mg Tablet PO 40 mg QPM SUMAN Administration Buspirone HCl 20 mg 03/08/25 13:00 03/10/25 12:10 Buspirone Hcl 10 Mg Tablet PO Not Given TID SUMAN Dextrose 12.5 gm 03/07/25 15:42 03/10/25 13:52 Dextrose 50% 25 Gm/50 Ml Syringe IV PUSH 12.5 gm PRN PRN Administration Hypoglycemia Protocol Glucagon 1 mg 03/07/25 15:42 Glucagon For Inj 1 Mg Vial IM PRN PRN Hypoglycemia Protocol Glucose 15 gm 03/07/25 15:42 Glucose Oral Gel 15 Gm Of Glucse In 37.5 Gm Tube PO PRN PRN Hypoglycemia Protocol Dextrose 1,000 mls @ 100 mls/hr 03/07/25 15:42 Dextrose 5% 1,000 Ml IVPB PRN PRN Hypoglycemia Protocol Levofloxacin/Dextrose 500 mg in 100 mls @ 100 mls/hr 03/09/25 16:00 03/09/25 16:26 Levaquin 500 Mg/D5w 100 Ml IVPB 100 mls/hr Q48H SUMAN Administration Metronidazole 500 mg in 100 mls @ 100 mls/hr 03/07/25 21:00 03/10/25 13:23 Flagyl 500 Mg/Iso Soln 100 Ml IVPB 100 mls/hr Q8HR SUMAN Administration Albumin Human 50 mls @ 999 mls/hr 03/08/25 00:12 03/08/25 09:34 Albutein IVPB 04/07/25 00:11 Infused Q10M PRN Infusion HYPOTENSION Sodium Chloride 500 mls @ 10 mls/hr 03/10/25 13:45 Normal Saline Iv IV CONT .Q24H [facility] Insulin Aspart 2 - 5 units 03/07/25 17:00 03/10/25 12:10 Insulin Aspart (*Bkc) 100 Units/Ml SUB-Q Not Given TIDWM [facility] Protocol Midodrine 5 mg 03/08/25 10:43 03/10/25 08:37 Midodrine Hcl 2.5 Mg Tablet PO 5 mg [email or web address] PRN Administration hypotension Ondansetron HCl 4 mg 03/07/25 14:57 Ondansetron Inj 4 Mg/2 Ml Vial IV PUSH Q4H PRN Nausea Pantoprazole Sodium 40 mg 03/08/25 17:00 03/10/25 07:54 Pantoprazole 40 Mg Tablet PO Not Given BID [facility] Perflutren Lipid Microsphere 0 ml 03/07/25 15:40 Perflutren Lipid Microspheres 1.5 Ml Vial Diluted To 10 Ml Total Volume IV PUSH 03/10/25 15:40 ONCE PRN adequate visualization Protocol Sertraline HCl 100 mg 03/09/25 09:00 03/10/25 07:54 Sertraline Hcl 50 Mg Tablet PO Not Given QAM [facility] Sevelamer Carbonate 800 mg 03/08/25 12:00 03/10/25 12:10 Sevelamer Carbonate 800 Mg Tablet PO Not Given TIDWM [facility] Venlafaxine HCl 75 mg 03/09/25 09:00 03/10/25 07:54 Venlafaxine Hcl Xr 75 Mg Cap.Er.24h PO Not Given QAM [facility] Radiology Results: ITS Impressions Chest/Abdomen/Pelvis CT 03/07/25 16:18 IMPRESSION: CHEST: 1. No pulmonary embolism. No dissection. 2. No acute cardiopulmonary pathology. 3. Mediastinal lymphadenopathy. Clinical correlation advised. ABDOMEN/PELVIS: 1. Distended gallbladder with cholelithiasis and sludge. 2. Sliding hiatus hernia. 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 4. Thickened wall of the urinary bladder. Further evaluation advised. 5. Thickened wall of the rectum. Clinical evaluation advised. Abdomen Ultrasound 03/09/25 08:20 IMPRESSION: 1: Gallstones and gallbladder contains sludge and stones. No gallbladder wall thickening or pericholecystic fluid. Labs Labs: Laboratory Results - last 24 hr 03/09/25 03/09/25 03/10/25 16:28 21:04 05:12 WBC 14.7 H RBC 2.48 L Hgb 7.4 L Hct 24.2 L MCV 97.6 MCH 29.8 MCHC 30.6 L RDW 18.1 H Plt Count 313 MPV 9.7 Immature Gran % (Auto) 0.5 Neut % (Auto) 79.3 H Lymph % (Auto) 9.3 L [place] % (Auto) 7.7 Eos % (Auto) 3.1 Baso % (Auto) 0.1 L Lymph # (Auto) 1.36 [place] # (Auto) 1.1 H Eos # (Auto) 0.5 H Baso # (Auto) 0.0 Abs Immat Gran (auto) 0.07 H Absolute Neuts (auto) 11.6 H Absolute Nucleated RBC 0.000 Nucleated RBC % 0.0 Sodium 137 Potassium 3.9 Chloride 101 Carbon Dioxide 23 Anion Gap 13 H BUN 42 H Creatinine 4.23 H Estim Creat Clear Calc 17 Estimated GFR 14 L Glucose 89 POC Capillary Glucose 131 H 102 Calcium 10.4 H Phosphorus 5.7 H Magnesium 2.7 H Total Bilirubin 0.4 AST 18 ALT 13 Alkaline Phosphatase 76 Total Protein 7.0 Albumin 3.5 03/10/25 03/10/25 08:39 13:25 WBC RBC Hgb Hct MCV MCH MCHC RDW Plt Count MPV Immature Gran % (Auto) Neut % (Auto) Lymph % (Auto) [place] % (Auto) Eos % (Auto) Baso % (Auto) Lymph # (Auto) [place] # (Auto) Eos # (Auto) Baso # (Auto) Abs Immat Gran (auto) Absolute Neuts (auto) Absolute Nucleated RBC Nucleated RBC % Sodium Potassium Chloride Carbon Dioxide Anion Gap BUN Creatinine Estim Creat Clear Calc Estimated GFR Glucose POC Capillary Glucose 90 73 Calcium Phosphorus Magnesium Total Bilirubin AST ALT Alkaline Phosphatase Total Protein Albumin
[2025-03-10 15:07] LABS: MRSA (PCR) DETECTED (NOT DETECTE)
[2025-03-10 15:11] LABS: Glucose Point of Care 84 mg/dl (65-105)
[2025-03-10] MEDS: SODIUM CHLORIDE 0.9% IV 500 ML 10 ML IV CONT (15:18)
--- NOTE | 2025-03-10 16:15 | P.PNAN_ITS ---
Anes - Initial Pre Proc Eval Procedure: Operation Date: 03/10/25 16:30 Proposed Procedures p Esophagogastroduodenoscopy & Colonoscopy - Jluis Dover MD Date/Time: 03/10/25 16:15 Surgeon: Tianna Singh MD Pre Op Diagnosis: Anemia, ESRD Patient Data Age: 59 Gender: M Height: 1.65 m Weight: 82.1 kg Last Vital Signs Temp 36.1 C L 03/10/25 15:04 Pulse 84 03/10/25 15:04 Resp 20 03/10/25 15:04 BP 156/53 H 03/10/25 15:04 Pulse Ox 100 03/10/25 15:04 O2 Del Method Room Air 03/10/25 15:04 Allergies Allergy/AdvReac Type Severity Reaction Status Date / Time No Known Allergies Allergy Verified 03/07/25 14:57 Home Medications ?Medication ?Instructions ?Recorded ?Confirmed ?Type apixaban 5 mg tablet (Eliquis) 5 mg PO BID 03/07/25 03/08/25 History atorvastatin 40 mg tablet 40 mg PO QPM 03/07/25 03/08/25 History buspirone 10 mg tablet 20 mg PO TID 03/07/25 03/08/25 History hydrocodone 5 mg-acetaminophen 325 1 tablet PO Q6H PRN pain 03/07/25 03/07/25 History mg tablet sertraline 100 mg tablet 100 mg PO QAM 03/07/25 03/08/25 History sevelamer carbonate 800 mg tablet 800 mg PO TID 03/07/25 03/08/25 History venlafaxine 75 mg capsule,extended 75 mg PO QAM 03/07/25 03/08/25 History release 24 hr acetaminophen 325 mg tablet 500 mg PO Q4H PRN pain (scale 03/08/25 03/08/25 History (Tylenol) score 1-3) albuterol sulfate 90 mcg/actuation 2 inh inhalation Q6H PRN shortness 03/08/25 03/08/25 History aerosol inhaler (Ventolin HFA) of breath or wheezing aspirin 81 mg capsule 81 mg PO DAILY 03/08/25 03/08/25 History linagliptin 5 mg tablet (Tradjenta) 5 mg PO DAILY 03/08/25 03/08/25 History midodrine 5 mg tablet 5 mg PO Q12H PRN hypotension 03/08/25 03/08/25 History omeprazole 40 mg capsule,delayed 40 mg PO DAILY 03/08/25 03/08/25 History release polyethylene glycol 3350 17 17 g PO DAILY PRN constipation 03/08/25 03/08/25 History gram/dose oral powder (Miralax) sevelamer carbonate 800 mg tablet 800 mg PO TID 03/08/25 03/08/25 History (Renvela) Laboratory Tests 03/09/25 03/09/25 03/10/25 16:28 21:04 05:12 WBC 14.7 H K/mm3 (4.5-10.0) RBC 2.48 L M/mm3 (4.6-6.20) Hgb 7.4 L g/dL (14.0-18.0) Hct 24.2 L % (42.0-52.0) MCV 97.6 fl (80-100) MCH 29.8 pg (26-34) MCHC 30.6 L g/dl (32-36) RDW 18.1 H % (11.5-14.5) Plt Count 313 k/mm3 (150-375) MPV 9.7 fl (7.4-10.4) Immature Gran % (Auto) 0.5 % (0-0.5) Neut % (Auto) 79.3 H % (45.5-73.1) Lymph % (Auto) 9.3 L % (18.3-44.2) [place] % (Auto) 7.7 % (2.6-8.5) Eos % (Auto) 3.1 % (0-4.4) Baso % (Auto) 0.1 L % (0.2-1.2) Lymph # (Auto) 1.36 K/mm3 (0.9-3.2) [place] # (Auto) 1.1 H K/mm3 (0.1-0.6) Eos # (Auto) 0.5 H K/mm3 (0-0.3) Baso # (Auto) 0.0 K/mm3 (0.0-0.1) Abs Immat Gran (auto) 0.07 H K/mm3 (0.00-0.031) Absolute Neuts (auto) 11.6 H K/mm3 (1.3-6.7) Absolute Nucleated RBC 0.000 K/mm3 (0.0-0.012) Nucleated RBC % 0.0 % (0.0-0.2) Sodium 137 mmol/L (137-145) Potassium 3.9 mmol/L (3.4-5.0) Chloride 101 mmol/L (98-107) Carbon Dioxide 23 mmol/L (22-30) Anion Gap 13 H mmol/L (4-12) BUN 42 H mg/dL (9-20) Creatinine 4.23 H mg/dL (0.7-1.3) Estim Creat Clear Calc 17 ml/min Estimated GFR 14 L (59 - ) Glucose 89 mg/dL (65-110) POC Capillary Glucose 131 H mg/dl 102 mg/dl (65-105) (65-105) Calcium 10.4 H mg/dL (8.4-10.2) Phosphorus 5.7 H mg/dL (2.5-4.5) Magnesium 2.7 H mg/dL (1.6-2.3) Total Bilirubin 0.4 mg/dL (0.2-1.3) AST 18 U/L (17-59) ALT 13 U/L (6-50) Alkaline Phosphatase 76 U/L (38-126) Total Protein 7.0 g/dL (6.3-8.2) Albumin 3.5 g/dL (3.5-5.1) Nasal MRSA (PCR) 03/10/25 03/10/25 03/10/25 08:39 13:25 13:49 WBC RBC Hgb Hct MCV MCH MCHC RDW Plt Count MPV Immature Gran % (Auto) Neut % (Auto) Lymph % (Auto) [place] % (Auto) Eos % (Auto) Baso % (Auto) Lymph # (Auto) [place] # (Auto) Eos # (Auto) Baso # (Auto) Abs Immat Gran (auto) Absolute Neuts (auto) Absolute Nucleated RBC Nucleated RBC % Sodium Potassium Chloride Carbon Dioxide Anion Gap BUN Creatinine Estim Creat Clear Calc Estimated GFR Glucose POC Capillary Glucose 90 mg/dl 73 mg/dl (65-105) (65-105) Calcium Phosphorus Magnesium Total Bilirubin AST ALT Alkaline Phosphatase Total Protein Albumin Nasal MRSA (PCR) Detected A* (NOT DETECTE) 03/10/25 15:08 WBC RBC Hgb Hct MCV MCH MCHC RDW Plt Count MPV Immature Gran % (Auto) Neut % (Auto) Lymph % (Auto) [place] % (Auto) Eos % (Auto) Baso % (Auto) Lymph # (Auto) [place] # (Auto) Eos # (Auto) Baso # (Auto) Abs Immat Gran (auto) Absolute Neuts (auto) Absolute Nucleated RBC Nucleated RBC % Sodium Potassium Chloride Carbon Dioxide Anion Gap BUN Creatinine Estim Creat Clear Calc Estimated GFR Glucose POC Capillary Glucose 84 mg/dl (65-105) Calcium Phosphorus Magnesium Total Bilirubin AST ALT Alkaline Phosphatase Total Protein Albumin Nasal MRSA (PCR) Patient hx anesthesia problems: none Family hx anesthesia problems: none Results Review: All pre-operative results and documents have been reviewed as part of the pre- operative evaluation. [facility] Past Medical History Medical History Blood thinned due to long-term anticoagulant use Fecal impaction Acute on chronic anemia Arthritis Anxiety GERD (gastroesophageal reflux disease) Depression [place] spotted fever Frequent falls Psoriasis Obesity Hyperlipidemia Hypertension Peripheral vascular disease Congestive heart failure CAD (coronary artery disease) Diabetes Chronic atrial fibrillation Surgical History Surgical History S/P dialysis catheter insertion Amputation of left great toe Family History Family History Mother Depression Pulmonary fibrosis Social History Social History Smoking status: Former smoker Alcohol intake: former Substance use: never Do You Feel Safe in your Home?: Yes Lack of Transportation: No Lack of Food: Never True Current Housing: I Have Housing Concerned About Future Housing: No Difficulty Paying Gas/Electric Bills: No Difficulty Paying for Meds: No Currently Unemployed: No Education: Decline to Answer Difficulty w/ Childcare or Family Care: No Spiritual care concerns: No Anes - Eval Final PreProcedure Day of Procedure 03/10/25 16:15 Patient weight: obese Heart: regular rate and rhythm Lungs: clear to auscultation Airway: Mallampati scale class II Neurological: alert and oriented Last oral intake: >/= 8 hours ASA classification: IV Emergent: no Anesthetic plan: proceed Anesthesia type and monitoring: general GIVS and standard monitoring Results Review: All pre-operative results and documents have been reviewed as part of the pre- operative evaluation. Informed Consent: The patient's anesthetic plan and its attendant risks and benefits were discussed with the patient/family/POA. Questions were solicited and answers provided to the satisfaction of the patient/family/POA.
--- NOTE | 2025-03-10 16:30 | SUR.OPER ---
EGD ended at 1627, colon began at 1631
[2025-03-10 17:01] LABS: Glucose Point of Care 76 mg/dl (65-105)
[2025-03-10 17:38] LABS: Glucose Point of Care 73 mg/dl (65-105)
[2025-03-10] MEDS: SEVELAMER CARBONATE 800 MG TABLET PO (17:50)
[2025-03-10] MEDS: busPIRone HCL 10 MG TABLET 20 MG PO (17:50)
[2025-03-10] MEDS: ATORVASTATIN 40 MG TABLET PO (17:50)
[2025-03-10 21:26] LABS: Glucose Point of Care 94 mg/dl (65-105)
[2025-03-11 04:00] VITALS: BP 137/61; PULSE 86; RESP 18; TEMP 36.1; O2SAT 100
[2025-03-11 05:14] LABS: Basophils Percent Auto 0.3 % (0.2-1.2); Eosinophils Absolute Auto 0.3 K/mm3 (0-0.3); Eosinophils Percent Auto 2.4 % (0-4.4); Hematocrit 27.1 % (42.0-52.0); Hemoglobin 7.7 g/dL (14.0-18.0); Immature Granulocyte Absolute 0.04 K/mm3 (0.00-0.031); Immature Granulocyte Percent A 0.4 % (0-0.5); Lymphocytes Absolute Auto 1.16 K/mm3 (0.9-3.2); Lymphocytes Percent Auto 10.3 % (18.3-44.2); Mean Corpuscular HGB Conc 28.4 g/dl (32-36); Mean Corpuscular Hemoglobin 29.7 pg (26-34); Mean Corpuscular Volume 104.6 fl (80-100); Mean Platelet Volume 9.7 fl (7.4-10.4); Monocytes Absolute Auto 1.1 K/mm3 (0.1-0.6); Monocytes Percent Auto 9.9 % (2.6-8.5); Neutrophils Absolute Auto 8.6 K/mm3 (1.3-6.7); Neutrophils Percent Auto 76.7 % (45.5-73.1); Platelet Count Result 317 k/mm3 (150-375); Red Blood Count 2.59 M/mm3 (4.6-6.20); White Blood Count 11.2 K/mm3 (4.5-10.0)
[2025-03-11] MEDS: metroNIDAZOLE 500 MG/ISO 100ML 500 MG/100 ML BAG 100 MG IVPB ×3 (05:20→20:29)
[2025-03-11 05:36] LABS: Alanine Aminotransferase 13 U/L (6-50); Albumin Level 3.3 g/dL (3.5-5.1); Alkaline Phosphatase 86 U/L (38-126); Anion Gap 8 mmol/L (4-12); Aspartate Amino Transferase 28 U/L (17-59); Bilirubin,Total 0.4 mg/dL (0.2-1.3); Blood Urea Nitrogen 24 mg/dL (9-20); Calcium 9.6 mg/dL (8.4-10.2); Carbon Dioxide 26 mmol/L (22-30); Chloride 101 mmol/L (98-107); Estimated CRCL calculation 24 ml/min; Estimated Glomerular Filt Rate 21; Glucose 98 mg/dL (65-110); Magnesium 2.7 mg/dL (1.6-2.3); Phosphorus 3.8 mg/dL (2.5-4.5); Potassium 3.9 mmol/L (3.4-5.0); Sodium 135 mmol/L (137-145)
[2025-03-11 06:02] LABS: Anisocytosis 1+; Hypochromasia 1+; Platelet Estimate Adequate (Adequate)
[2025-03-11 06:03] LABS: Ovalocytes 1+; Schistocytes None Seen
[2025-03-11] MEDS: ASPIRIN 81 MG ENTERIC TABLET PO (08:20)
[2025-03-11] MEDS: busPIRone HCL 10 MG TABLET 20 MG PO ×3 (08:20→16:29)
[2025-03-11 08:30] VITALS: O2SAT 99
[2025-03-11 08:48] LABS: Glucose Point of Care 93 mg/dl (65-105)
[2025-03-11 08:55] VITALS: BP 138/53; PULSE 80; RESP 16; TEMP 36.3; O2SAT 100
[2025-03-11] MEDS: PANTOPRAZOLE 40 MG TABLET PO (09:08)
[2025-03-11] MEDS: SEVELAMER CARBONATE 800 MG TABLET PO ×3 (09:08→17:47)
[2025-03-11] MEDS: SERTRALINE HCL 50 MG TABLET 100 MG PO (09:08)
[2025-03-11] MEDS: VENLAFAXINE HCL XR 75 MG CAP.ER.24H PO (09:08)
--- NOTE | 2025-03-11 10:19 | P.PNIM_ITS ---
Progress Note: A&P Assessment and Plan (1) Anemia: Qualifiers: Anemia type: due to chronic kidney disease Chronic kidney disease stage: on chronic dialysis Qualified Code(s): N18.6 - End stage renal disease; D63.1 - Anemia in chronic kidney disease; Z99.2 - Dependence on renal dialysis Code(s): D64.9 - Anemia, unspecified Status: Acute (2) Abdominal pain: Code(s): R10.9 - Unspecified abdominal pain Status: Acute (3) Leukocytosis: Code(s): D72.829 - Elevated white blood cell count, unspecified Status: Acute (4) Syncope: Code(s): R55 - Syncope and collapse Status: Acute Plan Anemia Hb 7.4 s/p 2 units Isat 26, FOBT, PPI Eliquis on Hold, pending Endoscopy For Endoscopy today GI following Monitor H&H. Syncope Likely related to anemia EKG no acute changes. Echo Showed Ef 45-50% with diastolic dysfunction cardiology evaluated and noted not cardiac related MIld Cardiomyopathy EF 45-50% Cardiology noted patient did not tolerated Lopressor prior recommends Losartan 25mg daily if cleared by Nephrology Stercoral Proctitis History of present abdominal pain the past 2 weeks, with the constipation. CT AP showed thickened wall of rectum with fecal impaction leukocytosis improving WBC 13.1 from 19 Blood culture, day 3/7 Levaquin and Flagyl Monitor closely. Constipation Patient noted no bowel movements since [address] AP showed fecal impaction Miralax and Dulcolax suppository Bowel prep for endoscopy today monitor End-stage renal disease on dialysis azotemia BUN 80 Nephrology consulted for dialysis. Hypertension Titrate her medications with clinical course. Type 2 diabetes Sliding scale insulin with Accu-Cheks adjust with clinical course. PAfib Hold Eliquis pending Endoscpy CAD s/p stents continue Aspirin and lipitor DVT prophylaxis no anticoagulation due to possible GI bleed. possible discharge tomorrow Subjective Date/time seen: 03/11/25 10:19 Interval history: Complains of nausea. Possible discharge tomorrow Review of Systems Review of Systems: Other systems reviewed and negative except as noted in history above. Exam Narrative: General: alert and comfortable Eyes: EOMI, PERRLA ENNT External ears normal, Neck is supple, no masses, Respiratory systems: Clear to auscultation Cardiovascular S1, S2, normal rhythm, no murmur, rub, or gallop; no thrill or palpable murmurs on palpation. Gastrointestinal: soft, non-tender, and non-distended abdomen with no masses; BS present Skin: no rash, lesions, ulcerations, subcutaneous nodules or induration Musculoskeletal: no abnormality and no tenderness, normal ROM Neurologic: Alert and oriented x3, non focal Mental Status Exam: normal affect Objective Data Vital Signs Vital Signs: Vital Signs - 24 hr 03/10/25 10:30 03/10/25 10:45 03/10/25 11:00 Temperature Pulse Rate 86 82 83 Respiratory Rate Blood Pressure 132/68 127/60 146/67 H Pulse Oximetry Oxygen Delivery 03/10/25 11:15 03/10/25 11:30 03/10/25 11:45 Temperature Pulse Rate 85 84 83 Respiratory Rate Blood Pressure 140/63 152/60 H 163/65 H Pulse Oximetry Oxygen Delivery 03/10/25 12:00 03/10/25 12:15 03/10/25 12:30 Temperature Pulse Rate 84 85 85 Respiratory Rate Blood Pressure 156/69 H 155/61 H 151/66 H Pulse Oximetry Oxygen Delivery 03/10/25 12:45 03/10/25 12:51 03/10/25 12:55 Temperature 98.6 F Pulse Rate 86 86 89 Respiratory Rate 16 Blood Pressure 167/63 H 110/69 142/71 H Pulse Oximetry Oxygen Delivery 03/10/25 14:40 03/10/25 15:04 03/10/25 16:43 Temperature 96.9 F L 97.0 F L Pulse Rate 83 84 72 Respiratory Rate 18 20 17 Blood Pressure 143/57 H 156/53 H 91/40 L Pulse Oximetry 100 100 100 Oxygen Delivery Room Air Room Air 03/10/25 16:53 03/10/25 17:03 03/10/25 20:00 Temperature Pulse Rate 83 81 Respiratory Rate 16 30 H Blood Pressure 96/55 L 134/62 Pulse Oximetry 100 100 Oxygen Delivery Room Air Room Air Room Air 03/10/25 20:00 03/11/25 04:00 03/11/25 08:30 Temperature 96.6 F L 97 F L Pulse Rate 81 86 Respiratory Rate 18 18 Blood Pressure 124/44 L 137/61 Pulse Oximetry 100 100 99 Oxygen Delivery Room Air 03/11/25 08:55 Temperature 97.3 F L Pulse Rate 80 Respiratory Rate 16 Blood Pressure 138/53 L Pulse Oximetry 100 Oxygen Delivery Intake/Output Intake/Output: Intake & Output 03/08/25 03/09/25 03/10/25 03/11/25 23:59 23:59 23:59 23:59 Intake Total 1090 1167 780 Output Total 1036 2000 Balance 54 1167 -1220 Meds/Results Medications: Active Medications Generic Name Dose Route Start Last Admin Trade Name Freq PRN Reason Stop Dose Admin Acetaminophen 650 mg 03/07/25 14:57 Acetaminophen 325 Mg Tablet PO Q4H PRN Mild Pain (1-3) or Fever Albuterol 2 puff 03/08/25 10:43 Albuterol Sulfate (*Sp) Aerosol 1 Puff INHALATION Q6H PRN shortness of breath or wheezing Aspirin 81 mg 03/09/25 09:00 03/11/25 08:20 Aspirin 81 Mg Enteric Tablet PO 81 mg QAM SUMAN Administration Atorvastatin Calcium 40 mg 03/08/25 18:00 03/10/25 17:50 Atorvastatin 40 Mg Tablet PO 40 mg QPM SUMAN Administration Buspirone HCl 20 mg 03/08/25 13:00 03/11/25 08:20 Buspirone Hcl 10 Mg Tablet PO 20 mg TID SUMAN Administration Dextrose 12.5 gm 03/07/25 15:42 03/10/25 13:52 Dextrose 50% 25 Gm/50 Ml Syringe IV PUSH 12.5 gm PRN PRN Administration Hypoglycemia Protocol Glucagon 1 mg 03/07/25 15:42 Glucagon For Inj 1 Mg Vial IM PRN PRN Hypoglycemia Protocol Glucose 15 gm 03/07/25 15:42 Glucose Oral Gel 15 Gm Of Glucse In 37.5 Gm Tube PO PRN PRN Hypoglycemia Protocol Dextrose 1,000 mls @ 100 mls/hr 03/07/25 15:42 Dextrose 5% 1,000 Ml IVPB PRN PRN Hypoglycemia Protocol Levofloxacin/Dextrose 500 mg in 100 mls @ 100 mls/hr 03/09/25 16:00 03/09/25 16:26 Levaquin 500 Mg/D5w 100 Ml IVPB 100 mls/hr Q48H SUMAN Administration Metronidazole 500 mg in 100 mls @ 100 mls/hr 03/07/25 21:00 03/11/25 05:20 Flagyl 500 Mg/Iso Soln 100 Ml IVPB 100 mls/hr Q8HR SUMAN Administration Albumin Human 50 mls @ 999 mls/hr 03/08/25 00:12 03/08/25 09:34 Albutein IVPB 04/07/25 00:11 Infused Q10M PRN Infusion HYPOTENSION Insulin Aspart 2 - 5 units 03/07/25 17:00 03/11/25 09:08 Insulin Aspart (*Bkc) 100 Units/Ml SUB-Q Not Given TIDWM SUMAN Protocol Midodrine 5 mg 03/08/25 10:43 03/10/25 08:37 Midodrine Hcl 2.5 Mg Tablet PO 5 mg [email or web address] PRN Administration hypotension Ondansetron HCl 4 mg 03/07/25 14:57 Ondansetron Inj 4 Mg/2 Ml Vial IV PUSH Q4H PRN Nausea Pantoprazole Sodium 40 mg 03/11/25 09:00 03/11/25 09:08 Pantoprazole 40 Mg Tablet PO 40 mg QAM SUMAN Administration Sertraline HCl 100 mg 03/09/25 09:00 03/11/25 09:08 Sertraline Hcl 50 Mg Tablet PO 100 mg QAM SUMAN Administration Sevelamer Carbonate 800 mg 03/08/25 12:00 03/11/25 09:08 Sevelamer Carbonate 800 Mg Tablet PO 800 mg TIDWM SUMAN Administration Venlafaxine HCl 75 mg 03/09/25 09:00 03/11/25 09:08 Venlafaxine Hcl Xr 75 Mg Cap.Er.24h PO 75 mg QAM SUMAN Administration Radiology Results: ITS Impressions Chest/Abdomen/Pelvis CT 03/07/25 16:18 IMPRESSION: CHEST: 1. No pulmonary embolism. No dissection. 2. No acute cardiopulmonary pathology. 3. Mediastinal lymphadenopathy. Clinical correlation advised. ABDOMEN/PELVIS: 1. Distended gallbladder with cholelithiasis and sludge. 2. Sliding hiatus hernia. 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 4. Thickened wall of the urinary bladder. Further evaluation advised. 5. Thickened wall of the rectum. Clinical evaluation advised. Abdomen Ultrasound 03/09/25 08:20 IMPRESSION: 1: Gallstones and gallbladder contains sludge and stones. No gallbladder wall thickening or pericholecystic fluid. Labs Labs: Laboratory Results - last 24 hr 03/10/25 03/10/25 03/10/25 13:25 13:49 15:08 WBC RBC Hgb Hct MCV MCH MCHC RDW Plt Count MPV Immature Gran % (Auto) Neut % (Auto) Lymph % (Auto) [place] % (Auto) Eos % (Auto) Baso % (Auto) Lymph # (Auto) [place] # (Auto) Eos # (Auto) Baso # (Auto) Abs Immat Gran (auto) Absolute Neuts (auto) Absolute Nucleated RBC Band Neutrophils % Nucleated RBC % Platelet Estimate Hypochromasia Anisocytosis Ovalocytes Schistocytes Sodium Potassium Chloride Carbon Dioxide Anion Gap BUN Creatinine Estim Creat Clear Calc Estimated GFR Glucose POC Capillary Glucose 73 84 Calcium Phosphorus Magnesium Total Bilirubin AST ALT Alkaline Phosphatase Total Protein Albumin Nasal MRSA (PCR) Detected A* 03/10/25 03/10/25 03/10/25 16:58 17:34 20:43 WBC RBC Hgb Hct MCV MCH MCHC RDW Plt Count MPV Immature Gran % (Auto) Neut % (Auto) Lymph % (Auto) [place] % (Auto) Eos % (Auto) Baso % (Auto) Lymph # (Auto) [place] # (Auto) Eos # (Auto) Baso # (Auto) Abs Immat Gran (auto) Absolute Neuts (auto) Absolute Nucleated RBC Band Neutrophils % Nucleated RBC % Platelet Estimate Hypochromasia Anisocytosis Ovalocytes Schistocytes Sodium Potassium Chloride Carbon Dioxide Anion Gap BUN Creatinine Estim Creat Clear Calc Estimated GFR Glucose POC Capillary Glucose 76 73 94 Calcium Phosphorus Magnesium Total Bilirubin AST ALT Alkaline Phosphatase Total Protein Albumin Nasal MRSA (PCR) 03/11/25 03/11/25 05:08 08:46 WBC 11.2 H RBC 2.59 L Hgb 7.7 L Hct 27.1 L MCV 104.6 H D MCH 29.7 MCHC 28.4 L RDW 19.0 H Plt Count 317 MPV 9.7 Immature Gran % (Auto) 0.4 Neut % (Auto) 76.7 H Lymph % (Auto) 10.3 L [place] % (Auto) 9.9 H Eos % (Auto) 2.4 Baso % (Auto) 0.3 Lymph # (Auto) 1.16 [place] # (Auto) 1.1 H Eos # (Auto) 0.3 Baso # (Auto) 0.0 Abs Immat Gran (auto) 0.04 H Absolute Neuts (auto) 8.6 H Absolute Nucleated RBC 0.000 Band Neutrophils % Not Reportable Nucleated RBC % 0.0 Platelet Estimate Adequate Hypochromasia 1+ Anisocytosis 1+ Ovalocytes 1+ Schistocytes None seen Sodium 135 L Potassium 3.9 Chloride 101 Carbon Dioxide 26 Anion Gap 8 BUN 24 H D Creatinine 3.08 H Estim Creat Clear Calc 24 Estimated GFR 21 L Glucose 98 POC Capillary Glucose 93 Calcium 9.6 Phosphorus 3.8 Magnesium 2.7 H Total Bilirubin 0.4 AST 28 ALT 13 Alkaline Phosphatase 86 Total Protein 6.0 L Albumin 3.3 L Nasal MRSA (PCR) Hospitalist MIPS Advance Care Plan I have confirmed that the patient's Advanced Care Plan is present, code status is documented, or surrogate decision maker is listed in patient medical record.: Yes Medication Reconciliation I have utilized all available resources to obtain, update and review the patients current medications (includes all prescriptions, OTC, herbals, cannabis, and nutritional supplements).: Yes
--- NOTE | 2025-03-11 10:42 | P.PNNP_ITS ---
Progress Note: A&P Assessment and Plan (1) End stage renal disease: Code(s): N18.6 - End stage renal disease Status: Chronic Assessment and Plan: * HD tomorrow * continue M/W/ outpatient dialysis schedule * follow electrolytes, volume status, and clearance * outpatient dialysis unit = [facility] (2) Anemia: Qualifiers: Anemia type: due to chronic kidney disease Chronic kidney disease stage: on chronic dialysis Qualified Code(s): N18.6 - End stage renal disease; D63.1 - Anemia in chronic kidney disease; Z99.2 - Dependence on renal dialysis Code(s): D64.9 - Anemia, unspecified Status: Acute Assessment and Plan: * as noted by admission labs * PRBC transfusion per protocol * Epogen with HD * adequate iron stores by anemia studies * hemoccult stool pending/never done * GI evaluation noted (03/10): * EGD - normal * Colonoscopy - noted polyps but otherwise negatibe * follow trend of H/H (3) Syncope: Code(s): R55 - Syncope and collapse Status: Acute Assessment and Plan: * presumably secondary to anemia * however, ruling out cardiac etiology: * EKG with no acute changes * recent Echo (03/07) noted: left ventricular systolic function estimated at 45-50%; left ventricular diastolic function is abnormal; mild aortic valve regurgitation; mild to moderate mitral valve regurgitation; mild mitral valve calcification; mild tricuspid valve regurgitation; mild pulmonary hypertension, estimated pulmonary arterial systolic pressure is 39 mmHg * follow telemetry * Cardiology recommendations noted (4) Abdominal pain: Code(s): R10.9 - Unspecified abdominal pain Status: Acute Assessment and Plan: * associated with constipation and elevated WBC * CT A/P with thickened wall of rectum and associated fecal impaction (possible stercoral proctitis?) * follow culture data * on bowel regiment * on empiric antibiotics (5) Hypertension: Code(s): I10 - Essential (primary) hypertension Status: Chronic Assessment and Plan: * reasonable control * issue with intradialytic hypotension requiring midodrine therapy * follow trend of hemodynamics (6) Diabetes: Code(s): E11.9 - Type 2 diabetes mellitus without complications Status: Chronic Assessment and Plan: * follow accu-checks * glycemic control per hospitalist Will continue to follow. L Subjective Date/time seen: 03/11/25 10:42 Interval history: Follow-up for end stage renal disease on hemodialysis. Tolerated dialysis treatment yesterday without any issues or problems; s/p EGD and colonoscopy yesterday without any acute findings; no apparent distress noted at the time of my visit; H/H continues ro remain relatively stable since blood transfusion; no events overnight or earlier this morning. Exam 2 Narrative: General: WD/WN male in NAD Heart: normal S1 and S2; no rub Lungs: clear to auscultation Abdomen: soft, nontender, nondistended, positive bowel sounds Extremities: no cyanosis or clubbing; trace edema Skin: no nodules Objective Data Vital Signs Vital Signs: Vital Signs Temp Pulse Resp BP Pulse Ox O2 Del Method 03/11/25 08:55 97.3 F L 80 16 138/53 L 100 03/11/25 08:30 99 Room Air 03/11/25 04:00 97 F L 86 18 137/61 100 03/10/25 20:00 96.6 F L 81 18 124/44 L 100 03/10/25 20:00 Room Air Intake/Output Intake/Output: Intake & Output 03/08/25 03/09/25 03/10/25 03/11/25 23:59 23:59 23:59 23:59 Intake Total 1090 1267 780 580 Output Total 1036 2000 Balance 54 1267 -1220 580 Meds/Results Medications: Active Medications Generic Name Dose Route Start Last Admin Trade Name Freq PRN Reason Stop Dose Admin Acetaminophen 650 mg 03/07/25 14:57 Acetaminophen 325 Mg Tablet PO Q4H PRN Mild Pain (1-3) or Fever Albuterol 2 puff 03/08/25 10:43 Albuterol Sulfate (*Sp) Aerosol 1 Puff INHALATION Q6H PRN shortness of breath or wheezing Aspirin 81 mg 03/09/25 09:00 03/11/25 08:20 Aspirin 81 Mg Enteric Tablet PO 81 mg QAM SUMAN Administration Atorvastatin Calcium 40 mg 03/08/25 18:00 03/10/25 17:50 Atorvastatin 40 Mg Tablet PO 40 mg QPM SUMAN Administration Buspirone HCl 20 mg 03/08/25 13:00 03/11/25 16:29 Buspirone Hcl 10 Mg Tablet PO 20 mg TID SUMAN Administration Dextrose 12.5 gm 03/07/25 15:42 03/10/25 13:52 Dextrose 50% 25 Gm/50 Ml Syringe IV PUSH 12.5 gm PRN PRN Administration Hypoglycemia Protocol Glucagon 1 mg 03/07/25 15:42 Glucagon For Inj 1 Mg Vial IM PRN PRN Hypoglycemia Protocol Glucose 15 gm 03/07/25 15:42 Glucose Oral Gel 15 Gm Of Glucse In 37.5 Gm Tube PO PRN PRN Hypoglycemia Protocol Dextrose 1,000 mls @ 100 mls/hr 03/07/25 15:42 Dextrose 5% 1,000 Ml IVPB PRN PRN Hypoglycemia Protocol Levofloxacin/Dextrose 500 mg in 100 mls @ 100 mls/hr 03/09/25 16:00 03/11/25 16:17 Levaquin 500 Mg/D5w 100 Ml IVPB 100 mls/hr Q48H SUMAN Administration Metronidazole 500 mg in 100 mls @ 100 mls/hr 03/07/25 21:00 03/11/25 14:36 Flagyl 500 Mg/Iso Soln 100 Ml IVPB 100 mls/hr Q8HR SUMAN Administration Albumin Human 50 mls @ 999 mls/hr 03/08/25 00:12 03/08/25 09:34 Albutein IVPB 04/07/25 00:11 Infused Q10M PRN Infusion HYPOTENSION Insulin Aspart 2 - 5 units 03/07/25 17:00 03/11/25 12:08 Insulin Aspart (*Bkc) 100 Units/Ml SUB-Q Not Given TIDWM SUMAN Protocol Midodrine 5 mg 03/08/25 10:43 03/10/25 08:37 Midodrine Hcl 2.5 Mg Tablet PO 5 mg [email or web address] PRN Administration hypotension Ondansetron HCl 4 mg 03/07/25 14:57 Ondansetron Inj 4 Mg/2 Ml Vial IV PUSH Q4H PRN Nausea Pantoprazole Sodium 40 mg 03/11/25 09:00 03/11/25 09:08 Pantoprazole 40 Mg Tablet PO 40 mg QAM SUMAN Administration Sertraline HCl 100 mg 03/09/25 09:00 03/11/25 09:08 Sertraline Hcl 50 Mg Tablet PO 100 mg QAM SUMAN Administration Sevelamer Carbonate 800 mg 03/08/25 12:00 03/11/25 12:58 Sevelamer Carbonate 800 Mg Tablet PO 800 mg TIDWM SUMAN Administration Venlafaxine HCl 75 mg 03/09/25 09:00 03/11/25 09:08 Venlafaxine Hcl Xr 75 Mg Cap.Er.24h PO 75 mg QAM SUMAN Administration Radiology Results: ITS Impressions Chest/Abdomen/Pelvis CT 03/07/25 16:18 IMPRESSION: CHEST: 1. No pulmonary embolism. No dissection. 2. No acute cardiopulmonary pathology. 3. Mediastinal lymphadenopathy. Clinical correlation advised. ABDOMEN/PELVIS: 1. Distended gallbladder with cholelithiasis and sludge. 2. Sliding hiatus hernia. 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 4. Thickened wall of the urinary bladder. Further evaluation advised. 5. Thickened wall of the rectum. Clinical evaluation advised. Abdomen Ultrasound 03/09/25 08:20 IMPRESSION: 1: Gallstones and gallbladder contains sludge and stones. No gallbladder wall thickening or pericholecystic fluid. Labs Labs: Laboratory Tests 03/11/25 05:08 03/11/25 05:08 Calcium 9.6 Phosphorus 3.8 Magnesium 2.7 H Total Bilirubin 0.4 AST 28 ALT 13 Alkaline Phosphatase 86 Total Protein 6.0 L Albumin 3.3 L
[2025-03-11 11:48] LABS: Glucose Point of Care 128 mg/dl (65-105)
--- NOTE | 2025-03-11 13:34 | PC.NURSE ---
On 03/11/25, the student, Josephine Lopes, provided care and completed [facility] documentation on this patient. I have reviewed the student's documentation and agree with the findings.
[2025-03-11 14:41] VITALS: BP 139/57; PULSE 82; RESP 20; TEMP 36.4; O2SAT 100
[2025-03-11] MEDS: levoFLOXacin 500 MG/D5W 100 ML 500 MG/100 ML BAG 100 MG IVPB (16:17)
[2025-03-11 16:57] LABS: Glucose Point of Care 95 mg/dl (65-105)
[2025-03-11] MEDS: ATORVASTATIN 40 MG TABLET PO (17:47)
[2025-03-11 19:56] VITALS: BP 136/58; PULSE 90; RESP 18; TEMP 36.2; O2SAT 100
[2025-03-11 20:51] VITALS: O2SAT 100
[2025-03-11 21:26] LABS: Glucose Point of Care 132 mg/dl (65-105)
[2025-03-12] VITALS (19 sets, daily range): BP systolic 99–162; BP diastolic 46–81; PULSE 55–86; RESP 16–20; TEMP 36.6–37.1; O2SAT 100
[2025-03-12] MEDS: metroNIDAZOLE 500 MG/ISO 100ML 500 MG/100 ML BAG 100 MG IVPB (05:03)
[2025-03-12 05:56] LABS: Basophils Percent Auto 0.3 % (0.2-1.2); Eosinophils Absolute Auto 0.2 K/mm3 (0-0.3); Eosinophils Percent Auto 2.1 % (0-4.4); Hematocrit 26.3 % (42.0-52.0); Hemoglobin 7.8 g/dL (14.0-18.0); Immature Granulocyte Absolute 0.05 K/mm3 (0.00-0.031); Immature Granulocyte Percent A 0.5 % (0-0.5); Lymphocytes Absolute Auto 1.49 K/mm3 (0.9-3.2); Lymphocytes Percent Auto 13.7 % (18.3-44.2); Mean Corpuscular HGB Conc 29.7 g/dl (32-36); Mean Corpuscular Hemoglobin 29.7 pg (26-34); Mean Platelet Volume 9.4 fl (7.4-10.4); Monocytes Absolute Auto 1.1 K/mm3 (0.1-0.6); Monocytes Percent Auto 9.7 % (2.6-8.5); Neutrophils Percent Auto 73.7 % (45.5-73.1); Platelet Count Result 337 k/mm3 (150-375); Red Blood Count 2.63 M/mm3 (4.6-6.20); Red Cell Distribution Width 18.7 % (11.5-14.5); White Blood Count 10.9 K/mm3 (4.5-10.0)
[2025-03-12 06:08] LABS: Alanine Aminotransferase 11 U/L (6-50); Albumin Level 3.3 g/dL (3.5-5.1); Alkaline Phosphatase 83 U/L (38-126); Anion Gap 10 mmol/L (4-12); Aspartate Amino Transferase 19 U/L (17-59); Bilirubin,Total 0.3 mg/dL (0.2-1.3); Blood Urea Nitrogen 31 mg/dL (9-20); Calcium 9.8 mg/dL (8.4-10.2); Carbon Dioxide 27 mmol/L (22-30); Chloride 101 mmol/L (98-107); Estimated CRCL calculation 16 ml/min; Estimated Glomerular Filt Rate 13; Glucose 87 mg/dL (65-110); Magnesium 2.8 mg/dL (1.6-2.3); Phosphorus 4.8 mg/dL (2.5-4.5); Potassium 3.9 mmol/L (3.4-5.0); Sodium 138 mmol/L (137-145)
[2025-03-12 06:42] LABS: Anisocytosis 2+; Hypochromasia 1+; Platelet Estimate Adequate (Adequate); Schistocytes None Seen
[2025-03-12] MEDS: SEVELAMER CARBONATE 800 MG TABLET PO ×2 (08:09→12:43)
[2025-03-12 08:12] LABS: Glucose Point of Care 94 mg/dl (65-105)
[2025-03-12] MEDS: HEPARIN SODIUM 1,000 UNITS/ML VIAL 2000 UNITS IV PUSH (08:41)
[2025-03-12] MEDS: HEPARIN SODIUM 1,000 UNITS/ML VIAL 500 UNITS IV PUSH ×4 (08:44→11:54)
--- NOTE | 2025-03-12 10:00 | P.PNNP_ITS ---
Progress Note: A&P Assessment and Plan (1) End stage renal disease: Code(s): N18.6 - End stage renal disease Status: Chronic Assessment and Plan: * HD today * continue M/W/F outpatient dialysis schedule * follow electrolytes, volume status, and clearance * outpatient dialysis unit = [facility] (2) Anemia: Qualifiers: Anemia type: due to chronic kidney disease Chronic kidney disease stage: on chronic dialysis Qualified Code(s): N18.6 - End stage renal disease; D63.1 - Anemia in chronic kidney disease; Z99.2 - Dependence on renal dialysis Code(s): D64.9 - Anemia, unspecified Status: Acute Assessment and Plan: * as noted by admission labs * PRBC transfusion per protocol * Epogen with HD * adequate iron stores by anemia studies * hemoccult stool pending/never done * GI evaluation noted (03/10): * EGD - normal * Colonoscopy - noted polyps but otherwise negatibe * follow trend of H/H (3) Syncope: Code(s): R55 - Syncope and collapse Status: Acute Assessment and Plan: * presumably secondary to anemia * however, ruling out cardiac etiology: * EKG with no acute changes * recent Echo (03/07) noted: left ventricular systolic function estimated at 45-50%; left ventricular diastolic function is abnormal; mild aortic valve regurgitation; mild to moderate mitral valve regurgitation; mild mitral valve calcification; mild tricuspid valve regurgitation; mild pulmonary hypertension, estimated pulmonary arterial systolic pressure is 39 mmHg * follow telemetry * Cardiology recommendations noted (4) Abdominal pain: Code(s): R10.9 - Unspecified abdominal pain Status: Acute Assessment and Plan: * associated with constipation and elevated WBC * CT A/P with thickened wall of rectum and associated fecal impaction (possible stercoral proctitis?) * follow culture data * on bowel regiment * on empiric antibiotics (5) Hypertension: Code(s): I10 - Essential (primary) hypertension Status: Chronic Assessment and Plan: * reasonable control * issue with intradialytic hypotension requiring midodrine therapy * follow trend of hemodynamics (6) Diabetes: Code(s): E11.9 - Type 2 diabetes mellitus without complications Status: Chronic Assessment and Plan: * follow accu-checks * glycemic control per hospitalist Not opposed to discharge from renal perspective if otherwise medically stable. Will continue to follow. L Subjective Date/time seen: 03/12/25 10:00 Interval history: Follow-up for end stage renal disease on hemodialysis. Tolerating dialysis treatment at the time of my visit (seen at 9:50AM); no apparent distress voiced when seen; H/H relatively stable; no other acute complaints to report; no other issues/events overnight or earlier this morning. Exam 2 Narrative: General: WD/WN male in NAD Heart: normal S1 and S2; no rub Lungs: clear to auscultation Abdomen: soft, nontender, nondistended, positive bowel sounds Extremities: no cyanosis or clubbing; trace edema Skin: warm and dry Objective Data Vital Signs Vital Signs: Vital Signs Temp Pulse Resp BP Pulse Ox O2 Del Method 03/12/25 10:00 73 131/66 03/12/25 09:45 80 116/58 L 03/12/25 09:30 85 112/56 L 03/12/25 09:15 82 110/54 L 03/12/25 09:00 78 120/63 03/12/25 08:44 81 147/77 H 03/12/25 08:30 97.9 F 81 20 162/81 H 100 03/12/25 08:10 Room Air 03/12/25 05:22 97.8 F 86 16 152/63 H 100 03/11/25 20:51 100 Room Air 03/11/25 20:00 Room Air 03/11/25 19:56 97.2 F L 90 18 136/58 L 100 03/11/25 14:41 97.5 F L 82 20 139/57 L 100 Intake/Output Intake/Output: Intake & Output 03/09/25 03/10/25 03/11/25 03/12/25 23:59 23:59 23:59 23:59 Intake Total 0931 075 8004 240 Output Total 1999 Balance 1267 -1220 1360 240 Meds/Results Medications: Active Medications Generic Name Dose Route Start Last Admin Trade Name Freq PRN Reason Stop Dose Admin Acetaminophen 650 mg 03/07/25 14:57 Acetaminophen 325 Mg Tablet PO Q4H PRN Mild Pain (1-3) or Fever Albuterol 2 puff 03/08/25 10:43 Albuterol Sulfate (*Sp) Aerosol 1 Puff INHALATION Q6H PRN shortness of breath or wheezing Aspirin 81 mg 03/09/25 09:00 03/11/25 08:20 Aspirin 81 Mg Enteric Tablet PO 81 mg QAM SUMAN Administration Atorvastatin Calcium 40 mg 03/08/25 18:00 03/11/25 17:47 Atorvastatin 40 Mg Tablet PO 40 mg QPM SUMAN Administration Buspirone HCl 20 mg 03/08/25 13:00 03/12/25 10:45 Buspirone Hcl 10 Mg Tablet PO Not Given TID SUMAN Dextrose 12.5 gm 03/07/25 15:42 03/10/25 13:52 Dextrose 50% 25 Gm/50 Ml Syringe IV PUSH 12.5 gm PRN PRN Administration Hypoglycemia Protocol Glucagon 1 mg 03/07/25 15:42 Glucagon For Inj 1 Mg Vial IM PRN PRN Hypoglycemia Protocol Glucose 15 gm 03/07/25 15:42 Glucose Oral Gel 15 Gm Of Glucse In 37.5 Gm Tube PO PRN PRN Hypoglycemia Protocol Dextrose 1,000 mls @ 100 mls/hr 03/07/25 15:42 Dextrose 5% 1,000 Ml IVPB PRN PRN Hypoglycemia Protocol Levofloxacin/Dextrose 500 mg in 100 mls @ 100 mls/hr 03/09/25 16:00 03/11/25 17:47 Levaquin 500 Mg/D5w 100 Ml IVPB Infused Q48H SUMAN Infusion Metronidazole 500 mg in 100 mls @ 100 mls/hr 03/07/25 21:00 03/12/25 05:03 Flagyl 500 Mg/Iso Soln 100 Ml IVPB 100 mls/hr Q8HR SUMAN Administration Albumin Human 50 mls @ 999 mls/hr 03/08/25 00:12 03/08/25 09:34 Albutein IVPB 04/07/25 00:11 Infused Q10M PRN Infusion HYPOTENSION Insulin Aspart 2 - 5 units 03/07/25 17:00 03/12/25 08:09 Insulin Aspart (*Bkc) 100 Units/Ml SUB-Q Not Given TIDWM [facility] Protocol Midodrine 5 mg 03/08/25 10:43 03/10/25 08:37 Midodrine Hcl 2.5 Mg Tablet PO 5 mg [email or web address] PRN Administration hypotension Ondansetron HCl 4 mg 03/07/25 14:57 Ondansetron Inj 4 Mg/2 Ml Vial IV PUSH Q4H PRN Nausea Pantoprazole Sodium 40 mg 03/11/25 09:00 03/11/25 09:08 Pantoprazole 40 Mg Tablet PO 40 mg QAM SUMAN Administration Sertraline HCl 100 mg 03/09/25 09:00 03/11/25 09:08 Sertraline Hcl 50 Mg Tablet PO 100 mg QAM SUMAN Administration Sevelamer Carbonate 800 mg 03/08/25 12:00 03/12/25 08:09 Sevelamer Carbonate 800 Mg Tablet PO 800 mg TIDWM SUMAN Administration Venlafaxine HCl 75 mg 03/09/25 09:00 03/11/25 09:08 Venlafaxine Hcl Xr 75 Mg Cap.Er.24h PO 75 mg QAM SUMAN Administration Radiology Results: ITS Impressions Chest/Abdomen/Pelvis CT 03/07/25 16:18 IMPRESSION: CHEST: 1. No pulmonary embolism. No dissection. 2. No acute cardiopulmonary pathology. 3. Mediastinal lymphadenopathy. Clinical correlation advised. ABDOMEN/PELVIS: 1. Distended gallbladder with cholelithiasis and sludge. 2. Sliding hiatus hernia. 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 4. Thickened wall of the urinary bladder. Further evaluation advised. 5. Thickened wall of the rectum. Clinical evaluation advised. Abdomen Ultrasound 03/09/25 08:20 IMPRESSION: 1: Gallstones and gallbladder contains sludge and stones. No gallbladder wall thickening or pericholecystic fluid. Labs Labs: Laboratory Tests 03/12/25 05:34 03/12/25 05:34 Calcium 9.8 Phosphorus 4.8 H Magnesium 2.8 H Total Bilirubin 0.3 AST 19 ALT 11 Alkaline Phosphatase 83 Total Protein 6.0 L Albumin 3.3 L
--- NOTE | 2025-03-12 10:20 | PM.DS ---
DS: Admitting Diagnosis Discharge Date 03/12/2025 Admitting Diagnosis Generalized weakness and syncope DS: Discharge Diagnosis Discharge Diagnosis (1) Anemia: Qualifiers: Anemia type: due to chronic kidney disease Chronic kidney disease stage: on chronic dialysis Qualified Code(s): N18.6 - End stage renal disease; D63.1 - Anemia in chronic kidney disease; Z99.2 - Dependence on renal dialysis Code(s): D64.9 - Anemia, unspecified Status: Acute (2) Abdominal pain: Code(s): R10.9 - Unspecified abdominal pain Status: Acute (3) Leukocytosis: Code(s): D72.829 - Elevated white blood cell count, unspecified Status: Acute (4) Syncope: Code(s): R55 - Syncope and collapse Status: Acute Plan DVT prophylaxis no anticoagulation due to possible GI bleed. possible discharge tomorrow DS: Summary Hospital Course Hospital Course: 59-year-old male past medical history of end-stage renal disease on dialysis, hypertension, type 2 diabetes, coronary artery disease status post stents was brought to the ER from dialysis center on account of syncope. Patient has been having constipation the past 2 weeks, along with a generalized weakness, however today he went to his regular dialysis where he noted he passed out for about a minute. Denies any chest pain no palpitations no focal symptoms. Patient is wheelchair bound. He complained of abdominal pain no pedal region. Otherwise no diarrhea no vomiting no focal weakness. ER eval vital signs stable blood pressure 120/60, pulse 82, respiratory 22, saturating 100% on room air. Labs notable for WBC 19.7, hemoglobin 6.0, creatinine 3.87, BUN 80, EKG showed a sinus rhythm no acute ST-T changes. White of blood was ordered prior to admission. During the hospitalization patient was treated for the following conditions: Anemia Hb 7.4 s/p 2 units Isat 26, FOBT, PPI Eliquis on Hold, pending Endoscopy For Endoscopy today Spoke with Dr. Ramirez agrees to continue Eliquis after 5 days Underwent colonoscopy 03/10/2025: Colonic polyps. Diverticulosis without perforation or abscess without bleeding. Underwent EGD 03/10/2025: Unremarkable EGD Syncope Likely related to anemia EKG no acute changes. Echo Showed Ef 45-50% with diastolic dysfunction cardiology evaluated and noted not cardiac related MIld Cardiomyopathy EF 45-50% Cardiology noted patient did not tolerated Lopressor prior recommends Losartan 25mg daily if cleared by Nephrology Stercoral Proctitis History of present abdominal pain the past 2 weeks, with the constipation. CT AP showed thickened wall of rectum with fecal impaction leukocytosis improving WBC 13.1 from 19 Blood culture, day 3/ Levaquin and Flagyl Monitor closely. Constipation Patient noted no bowel movements since [address] AP showed fecal impaction Miralax and Dulcolax suppository Underwent colonoscopy 03/10/2025: Colonic polyps. Diverticulosis without perforation or abscess without bleeding. Underwent EGD 03/10/2025: Unremarkable EGD End-stage renal disease on dialysis azotemia BUN 80 Nephrology consulted for dialysis. Hypertension Titrate her medications with clinical course. Discussed with who agrees with starting Losartan 25 mg PO QD Type 2 diabetes Sliding scale insulin with Accu-Cheks adjust with clinical course. PAfib Hold Eliquis pending Endoscpy CAD s/p stents continue Aspirin and lipitor Status at Discharge Cognitive/behavioral status at discharge: Stable Time Spent with Patient Time attestation: Total time spent providing and/or coordinating discharge services: 45 minute Exam Narrative: General: alert and comfortable Eyes: EOMI, PERRLA ENNT External ears normal, Neck is supple, no masses, Respiratory systems: Clear to auscultation Cardiovascular S1, S2, normal rhythm, no murmur, rub, or gallop; no thrill or palpable murmurs on palpation. Gastrointestinal: soft, non-tender, and non-distended abdomen with no masses; BS present Skin: no rash, lesions, ulcerations, subcutaneous nodules or induration Musculoskeletal: no abnormality and no tenderness, normal ROM Neurologic: Alert and oriented x3, non focal Mental Status Exam: normal affect DS: Data Data Completed and Pending Pending studies at discharge: Pending at discharge 03/10/25 16:40 Surgical [PTH] Routine Labs on day of discharge: Labs from last 24 hours 03/12/25 03/11/25 03/11/25 05:34 20:00 16:39 WBC 10.9 H RBC 2.63 L Hgb 7.8 L Hct 26.3 L MCV 100.0 MCH 29.7 MCHC 29.7 L RDW 18.7 H Plt Count 337 MPV 9.4 Immature Gran % (Auto) 0.5 Neut % (Auto) 73.7 H Lymph % (Auto) 13.7 L [place] % (Auto) 9.7 H Eos % (Auto) 2.1 Baso % (Auto) 0.3 Lymph # (Auto) 1.49 [place] # (Auto) 1.1 H Eos # (Auto) 0.2 Baso # (Auto) 0.0 Abs Immat Gran (auto) 0.05 H Absolute Neuts (auto) 8.0 H Absolute Nucleated RBC 0.000 Band Neutrophils % Not Reportable Nucleated RBC % 0.0 Platelet Estimate Adequate Hypochromasia 1+ Anisocytosis 2+ Schistocytes None seen Sodium 138 Potassium 3.9 Chloride 101 Carbon Dioxide 27 Anion Gap 10 BUN 31 H Creatinine 4.61 H Estim Creat Clear Calc 16 Estimated GFR 13 L Glucose 87 POC Capillary Glucose 132 H 95 Calcium 9.8 Phosphorus 4.8 H Magnesium 2.8 H Total Bilirubin 0.3 AST 19 ALT 11 Alkaline Phosphatase 83 Total Protein 6.0 L Albumin 3.3 L 03/11/25 03/11/25 11:43 08:46 WBC RBC Hgb Hct MCV MCH MCHC RDW Plt Count MPV Immature Gran % (Auto) Neut % (Auto) Lymph % (Auto) [place] % (Auto) Eos % (Auto) Baso % (Auto) Lymph # (Auto) [place] # (Auto) Eos # (Auto) Baso # (Auto) Abs Immat Gran (auto) Absolute Neuts (auto) Absolute Nucleated RBC Band Neutrophils % Nucleated RBC % Platelet Estimate Hypochromasia Anisocytosis Schistocytes Sodium Potassium Chloride Carbon Dioxide Anion Gap BUN Creatinine Estim Creat Clear Calc Estimated GFR Glucose POC Capillary Glucose 128 H 93 Calcium Phosphorus Magnesium Total Bilirubin AST ALT Alkaline Phosphatase Total Protein Albumin Preliminary micro results at discharge 03/07/25 16:32 Blood Culture - Preliminary Blood 03/07/25 16:32 Blood Culture - Preliminary Blood Discharge Plan Discharge Attending physician on discharge: Yong Hernandez Consulting providers: Whitney Phelps; Jluis Dover; Lan Stanley Discharging Clinician: Yong Hernandez Patient Disposition: Home Activity: as tolerated Diet: renal Discharge Instructions: Please complete the course of antibiotics Started on Losartan 25 mg PO QD and Please follow-up with the PCP in regards to hypertension. Please follow-up with GI for biopsy results Rise slowly from a lying or sitting position. Pause before standing or walking. Contact your doctor or call 911 and come to the Emergency Room if you have any type of trauma, lightheadedness with standing or other worrisome symptoms. Avoid NSAIDs (ibuprofen, naproxen, Aleve). Tylenol is safe to take. Follow-up with your primary care provider in 1-2 weeks. Please call for appointment. Follow-up with GI, Nephrology and Cardiology in 2-4 weeks. Please call for an appointment. Thank you for using [facility] for your health care needs. Patient Instructions: Antibiotic Form Patient Language: Argentine Stand Alone Forms: General Discharge Information Follow-up/Referrals: Lan Stanley MD [Physician] - Whitney Phelps MD [Physician] - Jluis Dover MD [Physician] - Yogesh,Beau Dixon MD [Primary Care Provider] - Discharge Medications: New metronidazole 500 mg tablet 500 mg PO Q8H Qty: 10 0RF losartan 25 mg tablet 25 mg PO DAILY Qty: 30 0RF levofloxacin 500 mg tablet 500 mg PO Q48H Qty: 2 0RF Continued atorvastatin 40 mg tablet 40 mg PO QPM buspirone 10 mg tablet 20 mg PO TID hydrocodone-acetaminophen 5-325 mg tablet 1 tablet PO Q6H PRN (Reason: pain) sertraline 100 mg tablet 100 mg PO QAM sevelamer carbonate 800 mg tablet 800 mg PO TID Rx Instructions: WITH MEALS venlafaxine 75 mg capsule,extended release 24hr 75 mg PO QAM albuterol sulfate [Ventolin HFA] 90 mcg/actuation HFA aerosol inhaler 2 inh INHALATION Q6H PRN (Reason: shortness of breath or wheezing) omeprazole 40 mg capsule,delayed release(DR/EC) 40 mg PO DAILY Tradjenta 5 mg tablet 5 mg PO DAILY sevelamer carbonate [Renvela] 800 mg tablet 800 mg PO TID Rx Instructions: must administer with a meal/food acetaminophen [Tylenol] 325 mg tablet 500 mg PO Q4H PRN (Reason: pain (scale score 1-3)) polyethylene glycol 3350 [Miralax] 17 gram/dose powder 17 g PO DAILY PRN (Reason: constipation) midodrine 5 mg tablet 5 mg PO Q12H PRN (Reason: hypotension) Rx Instructions: ON DIALYSIS DAYS; // Held Eliquis 5 mg tablet 5 mg PO BID Hold Instructions: Resume on 03/17/25. aspirin 81 mg capsule 81 mg PO DAILY Hold Instructions: Resume on 03/17/25. Date of admission: 03/07/25 14:57 Primary Care Provider: Yogesh,Beau Dixon Admitting Provider: Tianna Singh Attending physician on admission: Tianna Singh Condition: Stable
[2025-03-12] MEDS: EPOETIN ALFA-EPBX 20,000 UNITS/ML VIAL 20000 UNITS IV PUSH (10:57)
[2025-03-12] MEDS: HEPARIN SODIUM 1,000 UNITS/ML VIAL 6000 UNITS IV PUSH (12:31)
[2025-03-12] MEDS: SERTRALINE HCL 50 MG TABLET 100 MG PO (12:39)
[2025-03-12] MEDS: PANTOPRAZOLE 40 MG TABLET PO (12:39)
[2025-03-12] MEDS: VENLAFAXINE HCL XR 75 MG CAP.ER.24H PO (12:39)
[2025-03-12] MEDS: busPIRone HCL 10 MG TABLET 20 MG PO (12:39)
[2025-03-12] MEDS: ASPIRIN 81 MG ENTERIC TABLET PO (12:39)
[2025-03-12 12:44] LABS: Glucose Point of Care 93 mg/dl (65-105)
== END 2025-03-12 14:43 | disposition home or self-care (01) | DRG 682 ==
LOC: ANHED 14:50 → ANH3MED 15:26
PROVIDERS: Internal Medicine Gastroenterology; Internal Medicine Nephrology; Admitting Provider Internal Medicine; Emergency Provider Family Medicine; PCP Family Medicine; Visit Provider General Practice
PROC: 0DJ08ZZ Inspection of Upper Intestinal Tract, Via Natural or Artificial Opening Endoscopic (ICD-10-PCS; CPT 45378; principal; 2025-03-10 16:30)
DX: I13.11 Hypertensive heart and chronic kidney disease without heart failure, with stage 5 chronic kidney disease, or end stage renal disease (principal); N18.6 End stage renal disease; I43 Cardiomyopathy in diseases classified elsewhere; D63.1 Anemia in chronic kidney disease; E11.22 Type 2 diabetes mellitus with diabetic chronic kidney disease; Z99.2 Dependence on renal dialysis; Z79.84 Long term (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 of oral hypoglycemic drugs; I25.10 Atherosclerotic heart disease of native coronary artery without angina pectoris; Z95.5 Presence of coronary angioplasty implant and graft; Z99.3 Dependence on wheelchair; Z79.01 Long term (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 of anticoagulants; K57.90 Diverticulosis of intestine, part unspecified, without perforation or abscess without bleeding; K63.5 Polyp of colon; K62.89 Other specified diseases of anus and rectum; I48.0 Paroxysmal atrial fibrillation; D72.829 Elevated white blood cell count, unspecified; K56.41 Fecal impaction; K21.9 Gastro-esophageal reflux disease without esophagitis; E78.5 Hyperlipidemia, unspecified; Z87.891 Personal history of nicotine dependence; Z89.412 Acquired absence of left great toe; Z79.82 Long term (current) use of aspirin; E11.51 Type 2 diabetes mellitus with diabetic peripheral angiopathy without gangrene
CPT/HCPCS: 36415; 36430; 71260; 74177; 76705; 80053; 82728; 82948; 83540; 83550; 83735; 84100; 85014; 85018; 85025; 86706; 86850; 86900; 86901; 86923; 87040; 87340; 87641; 88305; 93005; 93306; 96361; 96374; 96375; 99285; A9270; G0257; J1644; J1836; J1956; J2003; J2405; J2470; J2704; J7030; J7040; J7050; P9016; P9047; Q5105; Q9967

== ENCOUNTER 2025-08-04 14:53 | Emergency (ER) | payer MEDICARE, MEDICAID, SELFPAY ==
--- OUTSIDE RECORDS SUMMARY | 2023-11-03 06:29 | XMS_ITS | Continuity of Care Document ---
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 Name Role Phone Brian Azevedo MD Unavailable Unavailable Allergies, Adverse Reactions, Alerts Substance Reaction Status Criticality No Known Allergies Active No Inform ation No Known Allergies Active No Inform ation Medications Medication Instructions Dosage Effective Dates (start - stop) Status Comments atorvastatin 40 mg tablet - Active Brilinta 90 mg tablet - Acti ve omeprazole 40 mg capsule,delayed release - Active triamcinolone acetonide 0.1 % topical cream - Active isosorbide mononitrate ER 30 mg tablet,extended release 24 hr - Active buspirone 5 mg tablet - Acti ve Tradjenta 5 mg tablet take 1 tablet by o ral route every day 5 MG - Active midodrine 10 mg tablet take 1 tablet by oral route 3 times every day 10 MG - Active venlafaxine ER 150 mg capsule,extended release 24 hr take 1 capsule by oral route every day 150 MG - Active Colace 100 mg capsule take 1 capsule by oral route 2 times every day at bedtime as needed 100 MG - Active Vitamin C 500 mg tablet - Active vitamin E 100 unit capsule - Active melatonin 1 mg tablet - Active sertraline 100 mg tablet take 1 tablet by oral route every day 100 MG - Active Renvela 800 mg tablet take 1 tablet by o ral route 3 times every day with food 800 MG - Active Keppra 500 mg tablet take 1 tablet by or al route 2 times every day 500 MG - Active metoprolol tartrate 50 mg tablet take 1 tablet by oral route 2 times every day with meals 50 MG - Active sertraline 100 mg tablet take 1 tablet by oral route every day 100 MG - Active Renvela 800 mg tablet take 2 tablet by o ral route 3 times every day with food 1600 MG - Active tamsulosin ER 0.4 mg capsule,extended release 24 hr take 1 capsule by oral route every day 1/2 hour following the same meal each day 0.4 MG - Active Procedures Procedure Date Replace tunneled cv cath Vascular surgery procedure Fluoroguide for vein device Mod sed same phys/qhp 5/>yrs CONTRAST, 300/ML, PER ML MOD SED BY OR SUP BY PHYSICIAN REPLACE TUNNELED CV CATH INTRO CATH SVC/IVC MECH REMOVE TUNNELED CV CATH REMOVE CVA DEVICE 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 Followed Radiation Exposure Documented To Be Coded Replace tunneled cv cath Vascular surgery procedure Fluoroguide for vein device Mod sed same phys/qhp 5/>yrs Cath impl vasc access portal Intro cath dialysis circuit Mod sed same phys/qhp 5/>yrs CONTRAST, 300/ML, PER ML MOD SED BY OR SUP BY PHYSICIAN INTRO CATH DIALYSIS CIRCUIT Radiation Exposure Documented To Be Coded Intro cath dialysis circuit Mod sed same phys/qhp 5/>yrs CONTRAST, 300/ML, PER ML MOD SED BY OR SUP BY PHYSICIAN INTRO CATH DIALYSIS CIRCUIT Radiation Exposure Documented To Be Coded Intro cath dialysis circuit Mod sed same phys/qhp 5/>yrs Intro cath dialysis circuit Mod sed same phys/qhp 5/>yrs Thrmbc/nfs dialysis circuit Us guide vascular access Mod sed same phys/qhp 5/>yrs Mod sed same phys/qhp ea CONTRAST, 300/ML, PER ML INJECTION ALTEPLASE RECOMBINANT 1MG MOD SED BY OR SUP BY PHYSICIAN THRMBC/NFS DIALYSIS CIRCUIT Radiation Exposure Documented To Be Coded Thrmbc/nfs dialysis circuit Us guide vascular access CONTRAST, 300/ML, PER ML MOD SED BY OR SUP BY PHYSICIAN INTRO CATH DIALYSIS CIRCUIT Radiation Exposure Documented To Be Coded Intro cath dialysis circuit Prosthetic implant NOS Intro cath dialysis circuit Mod sed same phys/qhp 5/>yrs Intro cath dialysis circuit Mod sed same phys/qhp 5/>yrs CONTRAST, 300/ML, PER ML MOD SED BY OR SUP BY PHYSICIAN INTRO CATH DIALYSIS CIRCUIT Radiation Exposure Documented To Be Coded Intro cath dialysis circuit CONTRAST, 300/ML, PER ML MOD SED BY OR SUP BY PHYSICIAN INTRO CATH DIALYSIS CIRCUIT Radiation Exposure Documented To Be Coded Intro cath dialysis circuit Balo angiop ctr dialysis seg Intro cath dialysis circuit Balo angiop ctr dialysis seg Mod sed same phys/qhp 5/>yrs CONTRAST, 300/ML, PER ML MOD SED BY OR SUP BY PHYSICIAN INTRO CATH DIALYSIS CIRCUIT Radiation Exposure Documented To Be Coded Intro cath dialysis circuit Intro cath dialysis circuit Mod sed same phys/qhp 5/>yrs CONTRAST, 300/ML, PER ML INTRO CATH DIALYSIS CIRCUIT Radiation Exposure Documented To Be Coded Intro cath dialysis circuit Intro cath dialysis circuit CONTRAST, 300/ML, PER ML INTRO CATH DIALYSIS CIRCUIT Radiation Exposure Documented To Be Coded INTRO CATH DIALYSIS CIRCUIT INTRO CATH DIALYSIS CIRCUIT E/M NON BILLABLE EVENT DOPPLER FLOW TESTING OFFICE/OUTPATIENT VISIT, EST To Be Coded E/M NON BILLABLE EVENT DOPPLER FLOW TESTING OFFICE/OUTPATIENT VISIT, EST To Be Coded No Burn Prior To Dschg,fall In Facility, wrong Site E/M NON BILLABLE EVENT DOPPLER FLOW TESTING E/M NON BILLABLE EVENT DOPPLER FLOW TESTING INTRO CATH DIALYSIS CIRCUIT 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, ARM/LEG MOD SED SAME PHYS/QHP />YRS No Burn Prior To Dschg,fall In Facility, wrong Site CONTRAST, 300/ML, PER ML MOD SED BY OR SUP BY PHYSICIAN INTRO CATH DIALYSIS CIRCUIT Radiation Exposure Documented To Be Coded INTRO CATH DIALYSIS CIRCUIT 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, ARM/LEG THRMBC/NFS DIALYSIS CIRCUIT 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, ARM/LEG MOD SED SAME PHYS/QHP />YRS CONTRAST, 300/ML, PER ML MOD SED BY OR SUP BY PHYSICIAN THRMBC/NFS DIALYSIS CIRCUIT Radiation Exposure Documented No Burn Prior To Dschg fall In Facility wrong Site THRMBC/NFS DIALYSIS CIRCUIT 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, 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 No Burn Prior To Dschg fall In Facility wrong Site Patient Without Preop IV Order 18 No Burn Prior To Dschg fall In Facility wrong Site CONTRAST, 300/ML, PER ML MOD SED BY OR SUP BY PHYSICIAN INTRO CATH DIALYSIS CIRCUIT Radiation Exposure Documented To Be Coded INTRO CATH DIALYSIS CIRCUIT No Burn Prior To Dschg fall In Facility wrong Site CONTRAST, 300/ML, PER ML ARTERIOVENOUS SHUNT W/ IMAGING Radiation Exposure Documented To Be Coded CONTRAST, 300/ML, PER ML ARTERIOVENOUS SHUNT W/ IMAGING ANGIOPLASTY PERC VENOUS ANGIOGRAPHY CABLE TOWER OPERATOR Radiation Exposure Documented To Be Coded CONTRAST, 300/ML, PER ML ARTERIOVENOUS SHUNT W/ IMAGING To Be Coded CONTRAST, 300/ML, PER ML ARTERIOVENOUS SHUNT W/ IMAGING ANGIOPLASTY PERC VENOUS ANGIOGRAPHY CABLE TOWER OPERATOR To Be Coded CONTRAST, 300/ML, PER ML ARTERIOVENOUS SHUNT W/ IMAGING ANGIOPLASTY PERC VENOUS ANGIOGRAPHY CABLE TOWER OPERATOR Radiation Exposure Documented To Be Coded CONTRAST, 300/ML, PER ML ARTERIOVENOUS SHUNT W/ IMAGING Radiation Exposure Documented To Be Coded CONTRAST, 300/ML, PER ML ARTERIOVENOUS SHUNT W/ IMAGING Radiation Exposure Documented To Be Coded CONTRAST, 300/ML, PER ML ARTERIOVENOUS SHUNT W/ IMAGING Radiation Exposure Documented To Be Coded CONTRAST, 300/ML, PER ML ARTERIOVENOUS SHUNT W/ IMAGING Radiation Exposure Documented To Be Coded CONTRAST, 300/ML, PER ML ARTERIOVENOUS SHUNT W/ IMAGING Radiation Exposure Documented To Be Coded CONTRAST, 300/ML, PER ML ARTERIOVENOUS SHUNT W/ IMAGING Radiation Exposure Documented To Be Coded CONTRAST, 300/ML, PER ML INJECTION ALTEPLASE RECOMBINANT 1MG Radiation Exposure Documented To Be Coded Advance Directives Directive Yes / No Effective Date File Name No Information Encounters Encounter Description Practice Location Reason(s) For Visit Diagnoses Date Provider Providers Copied on Encounter [facility], [address] [facility], [place], [address] , [place] tel: [phone] [facility] No Information [address] [facility] [place] [address] , [place]. tel: [phone] [facility] , [address] [facility] [place], [address] , [place] tel: [phone] [facility] 3 [address] [facility] [place] [address] , [place]. tel: [phone] Referring Provider: Sylvia García, [facility], [place], [address]. tel:[phone] [facility], [address] [facility] [place], [address] , [place] tel: [phone] [facility] 3 Roberto Carlos Torres. [address] [facility], [place], [address] , [place]. tel: [phone] Referring Provider: Sylvia García [address] [place], [address]. tel:[phone] [facility] , [address] [facility] [place] [address] , [place] tel: [phone] [facility] Compression of VeinEnd stage renal disease 3 Albovias Brian. [address] [facility] [place] [address] , [place]. tel: [phone] Referring Provider: Sylvia García [address] [place], [address]. tel:[phone] [facility], [address] [facility] [place], [address] , [place] tel: [phone] [facility] Compression of VeinEnd stage renal disease 3 Albovias Brian. [address] [facility] [place], [address] , [place]. tel: [phone] Referring Provider: Sylvia García [address] [place], [address]. tel:[phone] [facility], [address] [facility] [place], [address] , [place] tel: [phone] [facility] Compression of VeinEnd stage renal disease 3 Albovias Brian. [address] [facility], [facility] [place], [address] , [place]. tel: [phone] Referring Provider: Sylvia García [address] [place], [address]. tel:[phone] [facility] , [address] [facility] [place], [address] , [place] tel: [phone] [facility] End stage renal diseaseCompression of Vein 3 Albovias Brian. [address] [facility], [facility] [place], [address] , [place]. tel: [phone] Referring Provider: Sylvia García [address] [place], [address]. tel:[phone] [facility] , [address] [facility], [facility], [place], [address] , [place] tel: [phone] [facility] End stage renal diseaseEnd stage renal diseaseCompression of VeinCompression of Vein 1 Albovias Brian. [address] [facility], [facility], [place], [address] , [place]. tel: [phone] Referring Provider: Shant Nayak[address] [place], [address]. tel:[phone] [facility], [address] [facility], [facility], [address] , [place] tel: [phone] [facility] Compression of VeinEnd stage renal diseaseCompression of VeinEnd stage renal disease 1 Albovias Brain. [address] [facility], [facility], [place], [address] , [place]. tel: [phone] Referring Provider: Shant Nayak[address] [place], [address]. tel:[phone] [facility] , [address] [facility], [facility] [place], [place], [address] , [place] tel: [phone] [facility] End stage renal diseaseCompression of Vein 1 Albovias Brian. [address] [facility], [facility], [place], [address] , [place]. tel: [phone] Referring Provider: Shant Nayak[address] [place], [address]. tel:[phone] [facility], [address] [facility], [facility], [place], [address] , [place] tel: [phone] [facility] Compression of VeinEnd stage renal disease 1 Albovias Brian. [address] [facility], [facility], [place], [address] , [place]. tel: [phone] Referring Provider: Shant Nayak[address] [place], [address]. tel:[phone] [facility] , [address] [facility], [facility], [place], [address] , [place] tel: [phone] [facility] End stage renal diseaseCompression of Vein 1 Albovias Brian. [address] [facility], [facility], [place], [address] , [place]. tel: [phone] Referring Provider: Sylvia García [address] [place], [address]. tel:[phone] [facility], [address] [facility], [facility], [place], [address] , [place] tel: [phone] [facility] Compression of VeinEnd stage renal disease 1 Albovias Brian. [address] [facility], [facility], [place], [address] , [place]. tel: [phone] Referring Provider: Sylvia García [address] [place], [address]. tel:[phone] [facility], [address] [facility], [facility], [place], [address] , [place] tel: [phone] [facility] Compression of VeinEnd stage renal disease 1 Albovias Brian. [address] [facility], [facility], [place], [address] , [place]. tel: [phone] Referring Provider: Sylvia García [address] [place], [address]. tel:[phone] [facility] , [address] [place] [address], [facility], [place], [address] , [place] tel: [phone] [facility] End stage renal diseaseCompression of Vein 1 Albovias Brian. [address] [place] [address], [place], [address] , [place]. tel: [phone] Referring Provider: Sylvia García [address] [place], [address]. tel:[phone] [facility], [address] [place] [address], [place], [address] , tel: [phone] [facility] Compression of VeinEnd stage renal disease 0 Albovias Brian. [address] [facility], [place], [address] , [place]. tel: [phone] Referring Provider: Tray [address] [place], [address]. tel:[phone] [facility] , [address] [facility], [place], [address] , [place] tel: [phone] [facility] End stage renal diseaseCompression of Vein 0 Albovias Brian. [address] [facility], [place], [address] , [place]. tel: [phone] Referring Provider: Tray [address] [place], [address]. tel:[phone] [facility], [address] [facility], [place], [address] , [place] tel: [phone] [facility] Compression of VeinEnd stage renal disease 0 Albovias Brian. [address] [facility], [place], [address] , [place]. tel: [phone] Referring Provider: Tray [address] [place], [address]. tel:[phone] [facility] , [address] [facility], [place], [address] , [place] tel: [phone] [facility] No Information 0 Albovias Brian. [address] [facility], [place], [address] , [place]. tel: [phone] Referring Provider: Tray [address] [place], [address]. tel:[phone] [facility] , [address] [facility], [place], [address] , [place] tel: [phone] [facility] No Information 9 Albovias Brian. [address] [facility], [place], [address] , [place]. tel: [phone] Referring Provider: Sylvia García [address] [place], [address]. tel:[phone] [facility], [address] [facility] [place], [address] , tel: [phone] [facility] Other specified circulatory system disordersEnd stage renal disease 9 Albovias Brian. [address] [facility], [facility], [place], [address] , [place]. tel: [phone] Referring Provider: Sylvia García [address] [place], [address]. tel:[phone] OFFICE[facility]OUTPAT IENT VISIT, [facility], [address] [facility], [facility] [place], [address] , [place] tel: [phone] [facility] End stage renal disease 9 Albovias Brian. [address] [facility], [facility] [address] , [place]. tel: [phone] Referring Provider: Sylvia García [address] [place], [address]. tel:[phone] [facility] , [address] [facility], [facility] [place], [address] , [place] tel: [phone] [facility] No Information 9 Albovias Brian. [address] [facility], [facility] [place] [address] , [place]. tel: [phone] Referring Provider: Sylvia García [address] [place], [address]. tel:[phone] OFFICE/OUTPAT IENT VISIT, [facility], [address] [facility], [facility] [place], [address] , [place] tel: [phone] [facility] Other specified circulatory system disordersEnd stage renal disease Jan-0 9 Albovias Brian. [address] [facility], [facility] [place], [address] , [place]. tel: [phone] Referring Provider: Shant Nayak[address] [place], [address]. tel:[phone] [facility] , [address] [facility], [facility] [place], [address] , [place] tel: [phone] [facility] No Information 9 Albovias Brian. [address] [facility], [facility] [place], [address] , [place]. tel: [phone] Referring Provider: Shant Nayak[address] [place], [address]. tel:[phone] [facility] , [address] [facility], [facility] [place], [address] , [place] tel: [phone] [facility] No Information 9 Albovias Brian. [address] [facility], [facility] [place], [address] , [place]. tel: [phone] Referring Provider: Shant Nayak[address] [place], [address]. tel:[phone] [facility], [address] [facility], [facility] [place], [address] , [place] tel: [phone] [facility] Compression of VeinOther specified circulatory system disordersOther complications due to renal dialysis device, implant, and graftEnd stage renal diseaseCompression of VeinOther specified circulatory system disordersOther complications due to renal dialysis device, implant, and graftEnd stage renal disease 9 Albovias Brian. [address] [facility], [facility] [place], [address] , [place]. tel: [phone] Referring Provider: Sylvia García [address] [place], [address]. tel:[phone] [facility] , [address] [facility], [facility] [place], [address] , [place] tel: [phone] [facility] No Information 8 Albovias Brian. [address] [facility], [facility] [place], [address] , [place]. tel: [phone] Referring Provider: Shant Nayak[address] [place], [address]. tel:[phone] [facility], [address] [place] [address], [place], [address] , [place] tel: [phone] [facility] Compression of VeinStricture of ArteryOther complications due to renal dialysis device, implant, and graftEnd stage renal disease 0- 8 Albovias Brian. [address] [facility], [place], [address] , [place]. tel: [phone] Referring Provider: Shant Nayak[address] [place], [address]. tel:[phone] [facility], [address] [place] [address], [place], [address] , [place] tel: [phone] [facility] HTNCompression of VeinOther complications due to renal dialysis device, implant, and graftEnd stage renal diseaseCompression of VeinOther complications due to renal dialysis device, implant, and graftEnd stage renal disease 9 8 Albovias Brian. [address] [facility], [place], [address] , [place]. tel: [phone] Referring Provider: Tray [address] [place], [address]. tel:[phone] [facility] , [address] [place] [address], [place], [address] , [place] tel: [phone] [facility] End stage renal diseaseOther complications due to renal dialysis device, implant, and graft 3 7 Albovias Brian. [address] [facility], [place], [address] , [place]. tel: [phone] Referring Provider: Tray [address] [place], [address]. tel:[phone] [facility] , [address] [place] [address] t, [place], [address] , [place] tel: [phone] [facility] Compression of VeinEnd stage renal diseaseOther complications due to renal dialysis device, implant, and graft 4- 7 Albovias Brian. [address] [facility], [place], [place], [address] , [place]. tel: [phone] Referring Provider: Jonh Gallardo, [address] [place] [address], [address]. tel:[phone] [facility] , [address] [facility], [facility], [place], [address] , [place] tel: [phone] [facility] End stage renal diseaseOther complications due to renal dialysis device, implant, and graft Dec- 6 Bhoot Veeral. [address] [place], [address], [place]. tel: [phone] Referring Provider: Jonh Gallardo, [address] [place] [address], [address]. tel:[phone] [facility] , [address] [place] [address], [id number] , [place] tel: [phone] [facility] Compression of Vein Sep- 6 Albovias Brian. [address] [facility], [place], [address] , [place]. tel: [phone] Referring Provider: Jonh Gallardo, [address] [place] [address], [address]. tel:[phone] [facility] , [address] [place] [address], [place], [address] , [place] tel: [phone] [facility] Compression of VeinEnd stage renal diseaseOther complications due to renal dialysis device, implant, and graft Andrew- 6 Albovias Brian. [address] [facility], [place], [address] , [place]. tel: [phone] Referring Provider: Jonh Gallardo, [address] [place] [address], [address]. tel:[phone] [facility] , [address] [place] [address], [place], [address] , [place] tel: [phone] [facility] No Information Mar- 0- 6 Albovias Brian. [address] [facility], [place], [address] , [place]. tel: [phone] [facility] , [address] [place] [address], [facility], [place], [address] , [place] tel: [phone] [facility] End stage renal diseaseSwelling of limbOther complications due to renal dialysis device, implant, and graft 6 Albovias Brian. [address] [facility] [place], [address] , [place]. tel: [phone] Referring Provider: Jonh Gallardo, [address] [place] [address], [address]. tel:[phone] [facility] , [address] [facility], [facility], [place], [address] , [place] tel: [phone] [facility] No Information 5 Bhoot Veeral. [address] [facility], [place], [address], [place]. tel: [phone] [facility] , [address] [place] [address], [facility], [place], [address] , [place] tel: [phone] [facility] 5 Bhoot Veeral. [address] [place], [address], [place]. tel: [phone] Referring Provider: Jonh Gallardo, [address] [place] [address], [address]. tel:[phone] [facility] , [address] [facility], [facility], [place], [address] , [place] tel: [phone] [facility] End stage renal disease 5 Livia Lior. [address] [facility], [place], [address]. tel: [phone] Referring Provider: Jonh Gallardo, [address] [place] [address], [address]. tel:[phone] [facility] , [address] [place] [address], [facility], [place], [address] , [place] tel: [phone] [facility] Other specified circulatory system disordersEnd stage renal disease 5 Livia Lior. [address] [place], [address]. tel: [phone] Referring Provider: Jonh Gallardo, [address] [place] [address], [address]. tel:[phone] [facility] , [address] [facility], [place], [place], [address] , tel: [phone] [facility] Other specified circulatory system disordersEnd stage renal diseaseOther complications due to renal dialysis device, implant, and graft 3 5 Livia Lior. [address] [facility], [place], [address]. tel: [phone] Referring Provider: Jonh Gallardo, [address] [place] [address], [address]. tel:[phone] [facility] , [address] [facility], [place], [place], [address] , tel: [phone] [facility] Other specified circulatory system disordersEnd stage renal disease 0 6 5 Livia Lior. [address] [place], [address]. tel: [phone] Referring Provider: Jonh Gallardo, [address] [place] [address], [address]. tel:[phone] [facility] , [address] [facility] [place], [place], [place], [id number] , tel: [phone] [facility] Other complications due to renal dialysis device, implant, and graftTo Be Coded 0 4 Livia Lior. [address] [facility], [place], [address]. tel: [phone] Referring Provider: Jonh Gallardo, [address] [place] [address], [address]. tel:[phone] As per patient privacy policy some of the clinical information may not be visible. Family History Family Member Type Diagnosis Age At Onset Problem (finding) Father Problem (finding) No history of Renal dis ease Mother Problem (finding) No history of Renal dis ease Father Problem (finding) No history of Renal dis ease Immunizations Vaccine Date Status Comments pneumo (2 yrs or older) (PPV23) administered Note: Previously Giv en ; Source: New Immunization Record pneumo (2 yrs or older) (PPV23) administered Note: Previously Giv en ; Source: New Immunization Record Flu (split) (3yrs or older) administered Note: Previously Given ; Source: New Immunization Record Flu (split) (3yrs or older) administered Note: Previously Given ; Source: New Immunization Record Flu (split) (3yrs or older) administered Note: Previously Given ; Source: New Immunization Record Flu (split) (3yrs or older) administered Note: Previously Given ; Source: New Immunization Record Flu (split) (3yrs or older) administered Note: Previously Given ; Source: New Immunization Record pneumo (2 yrs or older) (PPV23) administered Note: Previously Giv en ; Source: New Immunization Record pneumo (2 yrs or older) (PPV23) administered Note: Previously Giv en ; Source: New Immunization Record pneumo (2 yrs or older) (PPV23) administered Source: New Immuniza tion Record Payers Payer name Insurance type Covered green party ID Authoriza tion(s) [place] MB [id number] [place] [employer] [place] Medigap BL [id number] Social History Type Description Quantity Date Captured Comments Sex Male Smoking Status No Information Sexual Orientation Straight or heterosexual Gender Identity Male Chief Complaint And Reason For Visit No Information Reason For Referral Reason For Referral No Information Plan Of Treatment Date Type Action Status Future Order: Radiology Order Lo wer Body Flouroscopy ([id number]), Ordered on: Ordered Future Order: Radiology Order Up per Body Flouroscopy ([id number]), Ordered on: Ordered Future Order: Radiology Order Up per Body Flouroscopy ([id number]), Ordered on: Ordered Future Order: Radiology Order Up per Body Flouroscopy ([id number]), Ordered on: Ordered Future Order: Radiology Order Up per Body Flouroscopy ([id number]), Ordered on: Ordered Future Order: Radiology Order Up per Body Flouroscopy ([id number]), Ordered on: Ordered Future Order: Radiology Order Up per Body Flouroscopy ([id number]), Ordered on: Ordered Future Order: Radiology Order Up per Body Flouroscopy ([id number]), Ordered on: Ordered Future Order: Radiology Order Up per Body Flouroscopy ([id number]), Ordered on: Ordered Future Order: Radiology Order Up per Body Flouroscopy ([id number]), Ordered on: Ordered Future Order: Radiology Order Up per Body Flouroscopy ([id number]), Ordered on: Ordered Future Order: Radiology Order Up per Body Flouroscopy ([id number]), Ordered on: Ordered Future Order: Radiology Order Up per Body Fluoroscopy ([id number]), Ordered on: Ordered Future Order: Radiology Order Up per Body Fluoroscopy ([id number]), Ordered on: Ordered Future Order: Radiology Order Up per Body Fluoroscopy ([id number]), Ordered on: Ordered Future Order: Radiology Order Up per Body Fluoroscopy ([id number]), Ordered on: Ordered Future Order: Radiology Order Up per Body Fluoroscopy ([id number]), Ordered on: Ordered Future Order: Radiology Order Up per Body Fluoroscopy ([id number]), Ordered on: Ordered Future Order: Radiology Order Up per Body Fluoroscopy ([id number]), Ordered on: Ordered History Of Present Illness Encounter Date Complaint History Of Prese nt Illness No Information Functional Status Date Functional Assessmen t No Information Instructions Date Instruction Additional Infor mation No Information Assessments Type Assessment Date No Information Patient Care Teams Name Effective Dates (start - stop) Status Members No Information
[2025-08-04 14:54] VITALS: BP 141/37; PULSE 75; RESP 18; TEMP 36.6; O2SAT 100
[2025-08-04 15:27] LABS: Hematocrit 41.5 % (42.0-52.0); Hemoglobin 13.0 g/dL (14.0-18.0); Immature Granulocyte Percent A 0.5 % (0-0.5); Lymphocytes Absolute Auto 1.22 K/mm3 (0.9-3.2); Mean Corpuscular HGB Conc 31.3 g/dl (32-36); Mean Corpuscular Hemoglobin 28.8 pg (26-34); Mean Corpuscular Volume 92.0 fl (80-100); Nucleated Red Blood Cells Absolute Auto 0.000 K/mm3 (0.0-0.012); Nucleated Red Blood Cells Perc 0.0 % (0.0-0.2); Platelet Count Result 324 k/mm3 (150-375); Red Blood Count 4.51 M/mm3 (4.6-6.20); White Blood Count 13.1 K/mm3 (4.5-10.0)
[2025-08-04 15:39] LABS: Alanine Aminotransferase 8 U/L (6-50); Albumin Level 3.9 g/dL (3.5-5.1); Alkaline Phosphatase 128 U/L (38-126); Anion Gap 8 mmol/L (4-12); Aspartate Amino Transferase 26 U/L (17-59); Bilirubin,Total 0.4 mg/dL (0.2-1.3); Blood Urea Nitrogen 40 mg/dL (9-20); Calcium 9.7 mg/dL (8.4-10.2); Carbon Dioxide 35 mmol/L (22-30); Chloride 91 mmol/L (98-107); Estimated CRCL calculation 14 ml/min; Estimated Glomerular Filt Rate 12; Glucose 72 mg/dL (65-110); Potassium 4.9 mmol/L (3.4-5.0); Sodium 134 mmol/L (137-145); Total Protein 8.3 g/dL (6.3-8.2)
[2025-08-04 15:45] LABS: INR 1.5; Prothrombin Time 17.9 Seconds (11.1-14.7)
[2025-08-04 15:46] LABS: Partial Thromboplastin Time 44.2 Seconds (22.3-36.8)
[2025-08-04 16:35] VITALS: BP 157/69; PULSE 79; RESP 20; O2SAT 100
[2025-08-04] MEDS: DICYCLOMINE HCL 10 MG CAPSULE 20 MG PO (17:21)
[2025-08-04] MEDS: SIMETHICONE 125 MG CHEW TAB PO (17:22)
--- OUTSIDE RECORDS SUMMARY | 2025-08-04 18:52 | XMS_ITS | Encounter Summary ---
Author Organization [facility] Healthcare Address [address] [place] [address] Care Team Providers Care General Accounting Clerk Name Role Phone Sylvia García MD Unavailable [phone] Beau Zuñiga MD Primary Care Provider [phone] Encounter Details Date Type Department Care Team (Latest Contact Info) Description 06/06/2025 Results Follow-Up [facility] Medical Group Cardiology [address] [facility] [address] [id number] Yennifer Langford RN Lipid panel, Comprehensive metabolic panel, CBC with auto differential Social History Tobacco Use Types Packs/Day Years Used Date Smoking Tobacco: Never Smokeless Tobacco: Never [facility] Utilities Answer Date Recorded In the past 12 months has [employer] electric, gas, oil, or water company threatened to shut off services in your home? No 01/06/2025 Social Connection and Isolation Panel Answer Date Recorded In a typical week, how many times do you talk on the phone with family, friends, or neighbors? More than three times a week 01/06/2025 How often do you get togethe r with friends or relatives? More than three times a week 01/06/2025 How often do you attend chur ch or spiritism services? More than 4 times per year 01/06/2025 Do you belong to any clubs o r organizations such as methodist groups, unions, fraternal or athletic groups, or school groups? No 01/06/2025 How often do you attend meet ings of the clubs or organizations you belong to? More than 4 times per year 01/06/2025 Are you , , di vorced, , never , or living with a partner? Never 01/06/2025 AUDIT-C Answer Date Recorded Q1: How often do you have a drink containing alcohol? Never 01/06/2025 Q2: How many drinks containi ng alcohol do you have on a typical day when you are drinking? Patient does not drink Q3: How often do you have si x or more drinks on one occasion? Never 01/06/2025 Overall Financial Resource Strain (CARDIA) Answe r Date Recorded How hard is it for you to pa y for the very basics like food, housing, medical care, and heating? Not very hard 01/06/2025 Hunger Vital Sign Answer Date Recorded Within the past 12 months, y ou worried that your food would run out before you got the money to buy more. Never true 01/06/20 25 Within the past 12 months, t he food you bought just didn't last and you didn't have money to get more. Never true 01/06/2025 PRAPARE - Transportation Answer Date Re corded In the past 12 months, has l ack of transportation kept you from medical appointments or from getting medications? No 12/21 In the past 12 months, has l ack of transportation kept you from meetings, work, or from getting things needed for daily living? No 01/06/2025 Housing Stability Vital Sign Answer Jr e Recorded In the last 12 months, was t here a time when you were not able to pay the mortgage or rent on time? No 07/11/2023 In the last 12 months, how many places have you lived? 2 07/11/2023 In the last 12 months, was t here a time when you did not have a steady place to sleep or slept in a assisted (including now)? No 07/11/2023 Housing Stability Vital Sign Answer Jr e Recorded In the last 12 months, was t here a time when you were not able to pay the mortgage or rent on time? No 01/06/2025 In the past 12 months, how m any times have you moved where you were living? 0 01/06/2025 At any time in the past 12 m [facility], were you homeless or living in a assisted (including now)? No 01/06/2025 Personal Safety Answer Date Recorded Have you ever been in or are you currently in a harmful physical or emotional relationship or is someone making you feel afraid or unsafe? 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 Gender Identity Not on file Sexual Orientation Not on file documented as of this encounter Ordered Prescriptions Prescription Sig Dispense Quantity Refills Last Filled Start Date End Date atorvastatin (LIPITOR) 80 mg tablet Take 1 tablet (80 mg total) by mouth nightly 90 tablet 1 06/19/2025 documented in this encounter Plan of Treatment Scheduled Orders Name Type Priority Associated Diagnoses Orde r Schedule Lipid panel Lab Routine Mixed hyperlipidemia Essential hypertension, benign Expected: 09/19/2025, Expires: 06/19/2026 Hepatic function panel Lab Routine Mixed hyperlipidemia Essential hypertension, benign Expected: 09/19/2025, Expires: 06/19/2026 documented as of this encounter Goals Goal Patient Goal Type Associated Problems Recent Progress Patient-Stated? Author CKD/ESRD Goal - Patient will be knowledgeable regarding CKD5/ESRD Outpatient Care Management ([facility]) Denita Silva, ANALYTICAL RESEARCH CHEMIST Note: Problem: Knowledge deficit regarding CKD5/ESRD Interventions: Provide General CKD5/ESRD Recommendations: - Adhere to dialysis orders. - Review ESRD diet with patient, it may be different than their pre-dialysis diet. - Encourage patient to discuss any dialysis related questions to physician specialist or nurse at facility. - Assess for any barriers to adhering to dialysis schedule. - Refer patient to for any psycho-social or community resource needs. documented as of this encounter Visit Diagnoses Diagnosis Mixed hyperlipidemia- Primary Essential hypertension, benign documented in this encounter Discontinued Medications Medication Sig Discontinue Reason Start Date End Da te atorvastatin (LIPITOR) 40 mg tablet Take 1 tablet (40 mg total) by mouth nightly Alternate therapy 06/19/2025 documented as of this encounter Additional Health Concerns Infection Onset Date Last Indicated Resolved Time MDR gram neg/ESBL Comment:Added from external infection. Source: [facility]. 06/28/2024 C. difficile suspected 07/16/2025 07/16/202507/16 /2025 10:45 AM CDT documented as of this encounter Care Teams General Accounting Clerk Relationship Specialty Start Date End Date Beau Zuñ[place] [id number] [facility] [address] [place] [address] PCP - General Family Practice 05/27/25 Sylvia García MD [address] [address] Consulting Physician Nephrology 11/30/21 documented as of this encounter
--- OUTSIDE RECORDS SUMMARY | 2025-08-04 18:52 | XMS_ITS | Encounter Summary ---
Author Organization [facility] Address [address] [place] [id number] Care Team Providers Care Figure Skater Name Role Phone Richard Ware MD Primary Care Provider [phone] Richard Ware MD Primary Care Provider [phone] [facility] Primary Care Provider + Ankita Hdz OBSTETRICS GYN PHYSICIAN Primary Care Provider [phone] Lucy Flores OBSTETRICS GYN PHYSICIAN Unavailable [phone] Glenn Dale DO Unavailable Keya Morales [facility] Primary Care Provider + Beau Zuñiga MD Primary Care Provider [phone] None, Provider MD Unavailable Unavailable Encounter Details Date Type Department Care Team (Late st Contact Info) Description 09/21/[address] [facility] Conversion , Generic Conversion, Social History Tobacco Use Types Packs/Day Years Used Date Smoking Tobacco: Never Assessed Sex and Gender Information Value Date Recorded Sex Assigned at Male 05/29/2020 4:58 PM CDT Legal Sex Male 1:46 AM CDT Gender Identity Male 05/29/2020 4:58 PM CDT Sexual Orientation [place] 11/25/2021 10 :24 AM SHOW DOG TRAINER documented as of this encounter Plan of Treatment Not on file documented as of this encounter Visit Diagnoses Not on filedocumented in this encounter Additional Health Concerns Infection Onset Date Last Indicated Resolved Time COVID-19 Rule Out 06/01/2020 06/01/2020 06/02/2020 9:09 AM CDT COVID-19 Rule Out 10/19/2020 10/19/2020 11/10/2020 6:13 PM SHOW DOG TRAINER COVID-19 Rule Out 11/17/2020 11/17/2020 11/17/2020 2:15 PM SHOW DOG TRAINER COVID-19 Confirmed Comment:Does not meet criteria. Last covid test 11/17/20. Admitting for poss bowel obstruction. 11/17/2020 11/17/2020 12/22/2020 5 :23 PM SHOW DOG TRAINER COVID-19 Rule Out 12/25/2020 12/25/2020 12/25/2020 5:05 PM SHOW DOG TRAINER COVID-19 Rule Out 12/25/2020 12/25/2020 12/26/2020 7:47 AM SHOW DOG TRAINER COVID-19 Confirmed 12/25/2020 12/25/2020 12:34 AM SHOW DOG TRAINER COVID-19 Rule Out 10/08/2021 10/08/2021 10/08/2021 9:14 AM SHOW DOG TRAINER COVID-19 Rule Out 11/18/2021 11/18/2021 11/18/2021 1:03 PM SHOW DOG TRAINER COVID-19 Rule Out 10/16/2022 10/16/2022 10/16/2022 5:10 PM SHOW DOG TRAINER COVID-19 Confirmed 10/16/2022 10/16/2022 12:32 AM SHOW DOG TRAINER COVID-19 Rule Out 05/22/2024 05/22/2024 05/22/2024 [...] Rule Out 11/25/2024 11/25/2024 11/25/2024 3:06 PM SHOW DOG TRAINER Influenza - Seasonal 11/25/2024 11/25/2024 025 12:32 AM SHOW DOG TRAINER documented as of this encounter Care Teams Figure Skater Relationship Specialty Start Date End Date Richard Ware MD PCP - General 05/01/17 07/23/19 Richard Ware MD PCP - General 07/30/14 04/30/[address] [facility] [address] [facility], [facility] [address] [place] [address] PCP - General NURSE PRACTITIONER 07/25/19 01/10/22 Ankita Hdz NP [address] [facility], [facility] [address] [place] [address] PCP - General Nurse Practitioner [facility] 01/11/22 10/25/[address] [facility] [address] [place] [address] PCP - General NURSE PRACTITIONER 10/26/22 05/21/24 Beau Zuñ[place] [address] [place] [address] PCP - General FAMILY PRACTICE 05/22/24 Lucy Flores NP [address] [facility], [address] [place] [address] Nurse Practitioner NURSE PRACTITIONER 01/11/22 Glenn Dale DO [address] [facility], [address] [place] [address] Consulting Physician INTERNAL MEDICINE 01/11/22 None, Provider, MD UNKNOWN PHYSICIAN SPECIALTY 11/25/24 documented as of this encounter
--- OUTSIDE RECORDS SUMMARY | 2025-08-04 18:52 | XMS_ITS | Encounter Summary ---
Author Organization [facility] Address [facility] [place] [address] Care Team Providers Care Cable Systems Installer Name Role Phone Lucy Flores NP Unavailable [phone] Glenn Dale DO Unavailable Beau Zuñiga MD Primary Care Provider [phone] None, Provider MD Unavailable Unavailable Encounter Details Date Type Department Care Team (Latest Contact Info) Description 09/02/2024 Thrill Message Enc [facility] Multispecialty [address] [id number] Yen, [facility] Provider APPOINTMENT RESCHEDULED Social History Tobacco Use [...] from doctor or pharmacy Never 05/04/2023 [facility] Utilities Answer Date Recorded In the past 12 months has e [employer], [employer], oil, or water [employer] threatened to shut off services in your [...] often do you attend chur ch or baptism services? More than 4 times per year [...] Recorded Patient Health Questionnaire-2 Score 0 08/01/2024 [facility]at [facility] - Occupational Stress Questionnaire Answer Date [...] place to sleep or slept in a care home (including now)? No 12/31/2023 Housing Stability [...] any time in the past 12 m [facility], were you homeless or living in a care home (including now)? No 08/05/2024 Sex and Gender Information Value Date Recorded Sex Assigned at Male 05/29/2020 4:58 PM CDT Legal Sex Male 1:46 AM CDT Gender Identity Male 05/29/2020 4:58 PM CDT Sexual Orientation [place] 11/25/2021 10 :24 AM INTERLOCKING TOWER OPERATOR documented as of this encounter Functional [...] Depression, or Anxiety General No Rosibel Miller, RACKMAN Patient will return to prior living situation and remain independent in ADLs upon discharge from hospital General No Piedad Keith health plan manager - family caregiver with be involved in [...] Rule Out 11/25/2024 11/25/2024 11/25/2024 3:06 PM INTERLOCKING TOWER OPERATOR Influenza - Seasonal 11/25/2024 11/25/2024 025 12:32 AM INTERLOCKING TOWER OPERATOR Assessment Noted Time PHQ-9 Depression Total Score: 24 023 11:16 AM INTERLOCKING TOWER OPERATOR documented as of this encounter Care Teams Cable Systems Installer Relationship Specialty Start Date End Date Beau Z[place] [address] [place] [address] PCP - General FAMILY PRACTICE 05/22/24 Lucy Flores NP Nurse Practitioner NURSE PRACTITIONER 01/11/22 Glenn Dale DO Consulting Physician INTERNAL MEDICINE 01/11/22 None, Provider, UNKNOWN PHYSICIAN SPECIALTY 11/25/24 documented as of this encounter
--- OUTSIDE RECORDS SUMMARY | 2025-08-04 18:52 | XMS_ITS | Clinical Summary ---
Author Organization [facility] Address [address] [place] [address] Care Team Providers Care Marker Machine Name Role Phone Lucy Flores ESOL INSTRUCTOR Unavailable [phone] Glenn Dale DO Unavailable Beau Zuñiga MD Primary Care Provider None, Provider MD Unavailable Unavailable Allergies No known active allergies Medications * This document contains information received from the source organization and may not represent a complete record from that organization. B wbspxpe-V-grrot acid 0.8 mg Tab tabletIndication s:Nutritional Support [...] s:ESRD (end stage renal disease) on dialysis ([facility]) Take 1 tablet (90 mg total) by [...] (two) times daily. 30 g 4 Active busPIRone (BUSPAR) 10 MG tablet Take [...] and heart rate 65 or less. Active polyethylene glycol (GLYCOLAX) packet Take 240 mLs (17 g total) by mouth. Active Senna (SENOKOT) 8.6 MG tablet Take 2 tablets (17.2 mg total) by mouth. Active Active Problems Problem Noted Date Diagnosed Date Chest pain 08/04/2024 Hypoxic respiratory failure ([facility]) Pulmonary vascular congestion 05/01/2024 Atrial fibrillation ([facility]) 03/05/2024 A-fib ([facility]) 03/04/2024 Unspecified atrial fibrillation ([facility] ) 03/04/2024 Nausea 01/26/2024 PVD (peripheral vascular disease) 01/01/2024 Osteomyelitis ([facility]) 12/31/2023 Other acute osteomyelitis, l eft ankle and foot ([facility]) 12/26/2023 Headache, unspecified 12/08/2023 Type 2 diabetes mellitus wit h right diabetic foot ulcer ([facility]) 11/15/2023 Bacterial infection, unspecified 11/08/2023 Osteomyelitis of great toe of left foot ([facility]) 11/01/2023 Allergy, unspecified, initial encounter 10/16/20 23 Anaphylactic shock, unspecified, initial encount er 10/16/2023 Chest pain, unspecified 10/16/2023 Infection and inflammatory r eaction due to other cardiac and vascular devices, implants and grafts, subsequent encounter 07/13/2023 Complication associated with dialysis catheter 0 07/10/2023 Other mechanical complicatio n of surgically created arteriovenous fistula, subsequent encounter 07/05/2023 Coronary artery disease invo lving [place] coronary artery of [place] heart without angina pectoris 06/30/2023 S/P right coronary artery (RCA) stent placement 06/30/2023 Ventricular fibrillation ([facility]) 06/28 Clotted renal dialysis arter iovenous graft, [...] & Plan: Isosorbide, metoprolol Congestive heart failure ([facility]) 11/23 Unspecified complication fol lowing infusion and therapeutic injection, subsequent encounter 10/12/2021 Other specified arthritis, left ankle and foot 1 12/12/2020 Body mass index (BMI) 45.0-49.9, adult Dependence on renal dialysis 10/12/2021 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 10/12 Chronic viral hepatitis C ([facility]) 09/21 Fall on same level, unspecified, subsequent [...] (end stage renal diseas e) on dialysis ([facility]) 11/19/2020 Overview (07/13/2022): Last Assessment & Plan: [...] kidney disease or end stage renal disease ([facility]) 07/10/2020 Iron deficiency anemia, unspecified 07/10/2020 Pain, unspecified 07/10/2020 Secondary hyperparathyroidism of renal origin ([facility] /[facility]) 07/10/2020 Shortness of breath 07/10/2020 Vitamin D deficiency, unspecified 07/10/2020 Hepatitis C antibody test positive 06/02/2020 Renal failure (ARF), acute on chronic 06/01/2020 Hyperkalemia 05/29/2020 Weakness 05/27/2020 Recurrent falls 08/06/2019 Disorder of vascular graft 06/12/2015 End stage renal disease ([facility]) 2011 Type 2 diabetes mellitus wit h chronic kidney disease on chronic dialysis, without long-term current use of insulin ([facility]) 10/25/2012 GERD (gastroesophageal reflux disease) Renal osteodystrophy Resolved Problems Problem Noted Date Diagnosed Date Resolved Date Encounter for screening for respiratory tuberculosis 10/16/2023 11/20/2023 Kidney disease 01/19/2022 07/14/2022 Sepsis ([facility]) 11/15/2021 Current mild episode of kimberly r depressive disorder without prior episode 10/12/2021 3 Hypotension, unspecified 10/12/2021 Diarrhea 10/12/2021 06/01/2023 Other specified arthritis, unspecified site 10/10/2021 09/20/2022 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 10/10/2021 09/20/2022 Chronic viral hepatitis C ([facility]) 10/08/2021 07/14/2022 Fall on same level, unspecif ied, subsequent encounter 10/08/2021 09/20/2022 Unspecified complication fol lowing infusion and therapeutic injection, subsequent encounter 10/08/2021 09/20/2022 Personal history of COVID-19 12/26/2020 09/20/2022 Moderate protein-calorie mal nutrition ([facility]) 11/20/2020 10/27/2022 Chronic kidney disease, unspecified 11/19/2020 07/14/2022 Anemia in chronic kidney disease 11/19/2020 09/20/2022 Body mass index (BMI) 45.0-49.9, adult 11/19/2020 07/14/2022 Chronic obstructive pulmonar y disease, unspecified ([facility]) 11/19/2020 07/14/2022 Coagulation defect, unspecified ([facility]) 11/19/2020 07/14/2022 Compression of vein 11/19/2020 09/20/20 22 Dependence on renal dialysis 11/19/2020 07/14/2022 Disorder of phosphorus metab olism, unspecified 11/19/2020 09/20/2022 Gastro-esophageal reflux dis ease without esophagitis 11/19/2020 07/14/2022 Hyperlipidemia, unspecified 11/19/2020 09/20/2022 Hypertensive chronic kidney disease with stage 5 chronic kidney disease or end stage renal disease ([facility]) 11/19/2020 07/14/20 22 Hypotension, unspecified 11/19/202011/2021 Major depressive disorder, s lizbeth episode, unspecified 11/19/2020 07/14/2022 Renal osteodystrophy 11/19/2020 022 Secondary hyperparathyroidis m of renal origin ([facility]) 11/19/2020 09/20/2022 Type 2 diabetes mellitus wit hout complications ([facility]) 11/19/2020 09/20/20 Vitamin D deficiency, unspecified 11/19/2020 09/20/2022 COVID-19 10/19/2020 10/27/2022 Chronic obstructive pulmonar y disease, unspecified ([facility]) 07/10/2020 10/27/2022 Coagulation defect, unspecified ([facility]) 07/10/2020 10/27/2022 Mild protein-calorie malnutrition ([facility]) 07/10/2020 10/27/2022 End stage renal disease ([facility]) 06/01/2017 01/13/2022 ESRD (end stage renal diseas e) ([facility]) 06/01/2017 01/13/2022 Hypertensive disorder 10/25/20122021 Pure hypercholesterolemia 10/25/2012 Depression 07/14/2022 Encounters Date Type Department Care Team Description 07/16/2025 Scan HEALTH INFO SRVCS Scanned, Doc Med Group 07/15/2025 3:40 PM CDT [facility] Family & Internal Medicine [address] [id number] Beau Zuñiga MD [facility] (routine) 07/10/2025 Scan HEALTH INFO SRVCS Scanned, Doc Med [facility] Stress Test (SCAN) 07/01/2025 Scan HEALTH INFO SRVCS Scanned, Doc Med [facility] 05/30/2025 11:05 AM CDT - 05/30/2025 11:59 PM CDT Hospital Encounter [facility] [address] [place] [id number] Oneil Beal MD Discharge Disposition: Home or Self Care (Routine Discharge) 05/30/2025 Orders Only [facility] [address] [place] [id number] Oneil Beal MD 05/27/2025 Scan MG HEALTH INFO SRVCS Scanned, Doc Med [facility] 05/20/2025 Scan MG HEALTH INFO SRVCS Scanned, Doc Med Group from Last 3 Months Immunizations Immunization Administration Dates Next Due Influenza (Generic) 09/04/2023, 9,08/19/2016,2014,10/06/2010 Influenza Adult (Generic) 08/12/2022,,08/18/2021,2019,08/02/2019 MODERNA COVID-19 (12+) [...] materials from doctor or pharmacy Never 05/04/2023 [facility] Utilities Answer Date Recorded In the past 12 months has th e [employer], gas, oil, or water company threatened to [...] 06/25/2024 How often do you attend chur or presybeterian services? More than 4 times per year 06/25/2024 Do you belong to any clubs o r organizations such as taoism groups, unions, fraternal or athletic groups, or [...] Recorded Patient Health Questionnaire-2 Score 0 10/10/2024 [facility] Occupat ional Health - Occupational Stress [...] place to sleep or slept in a fdc (including now)? No 12/31/2023 Housing Stability Vital [...] in the past 12 m [facility], were you homeless or living in a fdc (including now)? No 08/05/2024 Sex and Gender Information Value Date Recorded Sex Assigned at Male 05/29/2020 4:58 PM CDT Legal Sex Male 1:46 AM CDT Gender Identity Male 05/29/2020 4:58 PM CDT Sexual Orientation [place] 11/25/2021 10 :24 AM POWER GENERATION PLANT OPERATOR Last Filed Vital Signs Vital Sign Reading Time Taken Comments Blood Pressure 132/75 07/15/2025 4:29 PM CDT Pulse 73 07/15/2025 4:29 PM CDT Temperature 36.5 C (97.7 F) 07/15/2025 4:29 PM CDT Respiratory Rate 18 07/15/2025 4:29 PM CDT Oxygen Saturation 96% 07/15/2025 4:29 PM CDT Inhaled Oxygen Concentration - - Weight 83.5 kg (184 lb) 07/15/2025 4:29 PM CDT Height 165.1 cm (5' 5) 07/15/2025 4:29 PM CDT Body Mass Index 30.62 07/15/2025 4:29 PM CDT Plan of Treatment Health Maintenance Due Date Last Done Comments Annual Physical 1968 Diabetes: Retinopathy Eye Exam 1983 Zoster Vaccines (1 of 2) 2015 PHQ-2 (Physician [place]) 11/20/2024 10/10/2024 Hemoglobin A1C 02/02/2025 08/05/2024, 04/20, 03/05/2024, Additional history exists COVID-19 Vaccine ( season) 2025 01/13/2023, 01/13/2023, 10/01/2021, Additional history exists Lipid Panel 05/30/2026 05/30/2025, 12/2023, 08/05/2024, Additional history exists Pneumococcal Vaccine: 50+ Years (3 of 3 - PCV20 or PCV21) 02/21/2027 02/21/2022, 12/13/2021, 08/20/2020, Additional history exists DTaP, Tdap and Td Vaccines (2 - Td or Tdap) 04/30/2027 04/30/2017 Colorectal Cancer Screening Colonoscopy (10 Years) 03/10/2035 03/10/2025 Hepatitis C Completed 01/06/2025, 12/21, 01/16/2024, Additional [...] Depression, or Anxiety General No Rosibel Miller, TORCH SHEARER Patient will return to prior living situation [...] Procedure Name Priority Date/Time Associated Diagnosis Comments STRESS TEST (SCAN ORDER) 07/10/2025 COMPREHENSIVE METABOLIC PANEL Routine 05/30/2025 8:08 AM CDT Anemia, unspecified COPD (chronic obstructive pulmonary disease) ([facility] HHS/HCC) Chronic kidney disease, unspecified Diabetes mellitus ([facility]HS/HCC) Vitamin D deficiency CBC W/DIFF AUTOMATED Routine 05/30/2025 8:08 AM CDT Anemia, unspecified COPD (chronic obstructive pulmonary disease) ([facility] HHS/HCC) Chronic kidney disease, unspecified Diabetes mellitus ([facility] HHS/HCC) Vitamin D deficiency LIPID PANEL Routine 05/30/2025 8:08 AM CDT Anemia, unspecified COPD (chronic obstructive pulmonary disease) ([facility] HHS/HCC) Chronic kidney disease, unspecified Diabetes mellitus ([facility] HHS/HCC) Vitamin D deficiency COLONOSCOPY GENERIC (SCAN ORDER) 03/10/2025 HEMOGLOBIN, GLYCOSYLATED Routine 08/05/2024 4:10 AM CDT HEPATITIS C ANTIBODY Routine 04/23/2020 9:26 AM CDT Need for hepatitis C screening test from Last 3 Months or Most Recently Relevant to Health Maintenance Results * STRESS TEST (SCAN ORDER) (07/10/2025) 07/10/2025 us Doc [facility] Scanned SCANNING Final Resu lt * (ABNORMAL) COMPREHENSIVE METABOLIC PANEL (05/30/2025 8:08 AM CDT) GLUCOSE 64(L) 70 - 99 MG/DL 05/30/2025 11:51 AM CDT [facility] BUN 72(H) 7 - 18 MG/DL 05/30/2025 11:51 AM CDT [facility] CREATININE S/P/B 6.91(HH) 0.7 - 1.3 MG/DL 05/30/2025 11:51 AM CDT [facility] Comment: Critical Result(s) Called at: 11:47:47 on 05/30/2025 by: Robina Paulson to and read back by:DEAN MCCLAIN SODIUM S/P/B 138 136 - 145 MMOL/L 05/30/2025 11:51 AM CDT [facility] POTASSIUM S/P/B 5.6(H) 3.5 - 5.1 MMOL/L 05/30/2025 11:51 AM CDT [facility] CHLORIDE S/P/B 99(L) 100 - 108 MMOL/L 05/30/2025 11:51 AM CDT [facility] CO2 30.5 21 - 32 MMOL/L 05/30/2025 11:51 AM CDT [facility] CALCIUM S/P/B 10.1 8.5 - 10.1 MG/DL 05/30/2025 11:51 AM [facility] BILIRUBIN TOTAL S/P/B 0.3 0.2 - 1.2 MG/DL 05/30/2025 11:51 AM [facility] TOTAL PROTEIN S/P/B 7.2 6.4 - 8.2 G/DL 05/30/2025 11:51 AM [facility] ALBUMIN S/P/B 3.2(L) 3.4 - 5.0 G/DL 05/30/2025 11:51 AM [facility] AST 19 15 - 37 U/L 05/30/2025 11:51 AM [facility] ALT 25 16 - 60 U/L 05/30/2025 11:51 AM [facility] ALKALINE PHOSPHATASE S/P/B 134 50 - 136 U/L 05/30/2025 11:51 AM [facility] ANION GAP 8.5 5 - 15 MMOL/L 05/30/2025 11:51 AM [facility] BUN CREATININE RATIO 10.4 6 - 26 05/30/2025 11:51 AM [facility] A/G RATIO 0.8(L) 1.0 - 2.0 RATIO 05/30/2025 11:51 AM [facility] GFR ESTIMATE 9(L) >90 ML/MIN/1.7 3 M2 05/30/2025 11:51 AM [facility] Comment: NOTE: eGFR is not calculated for patients <18 years of age. This is an estimated GFR calculation using the new CKD EPI creatinine equation without race and so does not require a correction factor for race. This estimated GFR should not be used for calculating drug doses. 05/30/2025 8:08 AM CDT us Oneil Dominguez MD LABORATORY Final Resul t Performing Organization Address City/State/[facility] de Phone Number [facility] [address] [place] [address], * LIPID PANEL (05/30/2025 8:08 AM CDT) CHOLESTEROL 156 <200.0 MG/DL 05/30/2025 11:51 AM CDT [facility] TRIGLYCERIDES 46 <150 MG/DL 05/30/2025 11:51 AM CDT [facility] HDL 48 >40.0 MG/DL 05/30/2025 11:51 AM CDT [facility] LDL (CALCULATED) 99 <100 MG/DL 05/30/20 11:51 AM CDT [facility] Comment:CALCULATED USING THE FRIEDEWALD EQUATION NON HDL CHOLESTEROL 108 <130 MG/DL 05/30 11:51 AM T [facility] CHOL/HDL RATIO 3.2 0.0 - 4.5 05/30/2025 11:51 AM T [facility] VLDL CALCULATION 9 5 - 55 MG/DL 05/30/2025 11:51 AM T [facility] LIPID INTERPRETATION 05/30/2025 11:51 AM T [facility] Comment: NIH CONCENSUS REPORT RECOMMENDATIONS: ADULT CHILD LOW RISK: CHOLESTEROL <200 <170 TRIGLYCERIDE <150 --- HDL >=60 --- LDL <100 <110 BORDERLINE: CHOLESTEROL 200-239 170-199 TRIGLYCERIDE 150-199 --- HDL 40-59 --- LDL 100-159 110-129 HIGH RISK: CHOLESTEROL >=240 >=200 TRIGLYCERIDE >=200 --- HDL <40 --- LDL >=160 >=130 05/30/2025 8:08 AM CDT us Oneil Dominguez MD LABORATORY Final Resul t Performing Organization Address City/[facility] Co de Phone Number [facility] [address] [address] [phone], * (ABNORMAL) CBC W/DIFF AUTOMATED (05/30/2025 8:08 AM CDT) [facility] Signature WBC 11.99(H) 4.4 - 11.0 x10'3/uL 05/30/2025 11:33 AM CDT [facility] RBC 3.87(L) 4.50 - 5.90 x10'6/uL 05/30/2025 11:33 AM CDT [facility] HGB 11.4(L) 14.0 - 17.5 G/DL 05/30/2025 11:33 AM CDT [facility] HCT 37.6(L) 41.5 - 50.4 % 05/30/2025 11:33 AM CDT [facility] MCV 97.2(H) 80.0 - 96.0 FL 05/30/2025 11:33 AM CDT [facility] MCH 29.5 26.5 - 31.4 PG 05/30/2025 11:33 AM CDT [facility] MCHC 30.3(L) 31.9 - 34.8 G/DL 05/30/2025 11:33 AM CDT [facility] RDW 18.4(H) 12.3 - 14.3 % 05/30/2025 11:33 AM CDT [facility] PLT 351 151 - 353 x10'3/uL 05/30/2025 11:33 AM CDT [facility] MPV 10.3 9.7 - 11.9 FL 05/30/2025 11:33 AM CDT [facility] RBC MORPHOLOGY NORMAL 05/30/2025 11:33 AM CDT [facility] PLT MORPH. NORMAL 05/30/2025 11:33 AM CDT [facility] WBC MORPHOLOGY NORMAL 05/30/2025 11:33 AM CDT [facility] LYMPHOCYTES % 13.0(L) 15.8 - 45.0 % 05/30/2025 11:33 AM CDT [facility] NEUTROPHILS % 74.2(H) 42.1 - 71.9 % 05/30/2025 11:33 AM CDT [facility] MONOCYTES % 10.2 5.7 - 12.5 % 05/30/2025 11:33 AM CDT [facility] EOSINOPHILS 2.0 0.0 - 5.6 % 05/30/2025 11:33 AM CDT [facility] BASOPHILS 0.3 0.0 - 1.3 % 05/30/2025 11:33 AM CDT [facility] ABS. NEUTROPHILS 8.90(H) 1.40 - 6.00 x10'3/uL 05/30/2025 11:33 AM CDT [facility] IMMATURE GRANS % 0.3 0.0 - 0.5 % 05/30/2025 11:33 AM CDT [facility] ABS. LYMPHOCYTES 1.56 0.80 - 4.70 x10'3/uL 05/30/2025 11:33 AM T [facility] 05/30/2025 8:08 AM CDT us Oneil Dominguez MD LABORATORY Final Resul t [facility] [address] [place] [address], [place] [phone] * COLONOSCOPY GENERIC (SCAN ORDER) (03/10/2025) 03/10/2025 Doc [facility] Scanned SCANNING Final Resu lt * HEMOGLOBIN, GLYCOSYLATED (08/05/2024 4:10 AM CDT) HGB A1C 4.3 <5.7 % 08/05/2024 9:08 AM CDT [facility] Comment: ADA GUIDELINES 2010 5.7 TO 6.4% INCREASED RISK OF DIABETES > OR = 6.5% CONSISTENT WITH DIABETES ESTIMATED AVG GLUCOSE 77 mg/dL 08/05/2024 9:08 AM CDT [facility] 08/05/2024 4:10 AM CDT Virginia Connor APRN LABORATORY Final Resul t Performing Organization Address City/[facility]/ZIP Co de Phone Number [facility] [address] [place] [address], [place] [phone] * HEPATITIS C ANTIBODY (04/23/2020 9:26 AM CDT) HEPATITIS C AB NON-REACTI VE NON-REACTI VE 04/23/2020 2:23 PM CDT [facility] 04/23/2020 9:26 AM CDT Keya Morales [facility]- LABORATORY Final Re sult [facility] [address] [place] [address], [place] [phone] from Last 3 Months or Most Recently Relevant to Health Maintenance Additional Health Concerns Infection Onset Date Last Indicated ESBL - Extended Spectrum Bet a-lactamase Comment:06/25/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 foot 06/25/2024 06/25/2024 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 06/25/2024 06/25/2024 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 06/28/2024 06/28/2024 Insurance MEDICARE MEDICAID MEDICARE Advance Directives Documents on File Type Date Recorded Patient Appeals Writer Expl anation Advance Directives and Living Will 06/05/2024 11:12 AM Advance Directives and Living Will 05/28/2024 3:06 PM Power of V Block Saw Operator 05/23/2024 12:09 PM Power of V Block Saw Operator for Health Care Advance Directives and Living Will 05/23/2024 12:09 PM Power of V Block Saw Operator fo r Health Care DNR (Do Not Resuscitate) Documentation 03/21/2024 12:00 PM Advance Directives and Living Will 03/12/2024 4:14 PM Advance Directives and Living Will 10/10/2021 3:28 PM 10/05/21 polst form Advance Directives and Living Will 11/20/2020 2:56 PM Advance Directives and Living Will 11/20/2020 2:47 PM 11/10/2020 POWER OF TENNIS PROFESSIONAL FOR HEALTH CARE Advance Directives and Living [...] Agents on File Name Relationship Healthcare Agent [facility] Communication Luca Rubio Friend Health Care Agent Lucrecia Lopez Friend [facility] Health Care Agent Care Teams Marker Machine Relationship Specialty Start Date End Date Beau Zuñ[place] [address] [place] [address] PCP - General FAMILY PRACTICE 05/22/24 Lucy Flores NP Nurse Practitioner NURSE PRACTITIONER 01/11/22 Glenn Dale DO Consulting Physician INTERNAL MEDICINE 01/11/22 None, Provider, MD UNKNOWN PHYSICIAN SPECIALTY 11/25/24
--- OUTSIDE RECORDS SUMMARY | 2025-08-04 18:52 | XMS_ITS | Encounter Summary ---
Author Organization [facility] Address [facility] [place] [address] Care Team Providers Care Farmworker Poultry Name Role Phone MarkLucy VOCAL PERFORMER Unavailable Glenn Dale DO Unavailable Keya Morales [facility] Primary Care Provider + Beau Zuñiga MD Primary Care Provider [phone] None, Provider MD Unavailable Unavailable Encounter Details Date Type Department Care Team (Late st Contact Info) Description 01/01/2024 Prep for Procedure [place] [facility] THREE [facility], [facility] [address] [place], [place] [phone] Yuval Garibay MD Three [facility]. [facility] [address] [place], [place] [phone] Social History Tobacco Use Types Packs/Day Years [...] materials from doctor or pharmacy Never 05/04/2023 [facility] Utilities Answer Date Recorded In the past 12 months has th e [employer], [employer], oil, or water [employer] threatened to shut off services in your [...] How often do you attend chur or restoration services? More than 4 times per year 11/01/2023 Do you belong to any clubs o r organizations such as synagogue groups, unions, fraternal or athletic groups, or [...] Recorded Patient Health Questionnaire-2 Score 6 10/30/2023 [facility] - Occupational Stress Questionnaire Answer [...] place to sleep or slept in a chcf (including now)? No 12/31/2023 Sex and Gender Information Value Date Recorded Sex Assigned at Male 05/29/2020 4:58 PM CDT Legal Sex Male 1:46 AM CDT Gender Identity Male 05/29/2020 4:58 PM CDT Sexual Orientation [place] 11/25/2021 10 :24 AM STORE GROCERY MERCHANDISER documented as of this encounter Functional Status [...] Depression, or Anxiety General No Rosibel Miller, SKATES OPERATOR Patient will return to prior living [...] Rule Out 11/25/2024 11/25/2024 11/25/2024 3:06 PM STORE GROCERY MERCHANDISER Influenza - Seasonal 11/25/2024 11/25/2024 025 12:32 AM STORE GROCERY MERCHANDISER Assessment Noted Time PHQ-9 Depression Total Score: 24 023 11:16 AM STORE GROCERY MERCHANDISER documented as of this encounter Care Teams Farmworker Poultry Relationship Specialty Start Date End Date Keya Morales, DRUG SAFETY COORDINATOR- [address] [address] PCP - General NURSE PRACTITIONER 10/26/22 05/21/24 Beau Zuñ[place] [address] [place] [address] PCP - General FAMILY PRACTICE 05/22/24 Lucy Flores NP Nurse Practitioner NURSE PRACTITIONER 01/11/22 Glenn Dale DO Consulting Physician INTERNAL MEDICINE 01/11/22 None, Provider, UNKNOWN PHYSICIAN SPECIALTY 11/25/24 documented as of this encounter
--- OUTSIDE RECORDS SUMMARY | 2025-08-04 18:52 | XMS_ITS | Encounter Summary ---
Author Organization [facility] Address [address] [place] [address] Care Team Providers Care Director Of Veterans Affairs Name Role Phone Richard Ware MD Primary Care Provider [phone] Richard Ware MD Primary Care Provider [phone] Kyea Morales [facility] Primary Care Provider + Ankita Hdz ELECTRON BEAM MACHINE WELDER SETTER Primary Care Provider [phone] Lucy Flores ELECTRON BEAM MACHINE WELDER SETTER Unavailable [phone] Glenn Dale DO Unavailable Keya Morales [facility] Primary Care Provider + Beau Zuñiga MD Primary Care Provider [phone] None, Provider MD Unavailable Unavailable Encounter Details Date Type Department Care Team (Late st Contact Info) Description 12/04/2015 [facility] Conversion , Generic Conversion, Social History Tobacco Use Types Packs/Day Years Used Date Smoking Tobacco: Never Assessed Sex and Gender Information Value Date Recorded Sex Assigned at Male 05/29/2020 4:58 PM CDT Legal Sex Male 1:46 AM CDT Gender Identity Male 05/29/2020 4:58 PM CDT Sexual Orientation [place] 11/25/2021 10 :24 AM LEAD INJECTION MOLD TECHNICIAN documented as of this encounter Plan of Treatment Not on file documented as of this encounter Visit Diagnoses Not on filedocumented in this encounter Additional Health Concerns Infection Onset Date Last Indicated Resolved Time COVID-19 Rule Out 06/01/2020 06/01/2020 06/02/2020 9:09 AM CDT COVID-19 Rule Out 10/19/2020 10/19/2020 11/10/2020 6:13 PM LEAD INJECTION MOLD TECHNICIAN COVID-19 Rule Out 11/17/2020 11/17/2020 11/17/2020 2:15 PM LEAD INJECTION MOLD TECHNICIAN COVID-19 Confirmed Comment:Does not meet criteria. Last covid test 11/17/20. Admitting for poss bowel obstruction. 11/17/2020 11/17/2020 12/22/2020 5 :23 PM LEAD INJECTION MOLD TECHNICIAN COVID-19 Rule Out 12/25/2020 12/25/2020 12/25/2020 5:05 PM LEAD INJECTION MOLD TECHNICIAN COVID-19 Rule Out 12/25/2020 12/25/2020 12/26/2020 7:47 AM LEAD INJECTION MOLD TECHNICIAN COVID-19 Confirmed 12/25/2020 12/25/2020 12:34 AM LEAD INJECTION MOLD TECHNICIAN COVID-19 Rule Out 10/08/2021 10/08/2021 10/08/2021 9:14 AM LEAD INJECTION MOLD TECHNICIAN COVID-19 Rule Out 11/18/2021 11/18/2021 11/18/2021 1:03 PM LEAD INJECTION MOLD TECHNICIAN COVID-19 Rule Out 10/16/2022 10/16/2022 10/16/2022 5:10 PM LEAD INJECTION MOLD TECHNICIAN COVID-19 Confirmed 10/16/2022 10/16/2022 12:32 AM LEAD INJECTION MOLD TECHNICIAN COVID-19 Rule Out 05/22/2024 05/22/2024 05/22/2024 6:52 [...] Rule Out 11/25/2024 11/25/2024 11/25/2024 3:06 PM LEAD INJECTION MOLD TECHNICIAN Influenza - Seasonal 11/25/2024 11/25/2024 025 12:32 AM LEAD INJECTION MOLD TECHNICIAN documented as of this encounter Care Teams Director Of Veterans Affairs Relationship Specialty Start Date End Date Richard Ware MD PCP - General 05/01/17 07/23/19 Richard Ware MD PCP - General 07/30/14 04/30/17 Keya Morales [facility] [address] [facility], [facility] [address] [place] [address] PCP - General NURSE PRACTITIONER 07/25/19 01/10/22 Ankita Hdz NP [address] [facility], [facility] [address] [place] [address] PCP - General Nurse Practitioner [facility] 01/11/22 10/25/22 Keya Morales [facility] [address] [place] [address] PCP - General NURSE PRACTITIONER 10/26/22 05/21/24 Beau Zuñ[place] [address] [place] [address] PCP - General FAMILY PRACTICE 05/22/24 Lucy Flores NP [address] [facility], [address] [place] [address] Nurse Practitioner NURSE PRACTITIONER 01/11/22 Glenn Dale DO [address] [facility], [address] [place] [address] Consulting Physician INTERNAL MEDICINE 01/11/22 None, Provider, MD UNKNOWN PHYSICIAN SPECIALTY 11/25/24 documented as of this encounter
--- OUTSIDE RECORDS SUMMARY | 2025-08-04 18:52 | XMS_ITS | Encounter Summary ---
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 [address] [place] [address] Yuval Garibay MD Three [facility] [address] [place], [place] [id number] Social History Tobacco Use Types Packs/Day Years [...] materials from doctor or pharmacy Never 05/04/2023 [facility] Utilities Answer Date Recorded In the past 12 months has [facility] [employer], oil, or water [employer] threatened to shut off services in your [...] week 11/01/2023 How often do you attend [facility] or evangelical services? More than 4 times per year 11/01/2023 Do you belong to any clubs o r organizations such as pentecostalism groups, unions, fraternal or athletic groups, or [...] Recorded Patient Health Questionnaire-2 Score 6 10/30/2023 [facility] ional Health - Occupational [...] place to sleep or slept in a prison (including now)? 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 ([facility])- Primary Type II or unspecified type diabetes [...] Rule Out 11/25/2024 11/25/2024 11/25/2024 3:06 PM EMERGENCY MANAGEMENT PROGRAM SPECIALIST Influenza - Seasonal 11/25/2024 11/25/2024 025 12:32 AM EMERGENCY MANAGEMENT PROGRAM SPECIALIST Assessment Noted Time PHQ-9 Depression Total Score: 24 023 11:16 AM EMERGENCY MANAGEMENT PROGRAM SPECIALIST documented as of this encounter Care Teams Dry Dip Worker Relationship Specialty Start Date End Date Keya Morales FNP-BRIDGETTE [address] [address] PCP - General NURSE PRACTITIONER 10/26/22 05/21/24 Beau Zuñ[place] [address] [place] [address] PCP - General FAMILY PRACTICE 05/22/24 Lucy Flores NP Nurse Practitioner NURSE PRACTITIONER 01/11/22 Glenn Dale DO Consulting Physician INTERNAL MEDICINE 01/11/22 None, Provider, UNKNOWN PHYSICIAN SPECIALTY 11/25/24 documented as of this encounter
--- OUTSIDE RECORDS SUMMARY | 2025-08-04 18:52 | XMS_ITS | Encounter Summary ---
Author Organization [facility] Address [facility] [place] [address] Care Team Providers Care Head Kiln Operator Name Role Phone Lucy Flores HYBRID CORN BREEDER Unavailable [phone] Glenn Dale DO Unavailable Keya Morales [facility] Primary Care Provider + Beau Zuñiga MD Primary Care Provider [phone] None, Provider MD Unavailable Unavailable Encounter Details Date Type Department Care Team (Latest Contact Info) Description 02/08/2024 Zerve Message On license of [facility] Multispecialty Care - [facility] 3 [facility], [address] [address] Yen, [facility] Provider Appointment Reminder Social History Tobacco Use [...] from doctor or pharmacy Never 05/04/2023 [facility] Utilities Answer Date Recorded In the past 12 months has th e [employer], gas, oil, or water [employer] threatened to shut off services in your [...] How often do you attend chur or mandaen services? More than 4 times per year 11/01/2023 Do you belong to any clubs o r organizations such as presybeterian groups, unions, fraternal or athletic groups, or [...] Recorded Patient Health Questionnaire-2 Score 0 02/01/2024 [facility] - Occupational Stress Questionnaire Answer [...] Sexual Orientation [place] 11/25/2021 10 :24 AM SUPERVISOR HISTOLOGY documented as of this encounter Functional Status [...] Depression, or Anxiety General No Rosibel Miller, WEDGER MACHINE Patient will return to prior living situation [...] Rule Out 11/25/2024 11/25/2024 11/25/2024 3:06 PM SUPERVISOR HISTOLOGY Influenza - Seasonal 11/25/2024 11/25/2024 025 12:32 AM SUPERVISOR HISTOLOGY Assessment Noted Time PHQ-9 Depression Total Score: 023 11:16 AM SUPERVISOR HISTOLOGY documented as of this encounter Care Teams Head Kiln Operator Relationship Specialty Start Date End Date Keya Morales, REHABILITATION ATTENDANT- [address] [place] [address] PCP - General NURSE PRACTITIONER 10/26/22 05/21/24 Beau Zuñ[place] [address] [place] [address] PCP - General FAMILY PRACTICE 05/22/24 Lucy Flores NP Nurse Practitioner NURSE PRACTITIONER 01/11/22 Glenn Dale DO Consulting Physician INTERNAL MEDICINE 01/11/22 None, Provider, MD UNKNOWN PHYSICIAN SPECIALTY 11/25/24 documented as of this encounter
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
--- OUTSIDE RECORDS SUMMARY | 2025-08-04 18:52 | XMS_ITS | Encounter Summary ---
Author Organization [facility] Address [facility] [place] [address] Care Team Providers Care Turbine Assembler Name Role Phone Lucy Flores ROSS LIFT OPERATOR Unavailable Glenn Dale DO Unavailable Keya Morales [facility] Primary Care Provider + Beau Zuñiga MD Primary Care Provider [phone] None, Provider MD Unavailable Unavailable Encounter Details Date Type Department Care Team (Late st Contact Info) Description 01/29/2024 [employer] Message [facility] Multispecialty Care - [facility] [address] [facility], [address] [phone] Yen, [facility] Provider Appointment Social History Tobacco Use Types [...] materials from doctor or pharmacy Never 05/04/2023 [facility] Utilities Answer Date Recorded In the past 12 months has th e [employer], gas, oil, or water [employer] threatened to shut off services in your [...] How often do you attend chur or islam services? More than 4 times per year 11/01/2023 Do you belong to any clubs o r organizations such as jehovah's witness groups, unions, fraternal or athletic groups, or [...] Recorded Patient Health Questionnaire-2 Score 0 02/01/2024 [facility] - Occupational Stress Questionnaire [...] in a custodial (including now)? No 12/31/2023 Sex and Gender Information Value Date Recorded Sex Assigned at Male 05/29/2020 4:58 PM CDT Legal Sex Male 1:46 AM CDT Gender Identity Male 05/29/2020 4:58 PM CDT Sexual Orientation [place] 11/25/2021 10 :24 AM GASOLINE CATALYST OPERATOR documented as of this encounter Functional [...] Depression, or Anxiety General No Rosibel Miller, ARTIFICIAL MARBLE WORKER Patient will return to prior living situation [...] Rule Out 11/25/2024 11/25/2024 11/25/2024 3:06 PM GASOLINE CATALYST OPERATOR Influenza - Seasonal 11/25/2024 11/25/2024 025 12:32 AM GASOLINE CATALYST OPERATOR Assessment Noted Time PHQ-9 Depression Total Score: 24 023 11:16 AM GASOLINE CATALYST OPERATOR documented as of this encounter Care Teams Turbine Assembler Relationship Specialty Start Date End Date Keya Morales, WAREHOUSE ORDER PICKER- [address] [address] PCP - General NURSE PRACTITIONER 10/26/22 05/21/24 Beau Zuñ[place] [address] [place] [address] PCP - General FAMILY PRACTICE 05/22/24 Lucy Flores NP Nurse Practitioner NURSE PRACTITIONER 01/11/22 Glenn Dale DO Consulting Physician INTERNAL MEDICINE 01/11/22 None, Provider, MD UNKNOWN PHYSICIAN SPECIALTY 11/25/24 documented as of this encounter
--- OUTSIDE RECORDS SUMMARY | 2025-08-04 18:52 | XMS_ITS | Encounter Summary ---
Author Organization [facility] Address [facility] [place] [address] Care Team Providers Care Container Filler Name Role Phone Lucy Flores OBSERVATION ASSISTANT Unavailable [phone] Glenn Dale DO Unavailable Keya Morales [facility] Primary Care Provider + Beau Zuñiga MD Primary Care Provider None, Provider MD Unavailable Unavailable Reason for Referral * Surgical (Routine) - Closed Specialty Diagnoses / Procedures Referred By Contnicolas t Referred To Contact Diagnoses PVD (peripheral vascular disease) Procedures Case request operating room: AMPUTATION TOE (LEFT FIFTH METATARSAL), DEBRIDEMENT WOUND (LEFT FOOT) Yuval Garibay MD [address] [address] Phone: tel: fax: Referral ID Status Reason Start Date Expiration Date Visits Re quested Visits Authorized [id number] Closed 05/03/2024 05/03/2025 1 1 Encounter Details Date Type Department Care Team (Late st Contact Info) Description 05/03/2024 Prep for Procedure [facility] [address] [place] [address] Yuval Garibay MD Three [facility]. [facility] [address] [place], [place] [id number] Social History Tobacco Use Types Packs/Day Years [...] materials from doctor or pharmacy Never 05/04/2023 [facility] Utilities Answer Date Recorded In the past 12 months has [facility] [employer], [employer], or water [employer] threatened to shut off services in your [...] week 11/01/2023 How often do you attend [facility] or congregational services? More than 4 times per year [...] Recorded Patient Health Questionnaire-2 Score 0 04/30/2024 [facility] - Occupational Stress [...] any time in the past 12 m onths, were you homeless or living in a custodial (including now)? 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 documented as of this encounter Functional [...] Depression, or Anxiety General No Rosibel Miller, KNIFE OPERATOR Patient will return to prior living [...] Rule Out 11/25/2024 11/25/2024 11/25/2024 3:06 PM SOLE MOLDING MACHINE OPERATOR Influenza - Seasonal 11/25/2024 11/25/20242 025 12:32 AM SOLE MOLDING MACHINE OPERATOR Assessment Noted Time PHQ-9 Depression Total Score: 24 023 11:16 AM SOLE MOLDING MACHINE OPERATOR documented as of this encounter Care Teams Container Filler Relationship Specialty Start Date End Date Keya Morales, PRODUCT MANAGEMENT MANAGER-BC [address] [address] PCP - General NURSE PRACTITIONER 10/26/22 05/21/24 Beau Zuñ[place] [address] [place] [address] PCP - General FAMILY PRACTICE 05/22/24 Lucy Flores NP Nurse Practitioner NURSE PRACTITIONER 01/11/22 Glenn Dale DO Consulting Physician INTERNAL MEDICINE 01/11/22 None, Provider, UNKNOWN PHYSICIAN SPECIALTY 11/25/24 documented as of this encounter
--- OUTSIDE RECORDS SUMMARY | 2025-08-04 18:52 | XMS_ITS | Encounter Summary ---
Author Organization [facility] Address [facility] [place] [address] Care Team Providers Care Director Patient Accounting Name Role Phone Lucy Flores GAS DISPENSER Unavailable [phone] Glenn Dale DO Unavailable Keya Morales [facility] Primary Care Provider + Beau Zuñiga MD Primary Care Provider [phone] None, Provider MD Unavailable Unavailable Reason for Referral * Surgical (Routine) - Closed Specialty Diagnoses / Procedures Referred By Contac t Referred To Contact Diagnoses PVD (peripheral vascular disease) Procedures Case request operating room: AMPUTATION TOE (LEFT GREAT TOE) Yuval Garibay MD [facility] [address] [place] [address] Phone: tel: fax: Referral ID Status Reason Start Date Expiration Date Visits Re quested Visits Authorized [id number] Closed 01/01/2024 01/01/2025 1 1 NICAL RESEARCH SCIENTIST Encounter Details Date Type Department Care Team (Late st Contact Info) Description 01/01/2024 Prep for Procedure [facility] [address] [place] [address] Yuval Garibay MD [facility] [address] [place], [place] [id number] Social History Tobacco Use Types Packs/Day Years [...] doctor or pharmacy Never 05/04/2023 [facility] Utilities Answer Date Recorded In the past 12 months has e [employer], [employer], or water [employer] threatened to shut off services in [...] week 11/01/2023 How often do you attend [facility] or mosque services? More than 4 times per year 11/01/2023 Do you belong to any clubs o r organizations such as nondenominational groups, unions, fraternal or athletic groups, or [...] Recorded Patient Health Questionnaire-2 Score 6 10/30/2023 [facility] - Occupational Stress Questionnaire Answer Date [...] place to sleep or slept in a correction (including now)? No 12/31/2023 Sex and Gender Information Value Date Recorded Sex Assigned at Male 05/29/2020 4:58 PM CDT Legal Sex Male 1:46 AM CDT Gender Identity Male 05/29/2020 4:58 PM CDT Sexual Orientation [place] 11/25/2021 10 :24 AM TECHNICAL RESEARCH SCIENTIST documented as of this encounter Functional Status * Are you deaf or do you have serious difficulty hearing Answer Date of Assessment Author Status No 12/31/2023 9:50 PM Alesia Juarez RN Active * Are you blind or do you have serious difficulty seeing, even when wearing glasses? Answer Date of Assessment Author Status No 12/31/2023 9:50 PM Aelsia Juarez RN Active * Do you have [...] Depression, or Anxiety General No Rosibel Miller, AIR CONDITIONING INSULATION INSTALLER Patient will return to prior living situation [...] Rule Out 11/25/2024 11/25/2024 11/25/2024 3:06 PM TECHNICAL RESEARCH SCIENTIST Influenza - Seasonal 11/25/2024 11/25/2024 025 12:32 AM TECHNICAL RESEARCH SCIENTIST Assessment Noted Time PHQ-9 Depression Total Score: 24 023 11:16 AM TECHNICAL RESEARCH SCIENTIST documented as of this encounter Care Teams Director Patient Accounting Relationship Specialty Start Date End Date Keya Morales, ASSET ANALYST- [address] [address] PCP - General NURSE PRACTITIONER 10/26/22 05/21/24 Beau Zuñ[place] [address] [place] [address] PCP - General FAMILY PRACTICE 05/22/24 Lucy Flores NP Nurse Practitioner NURSE PRACTITIONER 01/11/22 Glenn Dale DO Consulting Physician INTERNAL MEDICINE 01/11/22 None, Provider, MD UNKNOWN PHYSICIAN SPECIALTY 11/25/24 documented as of this encounter
--- OUTSIDE RECORDS SUMMARY | 2025-08-04 18:52 | XMS_ITS | Clinical Summary ---
Author Organization [facility] Address [address] [place] [address] Care Team Providers Care Sales Professional Name Role Phone Sylvia García MD Unavailable [phone] Beau Zuñiga MD Primary Care Provider [phone] Allergies No known active allergies Medications omeprazole (PriLOSEC) 40 mg capsule Take 1 capsule (40 mg total) by mouth daily 021 Active sertraline (ZOLOFT) 100 mg tablet Take 1 tablet (100 mg total) by mouth daily 021 Active venlafaxine XR (EFFEXOR-XR) 75 mg 24 hr capsule Take 1 capsule (75 mg total) by mouth daily Active sevelamer (RENVELA) 800 mg tablet Take 1 tablet (800 mg total) by mouth 3 (three) times a day with meals Active linaGLIPtin (TRADJENTA) 5 mg tabletIndicatio ns:type 2 diabetes mellitus Take 1 tablet (5 mg total) by mouth daily Active acetaminophen (TYLENOL) 500 mg tablet Take 1 tablet (500 mg total) by mouth every 4 (four) hours as needed for pain Active apixaban (ELIQUIS) 5 mg tabletIndicatio ns:atrial fibrillation Take 1 tablet (5 mg total) by mouth 2 (two) times a day Active busPIRone (BUSPAR) 10 mg tabletIndicatio ns:Generalized Anxiety Disorder Take 2 tablets (20 mg total) by mouth 3 (three) times a day Active midodrine (PROAMATINE) 5 mg tabletIndicatio ns:Symptomatic Orthostatic Hypotension Take 1 tablet (5 mg total) by mouth every 12 (twelve) hours as needed (low bp) On HD days (//) Active polyethylene glycol (MIRALAX) 17 gram packetIndicatio ns:constipation Take 1 packet (17 g total) by mouth daily as needed for constipation Active albuterol HFA (PROVENTIL HFA,VENTOLIN HFA,PROAIR HFA) 90 mcg/actuation inhaler Inhale 2 puffs every 6 (six) hours as needed for wheezing or shortness of breath Active ALPRAZolam (XANAX) 0.5 mg tablet Take 1 tablet (0.5 mg total) by mouth 3 (three) times a day as needed for anxiety Active aspirin 81 mg chewable tablet Take 1 tablet (81 mg total) by mouth daily Active HYDROcodone-madeleine taminophen (NORCO) 5-325 mg per tabletIndicatio ns:Pain Take 1 tablet by mouth every 6 (six) hours as needed for pain Active losartan (COZAAR) 25 mg tablet Take 1 tablet (25 mg total) by mouth daily Active atorvastatin (LIPITOR) 80 mg tablet Take 1 tablet (80 mg total) by mouth nightly 90 tablet 1 025 Active ascorbic acid (VITAMIN C) 500 mg tablet,chewable Take 1 tablet/chew tab (500 mg total) by mouth daily 2024 Discontinued cholecalciferol (VITAMIN D-3) 5,000 unit capsule Take 1 capsule (5,000 Units total) by mouth daily 2024 Discontinued cyanocobalamin (Vitamin B-12) 500 mcg tablet Take 1 tablet (500 mcg total) by mouth daily 021 2024 Discontinued vitamin B complex-vitamin C-folic acid (NEPHRO-FISH) 0.8 mg tabletIndicatio ns:Vitamin Deficiency Prevention Take 0.8 mg by mouth daily 2024 Discontinued epoetin beta, methoxy peg 100 mcg/0.3 mL syringe 2024 Discontinued senna (SENOKOT) 8.6 mg tablet Take 2 tablets by mouth 2 (two) times a day as needed for constipation 08/27/ 2025 Discontinued vitamin E 400 unit capsule Take 1 capsule (400 Units total) by mouth daily 2024 Discontinued nystatin powder Apply 1 Application topically 2 (two) times a day 2024 Discontinued aspirin 81 mg chewable tablet Take 1 tablet (81 mg total) by mouth daily 30 tablet 2 025 2024 Discontinued atorvastatin (LIPITOR) 80 mg tablet Take 1 tablet (80 mg total) by mouth nightly 90 tablet 1 025 2024 Discontinued atorvastatin (LIPITOR) 40 mg tablet Take 1 tablet (40 mg total) by mouth nightly 2024 Discontinued(A lternate therapy) loperamide (IMODIUM A-D) 2 mg tablet Take 1 tablet (2 mg total) by mouth 4 (four) times a day as needed for diarrhea for up to 10 days 30 tablet 025 2024 Active Problems Problem Noted Date Diagnosed Date Infection 01/03/2025 BMI 40.0-44.9, adult 08/29/2023 ESRD (end stage renal disease) 08/29/2023 Essential hypertension, benign 08/17/2023 Assessment & Plan (08/29/2023 10:05 AM CDT): Isosorbide, metoprolol Hemodialysis catheter infection, initial encount er 07/12/2023 Complication associated with dialysis catheter 0 07/10/2023 Coronary artery disease invo lving kaguy[place] coronary artery of kaguy[place] heart without angina pectoris 06/30/2023 S/P right coronary artery (RCA) stent placement 06/30/2023 Assessment & Plan (08/03/2023 11:25 AM CDT): Significant cardiac history, recent cardiac catheterization with intervention, being evaluated for a pacemaker, currently with a LifeVest on right now. Ventricular fibrillation 06/28/2023 Clotted renal dialysis arter iovenous graft, initial encounter 06/23/2023 COVID-19 10/17/2022 Pulmonary edema determined by examination 2021 Diarrhea 12/02/2021 Class 3 severe obesity due t o excess calories with serious comorbidity in adult 12/02/2021 Dehydration 12/02/2021 Hyperlipidemia 11/30/2021 Assessment & Plan (01/03/2025 2:07 PM APNS): Continue Lipitor Assessment & Plan (10/03/2023 11:27 AM APNS): Continue Lipitor Assessment & Plan (08/29/2023 10:05 AM CDT): Lipitor Assessment & Plan (08/24/2023 2:28 PM CDT): Impression: Chronic and stable. Plan: Continue atorvastatin. Type 2 diabetes mellitus wit h chronic kidney disease on chronic dialysis, without long-term current use of insulin 11/30/2021 Assessment & Plan (01/03/2025 2:07 PM APNS): Continue linagliptin and following diabetic diet as per PCP Assessment & Plan (10/03/2023 11:29 AM APNS): Continue linagliptin and following a diabetic diet as per PCP. Primary hypertension 11/30/2021 Assessment & Plan (01/03/2025 2:07 PM APNS): Continue metoprolol and isosorbide Assessment & Plan (10/03/2023 11:28 AM APNS): Continue metoprolol, isosorbide Assessment & Plan (08/24/2023 2:28 PM CDT): Impression: Chronic stable. Plan: Continue metoprolol, isosorbide Renal osteodystrophy 11/01/2021 GERD (gastroesophageal reflux disease) Depression 11/01/2021 Hyperkalemia 09/08/2021 Hypertensive chronic kidney disease with stage 5 chronic kidney disease or end stage renal disease 07/10/2020 Hepatitis C antibody test positive 06/02/2020 Pure hypercholesterolemia 10/25/2012 ESRD (end stage renal disease) on dialysis Assessment & Plan (01/03/2025 2:17 PM APNS): Right femoral catheter removed in the access Center today. Patient will need to be direct admission for catheter infection, IV antibiotics and we will schedule patient for catheter insertion next week potentially Monday. Discussed with the patient who is agreeable to the plan of care. Also discussed with Dr. Sergio Stevenson. Will await to hear back from hospitalist for admission. Assessment & Plan (10/03/2023 11:27 AM APNS): Ms. Dialysis yesterday for strenuous for concern of a dislodged catheter. On exam today the catheter was not dislodged no drainage from the site cuff is not exposed. Sutures have become displaced however. Site was cleaned and redressed. The catheter flushes and aspirates well without any difficulty. Chest x-ray shows that the catheter is in good position. Labs however show potassium is 6.2, WBC 15.1. Will likely need dialyzed today versus [facility]. Nurse spoke with Dr. Sheehan with nephrology who would like to have the patient dialyzed today. Patient will be admitted under observation with nephrology to undergo dialysis today. Patient is aware and agrees with plan of care. Assessment & Plan (08/29/2023 10:04 AM CDT): Catheter based dialysis patient being seen today because he missed dialysis yesterday due to the catheter being pulled out and cuff is exposed. He denies any fevers chills malaise flu-like symptoms. Potassium level today is 6.1. White count is 15.9. Plan: Patient to be kept for catheter exchange today in the laboratory mechanic helper. Discussed the patient with Dr. Stevenson. Patient will then be dialyzed after new catheter is placed. Patient is agreeable with plan of care. Assessment & Plan (08/24/2023 2:44 PM CDT): Impression: Patient has a right femoral Perma catheter being utilized for dialysis. Unfortunately he is now catheter based. Patient is running dialysis at a low flow rates and is frequently clotting despite utilizing Activase. Per patient, dialysis center has not utilize Activase during this week sessions due to the lack of supply. Both venous and arterial lines flush and aspirate without any issues. X-ray reveals Perma catheter is in appropriate position. Plan: No surgical interventions indicated at this time as his cathete is flushing and aspirating without difficulty and the catheter is in the appropriate location. - Recommend to continue utilizing Activase to the catheter. - Able to switch arterial and venous lines to undergo and complete dialysis. -patient to follow-up on an as-needed basis. Assessment & Plan (08/03/2023 11:32 AM CDT): Patient with a life vest on, history of ventricular fibrillation most recently, currently being evaluated for a pacemaker. He is high risk for any surgical or procedural intervention for access creation. Has no access options in his upper extremities currently. He is dialyzing through a right femoral Perma catheter, functioning well. Patient is now Perma catheter based Assessment & Plan (02/28/2022 8:26 AM CDT): Impression: Patient continues do well status post AV graft creation. Surgical incisions have healed well and his AV graft remains patent. Plan: May transition to utilizing newly created AV graft for hemodialysis needs. Patient follow-up in 2-3 weeks for re-evaluation and discussion of possible Perma catheter removal. Resolved Problems Problem Noted Date Diagnosed Date Resolved Date End stage renal disease 06/01/2017 100 03/2023 Encounters Date Type Department Care Team Description 07/31/2025 8:15 AM CDT Office Visit [facility] Medical Group Cardiology [address] [phone] Oneil Beal MD Coronary artery disease involving kaguyuk coronary artery of kaguy[place] heart without angina pectoris (Primary Dx); Paroxysmal atrial fibrillation (HCC); Mixed hyperlipidemia; Essential hypertension, benign; Nonrheumatic aortic (valve) insufficiency; Abnormal stress test 07/16/2025 8:56 AM CDT - 07/16/2025 1:27 PM CDT Emergency [facility] [address] [place] [address] Boyd Mason DO Diarrhea, unspecified type (Primary Dx); ESRD (end stage renal disease) on dialysis (HCC) Discharge Disposition: Discharge to home or self care 07/10/2025 11:08 AM CDT - 07/10/2025 11:59 PM CDT Hospital Encounter [facility] Medical Office [facility] 2 Nuclear Medicine [address] [place] [phone] Discharge Disposition: Discharge to home or self care 07/10/2025 11:07 AM CDT - 07/10/2025 11:59 PM CDT Hospital Encounter [facility] 2 Nuclear Medicine [address] [place] [phone] Discharge Disposition: Discharge to home or self care 07/10/2025 11:07 AM CDT - 07/10/2025 11:59 PM CDT Hospital Encounter [facility] 2 Nuclear Medicine [address] [place] [phone] Discharge Disposition: Discharge to home or self care 07/10/2025 11:00 AM CDT - 07/10/2025 11:59 PM CDT Hospital Encounter [facility] 2 Nuclear Medicine [address] [place] [phone] Coronary artery disease involving kaguy[place] coronary artery of kaguy[place] heart without angina pectoris; Paroxysmal atrial fibrillation (HCC) Discharge Disposition: Discharge to home or self care 06/06/2025 Results Follow-Up [facility] Medical [facility] Cardiology [address] [place] [phone] Yennifer Langford RN Lipid panel, Comprehensive metabolic panel, CBC with auto differential 05/27/2025 9:15 AM CDT Office Visit [facility] Cardiology [address] [place] [phone] Oneil Beal MD Coronary artery disease involving kaguy[place] coronary artery of [place] heart without angina pectoris (Primary Dx); Mixed hyperlipidemia; Essential hypertension, benign; Paroxysmal atrial fibrillation (HCC) from Last 3 Months Immunizations Immunization Administration Dates Next Due Influenza, Quadrivalent, Spl it, Preservative Free, Intramuscular 08/18/2021 Influenza, Unspecified 08/08/2020,2018,08/19/2016,08/26,10/06/2010 Pneumococcal Polysaccharide PPV23 2015,07/29/2016,06/15/2012,10/06 Tdap 04/30/2017 Surgical History Surgery Date Site/Laterality Comments DIALYSIS FISTULA CREATION 11/20/2011 - 11/19/2012 Left used for 9 years then thrombosed CENTRAL VENOUS CATHETER INSERTION 08/20/2021 - 09/19/2021 R IJ CENTRAL VENOUS CATHETER REMOVAL 11/11/2021 R IJ removed CENTRAL VENOUS CATHETER INSERTION 11/11/2021 R femoral TUNNELED VENOUS CATHETER PLACEMENT 12/02/2021 Left Lt Subclavian placement INCISION AND DRAINAGE lt thigh VASCULAR SURGERY PROCEDURE 01/06/2025 N/A R femoral permacath - Dr. Sergio Stevenson Medical devices from this surgery are in the Medical Devices section. Medical History Medical History Date Comments Diabetes mellitus (HCC) Morbid obesity with BMI of 4 5.0-49.9, adult ([facility]) GERD (gastroesophageal reflux disease) Psoriasis History of syncope Wears glasses Anxiety and depression Neuropathy Fatigue d/t dialysis Walker as ambulation aid also us es wheelchair if needed d/t current weakness Loose, teeth Teeth missing several Hepatitis C antibody test positive Hypertension not currently, p t taking Midodrine BID Infectious viral hepatitis hep c Type 2 diabetes mellitus NIDDM, sugars have been running low, Glipizide d/c'd ESRD (end stage renal diseas e) on dialysis ([facility]) dialysis since 2011. on HD a t [facility] MWF. anuric. sees Dr. Sheehan. dialyzes with R Femoral CVC. Family History Medical History Relation Name Comments Pulmonary fibrosis Mother Relation Name Status Comments Brother in a fire Father history unknown Mother (Age 69) r/t pulm fibrosis and interstitial lung ds Sister in a fire Social History Tobacco Use Types Packs/Day Years Used Date Smoking Tobacco: Never Smokeless Tobacco: Never Tobacco Cessation:Counseling Given: Not Answered [facility] Utilities Answer Date Recorded In the past 12 months has [place], gas, oil, or water [employer] threatened to shut off services in your [...] week 01/06/2025 How often do you attend [facility] or jainism services? More than 4 times per year 01/06/2025 Do you belong to any clubs o r organizations such as yazidi groups, unions, fraternal or athletic groups, or [...] place to sleep or slept in a half-way (including now)? No 07/11/2023 Housing Stability Vital Sign Answer Jr e Recorded In the last 12 months, was t here a time when you were not able to pay the mortgage or rent on time? No 01/06/2025 In the past 12 months, how m any times have you moved where you were living? 0 01/06/2025 At any time in the past [address] [facility], were you homeless or living in a half-way (including now)? No 01/06/2025 Personal Safety Answer Date Recorded Have you ever been in or are you currently in a harmful physical or emotional relationship or is someone making you feel afraid or unsafe? Denies 07/16/2025 Sex and Gender Information Value Date Recorded Sex Assigned at Not on file Legal Sex Male 8:33 PM APNS Gender Identity Not on file Sexual Orientation Not on file Obstetrics History Last Filed Vital Signs Vital Sign Reading Time Taken Comments Blood Pressure 94/68 07/31/2025 8:09 AM CDT Pulse 86 07/31/2025 8:09 AM CDT Temperature 36.7 C (98 F) 07/16/2025 9:04 AM CDT Respiratory Rate 22 07/16/2025 12:00 PM CDT Oxygen Saturation 100% 07/16/2025 12:00 PM CDT Inhaled Oxygen Concentration - - Weight 84 kg (185 lb 3 oz) 07/16/2025 9:04 AM CD T Height 165.1 cm (5' 5) 07/31/2025 8:09 AM CDT Body Mass Index 30.82 07/10/2025 12:47 PM CDT Plan of Treatment Health Maintenance Due Date Last Done Comments Albumin Creatinine Ratio, Urine 1965 Colon Cancer Screening-Colonoscopy 1965 Depression Screening 1965 Prostate Cancer Screening-PSA 1965 Dilated Eye Exam 1965 Foot Exam 1965 Regular Well Visit/Exam 18-64 1983 Zoster Vaccine (1 of 2) 2015 Hemoglobin A1C 12/24/2023 06/23/2023, 09/22, 09/09/2021, Additional history exists Covid-19 Vaccine (2024-2 6 season) 2025 01/13/2023, 10/01/2021, 04/17/2021, Additional history exists Influenza Vaccine (#1) 2025 , 08/12/2022, 10/08/2021, Additional history exists Lipid Panel 05/30/2026 05/30/2025, 05/20, 08/21/2024, Additional history exists eGFR 07/16/2026 07/16/2025, 12/22, 01/08/2025, Additional history exists Pneumococcal vaccine <65 (3 of 3 - PCV20 or PCV21) 02/21/2027 02/21/2022, 12/13/2021, 08/20/2020, Additional history exists DTaP/Tdap/Td Vaccine (2 - Td or Tdap) 04/30/2027 04/30/2017 Hepatitis C Screening Completed 10/17/2022 , 10/17/2022, 09/09/2021 Hepatitis B Screening Completed 01/06/2025 Goals Goal Patient Goal Type Associated Problems Recent Progress Patient-Stated? Author CKD/ESRD Goal - Patient will be knowledgeable regarding CKD5/ESRD Outpatient Care Management ([facility]) Denita Silva, RAT EXTERMINATOR Note: Problem: Knowledge deficit regarding CKD5/ESRD Interventions: Provide General CKD5/ESRD Recommendations: - Adhere to dialysis orders. - Review ESRD diet with patient, it may be different than their pre-dialysis diet. - Encourage patient to discuss any dialysis related questions to field support engineer or nurse at facility. - Assess for any barriers to adhering to dialysis schedule. - Refer patient to for any psycho-social or community resource needs. Medical Devices Implanted Type Area Heart Surgeon Device Identifier Shelf Expiration Date Model / Serial / Lot Angio Dynamics [id number] Duraflow Embosafe 15.5fr 28cm Basic 2 Lumen Kit Catheter - [id number] Implanted:Qty : 1 on 09/09/2021 by Miladys Simental MD at [facility] Catheter Left: Jugular Ang[employer] 12/20/2023 [id number] / / [id number] Description:Internal jugular [employer] [id number] 4-7mm 45cm Stretch Peripheral Standard Telephone Order Clerk Room Service Graft Vascular - [id number] - [id number] Implanted:Qty : 1 on 01/27/2022 by Migel Marin MD at [facility] Graft Right: Arm [employer] [id number] 08/01/2026 [id number] / [id number] / Angio [employer] [id number] Duraflow Embosafe 15.5fr 40cm Basic 2 Lumen Kit Catheter - [id number] Implanted:Qty : 1 on 11/11/2021 by Kevin Stevenson MD at [facility] Ang[employer] 03/19/2023 [id number] / / [id number] Ang[employer] [id number] Duraflow Embosafe 15.5fr 32cm Basic 2 Lumen Kit Catheter - [id number] Implanted:Qty : 1 on 12/02/2021 at [facility] Ang[employer] [id number] / / [id number] Ang[employer] Duraflow Embosafe 15.5fr 40cm Basic 2 Lumen Kit Catheter [id number] - [id number] Implanted:Qty : 1 on 06/26/2023 by Kevin Stevenson MD at [facility] 07/20/2025 [id number] / / [id number] Medtronic Card Vasc Surgery 2.25 X 26mm Amando Rabun Rx Coronary Stent [id number] - [id number] Implanted:Qty : 1 on 06/29/2023 by Oneil Beal MD at [facility] Medtronic Card Vasc Surgery 02/13/2026 [id number] / / [id number] Medtronic Card Vasc Surgery 2.75 X 30mm [employer]un Rx Coronary Stent [id number] - [id number] Implanted:Qty : 1 on 06/29/2023 by Oneil Beal MD at [facility] Medtronic Card Vasc Surgery 02/01/2026 [id number] / / [id number] Medtronic Card Vasc Surgery 3.0 X 38mm Phoenix Rabun Rx Coronary Stent [id number] - [id number] Implanted:Qty : 1 on 06/29/2023 by Oneil Beal MD at [facility] Medtronic Card Vasc Surgery 03/21/2026 [id number] / / [id number] [facility] Duraflow Embosafe 15.5fr 40cm Basic 2 Lumen Kit Catheter [id number] - [id number] Implanted:Qty : 1 on 08/29/2023 by Kevin Stevenson MD at [facility] [id number] / / [facility] Duraflow Embosafe 15.5fr 40cm Basic 2 Lumen Kit Catheter [id number] - [id number] Implanted:Qty : 1 on 01/06/2025 by Sergio Stevenson MD at [facility] 03/19/2026 [id number] / / [id number] Procedures Procedure Name Priority Date/Time Associated Diagnosis Comments C. DIFFICILE TESTING STAT 07/16/2025 9:45 AM CDT EGFR STAT 07/16/2025 9:11 AM CDT DIFFERENTIAL AUTO STAT 07/16/2025 9:1 1 AM CDT LIPASE STAT 07/16/2025 9:11 AM CDT COMPREHENSIVE METABOLIC PANEL STAT 07/16/2025 9:11 AM CDT CBC WITH AUTO DIFFERENTIAL STAT 07/16/2025 9:11 AM CDT NM MPI SPECT (REST AND/OR STRESS) MULTIPLE STUDIES Schedule Routine, Read Routine (OP Routine) 07/10/2025 2:12 PM CDT Coronary artery disease involving kaguy[place] coronary artery of kaguy[place] heart without angina pectoris Paroxysmal atrial fibrillation (HCC) CBC WITH AUTO DIFFERENTIAL Routine 05/30/2025 Coronary artery disease involving kaguy[place] coronary artery of kaguy[place] heart without angina pectoris Mixed hyperlipidemia Essential hypertension, benign Paroxysmal atrial fibrillation (HCC) COMPREHENSIVE METABOLIC PANEL Routine 05/30/2025 Coronary artery disease involving kaguy[place] coronary artery of kaguy[place] heart without angina pectoris Mixed hyperlipidemia Essential hypertension, benign Paroxysmal atrial fibrillation (HCC) LIPID PANEL Routine 05/30/2025 Coronary artery disease involving kaguy[place] coronary artery of kaguy[place] heart without angina pectoris Mixed hyperlipidemia Essential hypertension, benign Paroxysmal atrial fibrillation (HCC) HEMOGLOBIN A1C Routine 06/23/2023 6:57 PM CDT HEPATITIS PANEL, ACUTE Routine 10/17/2022 7:08 AM APNS from Last 3 Months or Most Recently Relevant to Health Maintenance Results * C. difficile testing Stool (07/16/2025 9:45 AM CDT) C. diff result Negative, DNA Negative , DNA C. diff interp Negative for toxigenic Clostridioides (Clostridium) difficile. Analysis performed by detection of gene(s) encoding C. difficile toxin(s). The nucleic acid detection assay used is cleared by the [place] Food and Drug administration and its performance characteristics have been verified by the performing laboratory. [facility] Stool 07/16/2025 9:45 AM CDT 07/16/2025 9:49 AM CDT us Boyd Mason DO LAB MICROBIOLOGY - GENERAL ORD ERABLES Final Result HORACIO MANRIQUEZ [address] [facility] Department [place] [address] * (ABNORMAL) eGFR (07/16/2025 9:11 AM CDT) eGFR 12(L) >=60 mL/min/1. 73 m2 Comment: Interpretive Data Reference Interval Normal >/= 90 mL/min/1.73m2 Mildly decreased* 60 - 89 mL/min/1.73m2 Mildly to moderately decreased 45 - 59 mL/min/1.73m2 Moderately to severely decreased 30 - 44 mL/min/1.73m2 Severely decreased 15 - 29 mL/min/1.73m2 Kidney Failure < 15 mL/min/1.73m2 *Relative to young adult level Estimated glomerular filtration rate is determined by the 2020 CKD-EPI equation recommended by the National Kidney Foundation (A Unifying Approach to GFR Estimation: Recommendations of the NKF-ASK Task Force on Reassessing the Inclusion of Race in Diagnosing Kidney Disease, JASN 2020). The CKD-EPI equation should not be used for patients with unstable renal function and has not been validated in children and those over 70. Current interpretive data was last reviewed 2021. Blood 07/16/2025 9:11 AM CDT 07/16/2025 9:13 AM CDT us Boyd Mason DO LAB BLOOD ORDERABLES Final Res ult [facility] [address] [facility] [place] [address] * (ABNORMAL) Differential, auto (07/16/2025 9:11 AM CDT) Neutrophil abs 10.04(H) 1.50 - 6.50 K/cumm Imm gran abs 0.06 0.00 - 0.10 K/cumm [facility] Lymphocyte abs 1.08 0.80 - 3.30 K/cumm [facility] Monocyte abs 1.10(H) 0.20 - 0.80 K/cumm [facility] Eosinophil abs 0.17 0.00 - 0.50 K/cumm [facility] Basophil abs 0.03 0.00 - 0.10 K/cumm [facility] Neutrophil pct 80.4 % [facility] Comment: Interpretive Data Percent cell count reference ranges are not reported, since discordance with absolute values may lead to misinterpretation of CBC data. Current Interpretive Data was last revised on 2018. Imm gran pct 0.5 % [facility] Comment: Interpretive Data Percent cell count reference ranges are not reported, since discordance with absolute values may lead to misinterpretation of CBC data. Current Interpretive Data was last revised on 2018. Lymphocyte pct 8.7 % [facility] Comment: Interpretive Data Percent cell count reference ranges are not reported, since discordance with absolute values may lead to misinterpretation of CBC data. Current Interpretive Data was last revised on 2018. Monocyte pct 8.8 % [facility] Comment: Interpretive Data Percent cell count reference ranges are not reported, since discordance with absolute values may lead to misinterpretation of CBC data. Current Interpretive Data was last revised on 2018. Eosinophil pct 1.4 % [facility] Comment: Interpretive Data Percent cell count reference ranges are not reported, since discordance with absolute values may lead to misinterpretation of CBC data. Current Interpretive Data was last revised on 2018. Basophil pct 0.2 % [facility] Comment: Interpretive Data Percent cell count reference ranges are not reported, since discordance with absolute values may lead to misinterpretation of CBC data. Current Interpretive Data was last revised on 2018. Blood 07/16/2025 9:11 AM CDT 07/16/2025 9:13 AM CDT us Boyd Mason DO LAB BLOOD ORDERABLES Final Res ult [place] [id number] [facility] [place] [address] * (ABNORMAL) CBC with auto differential (07/16/2025 9:11 AM CDT) WBC 12.48(H) 3.80 - 9.90 K/cumm Hgb 13.8 13.0 - 17.5 g/dL [facility] Hct 44.6 38.9 - 50.3 % [facility] Plt 256 150 - 400 K/cumm [facility] MPV 10.1 9.1 - 12.3 fL [facility] RBC 4.62 4.30 - 5.80 M/cumm [facility] MCV 96.5(H) 81.3 - 96.4 fL [facility] MCH 29.9 27.1 - 33.3 pg [facility] MCHC 30.9(L) 32.3 - 35.7 g/dL [facility] RDW CV 17.3(H) 11.1 - 14.9 % [facility] RDW SD 60.8(H) 35.7 - 48.1 fL [facility] NRBC abs 0.00 0.00 - 0.01 K/cumm [facility] Blood Venous blood specimen / Unknown 07/16/2025 9:11 AM CDT 07/16/2025 9:13 AM CDT Boyd Mason LAB BLOOD ORDERABLES Final Res ult Performing Organization Address City/[facility] Co de Phone Number [facility] [address] [address] * Lipase (07/16/2025 9:11 AM CDT) Pathologist [facility] Lipase 48 10 - 99 Units/L Blood Venous blood specimen / Unknown 07/16/2025 9:11 AM CDT 07/16/2025 9:13 AM CDT Boyd Mason LAB BLOOD ORDERABLES Final Res ult Performing Organization Address [facility] de Phone Number [facility] [address] [address] * (ABNORMAL) Comprehensive metabolic panel (07/16/2025 9:11 AM CDT) [facility] Sodium 139 135 - 145 mmol/L Potassium, pl 5.1(H) 3.3 - 4.9 mmol/L [facility] Comment:Hemolyzed; Potassium value may be falsely elevated by as much as 1.0 mmol/L. Suggest redraw and reanalysis. Chloride 101 97 - 110 mmol/L [facility] CO2 25 22 - 32 mmol/L [facility] Anion gap 13 2 - 15 mmol/L [facility] BUN 46(H) 6 - 25 mg/dL [facility] Creatinine 5.21(H) 0.80 - 1.30 mg/dL [facility] Glucose 76 70 - 199 mg/dL [facility] Comment: Interpretive Data Fasting glucose >/= 126 mg/dl is diagnostic for diabetes. Fasting is defined as no caloric intake for at least 8 hours. Fasting glucose between 100 mg/dl to 125 mg/dl is diagnostic of prediabetes. In a patient with classic symptoms of hyperglycemia or hyperglycemic crisis, a random glucose >/= 200 mg/dl is diagnostic for diabetes. In the absence of unequivocal hyperglycemia, results should be confirmed by repeat testing. The classification and Diagnosis of Diabetes Diabetes Care 2021; 46: S19-S40. Current interpretive data was last revised 2022. Calcium 9.3 8.5 - 10.3 mg/dL [facility] Bilirubin, total 0.3 0.1 - 1.2 mg/dL [facility] Protein, pl 7.0 6.5 - 8.5 g/dL [facility] Albumin 3.1(L) 3.5 - 5.0 g/dL [facility] Alk phos 121 40 - 130 Units/L [facility] ALT 10 7 - 55 Units/L [facility] AST 32 10 - 50 Units/L [facility] Comment:Hemolyzed; result ma y be falsely elevated Blood 07/16/2025 9:11 AM CDT 07/16/2025 9:13 AM CDT us Boyd Mason DO LAB BLOOD ORDERABLES Final Res ult [facility] [address] [facility] Department [place] [address] * NM MPI SPECT (Rest and/or Stress) Multiple Studies (07/10/2025 2:12 PM CDT) Anatomical Region Laterality Modality Body N/A Nuclear Medicine Narrative 07/10/2025 4:25 PM CDT Patient Id: Gordon Greene is a 59 y.o. male. MR#: [id number] Study date: 07/10/2025 Indications: Patient is adult male who had history of coronary artery disease, paroxysmal atrial fibrillation, coronary stent placement in the RCA, hypertension and dyslipidemia brought in today for a Lexiscan Myoview stress test. Stress portion and EKG data: Baseline EKG showed sinus rhythm with a heart rate 77 beats per minute. Resting blood pressure 101/60 mm of mercury. Baseline conduction normal without any arrhythmias. Septal Q-waves noted. Patient received 0.4 mg Lexiscan followed by fluid bolus and Myoview injection During infusion and recovery rhythm is sinus rhythm and heart rate increased to 85 beats per minute. Initial blood pressure is 71 and 32 but gradually increased to 92/56 and during this time patient asymptomatic. No arrhythmia noted. No chest pain noted. EKG negative for ischemia. Test terminated secondary to end of protocol. Electrocardiographic impressions: Tolerate Lexiscan well No chest pain noted during the test EKG negative for ischemia. MPI report: Patient received 11 mCi of Myoview at rest. Patient received 33 mCi of Myoview at stress Quality of the study: Good. No motion correction performed. No prone images were obtained as patient unable to lay in the stomach. Findings: Left ventricular cavity normal at rest and stress images. SPECT stress and rest images revealed mild decrease in tracer uptake involving the medium to large area of inferior and inferoapical region. SPECT rest images revealed partial reversibility suggestive of likely john-infarct ischemia. Gated images demonstrates inferior hypokinesis. Calculated ejection fraction is 50%. TID ratio 0.86 Impressions: Inferior infarct with [id number] john-infarct ischemia. Inferior hypokinesis noted Calculated ejection fraction is 50%. I personally supervised and reviewed the stress test. Copy to Beau Zuñiga MD 07/10/2025 us Oneil Beal MD IMG NM PROCEDURES Final Res ult * (ABNORMAL) CBC with auto differential (05/30/2025) SCRIBED WBC 12.0(A) 3.8 - 9.9 K/cumm EXTERNAL LAB SCRIBED Hemoglobin 11.4(A) 13.0 - 17.5 g/dL EXTERNAL LAB SCRIBED Hematocrit 37.6 35.6 - 45.5 % EXTERNAL LAB SCRIBED Platelets 351 150 - 400 K/cumm EXTERNAL LAB SCRIBED MPV 10.3 9.1 - 12.3 fL EXTERNAL LAB SCRIBED RBC 3.87(A) 4.30 - 5.80 M/cumm EXTERNAL LAB SCRIBED MCV 97.2(A) 81.3 - 96.4 fL EXTERNAL LAB SCRIBED MCH 29.5 27.1 - 33.3 pg EXTERNAL LAB SCRIBED MCHC 30.3(A) 32.3 - 35.7 g/dL EXTERNAL LAB SCRIBED RDW 18.4 % EXTERNAL LAB SCRIBED Neutrophils 74.2 NONE % EXTERNAL LAB SCRIBED Imm Granulocytes 0.3 NONE % EXTERNAL LAB SCRIBED Lymphocytes 13.0 NONE % EXTERNAL LAB SCRIBED Monocytes 10.2 NONE % EXTERNAL LAB SCRIBED Eosinophils 2.0 NONE % EXTERNAL LAB SCRIBED Basophils 0.3 NONE % EXTERNAL LAB SCRIBED Neutrophils Abs 8.90(A) 1.50 - 6.50 K/cumm EXTERNAL LAB SCRIBED Lymphocytes Abs 1.6 0.8 - 3.3 K/cumm EXTERNAL LAB Blood 05/30/2025 Oneil Beal MD LAB BLOOD ORDERABLES Final Result Performing Organization Address City/[facility] Co de Phone Number EXTERNAL LAB * Lipid panel (05/30/2025) SCRIBED Cholesterol, Total 156 30 - 199 mg/dL EXTERNAL LAB SCRIBED Triglycerides 46 <=149 mg/dL EXTERNAL LAB SCRIBED HDL 48 >=40 mg/dL EXTERNAL LAB SCRIBED LDL 99 <=129 mg/dL EXTERNAL LAB Scribed Non-HDL Cholesterol 108 NONE mg/dL EXTERNAL LAB SCRIBED Total Cholesterol/HDL Ratio 3 NONE EXTERNAL LAB Blood 05/30/2025 Oneil Beal MD LAB BLOOD ORDERABLES Final Result Performing Organization Address [facility] de Phone Number EXTERNAL LAB * Comprehensive metabolic panel (05/30/2025) SCRIBED Sodium 138 l - h mmol/L EXTERNAL LAB SCRIBED Potassium 5.6 l - h mmol/L EXTERNAL LAB SCRIBED Chloride 99 l - h mmol/L EXTERNAL LAB SCRIBED Carbon Dioxide 30.5 l - h mmol/L EXTERNAL LAB SCRIBED Anion Gap 8.5 l - h mmol/L EXTERNAL LAB SCRIBED Urea Nitrogen (BUN) 72 l - h mg/dl EXTERNAL LAB SCRIBED Creatinine 6.91 l - h mg/dl EXTERNAL LAB SCRIBED Glucose 64 l - h mg/dl EXTERNAL LAB SCRIBED Calcium 10.1 l - h mg/dl EXTERNAL LAB SCRIBED Bilirubin 0.3 l - h mg/dl EXTERNAL LAB SCRIBED Plasma Protein 7.2 l - h g/dl EXTERNAL LAB SCRIBED Albumin 3.2 l - h g/dl EXTERNAL LAB SCRIBED Alkaline Phosphatase 134 l - h Units/L EXTERNAL LAB SCRIBED Alanine Transaminase (ALT) 25 l - h Units/L EXTERNAL LAB SCRIBED Aspartate Transaminase (AST) 19 l - h Units/L EXTERNAL LAB Blood 05/30/2025 Oneil Beal MD LAB BLOOD ORDERABLES Final Result EXTERNAL LAB * (ABNORMAL) Hemoglobin A1c (06/23/2023 6:57 PM CDT) Pathologist [facility] Hgb A1C 5.7(H) 4.0 - 5.6 % [facility] Estimated Average Glucose 117 mg/dL [facility] Comment: The ADA recommends reporting an estimated Average Glucose (eAG) with all Hemoglobin A1c results using the equation derived from a study of 507 normal and diabetic adults. Minority populations were underrepresented and children were not included. (Diabetes Care 31:8826-5752, 2008). The eAG is not equivalent to a fasting glucose. Blood 06/23/2023 6:57 PM CDT 06/23/2023 7:03 PM CDT Karthikeyan Medrano MD LAB BLOOD ORDERABLES Final Result Performing Organization Address City/[facility] Co de Phone Number [facility] [address] [facility] Department [place] [address] * (ABNORMAL) Hepatitis panel, acute (10/17/2022 7:08 AM APNS) Pathologist [facility] Hep A IgM Nonreactive Nonreactive [facility] Hep B core IgM Nonreactive Nonreactive [facility] Hep C Ab Reactive(A) Nonreactive [facility] Comment: Reactive for HCV antibodies. This may represent current or past HCV infection. Supplemental molecular testing will be automatically performed to determine current infection status in accordance with current CDC screening recommendations. Current interpretive data was last revised on 22 HepBsAg Nonreactive Nonreactive [facility] Blood 10/17/2022 7:08 AM APNS 10/17/2022 9:03 AM APNS Jason Beltran MD LAB MICROBIOLOGY - GENERAL ORDERABLES Final Result [facility] Department [place] [address] from Last 3 Months or Most Recently Relevant to Health Maintenance Additional Health Concerns Infection Onset Date Last Indicated MDR gram neg/ESBL Comment:Added from external infection. Source: [facility]. 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 DIRECTIVE 07/17/2025 11:05 AM POLS T - Phys Order for PT Preferences ADVANCE DIRECTIVE 06/28/2023 3:43 PM Power of Dealer Relationship Manager-Medical * Full Code (Latest Code Status on File) Date Activated Date Inactivated Comments 01/06/2025 3:04 PM 01/09/2025 5:10 PM * LIMITED - No CPR Date Activated Date Inactivated Comments 01/03/2025 4:27 PM 01/06/2025 3:04 PM * Full Code Date Activated Date Inactivated Comments 01/03/2025 4:25 PM 01/03/2025 4:27 PM * Full Code Date Activated Date Inactivated Comments 10/03/2023 1:14 PM 10/03/2023 11:09 PM * LIMITED - No CPR Date Activated Date Inactivated Comments 08/29/2023 3:55 PM 08/30/2023 7:12 PM Question Answer Comments Provide aggressive medical m anagement before a full cardiopulmonary arrest occurs. Use antibiotics, IV Fluids, and medical treatment unless specifically selected below: No intubationNo cardioversionNo internal / external pacemaker Care Teams Sales Professional Relationship Specialty Start Date End Date Beau Zuñ[place] [id number] [address] PCP - General Family Practice 05/27/25 Sylvia García MD [address] [address] Consulting Physician Nephrology 11/30/21
--- OUTSIDE RECORDS SUMMARY | 2025-08-04 18:52 | XMS_ITS ---
Author Organization [facility] Office Center Address [address] [place] [address] Care Team Providers Care Hall Manager Name Role Phone Sylvia García MD Unavailable [phone] Beau Zuñiga MD Primary Care Provider [phone] Dialysis Access Sites Type Status Location Placement Date Removal Da te Hemodialysis Cath Double Right Thigh Active Right Thigh - Anterior AV graft Active Right Upper Arm - Anterior 01/27/2022 AV fistula Active Right Upper Arm - Posterior 09/20/2021 Hemodialysis Cath Double Inactive Left Breast - Upper 03/17/2022 Hemodialysis Cath Double 06/26/23 Tunneled catheter Right Femoral Inactive Right Thigh - Anterior 06/26/2023 5 Procedures Procedure Name Priority Date/Time Associated Diagnosis [...] 2:12 PM CDT Coronary artery disease involving dry creek coronary artery of [place] creek heart without angina pectoris Paroxysmal atrial fibrillation (HCC) CBC WITH AUTO DIFFERENTIAL Routine 05/30/2025 Coronary artery disease involving [place] coronary artery of [place] heart without angina pectoris Mixed hyperlipidemia Essential hypertension, benign Paroxysmal atrial fibrillation (HCC) COMPREHENSIVE METABOLIC PANEL Routine 05/30/2025 Coronary artery disease involving [place] coronary artery of [place] heart without angina pectoris Mixed hyperlipidemia Essential hypertension, benign Paroxysmal atrial fibrillation (HCC) LIPID PANEL Routine 05/30/2025 Coronary artery disease involving [place] coronary artery of [place] heart without angina pectoris Mixed hyperlipidemia Essential hypertension, benign Paroxysmal atrial fibrillation (HCC) HEMOGLOBIN A1C Routine 06/23/2023 6:57 PM CDT HEPATITIS PANEL, ACUTE Routine 10/17/2022 7:08 AM TECHNICAL DOCUMENTATION SPECIALIST from Last 3 Months or Most Recently Relevant to Health Maintenance Allergies No known active allergies Medications omeprazole [...] times a day as needed for constipation 2024 Discontinued vitamin E 400 unit capsule Take [...] 0 07/10/2023 Coronary artery disease invo lving dry creek coronary artery of [place] creek heart without angina pectoris 06/30/2023 S/P right [...] 11/30/2021 Assessment & Plan (01/03/2025 2:07 PM TECHNICAL DOCUMENTATION SPECIALIST): Continue Lipitor Assessment & Plan (10/03/2023 11:27 AM TECHNICAL DOCUMENTATION SPECIALIST): Continue Lipitor Assessment & Plan (08/29/2023 10:05 AM CDT): Lipitor Assessment & Plan (08/24/2023 2:28 PM CDT): Impression: Chronic and stable. Plan: Continue atorvastatin. Type 2 diabetes mellitus wit h chronic kidney disease on chronic dialysis, without long-term current use of insulin 11/30/2021 Assessment & Plan (01/03/2025 2:07 PM TECHNICAL DOCUMENTATION SPECIALIST): Continue linagliptin and following diabetic diet as per PCP Assessment & Plan (10/03/2023 11:29 AM TECHNICAL DOCUMENTATION SPECIALIST): Continue linagliptin and following a diabetic diet as per PCP. Primary hypertension 11/30/2021 Assessment & Plan (01/03/2025 2:07 PM TECHNICAL DOCUMENTATION SPECIALIST): Continue metoprolol and isosorbide Assessment & Plan (10/03/2023 11:28 AM TECHNICAL DOCUMENTATION SPECIALIST): Continue metoprolol, isosorbide Assessment & Plan (08/24/2023 [...] dialysis Assessment & Plan (01/03/2025 2:17 PM TECHNICAL DOCUMENTATION SPECIALIST): Right femoral catheter removed in the access [...] admission. Assessment & Plan (10/03/2023 11:27 AM TECHNICAL DOCUMENTATION SPECIALIST): Ms. Dialysis yesterday for strenuous for concern [...] 15.1. Will likely need dialyzed today versus [facility]. Nurse spoke with Dr. Sheehan with nephrology [...] kept for catheter exchange today in the slab puller. Discussed the patient with Dr. Stevenson. Patient [...] and discussion of possible Perma catheter removal. Immunizations Immunization Administration Dates Next Due Influenza, Quadrivalent, Spl it, Preservative Free, Intramuscular 08/18/2021 Influenza, Unspecified 08/08/2020,2018,08/19/2016,08/26,10/06/2010 Pneumococcal Polysaccharide PPV23 2015,07/29/2016,06/15/2012,10/06 Tdap 04/30/2017 Social History Tobacco Use Types Packs/Day Years Used Date Smoking Tobacco: Never Smokeless Tobacco: Never Tobacco Cessation:Counseling Given: Not Answered [facility] Utilities Answer Date Recorded In the past 12 months has [employer], gas, oil, or water [employer] threatened to shut off services in your [...] often do you attend chur ch or yazidism services? More than 4 times per year 01/06/2025 Do you belong to any clubs o r organizations such as mandaeism groups, unions, fraternal or athletic groups, or [...] place to sleep or slept in a usp (including now)? No 07/11/2023 Housing Stability Vital Sign Answer Jr e Recorded In the last 12 months, was t here a time when you were not able to pay the mortgage or rent on time? No 01/06/2025 In the past 12 months, how m any times have you moved where you were living? 0 01/06/2025 At any time in the past 12 m [facility], were you homeless or living in a usp (including now)? No 01/06/2025 Personal Safety Answer Date Recorded Have you ever been in or are you currently in a harmful physical or emotional relationship or is someone making you feel afraid or unsafe? Denies 07/16/2025 Sex and Gender Information Value Date Recorded Sex Assigned at Not on file Legal Sex Male 8:33 PM TECHNICAL DOCUMENTATION SPECIALIST Gender Identity Not on file Sexual Orientation [...] Mass Index 30.82 07/10/2025 12:47 PM CDT Results * C. difficile testing Stool (07/16/2025 [...] 9:45 AM CDT 07/16/2025 9:49 AM CDT Boyd Mason DO LAB MICROBIOLOGY - GENERAL ORD ERABLES Final Result Performing Organization Address [facility] de Phone Number HORACIO [address] [place] [address] * (ABNORMAL) eGFR (07/16/2025 9:11 AM CDT) Pathologist [facility] eGFR 12(L) >=60 mL/min/1. 73 m2 Comment: [...] CDT 07/16/2025 9:13 AM CDT Boyd Mason DO LAB BLOOD ORDERABLES Final Res ult Performing Organization Address City/[facility] Co de Phone Number HORACIO [address] [place] [employer] [place] [address] * (ABNORMAL) Differential, auto (07/16/2025 9:11 AM CDT) Pathologist [facility] Neutrophil abs 10.04(H) 1.50 - 6.50 K/cumm Imm gran abs 0.06 0.00 - 0.10 K/cumm [facility] Lymphocyte abs 1.08 0.80 - 3.30 K/cumm [facility] Monocyte abs 1.10(H) 0.20 - 0.80 K/cumm [facility] Eosinophil abs 0.17 0.00 - 0.50 K/cumm [facility] Basophil abs 0.03 0.00 - 0.10 K/cumm [facility] Neutrophil pct 80.4 % [facility] Comment: Interpretive Data Percent cell count reference ranges are not reported, since discordance with absolute values may lead to misinterpretation of CBC data. Current Interpretive Data was last revised on 2018. Imm gran pct 0.5 % [facility] Comment: Interpretive Data Percent cell count reference ranges are not reported, since discordance with absolute values may lead to misinterpretation of CBC data. Current Interpretive Data was last revised on 2018. Lymphocyte pct 8.7 % [facility] Comment: Interpretive Data Percent cell count reference ranges are not reported, since discordance with absolute values may lead to misinterpretation of CBC data. Current Interpretive Data was last revised on 2018. Monocyte pct 8.8 % [facility] Comment: Interpretive Data Percent cell count reference ranges are not reported, since discordance with absolute values may lead to misinterpretation of CBC data. Current Interpretive Data was last revised on 2018. Eosinophil pct 1.4 % [facility] Comment: Interpretive Data Percent cell count reference ranges are not reported, since discordance with absolute values may lead to misinterpretation of CBC data. Current Interpretive Data was last revised on 2018. Basophil pct 0.2 % [facility] Comment: Interpretive Data Percent cell count reference ranges are not reported, since discordance with absolute values may lead to misinterpretation of CBC data. Current Interpretive Data was last revised on 2018. Blood 07/16/2025 9:11 AM CDT 07/16/2025 9:13 AM CDT us Boyd Mason DO LAB BLOOD ORDERABLES Final Res ult HORACIO MANRIQUEZ [address] [facility] Department [place] [address] * (ABNORMAL) CBC with auto differential (07/16/2025 9:11 AM CDT) WBC 12.48(H) 3.80 - 9.90 K/cumm Hgb 13.8 13.0 - 17.5 g/dL [facility] Hct 44.6 38.9 - 50.3 % [facility] Plt 256 150 - 400 K/cumm [facility] MPV 10.1 9.1 - 12.3 fL [facility] RBC 4.62 4.30 - 5.80 M/cumm [facility] MCV 96.5(H) 81.3 - 96.4 fL [facility] MCH 29.9 27.1 - 33.3 pg [facility] MCHC 30.9(L) 32.3 - 35.7 g/dL [facility] RDW CV 17.3(H) 11.1 - 14.9 % [facility] RDW SD 60.8(H) 35.7 - 48.1 fL [facility] NRBC abs 0.00 0.00 - 0.01 K/cumm [facility] Blood Venous blood specimen / Unknown 07/16/2025 9:11 AM CDT 07/16/2025 9:13 AM CDT Boyd Mason DO LAB BLOOD ORDERABLES Final Res ult Performing Organization Address [facility] Co de Phone Number [address] [place] [address] * Lipase (07/16/2025 9:11 AM CDT) [facility] Lipase 48 10 - 99 Units/L Blood Venous blood specimen / Unknown 07/16/2025 9:11 AM CDT 07/16/2025 9:13 AM CDT Boyd Mason DO LAB BLOOD ORDERABLES Final Res ult Performing Organization Address City/[facility] Co de Phone Number [address] [place] [place] [address] * (ABNORMAL) Comprehensive metabolic panel (07/16/2025 9:11 AM CDT) [facility] Sodium 139 135 - 145 mmol/L Potassium, pl 5.1(H) 3.3 - 4.9 mmol/L [facility] Comment:Hemolyzed; Potassium value may be falsely elevated by as much as 1.0 mmol/L. Suggest redraw and reanalysis. Chloride 101 97 - 110 mmol/L [facility] CO2 25 22 - 32 mmol/L [facility] Anion gap 13 2 - 15 mmol/L [facility] BUN 46(H) 6 - 25 mg/dL [facility] Creatinine 5.21(H) 0.80 - 1.30 mg/dL [facility] Glucose 76 70 - 199 mg/dL [facility] Comment: Interpretive Data Fasting glucose >/= 126 [...] 2022. Calcium 9.3 8.5 - 10.3 mg/dL [facility] Bilirubin, total 0.3 0.1 - 1.2 mg/dL [facility] Protein, pl 7.0 6.5 - 8.5 g/dL [facility] Albumin 3.1(L) 3.5 - 5.0 g/dL [facility] Alk phos 121 40 - 130 Units/L [facility] ALT 10 7 - 55 Units/L [facility] AST 32 10 - 50 Units/L [facility] Comment:Hemolyzed; result ma y be falsely elevated Blood 07/16/2025 9:11 AM CDT 07/16/2025 9:13 AM CDT us Boyd Mason DO LAB BLOOD ORDERABLES Final Res ult HOR[facility]IO [address] [facility] Department [place] [address] * NM MPI SPECT (Rest and/or Stress) Multiple Studies (07/10/2025 2:12 PM CDT) Anatomical Region Laterality Modality Body N/A Nuclear Medicine Narrative 07/10/2025 4:25 PM CDT Patient Id: Gordon Greene is a 59 y.o. male. MR#: [id number] Study date: 07/10/2025 Indications: Patient is adult [...] TID ratio 0.86 Impressions: Inferior infarct with llbi-pi-ebeyauuh john-infarct ischemia. Inferior hypokinesis noted Calculated ejection [...] BLOOD ORDERABLES Final Result EXTERNAL LAB * Lipid panel (05/30/2025) SCRIBED [...] BLOOD ORDERABLES Final Result Performing Organization Address City/[facility] Co de Phone Number EXTERNAL LAB * Comprehensive [...] BLOOD ORDERABLES Final Result Performing Organization Address [facility] Co de Phone Number EXTERNAL LAB * (ABNORMAL) Hemoglobin A1c (06/23/2023 6:57 PM CDT) Hgb A1C 5.7(H) 4.0 - 5.6 % [facility]IO MANRIQUEZ Estimated Average Glucose 117 mg/dL [facility] MANRIQUEZ Comment: The ADA recommends reporting an estimated Average Glucose (eAG) with all Hemoglobin A1c results using the equation derived from a study of 507 normal and diabetic adults. Minority populations were underrepresented and children were not included. (Diabetes Care 31:1004-5319, 2008). The eAG is not equivalent to a fasting glucose. Blood 06/23/2023 6:57 PM CDT 06/23/2023 7:03 PM CDT Karthikeyan Medrano MD LAB BLOOD ORDERABLES Final Result [facility] [address] [facility] Department [place] [address] * (ABNORMAL) Hepatitis panel, acute (10/17/2022 7:08 AM TECHNICAL DOCUMENTATION SPECIALIST) Hep A IgM Nonreactive Nonreactive [facility] Hep B core IgM Nonreactive Nonreactive [facility] Hep C Ab Reactive(A) Nonreactive [facility] Comment: Reactive for HCV antibodies. This may represent current or past HCV infection. Supplemental molecular testing will be automatically performed to determine current infection status in accordance with current CDC screening recommendations. Current interpretive data was last revised on 22 HepBsAg Nonreactive Nonreactive [facility] Blood 10/17/2022 7:08 AM TECHNICAL DOCUMENTATION SPECIALIST 10/17/2022 9:03 AM TECHNICAL DOCUMENTATION SPECIALIST Jason Beltran MD LAB MICROBIOLOGY - GENERAL ORDERABLES Final Result Performing Organization Address City/[facility]/ZIP Co de Phone Number [facility] Department [place] [address] from Last 3 Months or Most Recently Relevant to Health Maintenance
--- NOTE | 2025-08-04 19:10 | ED.GENADULT ---
HPI - General Adult General Chief complaint: Abdominal Pain Stated complaint: abd pain, blood stools Time Seen by Provider: 08/04/25 15:48 History of Present Illness HPI narrative: Patient is a 59-year-old male who presents ER with abdominal bloating and cramping. Reports he has been having increased flatus and belching for the last 4 weeks. No fevers or chills or sweats. He had diarrhea early on but now he is having formed stools. He is a dialysis patient. He is not taking any medication to control symptoms. Related Data Home Medications ?Medication ?Instructions ?Recorded ?Confirmed ?Last Taken ?Type apixaban 5 mg tablet (Eliquis) 5 mg PO BID 03/07/25 03/08/25 03/07/25 History Held on 03/12/25. Instructions: Resume on 03/17/25. atorvastatin 40 mg tablet 40 mg PO QPM 03/07/25 03/08/25 03/06/25 History buspirone 10 mg tablet 20 mg PO TID 03/07/25 03/08/25 Unknown History hydrocodone 5 mg-acetaminophen 325 1 tablet PO Q6H PRN pain 03/07/25 03/07/25 Unknown History mg tablet sertraline 100 mg tablet 100 mg PO QAM 03/07/25 03/08/25 03/07/25 History sevelamer carbonate 800 mg tablet 800 mg PO TID 03/07/25 03/08/25 Unknown History venlafaxine 75 mg capsule,extended 75 mg PO QAM 03/07/25 03/08/25 03/07/25 History release 24 hr acetaminophen 325 mg tablet 500 mg PO Q4H PRN pain (scale 03/08/25 03/08/25 Unknown History (Tylenol) score 1-3) albuterol sulfate 90 mcg/actuation 2 inh inhalation Q6H PRN shortness 03/08/25 03/08/25 Unknown History aerosol inhaler (Ventolin HFA) of breath or wheezing aspirin 81 mg capsule 81 mg PO DAILY 03/08/25 03/08/25 03/07/25 History Held on 03/12/25. Instructions: Resume on 03/17/25. linagliptin 5 mg tablet (Tradjenta) 5 mg PO DAILY 03/08/25 03/08/25 03/07/25 History midodrine 5 mg tablet 5 mg PO Q12H PRN hypotension 03/08/25 03/08/25 Unknown History omeprazole 40 mg capsule,delayed 40 mg PO DAILY 03/08/25 03/08/25 03/07/25 History release polyethylene glycol 3350 17 17 g PO DAILY PRN constipation 03/08/25 03/08/25 Unknown History gram/dose oral powder (Miralax) sevelamer carbonate 800 mg tablet 800 mg PO TID 03/08/25 03/08/25 03/07/25 History (Renvela) Allergies Allergy/AdvReac Type Severity Reaction Status Date / Time No Known Allergies Allergy Verified 08/04/25 15:02 Review of Systems Review of Systems: All systems reviewed & are unremarkable except as noted in HPI and below Constitutional: Constitutional: Reports no additional constitutional complaints ENT: Reports system reviewed and no additional complaints, except as documented Cardiovascular: Cardiovascular: Reports no additional cardiovascular complaints Respiratory: Respiratory: Reports no additional respiratory complaints Gastrointestinal: Gastrointestinal: Reports no additional gastrointestinal complaints [facility] Past Medical History Medical History Blood thinned due to long-term anticoagulant use Fecal impaction Acute on chronic anemia Arthritis Anxiety GERD (gastroesophageal reflux disease) Depression Woodlyn spotted fever Frequent falls Psoriasis Obesity Hyperlipidemia Hypertension Peripheral vascular disease Congestive heart failure CAD (coronary artery disease) Diabetes Chronic atrial fibrillation Surgical History Surgical History S/P dialysis catheter insertion Amputation of left great toe Family History Family History Mother Depression Pulmonary fibrosis Social History Social History Smoking status: Former smoker Alcohol intake: former Substance use: never Do You Feel Safe in your Home?: Yes Lack of Transportation: No Lack of Food: Never True Current Housing: I Have Housing Concerned About Future Housing: No Difficulty Paying Gas/Electric Bills: No Difficulty Paying for Meds: No Currently Unemployed: No Education: Decline to Answer Difficulty w/ Childcare or Family Care: No Spiritual care concerns: No Exam Narrative: GENERAL: Well-appearing, well-nourished, and in no acute distress. HEAD: Normocephalic, atraumatic. ENT: Mucous membranes moist. CHEST: Clear to auscultation. No respiratory distress. HEART: Regular rate and rhythm. Normal peripheral pulses. ABDOMEN: Soft, nontender, nondistended. EXTREMITIES: Normal range of motion. No edema. SKIN: Warm, dry, no rash. NEURO: Alert and oriented x3. PSYCH: Normal mood and affect. Course Course Emergency Course: Patient has noticed less gas after simethicone unless cramping after dicyclomine. Will discharge home with similar medications. Lab work mild leukocytosis, normal range hemoglobin, elevated creatinine due to dialysis. Potassium is 4.9. Abdomen is soft/nontender. Vital Signs Vital signs: Vital Signs Temperature 97.8 F 08/04/25 14:54 Pulse Rate 75 08/04/25 14:54 Respiratory Rate 18 08/04/25 14:54 Blood Pressure 141/37 H 08/04/25 14:54 Pulse Oximetry 100 08/04/25 14:54 Oxygen Delivery Room Air 08/04/25 14:54 Temperature 97.8 F 08/04/25 14:54 Pulse Rate 79 08/04/25 16:35 Respiratory Rate 20 08/04/25 16:35 Blood Pressure 157/69 H 08/04/25 16:35 Pulse Oximetry 100 08/04/25 16:35 Oxygen Delivery Room Air 08/04/25 14:54 Medical Decision Making Vital Signs Vital Signs: Vital Signs Temperature 97.8 F 08/04/25 14:54 Pulse Rate 75 08/04/25 14:54 Respiratory Rate 18 08/04/25 14:54 Blood Pressure 141/37 H 08/04/25 14:54 Pulse Oximetry 100 08/04/25 14:54 Oxygen Delivery Room Air 08/04/25 14:54 Temperature 97.8 F 08/04/25 14:54 Pulse Rate 79 08/04/25 16:35 Respiratory Rate 20 08/04/25 16:35 Blood Pressure 157/69 H 08/04/25 16:35 Pulse Oximetry 100 08/04/25 16:35 Oxygen Delivery Room Air 08/04/25 14:54 Lab Data 08/04/25 15:17 08/04/25 15:17 Labs: Lab Results 08/04/25 Range/Units 15:17 WBC 13.1 H (4.5-10.0) K/mm3 RBC 4.51 L (4.6-6.20) M/mm3 Hgb 13.0 L D (14.0-18.0) g/dL Hct 41.5 L (42.0-52.0) % MCV 92.0 (80-100) fl MCH 28.8 (26-34) pg MCHC 31.3 L (32-36) g/dl RDW 15.6 H (11.5-14.5) % Plt Count 324 (150-375) k/mm3 MPV 9.5 (7.4-10.4) fl Immature Gran % (Auto) 0.5 (0-0.5) % Neut % (Auto) 75.9 H (45.5-73.1) % Lymph % (Auto) 9.3 L (18.3-44.2) % Wilkes % (Auto) 13.1 H (2.6-8.5) % Eos % (Auto) 1.0 (0-4.4) % Baso % (Auto) 0.2 (0.2-1.2) % Lymph # (Auto) 1.22 (0.9-3.2) K/mm3 Wilkes # (Auto) 1.7 H (0.1-0.6) K/mm3 Eos # (Auto) 0.1 (0-0.3) K/mm3 Baso # (Auto) 0.0 (0.0-0.1) K/mm3 Abs Immat Gran (auto) 0.06 H (0.00-0.031) K/mm3 Absolute Neuts (auto) 10.0 H (1.3-6.7) K/mm3 Absolute Nucleated RBC 0.000 (0.0-0.012) K/mm3 Nucleated RBC % 0.0 (0.0-0.2) % PT 17.9 H (11.1-14.7) Seconds INR 1.5 APTT 44.2 H (22.3-36.8) Seconds Sodium 134 L (137-145) mmol/L Potassium 4.9 (3.4-5.0) mmol/L Chloride 91 L (98-107) mmol/L Carbon Dioxide 35 H (22-30) mmol/L Anion Gap 8 (4-12) mmol/L BUN 40 H D (9-20) mg/dL Creatinine 5.06 H (0.7-1.3) mg/dL Estim Creat Clear Calc 14 ml/min Estimated GFR 12 L (59 - ) Glucose 72 (65-110) mg/dL Calcium 9.7 (8.4-10.2) mg/dL Total Bilirubin 0.4 (0.2-1.3) mg/dL AST 26 (17-59) U/L ALT 8 (6-50) U/L Alkaline Phosphatase 128 H (38-126) U/L Total Protein 8.3 H (6.3-8.2) g/dL Albumin 3.9 (3.5-5.1) g/dL Blood Type O Positive Antibody Screen Negative Discharge Plan Discharge Clinical Impression: Abdominal bloating with cramps Patient Disposition: Home Condition: Stable Instructions: Gas and Bloating (ED) Additional Instructions: Return to the emergency department if you develop severe abdominal pain, severe nausea and vomiting to the point where you are unable to keep down fluids, if you develop chest pain or difficulty breathing, blood in your stool, dizziness or fainting, or if you develop any other new or concerning symptoms as these could be signs of more serious medical illness. Try to stay well hydrated. Patient Language: Bulgarian Prescriptions: New simethicone 125 mg capsule 125 mg PO QID Qty: 20 0RF Rx Instructions: administer after meals and at bedtime dicyclomine 20 mg tablet 20 mg PO QID Qty: 20 0RF No Action atorvastatin 40 mg tablet 40 mg PO QPM Eliquis 5 mg tablet 5 mg PO BID buspirone 10 mg tablet 20 mg PO TID hydrocodone-acetaminophen 5-325 mg tablet 1 tablet PO Q6H PRN (Reason: pain) sertraline 100 mg tablet 100 mg PO QAM sevelamer carbonate 800 mg tablet 800 mg PO TID Rx Instructions: WITH MEALS venlafaxine 75 mg capsule,extended release 24hr 75 mg PO QAM albuterol sulfate [Ventolin HFA] 90 mcg/actuation HFA aerosol inhaler 2 inh INHALATION Q6H PRN (Reason: shortness of breath or wheezing) omeprazole 40 mg capsule,delayed release(DR/EC) 40 mg PO DAILY Tradjenta 5 mg tablet 5 mg PO DAILY aspirin 81 mg capsule 81 mg PO DAILY sevelamer carbonate [Renvela] 800 mg tablet 800 mg PO TID Rx Instructions: must administer with a meal/food acetaminophen [Tylenol] 325 mg tablet 500 mg PO Q4H PRN (Reason: pain (scale score 1-3)) polyethylene glycol 3350 [Miralax] 17 gram/dose powder 17 g PO DAILY PRN (Reason: constipation) midodrine 5 mg tablet 5 mg PO Q12H PRN (Reason: hypotension) Rx Instructions: ON DIALYSIS DAYS; // metronidazole 500 mg tablet 500 mg PO Q8H Qty: 10 0RF losartan 25 mg tablet 25 mg PO DAILY Qty: 30 0RF levofloxacin 500 mg tablet 500 mg PO Q48H Qty: 2 0RF Follow-up/Referrals: Yogesh,Beau Dixon MD [Primary Care Provider] - 1 Week
[2025-08-04 19:50] VITALS: BP 137/99
--- NOTE | 2025-08-04 19:50 | PC.NURSE ---
Attempted to call report to [facility] with no answer.
== END 2025-08-04 19:50 | disposition home or self-care (01) ==
PROVIDERS: Emergency Provider Emergency Medicine; PCP Family Medicine
DX: R14.0 Abdominal distension (gaseous) (principal); I10 Essential (primary) hypertension; E78.5 Hyperlipidemia, unspecified; I25.10 Atherosclerotic heart disease of native coronary artery without angina pectoris; E11.9 Type 2 diabetes mellitus without complications; I48.20 Chronic atrial fibrillation, unspecified; Z87.891 Personal history of nicotine dependence
CPT/HCPCS: 36415; 80053; 85025; 85610; 85730; 86850; 86900; 86901; 99283; A9270